=== PATIENT | male | born 1960 | race Two or more races ===

== ENCOUNTER 2020-08-09 14:34 | Outpatient (REF) | payer MEDICARE, MEDICAID, SELFPAY | END 2020-08-09 14:35 | disposition home or self-care (01) | LOC: HO.LAB 14:34 | PROVIDERS: Visit Provider Internal Medicine | DX: Z20.828 Contact with and (suspected) exposure to other viral communicable diseases (principal) | CPT/HCPCS: C9803; U0003 ==

== ENCOUNTER → 2021-11-23 14:36 | Outpatient (BNVA) | payer MEDICARE, MEDICAID, SELFPAY | PROVIDERS: PCP Student in an Organized Health Care Education/Training Program; Visit Provider Physician Assistant | DX: Z12.11 Encounter for screening for malignant neoplasm of colon (principal) | CPT/HCPCS: 99202 ==

== ENCOUNTER 2022-02-07 11:04 | Day surgery (SDC) | payer MEDICARE, MEDICAID, SELFPAY ==
[2022-02-01 15:32] VITALS: BMI 30.8
--- NOTE | 2022-02-06 12:08 | HO.ANESPROP2 ---
Documented by User: Micaela Mann NP 02/06/22 12:08 HPI - Anesthesia Eval Consult details Narrative: 61yo M for Colonoscopy PMFSH Active Problems Active Problems: All Active Problems (Updated 02/01/22 @ 15:27 by Karuna Eugene RN) Asthma (Acute) Encounter for screening colonoscopy (Acute) Past Medical History Medical History (Updated 02/01/22 @ 15:27 by Karuna Eugene RN) Asthma Elevated cholesterol Hx of sprain of wrist Family History Family History Mother Advanced dementia Diabetes HTN (hypertension) Father HTN (hypertension) Surgical History Surgical History (Updated 02/01/22 @ 15:26 by Karuna Eugene RN) Hx of colonoscopy Social History Social History (Updated 11/23/21 @ 15:08 by Suzy Shaikh PA-C) Household Members Other:: alone Alcohol intake: current Patient Tobacco Use Status: Never used Tobacco Use of substances other than those prescribed or required for medical reasons: No Are you DNR?: No Advance Directives: No Advance Directives Information Provided: Yes Recently lost weight without trying: No Nutrition Risks: No Nutritional Risk Current occupational status: disabled Meds Allergies Allergy/AdvReac Type Severity Reaction Status Date / Time No Known Allergies Allergy Unverified 05/12/20 15:15 Home Medications Medication Instructions Recorded Confirmed Last Taken Type albuterol sulfate 90 mcg/actuation 2 puff PO Q4H PRN Wheezing 11/23/21 02/01/22 Unknown History aerosol inhaler gemfibrozil 600 mg tablet 600 mg PO BID 11/23/21 02/01/22 Unknown History ibuprofen 600 mg tablet 600 mg PO BID PRN Pain 11/23/21 02/01/22 Unknown History zolpidem 10 mg tablet 10 mg PO BEDTIME 11/23/21 02/01/22 Unknown History Exam Exam Date and Time: February 06, 2022 1208 Height,Weight and Vital Signs: Height 5 ft 5 in Weight 84 kg Assessment and Plan Assessment Anesthesia Assessment: Chart Reviewed Documented by User: Nely Novoa MD 02/07/22 13:26 [facility] Past Medical History Medical History (Updated 02/01/22 @ 15:27 by Karuna Eugene RN) Asthma Elevated cholesterol Hx of sprain of wrist Family History Family History Mother Advanced dementia Diabetes HTN (hypertension) Father HTN (hypertension) Family history of problems with anesthesia: No Surgical History Surgical History (Updated 02/01/22 @ 15:26 by Karuna Eugene RN) Hx of colonoscopy History of Problems with Anesthesia: No Social History Social History (Updated 11/23/21 @ 15:08 by Suzy Shaikh PA-C) Household Members Other:: alone Alcohol intake: current Patient Tobacco Use Status: Never used Tobacco Use of substances other than those prescribed or required for medical reasons: No Are you DNR?: No Advance Directives: No Advance Directives Information Provided: Yes Recently lost weight without trying: No Nutrition Risks: No Nutritional Risk Current occupational status: disabled Meds Allergies Allergy/AdvReac Type Severity Reaction Status Date / Time No Known Allergies Allergy Unverified 05/12/20 15:15 Home Medications Medication Instructions Recorded Confirmed Last Taken Type albuterol sulfate 90 mcg/actuation 2 puff PO Q4H PRN Wheezing 11/23/21 02/01/22 Unknown History aerosol inhaler gemfibrozil 600 mg tablet 600 mg PO BID 11/23/21 02/01/22 Unknown History ibuprofen 600 mg tablet 600 mg PO BID PRN Pain 11/23/21 02/01/22 Unknown History zolpidem 10 mg tablet 10 mg PO BEDTIME 11/23/21 02/01/22 Unknown History Exam Height,Weight and Vital Signs: Height 5 ft 5 in Weight 84 kg Vital Signs Temp Pulse Resp BP Pulse Ox O2 Del Method 96.8 F 92 16 161/93 H 99 02/07/22 11:20 02/07/22 11:20 02/07/22 11:20 02/07/22 11:20 02/07/22 11:20 02/07/22 11:20 Airway Mallampati Class: II TM Dist: >3cm Neck ROM: Full Loose/Missing/Broken Teeth: No Heart: RRR Lungs: CTAB Assessment and Plan Assessment Anesthesia Assessment: Anesthesia Plan Discussed Final Anesthetic Review Family History of Problems with Anesthesia: No History of Problems with Anesthesia: No NPO: Yes ASA Class: II Final Preanesthetic Review: No Changes in Pt Med Stat, Meds/Allgs Chart Reviewed, Consent Obtained/Reviewed and Anes Risks/Benef Reviewed Patient Risk: Low Procedure Risk: Low Assessment/Block/Sedation in SS: Assess/Block/Sedation-SS Anesthetic Plan Anesthetic Plan: MAC: Disposition: Standard PACU
[2022-02-07 11:12] VITALS: BMI 29.1
[2022-02-07 11:20] VITALS: BP 161/93; PULSE 92; RESP 16; TEMP 36; O2SAT 99
[2022-02-07] MEDS: Lactated Ringers 1,000 ML 100 ML IVCONT (11:31)
--- NOTE | 2022-02-07 11:59 | MHC.SHP ---
Pre-Procedural Eval Section A Date of Service: 02/07/22 Section B Chief Complaint: screening Relevant Family History (Specify if Yes): No Relevant Social History: None Present Medications: see Short Stay Collaborative assessment Medical History: Significant History (Asthma Elevated cholesterol Hx of sprain of wrist) History of Previous Operations: Relevant previous surgery/procedure and date(s) (colonoscopy) Allergies: Allergies Allergy/AdvReac Type Severity Reaction Status Date / Time No Known Allergies Allergy Unverified 05/12/20 15:15 Review of Systems Sugical H&P ROS: Negative: Constitution, Cardiovascular, Respiratory, Neurological, Psychiatric, Hem-Onc, Allergic/Immunologic, Gastrointestinal, Genitourinary, Musculoskeletal, Integumentary, Endocrine and Eyes/Ears/Nose/Throat Exam Surgical H&P Exam: Normal: HEENT, Normal: Heart, Normal: Lungs, Normal: Extremities, Normal: Abdomen, Normal: Skin and Normal: Neurological Plan Diagnosis/Plan: Unchanged I have reviewed the history and physical and performed a pertinent physical examination on my patient. No changes have occurred unless specified.
--- NOTE | 2022-02-07 12:06 | PM.OP ---
Brief Operative Note Date of Service: 02/07/22 Pre-op diagnosis: colon screening Post-op diagnosis: same Procedure: see op note Surgeon: Mehnaz Rust MD Anesthesia: MAC Was an [employer] used for this Procedure?: No Estimated blood loss (mL): 0 Condition: stable Disposition: PACU
--- NOTE | 2022-02-07 12:07 | W.PM.OPN ---
Operative Note Operative Note Date of Service: 02/07/22 Narrative: Operative Information Procedure Description: Colonoscopy Indication: colon screening Anesthesia: MAC COLONOSCOPY Instrument: Olympus variable stiffness pediatric scope 190L Colonoscopy Monitoring: Vital signs and clinical assessment, continuous EKG monitoring, Pulse oximetry, Carbon Dioxide monitoring and blood pressure monitoring were done throughout the procedure. Colon withdrawal time was 9 minutes. Procedure: The patient was placed in the left lateral decubitis position and pre-procedure medications were administered. After a digital rectal examination of the ano-rectum, the video colonoscope was inserted into the rectum and advanced through the colon to the cecum/TI. The colonoscope was slowly withdrawn in a retrograde panoramic fashion and the colon mucosa was carefully examined including a retroflexed view of the rectum. Findings and interventions are described below. Procedure Difficulty: easy Findings: Terminal Ileum-normal right sided retroflexion: 5-7 mm sessile polyp removed with cold forceps Cecum:normal Ascending Colon: normal Transverse Colon -normal Descending Colon:normal Sigmoid Colon: 10 mm sessile polyp removed with cold snare Rectum: Retroflexion with small internal hemorrhoids, grade II Anorectum - internal hemorrhoids seen on forward view Colon preparation: [place] Bowel Preparation Scale Right colon; 2 Transverse colon: 2 Left colon; 2 (0 = Unprepared colon segment with mucosa not seen due to solid stool that cannot be cleared. 1 = Portion of mucosa of the colon segment seen, but other areas of the colon segment not well seen due to staining, residual stool and/or opaque liquid. 2 = Minor amount of residual staining, small fragments of stool and/or opaque liquid, but mucosa of colon segment seen well. 3 = Entire mucosa of colon segment seen well with no residual staining, small fragments of stool or opaque liquid) Impression and Post Procedure Diagnosis: polyps internal hemorrhoids Plan: High fiber diet leaflet Avoid straining at stool, epsom salts and sitz bath, anusol supps or cream Repeat Colonoscopy in 5-6 years or earlier if clinically indicated Above findings were reviewed with the patient and relevant handouts were provided if indicated.
[2022-02-07 13:13] VITALS: BP 110/72; PULSE 54; RESP 16; TEMP 36.2; O2SAT 99
[2022-02-07 13:28] VITALS: BP 130/88; PULSE 59; RESP 16; TEMP 36.2; O2SAT 100
== END 2022-02-07 13:55 | disposition home or self-care (01) ==
PROVIDERS: PCP Student in an Organized Health Care Education/Training Program; Visit Provider Internal Medicine Gastroenterology
PROC: 0DJD8ZZ Inspection of Lower Intestinal Tract, Via Natural or Artificial Opening Endoscopic (ICD-10-PCS; CPT 45378; principal; 2022-02-07 12:10)
DX: Z12.11 Encounter for screening for malignant neoplasm of colon (principal); D12.2 Benign neoplasm of ascending colon; D12.5 Benign neoplasm of sigmoid colon; K64.1 Second degree hemorrhoids; J45.909 Unspecified asthma, uncomplicated; Z79.1 Long term (current) use of non-steroidal anti-inflammatories (NSAID); Z79.899 Other long term (current) drug therapy
CPT/HCPCS: 45385; 45380; 88305

== ENCOUNTER → 2022-02-21 14:53 | Outpatient (BNVA) | payer MEDICARE, MEDICAID, SELFPAY | PROVIDERS: PCP Student in an Organized Health Care Education/Training Program; Visit Provider Physician Assistant | DX: K64.9 Unspecified hemorrhoids (principal); D12.6 Benign neoplasm of colon, unspecified | CPT/HCPCS: 99212 ==

== ENCOUNTER 2022-04-25 10:57 | Inpatient (IN) | payer MEDICARE, MEDICAID, SELFPAY ==
--- NOTE | ~2022-04-25 | US_ITS ---
EXAMINATION: US ABDOMEN LIMITED CLINICAL INFORMATION: Right upper quadrant pain, elevated LFTs.. COMPARISON: None TECHNIQUE: Real-time imaging of the right upper quadrant abdominal viscera. FINDINGS: PANCREAS: The pancreas is heterogeneous. No focal lesion seen.. LIVER: The liver is normal in size. The liver contour is normal. Parenchymal echogenicity is increased. No focal hepatic lesion. There is no intrahepatic biliary duct dilatation seen. Normal antegrade flow seen in the portal vein. GALLBLADDER: There is echogenic bile without echogenic stones. There is mild wall thickening measuring 0.45 cm. However the gallbladder is mildly enlarged with pericholecystic fluid collection. There is no tenderness with ultrasound probe. COMMON BILE DUCT: Normal in caliber measuring 0.34 cm in diameter. RIGHT KIDNEY: Normal. No hydronephrosis. No renal calculi or focal parenchymal lesions. The kidney measures 11.3 cm in maximum dimension. FREE FLUID: None. US/US abdomen limited IMPRESSION: Heterogeneous pancreas without enlargement. Echogenic bile but no wall thickening or tenderness in right upper quadrant. The gallbladder is distended mild pericholecystic fluid collection. Question acalculus cholecystitis. Correlate with pharmaceutical augmented HIDA scan.
--- NOTE | ~2022-04-25 | CT_ITS ---
EXAMINATION: CT ABDOMEN AND PELVIS WITH CONTRAST CLINICAL INFORMATION: Right upper quadrant and epigastric pain COMPARISON: Abdominal ultrasound earlier today TECHNIQUE: Multidetector volumetric images were obtained from the superior aspect of the liver through the pubic symphysis following administration 85 mL of Omnipaque 350 intravenous contrast. Sagittal and coronal reformatted images were obtained on the technologist's workstation. This CT examination was performed using dose optimization techniques as appropriate, variously including the following: *Automated exposure control *Adjustment of mA and/or kV according to patient size (this includes techniques or standardized protocols for targeted exams where dose is matched to indication/reason for exam; i.e. extremities or head) *Use of iterative reconstruction technique DLP: 686 mGy-cm FINDINGS: Visualized lung bases are well aerated. The liver demonstrates normal size, contour and attenuation. The gallbladder is mildly prominent in size but otherwise unremarkable. The pancreas is normal in size with relatively homogeneous enhancement. Some mild mesenteric stranding is suspected adjacent to the pancreatic tail, nonspecific. The spleen is normal in size although there appears to be some peripheral calcifications along the lateral surface of the spleen. Symmetrically enhancing kidneys. There is no hydronephrosis of either kidney. There are a few sub-5 mm renal hypodensities bilaterally which are too small to accurately characterize. The adrenal glands are unremarkable. Tiny hiatal hernia. The stomach is relatively decompressed. Normal caliber loops of small and large bowel. Mild colonic diverticulosis without CT evidence to suggest active diverticulitis. Normal caliber abdominal aorta demonstrating minimal atherosclerotic disease. No retroperitoneal lymphadenopathy. The bladder is normal in appearance. The prostate gland is normal in size. No gross free pelvic fluid. No inguinal lymphadenopathy. Mild diffuse degenerative changes of the spine. CT/CT abdomen pelvis w IV con IMPRESSION: -The pancreas demonstrates relatively homogeneous enhancement, however, there is suggestion of some mild mesenteric stranding adjacent to the pancreatic tail. A very mild pancreatitis would be within the differential. Correlation with amylase and lipase is recommended. Fleischner guidelines were followed.
--- NOTE | ~2022-04-25 | MR_ITS ---
EXAMINATION: MR ABDOMEN WITHOUT CONTRAST CLINICAL INFORMATION: Pancreatitis. Rule out stone. COMPARISON: Previous abdominal ultrasound and CT of the abdomen and pelvis 04/25/2022 TECHNIQUE: MR abdomen is performed without gadolinium contrast. MRCP sequences were also performed. FINDINGS: LUNG BASES: The visualized lung bases are unremarkable. LIVER, GALLBLADDER, AND BILIARY TREE: The liver is normal in size, smooth in contour, and normal in signal. No focal hepatic lesion. The gallbladder is upper normal in size measuring 3.5 x 10.7 cm in dimension on axial images. There is question of sludge or tiny gallstones in the gallbladder seen on coronal T2 image 18 series 8. The gallbladder wall is upper normal in thickness measuring 3 to 4 mm. There is pericholecystic fluid. There is no intra or extrahepatic biliary duct dilatation. The common bile duct measures 3 mm. No common bile duct stone is seen. PANCREAS: Pancreas is normal in size and signal. There is some increased T2 signal in the peripancreatic fat questionable for mild pancreatitis. No peripancreatic fluid collection. No ascites. The main pancreatic duct does not appear dilated measuring 2 mm. SPLEEN: Unremarkable. ADRENAL GLANDS: Unremarkable. KIDNEYS AND URETERS: The kidneys are normal in size and shape. No hydronephrosis. No perinephric stranding. GASTROINTESTINAL TRACT: No bowel obstruction. No ascites or fluid collection. ABDOMINAL WALL: No significant hernia is appreciated. LYMPH NODES: No lymphadenopathy. VASCULAR: Unremarkable. OSSEOUS STRUCTURES: Marrow signal normal. MR/MR MRCP IMPRESSION: Upper normal-size gallbladder. Upper normal thickness gallbladder wall and pericholecystic fluid. Question small gallstones or sludge in the gallbladder. Possible cholecystitis should be considered. Normal caliber intrahepatic and extrahepatic bile ducts. No common bile duct stone seen. Slight increased T2 signal surrounding pancreas questionable mild pancreatitis.
[2022-04-25 11:06] VITALS: BP 146/89; PULSE 67; RESP 20; TEMP 36.9; O2SAT 98; BMI 29.1
[2022-04-25 11:25] LABS: MANUAL DIFF FLAG NO
[2022-04-25 11:26] LABS: Basophils Percent Auto 0.4 % (0-2); Eosinophils Percent Auto 0.2 % (0-4); Hematocrit 44.6 % (42.0-52.0); Hemoglobin 15.9 g/dl (14.0-18.0); Imm Gran Abs Auto 0.02 X10*3/uL (0.00-0.03); Imm Gran Pct Auto 0.4 % (0.0-0.4); Lymphocytes Absolute Auto 0.6 X10*3/uL (1.2-4.9); Lymphocytes Percent Auto 10.2 % (20-40); Mean Corpuscular HGB Conc 35.7 g/dl (31.0-36.0); Mean Corpuscular Hemoglobin 35.2 pg (27.0-33.0); Mean Corpuscular Volume 98.7 fL (80.0-98.0); Mean Platelet Volume 9.5 fL (9.4-12.4); Monocytes Absolute Auto 0.5 X10*3/uL (0.1-1.2); Monocytes Percent Auto 9.5 % (2-11); Neutrophils Absolute Auto 4.4 x10*3/uL (2.0-8.3); Neutrophils Percent Auto 79.3 % (45-73); Platelet Count 146 X10*3/uL (160-400); Red Blood Count 4.52 X10*6/uL (4.60-5.80); Red Cell Distribution Width 12.6 % (11.0-16.0); White Blood Count 5.5 X10*3/uL (4.8-10.8)
[2022-04-25 11:37] LABS: Appearance Urine Cloudy; Color Urine Dark Yellow; Glucose Urine UA Negative (Negative); Leukocyte Esterase Urine Trace (Negative); Nitrite Urine Negative (Negative); PH 6.5 (5.0-9.0); Specific Gravity - Urine 1.025 (1.005-1.025); Urine Blood Negative (Negative); Urine Ketones 15 mg/dL (Negative); Urine Protein 30 (1+) mg/dL (Neg-Trace)
[2022-04-25 11:39] LABS: Bacteria Urine None Seen (None Seen); Hyaline Casts Urine 0-2 /LPF (0-2); RBC Urine 0-2 /HPF (0-2); Squamous Epithelial Cell Urine 0-2 /HPF (0-2); WBC Urine 0-5 /HPF (0-5)
[2022-04-25 12:09] LABS: Anion Gap 20 (12-20); Blood Urea Nitrogen 14 mg/dL (9-16); Calcium 9.7 mg/dL (8.4-10.2); Carbon Dioxide 22 mmol/L (22-29); Chloride 100 mmol/L (96-108); Creatinine Clr Calc Pharmacy 92.9; Estimated Glomerular Filt Rate > 60; Glucose Random 119 mg/dL (60-115); Potassium 3.9 mmol/L (3.3-5.1); Sodium 138 mmol/L (135-145)
[2022-04-25] MEDS: Acetaminophen 325 MG TABLET 975 MG PO (13:42)
[2022-04-25 13:52] LABS: Alanine Aminotransferase 141 U/L (0-40); Albumin Level 4.5 g/dL (3.5-5.0); Alkaline Phosphatase 170 U/L (39-117); Aspartate Amino Transferase 274 U/L (5-37); Bilirubin Direct 3.9 mg/dL (0.0-0.5); Bilirubin Total 5.6 mg/dL (0.0-1.0); Lipase 9375 U/L (8-78); Total Protein 7.6 g/dL (6.5-8.0)
--- NOTE | 2022-04-25 16:14 | ED_ITS ---
HPI - Back Pain/Injury General Chief Complaint: Back Pain/Injury Stated Complaint: abd pain, back pain Time Seen by Provider: 04/25/22 11:50 Source: patient Mode of arrival: ambulatory Limitations: no limitations History of Present Illness HPI Narrative: Patient comes in a room complaining of bilateral back pain. Patient states that he was walking, then he started feeling discomfort over the paraspinal muscles b ilateral. Patient states it hurt for about 2 hours yesterday., then the pain subsided. Later on the day yesterday, patient states that he was feeling the muscle burning sensation over the paraspinal muscles. Patient states that he has noticed that over the last few days, he has been having also abdominal pain, worse in the right upper quadrant. States that his urine has become darker intermittently over the last few weeks. Patient denies nausea vomiting or diarrhea. Related Data Home Medications Medication Instructions Recorded Confirmed albuterol sulfate 90 mcg/actuation 2 puff PO Q4H PRN Wheezing 11/23/21 04/25/22 aerosol inhaler gemfibrozil 600 mg tablet 600 mg PO BID 11/23/21 04/25/22 ibuprofen 600 mg tablet 600 mg PO BID PRN Pain 11/23/21 04/25/22 zolpidem 10 mg tablet 10 mg PO BEDTIME PRN Sleep 11/23/21 04/25/22 Previous Rx's Medication Instructions Recorded docusate sodium 100 mg capsule 200 mg PO BEDTIME #60 caps 02/21/22 (Colace) hydrocortisone 2.5 % topical cream 1 appl [place] BEDTIME PRN hemorrhoids 02/21/22 with perineal applicator #30 grams (Proctosol HC) polyethylene glycol 3350 17 17 g PO DAILY #510 grams 02/21/22 gram/dose oral powder (Miralax) Allergies Allergy/AdvReac Type Severity Reaction Status Date / Time No Known Allergies Allergy Verified 02/21/22 14:54 Review of Systems Review of Systems: Constitutional : No Weight loss, No Fever, No Chills, No Night Sweats, No Fatigue, No Malaise ENT/Mouth : No Hearing loss, No Ear Pain, No Nasal Congestion, No Sinus Pain, No Hoarseness, No sore throat, No Rhinorrhea, No Swallowing Difficulty Eyes: No Eye Pain, No Swelling, No Redness, No Foreign Body, No Discharge, No Vision Changes Cardiovascular : No Chest Pain, No SOB, No Dyspnea on Exertion, No Orthopnea, No Edema, No Palpitations Respiratory : No Cough, No Sputum, No Wheezing, No Smoke Exposure, No Dyspnea Gastrointestinal : No Nausea, No Vomiting, No Diarrhea, No Constipation, complaining of right upper quadrant pain, dark urine Genitourinary : nNo Dysuria, No Urinary Frequency, No Hematuria, No Urinary Incontinence, No Urgency, No Flank Pain, No Urinary Flow Changes, No Hesitancy Musculoskeletal : Complaining of bilateral para muscle pain mid back, no CVA tenderness No joint pain, No Myalgias, No Joint Swelling Skin : No Skin Lesions, No rash Neuro : No Weakness, No Numbness, No Paresthesias, No Loss of Consciousness, No Dizziness, No Headache Psych : No Anxiety/Panic, No Depression, No SI/HI/AH/VH, No Social Issues, Heme/Lymph: No Bruising, No Bleeding,No Lymphadenopathy Endocrine : No Polyuria, No Polydipsia, No Temperature Intolerance PMFSH Past Medical History Medical History Asthma Elevated cholesterol Hx of sprain of wrist Surgical History Hx of colonoscopy Family History Family History Mother Advanced dementia Diabetes HTN (hypertension) Father HTN (hypertension) Social History Social History Household Members Other:: alone Alcohol intake: current Patient Tobacco Use Status: Never used Tobacco Advance Directives: No Advance Directives Information Provided: No Current occupational status: disabled Physical Exam Vital Signs: Vital Signs: Last Vital Signs Temp 98.9 F 04/25/22 16:20 Pulse 66 04/25/22 16:20 Resp 18 04/25/22 19:46 BP 174/86 H 04/25/22 16:20 Pulse Ox 97 04/25/22 16:20 O2 Del Method 04/25/22 16:20 BMI result Body Mass Index 29.1 Const: Other: Appearance: Alert. Oriented X3. No acute distress. Eyes: Pupils equal, round and reactive to light. ENT: Pharynx normal. Neck: Normal inspection. Neck supple. No lymph nodes noted. No crepitus CVS: Normal heart rate and rhythm. Pulses normal. Normal S1 and S2 Respiratory: No respiratory distress. Breath sounds normal. No Wheezing. No rales Abdomen: Soft, no distension, mild tenderness to palpation in the entire abdomen and except the left lower quadrant. Tenderness since to be more intense at the right upper quadrant. Skin: Skin warm and dry. Normal skin color. Normal skin turgor. Extremities: No lower extremity edema. No Lacerations. No Rash Neuro: Oriented X 3. No motor deficit. No sensory deficit. Moving all extremities. No slurred speech. CN 2 through 12 grossly intact Psych: calm, cooperative, normal affect Course Course Course Narrative: Patient receiving IV morphine for pain control. Patient's LFTs are elevated. Ultrasound shows that the gallbladder is distended with mild pericholecystic fluid collection, question of a calculus cholecystitis, recommendation: Correlate with pharmaceutical augmented HIDA scan Lipase is elevated, above 9000, CT scan shows possible mild pancreatitis It is likely that the patient had cholecystitis and passed a stone. Patient will be admitted by Internal Medicine, and surgery will be consulted in the morning. Patient received morphine for pain control, did not work well, patient now received 1 dose of Dilaudid. I discussed the patient with Dr. Damon, patient being admitted MDM - Back Pain/Injury Lab Data Result diagrams: 04/25/22 11:20 04/25/22 11:20 Labs: Lab Results 04/25/22 04/25/22 04/25/22 Range/Units 11:17 11:20 11:20 WBC 5.5 (4.8-10.8) X10*3/uL RBC 4.52 L (4.60-5.80) X10*6/uL Hgb 15.9 (14.0-18.0) g/dl Hct 44.6 (42.0-52.0) % MCV 98.7 H (80.0-98.0) fL MCH 35.2 H (27.0-33.0) pg MCHC 35.7 (31.0-36.0) g/dl RDW 12.6 (11.0-16.0) % Plt Count 146 L (160-400) X10*3/uL MPV 9.5 (9.4-12.4) fL Immature Gran % (Auto) 0.4 (0.0-0.4) % Neut % (Auto) 79.3 H (45-73) % Lymph % (Auto) 10.2 L (20-40) % [place] % (Auto) 9.5 (2-11) % Eos % (Auto) 0.2 (0-4) % Baso % (Auto) 0.4 (0-2) % Lymph # (Auto) 0.6 L (1.2-4.9) X10*3/uL [place] # (Auto) 0.5 (0.1-1.2) X10*3/uL Eos # (Auto) 0.0 (0.0-0.4) X10*3/uL Baso # (Auto) 0.0 (0.0-0.2) X10*3/uL Abs Immat Gran (auto) 0.02 (0.00-0.03) X10*3/uL Absolute Neuts (auto) 4.4 (2.0-8.3) x10*3/uL Absolute Nucleated RBC 0.000 (0.0-0.012) X10*3/uL Nucleated RBC % (auto) 0.0 (0.0-0.2) /100WBC Sodium 138 (135-145) mmol/L Potassium 3.9 (3.3-5.1) mmol/L Chloride 100 (96-108) mmol/L Carbon Dioxide 22 (22-29) mmol/L Anion Gap 20 (12-20) BUN 14 (9-16) mg/dL Creatinine 0.79 (0.5-1.4) mg/dL Estim Creat Clear Calc 92.9 Estimated GFR > 60 Random Glucose 119 H (60-115) mg/dL Calcium 9.7 (8.4-10.2) mg/dL Total Bilirubin 5.6 H (0.0-1.0) mg/dL Direct Bilirubin 3.9 H (0.0-0.5) mg/dL AST 274 H (5-37) U/L ALT 141 H (0-40) U/L Alkaline Phosphatase 170 H (39-117) U/L Total Protein 7.6 (6.5-8.0) g/dL Albumin 4.5 (3.5-5.0) g/dL Triglycerides 131 mg/dL Lipase 9375 H (8-78) U/L Urine Color Dark Yellow Urine Appearance Cloudy Urine pH 6.5 (5.0-9.0) Ur Specific [place] 1.025 (1.005-1.025) Urine Protein 30 (1+) H (Neg-Trace) mg/dL Urine Glucose (UA) Negative (Negative) mg/dL Urine Ketones 15 (Negative) mg/dL Urine Blood Negative (Negative) Urine Nitrite Negative (Negative) Ur Leukocyte Esterase Trace H (Negative) Urine RBC 0-2 (0-2) /HPF Urine WBC 0-5 (0-5) /HPF Ur Squamous Epith Cells 0-2 (0-2) /HPF Urine Bacteria None Seen (None Seen) Hyaline Casts 0-2 (0-2) /LPF Imaging Data US - abdomen: Radiologist's impression: FINDINGS: PANCREAS: The pancreas is heterogeneous. No focal lesion seen.. LIVER:? The liver is normal in size. The liver contour is normal. Parenchymal echogenicity is increased. No focal hepatic lesion. There is no intrahepatic biliary duct dilatation seen. Normal antegrade flow seen in the portal vein. GALLBLADDER:? There is echogenic bile without echogenic stones. There is mild wall thickening measuring 0.45 cm. However the gallbladder is mildly enlarged with pericholecystic fluid collection. There is no tenderness with ultrasound probe. COMMON BILE DUCT: Normal in caliber measuring 0.34 cm in diameter. RIGHT KIDNEY: Normal. No hydronephrosis. No renal calculi or focal parenchymal lesions. The kidney measures 11.3 cm in maximum dimension. FREE FLUID: None. US/US abdomen limited IMPRESSION: Heterogeneous pancreas without enlargement. ? Echogenic bile but no wall thickening or tenderness in right upper quadrant. The gallbladder is distended mild pericholecystic fluid collection. Question acalculus cholecystitis. Correlate with pharmaceutical augmented HIDA scan. CT scan - abdomen: Radiologist's impression: [address] [address] [address] Scan Report Signed Patient: Jimmy Ayala MR#: [id number] : 1960 Acct:[id number] Age/Sex: 62 / M ADM Date: 04/25/22 Loc: HO.ED Attending Dr: Ordering Physician: Chey Hogan MD Date of Service: 04/25/22 Procedure(s): CT abdomen pelvis w IV con Accession Number(s): [id number] cc: Chey Hogan MD~ EXAMINATION: CT ABDOMEN AND PELVIS WITH CONTRAST? CLINICAL INFORMATION: Right upper quadrant and epigastric pain? COMPARISON: Abdominal ultrasound earlier today? TECHNIQUE: Multidetector volumetric images were obtained from the superior aspect of the liver through the pubic symphysis following administration 85 mL of Omnipaque 350 intravenous contrast. Sagittal and coronal reformatted images were obtained on the technologist's workstation.? This CT examination was performed using dose optimization techniques as appropriate, variously including the following: *Automated exposure control *Adjustment of mA and/or kV according to patient size (this includes techniques or standardized protocols for targeted exams where dose is matched to indication/reason for exam; i.e. extremities or head) *Use of iterative reconstruction technique DLP: 686 mGy-cm FINDINGS: Visualized lung bases are well aerated. The liver demonstrates normal size, contour and attenuation. The gallbladder is mildly prominent in size but otherwise unremarkable. The pancreas is normal in size with relatively homogeneous enhancement. Some mild mesenteric stranding is suspected adjacent to the pancreatic tail, nonspecific. The spleen is normal in size although there appears to be some peripheral calcifications along the lateral surface of the spleen. Symmetrically enhancing kidneys. There is no hydronephrosis of either kidney. There are a few sub-5 mm renal hypodensities bilaterally which are too small to accurately characterize. The adrenal glands are unremarkable. Tiny hiatal hernia. The stomach is relatively decompressed. Normal caliber loops of small and large bowel. Mild colonic diverticulosis without CT evidence to suggest active diverticulitis. Normal caliber abdominal aorta demonstrating minimal atherosclerotic disease. No retroperitoneal lymphadenopathy. The bladder is normal in appearance. The prostate gland is normal in size. No gross free pelvic fluid. No inguinal lymphadenopathy. Mild diffuse degenerative changes of the spine. CT/CT abdomen pelvis w IV con IMPRESSION: -The pancreas demonstrates relatively homogeneous enhancement, however, there is suggestion of some mild mesenteric stranding adjacent to the pancreatic tail. A very mild pancreatitis would be within the differential. Correlation with amylase and lipase is recommended.? ? Fleischner guidelines were followed. Critical Care Time Critical Care Time Critical Care Time: Yes Total Critical Care Time: 40 Attestation: I have personally provided critical care time. Time includes review of lab data, radiology results, discussion with consultants, and monitoring for potential decompensation. Intervention performed as documented. Discharge Plan Discharge Clinical Impression: Acalculous cholecystitis, Acute pancreatitis Patient Disposition: Admitted As Inpatient Prescriptions: No Action ibuprofen 600 mg tablet 600 mg PO BID PRN (Reason: Pain) albuterol sulfate 90 mcg/actuation HFA aerosol inhaler 2 puff PO Q4H PRN (Reason: Wheezing) gemfibrozil 600 mg tablet 600 mg PO BID zolpidem 10 mg tablet 10 mg PO BEDTIME PRN (Reason: Sleep) hydrocortisone [Proctosol HC] 2.5 % cream with perineal applicator 1 appl [place] BEDTIME PRN (Reason: hemorrhoids) Qty: 30 3RF docusate sodium [Colace] 100 mg capsule 200 mg PO BEDTIME Qty: 60 5RF polyethylene glycol 3350 [Miralax] 17 gram/dose powder 17 g PO DAILY Qty: 510 2RF
[2022-04-25 16:20] VITALS: BP 174/86; PULSE 66; RESP 16; TEMP 37.2; O2SAT 97
[2022-04-25 19:46] VITALS: RESP 18
[2022-04-25] MEDS: Morphine Sulfate 4 MG/ML CARTRIDGE IVPUSH (19:46)
[2022-04-25] MEDS: 0.9 % Sodium Chloride 1,000 ML 999 ML IVCONT (19:47)
[2022-04-25 20:02] LABS: Triglycerides 131 mg/dL
[2022-04-25] MEDS: iohexoL 350 MG/ML 100 ML INFUS..BTL IV (20:03)
--- NOTE | 2022-04-25 20:22 | PHA.MEDREC ---
Pharmacy Consult ? Medication Reconciliation Pharmacy has completed the medication reconciliation.
[2022-04-25 21:42] VITALS: RESP 16
[2022-04-25] MEDS: HYDROmorphone HCl 1 MG/ML SYRINGE IVPUSH (21:42)
--- NOTE | 2022-04-25 23:46 | PM.IMHP ---
History of Present Illness Date of Service: 04/25/22 Chief Complaint: abd pain 62-year-old male with a past medical history of asthma, hyperlipidemia presented to the hospital today with a chief complaint of abdominal pain. Patient reports that for the past 1 week he has been having intermittent episodes of abdominal pain, located on the bilateral flanks, epigastrium radiating to the back; worsens with eating. Associated with Nausea and vomiting. Mentioned that he drinks alcohol on the weekends. Last drink was on Saturday. Denies any fevers and chills. Denies any diarrhea. Denies any chest pain palpitations lightheadedness or dizziness. Review of all other systems is negative except mentioned above ER course: Per ER team patient noted to have epigastric tenderness, lipase elevated concerning for acute pancreatitis. CT scan showed possible acute cholecystitis. LFTs were elevated. Concern for possible gallstone that has passed. Discussed with general surgery who suggested admission to the medicine service and to give antibiotics. Patient received Zosyn. Admitted for further management. [facility] Medical History Asthma Elevated cholesterol Hx of sprain of wrist Family History Mother Advanced dementia Diabetes HTN (hypertension) Father HTN (hypertension) Surgical History Hx of colonoscopy Social History Household Members: None Household Members Other:: alone Housing: Apartment Do you presently have visiting nurse or other home services: No Alcohol intake: current Alcohol intake frequency: a few times a week Patient Tobacco Use Status: Never used Tobacco service: No Current occupational status: disabled Meds Allergies Allergy/AdvReac Type Severity Reaction Status Date / Time No Known Allergies Allergy Verified 02/21/22 14:54 Active Medications: Current Medications Albuterol Sulfate (Albuterol Sulfate 90 Mcg 8 Gm Inhaler) 2 puff INHALE Q4H PRN PRN Reason: Wheezing Docusate Sodium (Docusate Sodium 100 Mg Capsule) 200 mg PO BEDTIME NICHOL Gemfibrozil (Gemfibrozil 600 Mg Tablet) 600 mg PO BID NICHOL Heparin Sodium (Porcine) (Heparin Sodium,Porcine 5,000 Unit/Ml Vial) 5,000 unit SUBCUT Q8H NICHOL Hydrocortisone (Hydrocortisone 2.5 % Rectal Cr 30 Gm Tube) 1 appl NM BEDTIME PRN PRN Reason: hemorrhoids Hydromorphone HCl (Hydromorphone Hcl 0.5 Mg/0.5 Ml Syringe) 0.5 mg IVPUSH Q4H PRN; Protocol PRN Reason: Pain, Severe (Pain Scale 7-10) Sodium Chloride (Ns) 1,000 mls @ 100 mls/hr IVCONT .Q10H NICHOL Melatonin (Melatonin 3 Mg Tablet) 6 mg PO BEDTIME PRN PRN Reason: Insomnia Pharmacy Consult (Consult Rx Perform Med Rec) 1 each MISCELLANE ONCE PRN PRN Reason: Consult order Polyethylene Glycol (Polyethylene Glycol 3350 17 Gm Powd.Pack) 17 gm PO DAILY [facility] Senna (Sennosides 8.6 Mg Tablet) 17.2 mg PO BEDTIME PRN PRN Reason: Constipation Sodium Chloride (0.9 % Sodium Chloride Flush 3 Ml Syringe) 3 ml IVFLUSH QSHIFT NICHOL Zolpidem Tartrate (Zolpidem Tartrate 5 Mg Tablet) 10 mg PO BEDTIME PRN PRN Reason: Sleep Home Medications Medication Instructions Recorded Confirmed Last Taken Type albuterol sulfate 90 mcg/actuation 2 puff PO Q4H PRN Wheezing 11/23/21 04/25/22 Unknown History aerosol inhaler gemfibrozil 600 mg tablet 600 mg PO BID 11/23/21 04/25/22 04/25/22 History ibuprofen 600 mg tablet 600 mg PO BID PRN Pain 11/23/21 04/25/22 Unknown History zolpidem 10 mg tablet 10 mg PO BEDTIME PRN Sleep 11/23/21 04/25/22 Unknown History Physical Exam Vital Signs and Narrative: Vital Signs: Last Vital Signs Temp 98.9 F 04/25/22 16:20 Pulse 66 04/25/22 16:20 Resp 16 04/25/22 21:42 BP 174/86 H 04/25/22 16:20 Pulse Ox 97 04/25/22 16:20 O2 Del Method 04/25/22 16:20 BMI result Body Mass Index 29.1 Gen: Appears be in no acute distress HEENT: NCAT, Moist mucosa. Pulmonary: Vesicular breath sounds, fair air entry CVS: Normal S1-S2 Abdomen: BS+, Soft, Tender in the epigastrium, no guarding no rigidity Extremities: Warm well perfused Neuro: Alert and awake. Results Labs CBC and Chem 7: 04/26/22 06:39 04/27/22 06:14 Labs: Laboratory Results - last 24 hr 04/25/22 04/25/22 04/25/22 11:17 11:20 11:20 MCV 98.7 H MCH 35.2 H MCHC 35.7 RDW 12.6 Plt Count 146 L MPV 9.5 Immature Gran % (Auto) 0.4 Neut % (Auto) 79.3 H Lymph % (Auto) 10.2 L [place] % (Auto) 9.5 Eos % (Auto) 0.2 Baso % (Auto) 0.4 Lymph # (Auto) 0.6 L [place] # (Auto) 0.5 Eos # (Auto) 0.0 Baso # (Auto) 0.0 Abs Immat Gran (auto) 0.02 Absolute Neuts (auto) 4.4 Absolute Nucleated RBC 0.000 Nucleated RBC % (auto) 0.0 Anion Gap 20 Estim Creat Clear Calc 92.9 Estimated GFR > 60 Random Glucose 119 H Calcium 9.7 Total Bilirubin 5.6 H Direct Bilirubin 3.9 H AST 274 H ALT 141 H Alkaline Phosphatase 170 H Total Protein 7.6 Albumin 4.5 Triglycerides 131 Lipase 9375 H Urine Color Dark Yellow Urine Appearance Cloudy Urine pH 6.5 Ur Specific [place] 1.025 Urine Protein 30 (1+) H Urine Glucose (UA) Negative Urine Ketones 15 Urine Blood Negative Urine Nitrite Negative Ur Leukocyte Esterase Trace H Urine RBC 0-2 Urine WBC 0-5 Ur Squamous Epith Cells 0-2 Urine Bacteria None Seen Hyaline Casts 0-2 Imaging Radiologist's Impressions: Impressions Abdomen Ultrasound 04/25/22 17:50 IMPRESSION: Heterogeneous pancreas without enlargement. Echogenic bile but no wall thickening or tenderness in right upper quadrant. The gallbladder is distended mild pericholecystic fluid collection. Question acalculus cholecystitis. Correlate with pharmaceutical augmented HIDA scan. Abdomen/Pelvis CT 04/25/22 20:05 IMPRESSION: -The pancreas demonstrates relatively homogeneous enhancement, however, there is suggestion of some mild mesenteric stranding adjacent to the pancreatic tail. A very mild pancreatitis would be within the differential. Correlation with amylase and lipase is recommended. Fleischner guidelines were followed. Assessment and Plan (1) Acalculous cholecystitis: Status: Acute (2) Acute pancreatitis: Status: Acute Plan 62-year-old male with a past medical history of asthma, hyperlipidemia presented to the hospital today with a chief complaint of abdominal pain. noted to have following Acute pancreatitis: Likely in the setting of gallstones versus alcohol use. Supportive care. NPO. IV fluids. Acute cholecystitis: As noted on the CT scan. On IV Zosyn. General surgery aware of the patient. Follow up cultures. Transaminitis: Likely in setting of gallstone that has passed. Trend liver enzymes. Will also obtain acute hepatitis panel . Gastroenterology consult history of asthma: Stable DVT prophylaxis: Subcu heparin Code status: Full code Quality Stroke Does the patient have a stroke diagnosis?: No VTE Prior VTE?: No VTE Risk Level:: Medical - moderate - high VTE Device Contraindication: Treatment Not Indicated VTE Drug Contraindication: N/A - Med Ordered
[2022-04-26] VITALS (7 sets, daily range): BP systolic 146–170; BP diastolic 80–94; PULSE 64–70; RESP 12–18; TEMP 36.2–37.1; O2SAT 97–99
[2022-04-26] MEDS: Heparin Sodium,Porcine 5,000 UNIT/ML VIAL 5000 UNIT SUBCUT ×4 (00:17→23:58)
[2022-04-26] MEDS: 0.9 % Sodium Chloride Flush 3 ML SYRINGE IVFLUSH (00:17)
[2022-04-26] MEDS: 0.9 % Sodium Chloride 1,000 ML 100 ML IVCONT ×3 (00:17→18:23)
[2022-04-26 07:01] LABS: Hemoglobin 14.5 g/dl (14.0-18.0); Mean Corpuscular HGB Conc 36.3 g/dl (31.0-36.0); Mean Corpuscular Hemoglobin 35.4 pg (27.0-33.0); Mean Corpuscular Volume 97.6 fL (80.0-98.0); Platelet Count 118 X10*3/uL (160-400); Red Cell Distribution Width 12.5 % (11.0-16.0)
[2022-04-26 07:17] LABS: Anion Gap 15 (12-20); Blood Urea Nitrogen 12 mg/dL (9-16); Calcium 8.7 mg/dL (8.4-10.2); Carbon Dioxide 20 mmol/L (22-29); Chloride 106 mmol/L (96-108); Creatinine Clr Calc Pharmacy 122.3; Estimated Glomerular Filt Rate > 60; Glucose Random 95 mg/dL (60-115); Sodium 137 mmol/L (135-145)
[2022-04-26 07:21] LABS: Alanine Aminotransferase 177 U/L (0-40); Albumin Level 3.9 g/dL (3.5-5.0); Alkaline Phosphatase 168 U/L (39-117); Aspartate Amino Transferase 272 U/L (5-37); Bilirubin Direct 2.5 mg/dL (0.0-0.5); Bilirubin Total 3.7 mg/dL (0.0-1.0); Total Protein 6.5 g/dL (6.5-8.0)
--- NOTE | 2022-04-26 07:59 | PM.GICN ---
History of Present Illness Data of Consult Service Date: 04/26/22 Requesting physician: Malcolm Damon Primary Care Provider: Nadya Mauro MD [facility] Reason for consult: Transaminitis 62 YM with asthma, hyperlipidemia seen [place] [facility] [place] 04/25[place] with abdominal pain.? Patient reports that for the past 1 week he has been having intermittent episodes of UPPER abdominal pain,? located on the bilateral flanks, epigastrium radiating to the back; worsens with eating On arrival to the ER, pain constant and 10/10 in intensity. PT complains of nausea and vomiting and denies fever chills or sweating or diarrhea. Today he notes improvement in abd pain to 6/10 and notes pain mostly on the left side. Mentioned that he drinks alcohol on the weekends (1 bottle of wine or 10 nips of hard liquor.? Last drink was on Saturday. Pt denies recent change in appetite or wt loss Denies any chest pain palpitations lightheadedness or dizziness.? Pt reports being healthy and this is his first hospitalization. Pt is retired and previously worked in [employer] for the [employer] [facility] [employer] [place]. He has 2 children. Family hx is positive for GB disease in a brother, a sister and a nephew. Patient denies known family history of colon polyps or colon cancer. ER course: Per ER team patient noted to have epigastric tenderness, lipase elevated concerning for acute pancreatitis.? CT scan showed possible acute cholecystitis.? LFTs were elevated.? Concern for possible gallstone that has passed.? Discussed with general surgery who suggested admission to the medicine service and to give antibiotics.? Patient received Zosyn.? Admitted for further management. IMAGING STUDIES: 04/25/[address] SCAN SHOWED: The pancreas demonstrates relatively homogeneous enhancement, however, there is suggestion of some mild mesenteric stranding adjacent to the pancreatic tail. A very mild pancreatitis would be within the differential. Correlation with amylase and lipase is recommended.? ? Review of Systems Constitutional: Constitutional: Denies chills and Denies fever(s) Cardiovascular: Cardiovascular: Denies chest pain, Denies dyspnea and Denies dyspnea on exertion Respiratory: Respiratory: Denies cough, Denies dyspnea and Denies dyspnea on exertion Gastrointestinal: Gastrointestinal: Denies hematochezia and Denies change in bowel habits Genitourinary: Genitourinary: Denies hematuria and Denies difficulty urinating Musculoskeletal: Musculoskeletal: Denies back pain and Denies limited range of motion Neurologic: Denies focal weakness and Denies convulsions Psychiatric: Psychiatric: Denies depression and Denies mood swings PMFSH Past Medical History Medical History Asthma Elevated cholesterol Hx of sprain of wrist Family History Family History Mother Advanced dementia Diabetes HTN (hypertension) Father HTN (hypertension) Surgical History Surgical History Hx of colonoscopy Social History Social History Household Members: None Household Members Other:: alone Housing: Apartment Do you presently have visiting nurse or other home services: No Alcohol intake: current Alcohol intake frequency: a few times a week Patient Tobacco Use Status: Never used Tobacco service: No Current occupational status: disabled Meds Allergies Allergy/AdvReac Type Severity Reaction Status Date / Time No Known Allergies Allergy Verified 02/21/22 14:54 Active Medications: Current Medications Albuterol Sulfate (Albuterol Sulfate 90 Mcg 8 Gm Inhaler) 2 puff INHALE Q4H PRN PRN Reason: Wheezing Docusate Sodium (Docusate Sodium 100 Mg Capsule) 200 mg PO BEDTIME NICHOL Gemfibrozil (Gemfibrozil 600 Mg Tablet) 600 mg PO BID NICHOL Heparin Sodium (Porcine) (Heparin Sodium,Porcine 5,000 Unit/Ml Vial) 5,000 unit SUBCUT Q8H [facility] Last Admin: 04/26/22 00:17 Dose: 5,000 unit Hydrocortisone (Hydrocortisone 2.5 % Rectal Cr 30 Gm Tube) 1 appl [place] BEDTIME PRN PRN Reason: hemorrhoids Hydromorphone HCl (Hydromorphone Hcl 0.5 Mg/0.5 Ml Syringe) 0.5 mg IVPUSH Q4H PRN; Protocol PRN Reason: Pain, Severe (Pain Scale 7-10) Sodium Chloride (Ns) 1,000 mls @ 100 mls/hr IVCONT .Q10H [facility] Last Admin: 04/26/22 00:17 Dose: 100 mls/hr Melatonin (Melatonin 3 Mg Tablet) 6 mg PO BEDTIME PRN PRN Reason: Insomnia Pharmacy Consult (Consult Rx Perform Med Rec) 1 each MISCELLANE ONCE PRN PRN Reason: Consult order Polyethylene Glycol (Polyethylene Glycol 3350 17 Gm Powd.Pack) 17 gm PO DAILY N[facility] Senna (Sennosides 8.6 Mg Tablet) 17.2 mg PO BEDTIME PRN PRN Reason: Constipation Sodium Chloride (0.9 % Sodium Chloride Flush 3 Ml Syringe) 3 ml IVFLUSH QSHIFT NICHOL Last Admin: 04/26/22 00:17 Dose: 3 ml Zolpidem Tartrate (Zolpidem Tartrate 5 Mg Tablet) 10 mg PO BEDTIME PRN PRN Reason: Sleep Home Medications Medication Instructions Recorded Confirmed Last Taken Type albuterol sulfate 90 mcg/actuation 2 puff PO Q4H PRN Wheezing 11/23/21 04/25/22 Unknown History aerosol inhaler gemfibrozil 600 mg tablet 600 mg PO BID 11/23/21 04/25/22 04/25/22 History ibuprofen 600 mg tablet 600 mg PO BID PRN Pain 11/23/21 04/25/22 Unknown History zolpidem 10 mg tablet 10 mg PO BEDTIME PRN Sleep 11/23/21 04/25/22 Unknown History Physical Exam Vital Signs: Vital Signs: Last Vital Signs Temp 98.6 F 04/26/22 06:00 Pulse 69 04/26/22 06:00 Resp 16 04/26/22 06:00 BP 152/81 H 04/26/22 06:00 Pulse Ox 97 04/26/22 06:00 O2 Del Method 04/26/22 06:00 BMI result Body Mass Index 29.1 Const: General: no acute distress Nutritional Appearance: overweight Orientation/consciousness: patient oriented x3 Limitations: no limitations HEENT: Head: Yes normal to inspection Ears: hearing grossly normal bilaterally Eyes: Sclerae: sclerae normal Pupils: Equal, round and reactive pupils present Neck: Neck: Yes normal visual inspection Chest: Chest palpation & inspection: normal inspection of the chest Resp: Effort & Inspection: normal respiratory effort Auscultation: clear to auscultation bilaterally Cardio: Palpation: normal PMI Rate: regular rate Rhythm: regular rhythm Heart sounds: S1 normal heart sound present, S2 normal heart sound present and no murmurs GI: Palpation (GI): Soft to palpation, Tenderness to palpation present (GI) (Moderate diffuse upper abdominal tenderness) and No hepatosplenomegaly present Auscultation: normal bowel sounds Rectal Exam - Male: Yes deferred Skin: General skin exam: no rashes or lesions noted Neuro: General: patient oriented x3, gait normal and moves all extremities Cranial nerves: Yes Equal, round and reactive pupils present Psych: Appearance: grossly normal Mental Status: mental status grossly normal Results Labs CBC & Chem 7: 04/26/22 06:39 04/27/22 06:14 Labs: Short CBC 04/25/22 04/26/22 Range/Units 11:20 06:39 WBC 5.5 5.0 (4.8-10.8) X10*3/uL Hgb 15.9 14.5 (14.0-18.0) g/dl Hct 44.6 40.0 L (42.0-52.0) % Plt Count 146 L 118 L (160-400) X10*3/uL BMP 04/25/22 04/26/22 11:20 06:39 Sodium 138 137 Potassium 3.9 4.0 Chloride 100 106 Carbon Dioxide 22 20 L BUN 14 12 Creatinine 0.79 0.60 Calcium 9.7 8.7 D Liver Function 04/25/22 04/26/22 Range/Units 11:20 06:39 Total Bilirubin 5.6 H 3.7 H (0.0-1.0) mg/dL Direct Bilirubin 3.9 H 2.5 H (0.0-0.5) mg/dL AST 274 H 272 H (5-37) U/L ALT 141 H 177 H (0-40) U/L Alkaline Phosphatase 170 H 168 H (39-117) U/L Albumin 4.5 3.9 (3.5-5.0) g/dL Urine 04/25/22 Range/Units 11:17 Urine Color Dark Yellow Urine Appearance Cloudy Urine pH 6.5 (5.0-9.0) Ur Specific [place] 1.025 (1.005-1.025) Urine Protein 30 (1+) H (Neg-Trace) mg/dL Urine Glucose (UA) Negative (Negative) mg/dL Assessment and Plan (1) Acalculous cholecystitis: Status: Acute (2) Acute pancreatitis: Status: Acute Plan 62 YM with asthma, hyperlipidemia seen [place] [facility] [place].? PT complains of nausea and vomiting and denies fever chills or sweating or diarrhea. Today he notes improvement in abd pain to 6/10 and notes pain mostly on the left side. Mentioned that he drinks alcohol on the weekends (1 bottle of wine or 10 nips of hard liquor.? Last drink was on Saturday. Pt denies recent change in appetite or wt loss Labs showed elevated LFTs and lipase concerning for acute biliary pancreatitis.? IMAGING STUDIES: 04/25/[address] SCAN SHOWED: The pancreas demonstrates relatively homogeneous enhancement, however, there is suggestion of some mild mesenteric stranding adjacent to the pancreatic tail. A very mild pancreatitis would be within the differential. Correlation with amylase and lipase is recommended.? RECOMMENDATIONS: 1. Agree with IVF, pain medications and anti emetics 2. Proceed with MRCP 3. Evaluation by Gen Surgery for Lap Meghann once pancreatitis resolves given findings on MRCP MRCP SHOWED: Upper normal-size gallbladder. Upper normal thickness gallbladder wall and pericholecystic fluid. Question small gallstones or sludge in the gallbladder. Possible cholecystitis should be considered. Normal caliber intrahepatic and extrahepatic bile ducts. No common bile duct stone seen. Slight increased T2 signal surrounding pancreas questionable mild pancreatitis.? Procedures Date of Service Date of Service: 04/26/22
[2022-04-26] MEDS: polyethylene glycoL 3350 17 GM POWD.PACK PO (08:26)
--- NOTE | 2022-04-26 08:27 | P.CONGS_ITS ---
History of Present Illness Consult details Consult date: 04/26/22 Narrative: 62-year-old male referred for keratitis with lesion of acalculous cholecystitis. He was admitted by the ER last night. He had complained of epigastric pain which she says she has had for ?several days. He says he drinks on the weekends, and drinks wine and mixed cocktails usually. He denies having similar episodes in the past. He denies any nausea or vomiting. He says that his pain has improved significantly since last night. He had a CAT scan showing mild stranding around the pancreas consistent with acute pancreatitis. He had elevated lipase and amylase. There was question of subtle cholecystitis noted on ultrasound. There were no gallstones seen. He denies other GI complain Review of Systems Constitutional: Constitutional: Denies chills and Denies fever(s) Cardiovascular: Cardiovascular: Denies chest pain, Denies dyspnea and Denies dyspnea on exertion Respiratory: Respiratory: Denies cough, Denies dyspnea and Denies dyspnea on exertion Gastrointestinal: Gastrointestinal: Denies hematochezia and Denies change in b owel habits Genitourinary: Genitourinary: Denies hematuria and Denies difficulty urinating Musculoskeletal: Musculoskeletal: Denies back pain and Denies limited range of motion Neurologic: Denies focal weakness and Denies convulsions Psychiatric: Psychiatric: Denies depression and Denies mood swings PMFSH Past Medical History Medical History Asthma Elevated cholesterol Hx of sprain of wrist Family History Family History Mother Advanced dementia Diabetes HTN (hypertension) Father HTN (hypertension) Surgical History Surgical History Hx of colonoscopy Social History Social History Household Members Other:: alone Alcohol intake: current Patient Tobacco Use Status: Never used Tobacco Advance Directives: No Advance Directives Information Provided: No Current occupational status: disabled Meds Allergies Allergy/AdvReac Type Severity Reaction Status Date / Time No Known Allergies Allergy Verified 02/21/22 14:54 Active Medications: Current Medications Albuterol Sulfate (Albuterol Sulfate 90 Mcg 8 Gm Inhaler) 2 puff INHALE Q4H PRN PRN Reason: Wheezing Docusate Sodium (Docusate Sodium 100 Mg Capsule) 200 mg PO BEDTIME [facility] Gemfibrozil (Gemfibrozil 600 Mg Tablet) 600 mg PO BID [facility] Heparin Sodium (Porcine) (Heparin Sodium,Porcine 5,000 Unit/Ml Vial) 5,000 unit SUBCUT Q8H [facility] Last Admin: 04/26/22 00:17 Dose: 5,000 unit Hydrocortisone (Hydrocortisone 2.5 % Rectal Cr 30 Gm Tube) 1 appl ND BEDTIME PRN PRN Reason: hemorrhoids Hydromorphone HCl (Hydromorphone Hcl 0.5 Mg/0.5 Ml Syringe) 0.5 mg IVPUSH Q4H PRN; Protocol PRN Reason: Pain, Severe (Pain Scale 7-10) Sodium Chloride (Ns) 1,000 mls @ 100 mls/hr IVCONT .Q10H [facility] Last Admin: 04/26/22 00:17 Dose: 100 mls/hr Melatonin (Melatonin 3 Mg Tablet) 6 mg PO BEDTIME PRN PRN Reason: Insomnia Pharmacy Consult (Consult Rx Perform Med Rec) 1 each MISCELLANE ONCE PRN PRN Reason: Consult order Polyethylene Glycol (Polyethylene Glycol 3350 17 Gm Powd.Pack) 17 gm PO DAILY [facility] Senna (Sennosides 8.6 Mg Tablet) 17.2 mg PO BEDTIME PRN PRN Reason: Constipation Sodium Chloride (0.9 % Sodium Chloride Flush 3 Ml Syringe) 3 ml IVFLUSH QSHIFT [facility] Last Admin: 04/26/22 00:17 Dose: 3 ml Zolpidem Tartrate (Zolpidem Tartrate 5 Mg Tablet) 10 mg PO BEDTIME PRN PRN Reason: Sleep Home Medications Medication Instructions Recorded Confirmed Last Taken Type albuterol sulfate 90 mcg/actuation 2 puff PO Q4H PRN Wheezing 11/23/21 04/25/22 Unknown History aerosol inhaler gemfibrozil 600 mg tablet 600 mg PO BID 11/23/21 04/25/22 04/25/22 History ibuprofen 600 mg tablet 600 mg PO BID PRN Pain 11/23/21 04/25/22 Unknown History zolpidem 10 mg tablet 10 mg PO BEDTIME PRN Sleep 11/23/21 04/25/22 Unknown History Physical Exam Vital Signs: Vital Signs: Last Vital Signs Temp 98.6 F 04/26/22 06:00 Pulse 69 04/26/22 06:00 Resp 16 04/26/22 06:00 BP 152/81 H 04/26/22 06:00 Pulse Ox 97 04/26/22 06:00 O2 Del Method 04/26/22 06:00 BMI result Body Mass Index 29.1 Const: General: comfortable and no acute distress Orientation/consciousness: patient oriented x3 Neck: Neck: Yes no lymphadenopathy Resp: Auscultation: clear to auscultation bilaterally Cardio: Rhythm: regular rhythm GI: Other: Mild tenderness on the epigastric area, no rebound or guarding, no Arreguin's sign Palpation (GI): Soft to palpation, nontender and no guarding Neuro: General: patient oriented x3 Results Labs Result diagrams: 04/26/22 06:39 04/26/22 06:39 Labs: Abnormal lab results 04/25/22 04/25/22 04/25/22 Range/Units 11:17 11:20 11:20 RBC 4.52 L (4.60-5.80) X10*6/uL Hct (42.0-52.0) % MCV 98.7 H (80.0-98.0) fL MCH 35.2 H (27.0-33.0) pg MCHC (31.0-36.0) g/dl Plt Count 146 L (160-400) X10*3/uL Neut % (Auto) 79.3 H (45-73) % Lymph % (Auto) 10.2 L (20-40) % Lymph # (Auto) 0.6 L (1.2-4.9) X10*3/uL Carbon Dioxide (22-29) mmol/L Random Glucose 119 H (60-115) mg/dL Total Bilirubin 5.6 H (0.0-1.0) mg/dL Direct Bilirubin 3.9 H (0.0-0.5) mg/dL AST 274 H (5-37) U/L ALT 141 H (0-40) U/L Alkaline Phosphatase 170 H (39-117) U/L Lipase 9375 H (8-78) U/L Urine Protein 30 (1+) H (Neg-Trace) mg/dL Ur Leukocyte Esterase Trace H (Negative) 04/26/22 04/26/22 04/26/22 Range/Units 06:39 06:39 06:39 RBC 4.10 L (4.60-5.80) X10*6/uL Hct 40.0 L (42.0-52.0) % MCV (80.0-98.0) fL MCH 35.4 H (27.0-33.0) pg MCHC 36.3 H (31.0-36.0) g/dl Plt Count 118 L (160-400) X10*3/uL Neut % (Auto) (45-73) % Lymph % (Auto) (20-40) % Lymph # (Auto) (1.2-4.9) X10*3/uL Carbon Dioxide 20 L (22-29) mmol/L Random Glucose (60-115) mg/dL Total Bilirubin 3.7 H (0.0-1.0) mg/dL Direct Bilirubin 2.5 H (0.0-0.5) mg/dL AST 272 H (5-37) U/L ALT 177 H (0-40) U/L Alkaline Phosphatase 168 H (39-117) U/L Lipase (8-78) U/L Urine Protein (Neg-Trace) mg/dL Ur Leukocyte Esterase (Negative) Short CBC 04/25/22 04/26/22 Range/Units 11:20 06:39 WBC 5.5 5.0 (4.8-10.8) X10*3/uL Hgb 15.9 14.5 (14.0-18.0) g/dl Hct 44.6 40.0 L (42.0-52.0) % Plt Count 146 L 118 L (160-400) X10*3/uL BMP 04/25/22 04/26/22 11:20 06:39 Sodium 138 137 Potassium 3.9 4.0 Chloride 100 106 Carbon Dioxide 22 20 L BUN 14 12 Creatinine 0.79 0.60 Calcium 9.7 8.7 D Liver Function 04/25/22 04/26/22 Range/Units 11:20 06:39 Total Bilirubin 5.6 H 3.7 H (0.0-1.0) mg/dL Direct Bilirubin 3.9 H 2.5 H (0.0-0.5) mg/dL AST 274 H 272 H (5-37) U/L ALT 141 H 177 H (0-40) U/L Alkaline Phosphatase 170 H 168 H (39-117) U/L Albumin 4.5 3.9 (3.5-5.0) g/dL Urine 04/25/22 Range/Units 11:17 Urine Color Dark Yellow Urine Appearance Cloudy Urine pH 6.5 (5.0-9.0) Ur Specific Valier 1.025 (1.005-1.025) Urine Protein 30 (1+) H (Neg-Trace) mg/dL Urine Glucose (UA) Negative (Negative) mg/dL All other labs normal. Imaging Additional studies: Laboratory Results WBC 5.0 X10*3/uL (4.8-10.8) 04/26/22 06:39 RBC 4.10 X10*6/uL (4.60-5.80) L 04/26/22 06:39 Hgb 14.5 g/dl (14.0-18.0) 04/26/22 06:39 Hct 40.0 % (42.0-52.0) L 04/26/22 06:39 MCV 97.6 fL (80.0-98.0) 04/26/22 06:39 MCH 35.4 pg (27.0-33.0) H 04/26/22 06:39 MCHC 36.3 g/dl (31.0-36.0) H 04/26/22 06:39 RDW 12.5 % (11.0-16.0) 04/26/22 06:39 Plt Count 118 X10*3/uL (160-400) L 04/26/22 06:39 MPV 10.0 fL (9.4-12.4) 04/26/22 06:39 Immature Gran % (Auto) 0.4 % (0.0-0.4) 04/25/22 11:20 Neut % (Auto) 79.3 % (45-73) H 04/25/22 11:20 Lymph % (Auto) 10.2 % (20-40) L 04/25/22 11:20 Price % (Auto) 9.5 % (2-11) 04/25/22 11:20 Eos % (Auto) 0.2 % (0-4) 04/25/22 11:20 Baso % (Auto) 0.4 % (0-2) 04/25/22 11:20 Lymph # (Auto) 0.6 X10*3/uL (1.2-4.9) L 04/25/22 11:20 Price # (Auto) 0.5 X10*3/uL (0.1-1.2) 04/25/22 11:20 Eos # (Auto) 0.0 X10*3/uL (0.0-0.4) 04/25/22 11:20 Baso # (Auto) 0.0 X10*3/uL (0.0-0.2) 04/25/22 11:20 Abs Immat Gran (auto) 0.02 X10*3/uL (0.00-0.03) 04/25/22 11:20 Absolute Neuts (auto) 4.4 x10*3/uL (2.0-8.3) 04/25/22 11:20 Absolute Nucleated RBC 0.000 X10*3/uL (0.0-0.012) 04/26/22 06:39 Nucleated RBC % (auto) 0.0 /100WBC (0.0-0.2) 04/26/22 06:39 Sodium 137 mmol/L (135-145) 04/26/22 06:39 Potassium 4.0 mmol/L (3.3-5.1) 04/26/22 06:39 Chloride 106 mmol/L (96-108) 04/26/22 06:39 Carbon Dioxide 20 mmol/L (22-29) L 04/26/22 06:39 Anion Gap 15 (12-20) 04/26/22 06:39 BUN 12 mg/dL (9-16) 04/26/22 06:39 Creatinine 0.60 mg/dL (0.5-1.4) 04/26/22 06:39 Estim Creat Clear Calc 122.3 04/26/22 06:39 Estimated GFR > 60 04/26/22 06:39 Random Glucose 95 mg/dL (60-115) 04/26/22 06:39 Calcium 8.7 mg/dL (8.4-10.2) D 04/26/22 06:39 Total Bilirubin 3.7 mg/dL (0.0-1.0) H 04/26/22 06:39 Direct Bilirubin 2.5 mg/dL (0.0-0.5) H 04/26/22 06:39 AST 272 U/L (5-37) H 04/26/22 06:39 ALT 177 U/L (0-40) H 04/26/22 06:39 Alkaline Phosphatase 168 U/L (39-117) H 04/26/22 06:39 Total Protein 6.5 g/dL (6.5-8.0) 04/26/22 06:39 Albumin 3.9 g/dL (3.5-5.0) 04/26/22 06:39 Triglycerides 131 mg/dL 04/25/22 11:20 Lipase 9375 U/L (8-78) H 04/25/22 11:20 Urine Color Dark Yellow 04/25/22 11:17 Urine Appearance Cloudy 04/25/22 11:17 Urine pH 6.5 (5.0-9.0) 04/25/22 11:17 Ur Specific Valier 1.025 (1.005-1.025) 04/25/22 11:17 Urine Protein 30 (1+) mg/dL (Neg-Trace) H 04/25/22 11:17 Urine Glucose (UA) Negative mg/dL (Negative) 04/25/22 11:17 Urine Ketones 15 mg/dL (Negative) 04/25/22 11:17 Urine Blood Negative (Negative) 04/25/22 11:17 Urine Nitrite Negative (Negative) 04/25/22 11:17 Ur Leukocyte Esterase Trace (Negative) H 04/25/22 11:17 Urine RBC 0-2 /HPF (0-2) 04/25/22 11:17 Urine WBC 0-5 /HPF (0-5) 04/25/22 11:17 Ur Squamous Epith Cells 0-2 /HPF (0-2) 04/25/22 11:17 Urine Bacteria None Seen (None Seen) 04/25/22 11:17 Hyaline Casts 0-2 /LPF (0-2) 04/25/22 11:17 Impressions Abdomen Ultrasound 04/25/22 17:50 IMPRESSION: Heterogeneous pancreas without enlargement. Echogenic bile but no wall thickening or tenderness in right upper quadrant. The gallbladder is distended mild pericholecystic fluid collection. Question acalculus cholecystitis. Correlate with pharmaceutical augmented HIDA scan. Abdomen/Pelvis CT 04/25/22 20:05 IMPRESSION: -The pancreas demonstrates relatively homogeneous enhancement, however, there is suggestion of some mild mesenteric stranding adjacent to the pancreatic tail. A very mild pancreatitis would be within the differential. Correlation with amylase and lipase is recommended. Fleischner guidelines were followed. Assessment and Plan (1) Acute pancreatitis: Status: Acute He describes having epigastric pain for several days. He says this has improved significantly since last night. He likely has passed the stone causing some elevation of his bilirubin as well as acute pancreatitis. He does not have acute cholecystitis clinically. There are no gallstones on ultrasound. Treatment would be supportive for acute pancreatitis. This includes bowel rest and IV fluids as well as pain management. His bilirubin should be followed closely. I will follow along while he is in the hospital. A very benign exam otherwise. He appears to understand the plan well. Procedures Date of Service Date of Service: 04/26/22
[2022-04-26] MEDS: HYDROmorphone HCl 0.5 MG/0.5 ML SYRINGE IVPUSH ×3 (08:56→21:08)
[2022-04-26] MEDS: gemfibroziL 600 MG TABLET PO (08:56)
[2022-04-26 09:16] LABS: COVID-19 Test Negative (Negative); IDNOW Serial# 55D5AD1C
[2022-04-26 09:26] LABS: Lipase 1866 U/L (8-78)
--- NOTE | 2022-04-26 10:14 | MHC.CM.PN ---
Patient lives alone in an apartment but his Sister/Juana is willing to have him live with her if needed. Home no services vs Care Team interventions r/t ETOH is the goal and CM has initiated and will follow for dc planning. PCP is DR Mauro and Patient has received Moderna vax x4.Per Juana, Patient's Mother passed in December and since them she has noticed Patient with increased s/s of Depression and increased ETOH consumption.IMM addressed.
--- NOTE | 2022-04-26 16:36 | P.PNIM_ITS ---
Subjective Subjective Date of Service: 04/26/22 Interval History: seen and examined this morning Follow-up for pancreatitis Still having some epigastric abdominal pain, although improved No nausea, no vomiting at this time Review of Systems Review of Systems: Yes all other systems are reviewed and are negative Constitutional Constitutional: Denies chills and Denies fever(s) ENT Ears, Nose, Mouth, and Throat: Denies dizziness Cardiovascular Cardiovascular: Denies chest pain, Denies palpitations and Denies dyspnea Respiratory Respiratory: Denies dyspnea Gastrointestinal Gastrointestinal: Denies nausea and Denies vomiting Neurologic Neurologic: Denies dizziness Endocrine Endocrine: Denies palpitations Physical Exam Vital Signs: Vital Signs: Last Vital Signs Temp 98.4 F 04/26/22 15:47 Pulse 64 04/26/22 15:47 Resp 16 04/26/22 15:47 BP 146/86 H 04/26/22 15:47 Pulse Ox 99 04/26/22 15:47 O2 Del Method 04/26/22 15:47 BMI result Body Mass Index 29.1 Const: General: comfortable, alert and awake Nutritional Appearance: average body habitus Orientation/consciousness: patient oriented x3 Resp: Effort & Inspection: normal respiratory effort and able to speak in complete sentences Auscultation: clear to auscultation bilaterally Cardio: Rhythm: regular rhythm Heart sounds: S1 normal heart sound present and S2 normal heart sound present GI: Other: some tenderness to palpation in the epigastric region Inspection: No distended Palpation (GI): Soft to palpation Neuro: General: patient oriented x3 Extrem: General: Yes no pedal edema Objective Data Active Medications Albuterol Sulfate (Albuterol Sulfate 90 Mcg 8 Gm Inhaler) 2 puff INHALE Q4H PRN PRN Reason: Wheezing Docusate Sodium (Docusate Sodium 100 Mg Capsule) 200 mg PO BEDTIME [facility] Gemfibrozil (Gemfibrozil 600 Mg Tablet) [address] [facility] Last Admin: 04/26/22 08:56 Dose: 600 mg Documented By: ALFRED Heparin Sodium (Porcine) (Heparin Sodium,Porcine 5,000 Unit/Ml Vial) 5,[address] [facility] Last Admin: 04/26/22 16:29 Dose: 5,000 unit Documented By: ALFRED Hydrocortisone (Hydrocortisone 2.5 % Rectal Cr 30 Gm Tube) [address] BEDTIME PRN PRN Reason: hemorrhoids Hydromorphone HCl (Hydromorphone Hcl 0.5 Mg/0.5 Ml Syringe) 0.5 mg IVPUSH Q4H PRN; Protocol PRN Reason: Pain, Severe (Pain Scale 7-10) Last Admin: 04/26/22 13:18 Dose: 0.5 mg Documented By: ALFRED Sodium Chloride (Ns) 1,000 mls @ 100 mls/hr IVCONT .Q10H [facility] Last Admin: 04/26/22 08:27 Dose: 100 mls/hr Documented By: ALFRED Melatonin (Melatonin 3 Mg Tablet) 6 mg PO BEDTIME PRN PRN Reason: Insomnia Pharmacy Consult (Consult Rx Perform Med Rec) 1 each MISCELLANE ONCE PRN PRN Reason: Consult order Polyethylene Glycol (Polyethylene Glycol 3350 17 Gm Powd.Pack) [address] [facility] Last Admin: 04/26/22 08:26 Dose: 17 gm Documented By: ALFRED Senna (Sennosides 8.6 Mg Tablet) 17.2 mg PO BEDTIME PRN PRN Reason: Constipation Sodium Chloride (0.9 % Sodium Chloride Flush 3 Ml Syringe) [address] [facility] Last Admin: 04/26/22 15:14 Dose: Not Given Documented By: ALFRED Non-Admin Reason: IV Running Zolpidem Tartrate (Zolpidem Tartrate 5 Mg Tablet) 10 mg PO BEDTIME PRN PRN Reason: Sleep Labs CBC & Chem 7: 04/26/22 06:39 04/26/22 06:39 Labs: Laboratory Results - last 24 hr 04/25/22 04/26/22 04/26/22 11:20 06:39 06:39 MCV 97.6 MCH 35.4 H MCHC 36.3 H RDW 12.5 Plt Count 118 L MPV 10.0 Absolute Nucleated RBC 0.000 Nucleated RBC % (auto) 0.0 Anion Gap 15 Estim Creat Clear Calc 122.3 Estimated GFR > 60 Random Glucose 95 Calcium 8.7 D Total Bilirubin Direct Bilirubin AST ALT Alkaline Phosphatase Total Protein Albumin Triglycerides 131 Lipase COVID-19 ([facility]) COVID-19 Clin Com 04/26/22 04/26/22 06:39 08:51 MCV MCH MCHC RDW Plt Count MPV Absolute Nucleated RBC Nucleated RBC % (auto) Anion Gap Estim Creat Clear Calc Estimated GFR Random Glucose Calcium Total Bilirubin 3.7 H Direct Bilirubin 2.5 H AST 272 H ALT 177 H Alkaline Phosphatase 168 H Total Protein 6.5 Albumin 3.9 Triglycerides Lipase 1866 H COVID-19 ([facility]) Negative COVID-19 Clin Com See Note Assessment and Plan (1) Acute pancreatitis: Status: Acute Plan 62-year-old male with a past medical history of asthma, hyperlipidemia presented to the hospital today with a chief complaint of abdominal pain. noted to have following Acute pancreatitis: Likely in the setting of gallstones versus alcohol use. LFTs trending down ?passed stone NPO IVF GI consult pending advanced diet as tolerated Acute cholecystitis seen on CT scan Seen by General surgery, physical exam not consistent with acute cholecystitis Follow clinical course history of asthma: Stable DVT prophylaxis: Subcu heparin Code status: Full code attending - Dr. Torres Requires ongoing inpatient hospitalization for close monitoring secondary to acute pancreatitis as well as GI consultation Quality Stroke Does the patient have a stroke diagnosis?: No VTE Prior VTE?: No VTE Risk Level:: Medical - moderate - high VTE Device Contraindication: Treatment Not Indicated VTE Drug Contraindication: N/A - Med Ordered
[2022-04-26] MEDS: Docusate Sodium 100 MG CAPSULE 200 MG PO (21:16)
[2022-04-26] MEDS: Zolpidem Tartrate 5 MG TABLET 10 MG PO (23:58)
[2022-04-27] VITALS (7 sets, daily range): BP systolic 158–181; BP diastolic 80–86; PULSE 60–80; RESP 14–20; TEMP 36.4–37.3; O2SAT 97–98
[2022-04-27] MEDS: 0.9 % Sodium Chloride 1,000 ML 100 ML IVCONT ×2 (04:31→16:05)
[2022-04-27 07:10] LABS: Alanine Aminotransferase 112 U/L (0-40); Albumin Level 3.4 g/dL (3.5-5.0); Alkaline Phosphatase 139 U/L (39-117); Anion Gap 16 (12-20); Aspartate Amino Transferase 107 U/L (5-37); Bilirubin Direct 1.2 mg/dL (0.0-0.5); Bilirubin Total 1.9 mg/dL (0.0-1.0); Blood Urea Nitrogen 11 mg/dL (9-16); Calcium 8.2 mg/dL (8.4-10.2); Carbon Dioxide 19 mmol/L (22-29); Chloride 104 mmol/L (96-108); Creatinine Clr Calc Pharmacy 118.4; Estimated Glomerular Filt Rate > 60; Glucose Random 81 mg/dL (60-115); Lipase 231 U/L (8-78); Potassium 3.5 mmol/L (3.3-5.1); Sodium 135 mmol/L (135-145); Total Protein 5.8 g/dL (6.5-8.0)
[2022-04-27] MEDS: Heparin Sodium,Porcine 5,000 UNIT/ML VIAL 5000 UNIT SUBCUT ×2 (08:40→15:19)
[2022-04-27] MEDS: polyethylene glycoL 3350 17 GM POWD.PACK PO (08:40)
--- NOTE | 2022-04-27 11:25 | PM.PNGS ---
Subjective Subjective Date of Service: 04/27/22 Interval history: denies abdl pain feels well no N/V Physical Exam Vital Signs: Vital Signs: Last Vital Signs Temp 98.0 F 04/27/22 11:12 Pulse 65 04/27/22 11:12 Resp 18 04/27/22 11:12 BP 181/85 H 04/27/22 11:12 Pulse Ox 98 04/27/22 11:12 O2 Del Method 04/27/22 11:12 BMI result Body Mass Index 29.1 Const: General: comfortable and no acute distress Cardio: Rate: regular rate GI: Other: no Arreguin's sign Palpation (GI): Soft to palpation, not firm, nontender and no guarding Objective Data Active Medications Albuterol Sulfate (Albuterol Sulfate 90 Mcg 8 Gm Inhaler) 2 puff INHALE Q4H PRN PRN Reason: Wheezing Docusate Sodium (Docusate Sodium 100 Mg Capsule) 200 mg PO BEDTIME [facility] Last Admin: 04/26/22 21:16 Dose: 200 mg Documented By: CALVIN Heparin Sodium (Porcine) (Heparin Sodium,Porcine 5,000 Unit/Ml Vial) 5,000 unit SUBCUT Q8H [facility] Last Admin: 04/27/22 08:40 Dose: 5,000 unit Documented By: KENDELL Hydrocortisone (Hydrocortisone 2.5 % Rectal Cr 30 Gm Tube) 1 appl ID BEDTIME PRN PRN Reason: hemorrhoids Hydromorphone HCl (Hydromorphone Hcl 0.5 Mg/0.5 Ml Syringe) 0.5 mg IVPUSH Q4H PRN; Protocol PRN Reason: Pain, Severe (Pain Scale 7-10) Last Admin: 04/26/22 21:08 Dose: 0.5 mg Documented By: CALVIN Sodium Chloride (Ns) 1,000 mls @ 100 mls/hr IVCONT .Q10H [facility] Last Admin: 04/27/22 04:31 Dose: 100 mls/hr Documented By: WINNIE Melatonin (Melatonin 3 Mg Tablet) 6 mg PO BEDTIME PRN PRN Reason: Insomnia Pharmacy Consult (Consult Rx Perform Med Rec) 1 each MISCELLANE ONCE PRN PRN Reason: Consult order Polyethylene Glycol (Polyethylene Glycol 3350 17 Gm Powd.Pack) 17 gm PO DAILY [facility] Last Admin: 04/27/22 08:40 Dose: 17 gm Documented By: KENDELL Senna (Sennosides 8.6 Mg Tablet) 17.2 mg PO BEDTIME PRN PRN Reason: Constipation Sodium Chloride (0.9 % Sodium Chloride Flush 3 Ml Syringe) 3 ml IVFLUSH QSHIFT [facility] Last Admin: 04/27/22 08:45 Dose: Not Given Documented By: KENDELL Non-Admin Reason: IV Running Zolpidem Tartrate (Zolpidem Tartrate 5 Mg Tablet) 10 mg PO BEDTIME PRN PRN Reason: Sleep Last Admin: 04/26/22 23:58 Dose: 10 mg Documented By: WINNIE Labs CBC & Chem 7: 04/26/22 06:39 04/27/22 06:14 Labs: Laboratory Results - last 24 hr 04/27/22 06:14 Anion Gap 16 Estim Creat Clear Calc 118.4 Estimated GFR > 60 Random Glucose 81 Calcium 8.2 L Total Bilirubin 1.9 H Direct Bilirubin 1.2 H AST 107 H ALT 112 H Alkaline Phosphatase 139 H Total Protein 5.8 L Albumin 3.4 L Lipase 231 H Procedures Date of Service Date of Service: 04/27/22 Progress Note: A&P Assessment and plan (1) Acute pancreatitis: Status: Acute Assessment and Plan: clinically without acute cholecystitis changes seen on imaging probably secondary to acute pancreatitis had elevated bilirubin - likely to have passed stone currently, imaging does not reveal any residual gallstone no cholecystectomy plan at this time advance diet as tolerated Time Spent With Patient Time: Total time spent is greater than 50% in coordination of care (as documented) at patient's floor/unit and/or counseling patient: Quality Stroke Does the patient have a stroke diagnosis?: No VTE Prior VTE?: No VTE Risk Level:: Medical - moderate - high VTE Device Contraindication: Treatment Not Indicated VTE Drug Contraindication: N/A - Med Ordered
--- NOTE | 2022-04-27 15:14 | P.PNIM_ITS ---
Subjective Subjective Date of Service: 04/27/22 Interval History: seen and examined this morning Follow-up for pancreatitis Abdominal pain better but still with epigastric abdominal pain Denies nausea, vomiting. No diarrhea Review of Systems Review of Systems: Yes all other systems are reviewed and are negative Constitutional Constitutional: Denies chills and Denies fever(s) Cardiovascular Cardiovascular: Denies chest pain, Denies palpitations and Denies dyspnea Respiratory Respiratory: Denies cough and Denies dyspnea Gastrointestinal Gastrointestinal: Reports abdominal pain, Denies nausea and Denies vomiting Endocrine Endocrine: Denies palpitations Physical Exam Vital Signs: Vital Signs: Last Vital Signs Temp 98.1 F 04/27/22 15:03 Pulse 60 04/27/22 15:03 Resp 18 04/27/22 15:03 BP 175/84 H 04/27/22 15:03 Pulse Ox 98 04/27/22 15:03 O2 Del Method 04/27/22 15:03 BMI result Body Mass Index 29.1 Const: General: comfortable, alert and awake Nutritional Appearance: average body habitus Orientation/consciousness: patient oriented x3 Resp: Effort & Inspection: normal respiratory effort and able to speak in complete sentences Auscultation: clear to auscultation bilaterally Cardio: Rhythm: regular rhythm Heart sounds: S1 normal heart sound present and S2 normal heart sound present GI: Other: some tenderness to palpation in the epigastric region Inspection: No distended Palpation (GI): Soft to palpation Neuro: General: patient oriented x3 Extrem: General: Yes no pedal edema Objective Data Active Medications Albuterol Sulfate (Albuterol Sulfate 90 Mcg 8 Gm Inhaler) 2 puff INHALE Q4H PRN PRN Reason: Wheezing Docusate Sodium (Docusate Sodium 100 Mg Capsule) 200 mg PO BEDTIME [facility] Last Admin: 04/26/22 21:16 Dose: 200 mg Documented By: CALVIN Heparin Sodium (Porcine) (Heparin Sodium,Porcine 5,000 Unit/Ml Vial) 5,000 unit SUBCUT Q8H [facility] Last Admin: 04/27/22 08:40 Dose: 5,000 unit Documented By: KENDELL Hydrocortisone (Hydrocortisone 2.5 % Rectal Cr 30 Gm Tube) 1 appl [place] BEDTIME PRN PRN Reason: hemorrhoids Hydromorphone HCl (Hydromorphone Hcl 0.5 Mg/0.5 Ml Syringe) 0.5 mg IVPUSH Q4H PRN; Protocol PRN Reason: Pain, Severe (Pain Scale 7-10) Last Admin: 04/26/22 21:08 Dose: 0.5 mg Documented By: CALVIN Sodium Chloride (Ns) 1,000 mls @ 100 mls/hr IVCONT .Q10H [facility] Last Admin: 04/27/22 04:31 Dose: 100 mls/hr Documented By: WINNIE Melatonin (Melatonin 3 Mg Tablet) 6 mg PO BEDTIME PRN PRN Reason: Insomnia Pharmacy Consult (Consult Rx Perform Med Rec) 1 each MISCELLANE ONCE PRN PRN Reason: Consult order Polyethylene Glycol (Polyethylene Glycol 3350 17 Gm Powd.Pack) 17 gm PO DAILY [facility] Last Admin: 04/27/22 08:40 Dose: 17 gm Documented By: KENDELL Senna (Sennosides 8.6 Mg Tablet) 17.2 mg PO BEDTIME PRN PRN Reason: Constipation Sodium Chloride (0.9 % Sodium Chloride Flush 3 Ml Syringe) 3 ml IVFLUSH QSHIFT [facility] Last Admin: 04/27/22 08:45 Dose: Not Given Documented By: KENDELL Non-Admin Reason: IV Running Zolpidem Tartrate (Zolpidem Tartrate 5 Mg Tablet) 10 mg PO BEDTIME PRN PRN Reason: Sleep Last Admin: 04/26/22 23:58 Dose: 10 mg Documented By: WINNIE Labs CBC & Chem 7: 04/26/22 06:39 04/27/22 06:14 Labs: Laboratory Results - last 24 hr 04/27/22 06:14 Anion Gap 16 Estim Creat Clear Calc 118.4 Estimated GFR > 60 Random Glucose 81 Calcium 8.2 L Total Bilirubin 1.9 H Direct Bilirubin 1.2 H AST 107 H ALT 112 H Alkaline Phosphatase 139 H Total Protein 5.8 L Albumin 3.4 L Lipase 231 H Assessment and Plan (1) Acute pancreatitis: Status: Acute Plan 62-year-old male with a past medical history of asthma, hyperlipidemia presented to the hospital today with a chief complaint of abdominal pain. noted to have following Acute pancreatitis: improving but still having some pain possible passed stone. does drink etoh on weekend (10 nips on saturday and saturday) TG low LFTs trending down will advance to clear liquids MRCP to eval for stones. no stone seen on ultrasound or CT scan GI consult pending seen by surgery- no cholecystectomy planned at this time advanced diet as tolerated Acute cholecystitis seen on CT scan Seen by General surgery, physical exam not consistent with acute cholecystitis Follow clinical course HTN not on meds at baseline Will start Norvasc, can up titrate as needed history of asthma: Stable DVT prophylaxis: Subcu heparin Code status: Full code attending - Dr. Torres Requires ongoing inpatient hospitalization for close monitoring secondary to acute pancreatitis as well as GI consultation Quality Stroke Does the patient have a stroke diagnosis?: No VTE Prior VTE?: No VTE Risk Level:: Medical - moderate - high VTE Device Contraindication: Treatment Not Indicated VTE Drug Contraindication: N/A - Med Ordered
[2022-04-27] MEDS: HYDROmorphone HCl 0.5 MG/0.5 ML SYRINGE IVPUSH (15:18)
[2022-04-27] MEDS: 0.9 % Sodium Chloride Flush 3 ML SYRINGE IVFLUSH (15:19)
[2022-04-27] MEDS: amLODIPine Besylate 5 MG TABLET PO (16:03)
[2022-04-28] MEDS: Heparin Sodium,Porcine 5,000 UNIT/ML VIAL 5000 UNIT SUBCUT ×2 (00:05→08:38)
[2022-04-28] MEDS: Zolpidem Tartrate 5 MG TABLET 10 MG PO (00:05)
[2022-04-28 03:32] VITALS: BP 150/76; PULSE 63; RESP 14; TEMP 37; O2SAT 98
[2022-04-28 07:32] VITALS: BP 155/89; PULSE 63; RESP 16; TEMP 37.2; O2SAT 97
[2022-04-28] MEDS: amLODIPine Besylate 5 MG TABLET PO (08:38)
[2022-04-28 11:44] VITALS: BP 130/78; PULSE 64; RESP 16; TEMP 36.8; O2SAT 96
--- NOTE | 2022-04-28 15:02 | PM.DS ---
DS: Providers Provider Date of Service: 04/28/22 Date of admission: 04/25/22 23:04 Primary care physician: Nadya Mauro MD Consults: 04/25/22 23:04 Consult to Gastroenterology Routine Consulting Provider: Wilfred Gutiérrez Reason for consultation: Transaminitis Consult to General Surgery Routine Consulting Provider: Jaelyn Otero Reason for consultation: cholecystitis Attending physician on discharge: [facility] Discharging clinician: Arabella Rodriguez DS: Diagnosis Discharge Diagnosis (1) Acalculous cholecystitis: Status: Acute (2) Acute pancreatitis: Status: Acute DS: Summary Hospital Course Hospital Course: HP as per admitting provider 62-year-old male with a past medical history of asthma, hyperlipidemia presented to the hospital today with a chief complaint of abdominal pain.?Patient reports that for the past 1 week he has been having intermittent episodes of abdominal pain,? located on the bilateral flanks, epigastrium radiating to the back; worsens with eating. Associated with? Nausea and vomiting.? Mentioned that he drinks alcohol on the weekends.? Last drink was on Saturday. Denies any fevers and chills.? Denies any diarrhea.? Denies any chest pain palpitations lightheadedness or dizziness.?Review of all other systems is negative except mentioned above ER course: Per ER team patient noted to have epigastric tenderness, lipase elevated concerning for acute pancreatitis.? CT scan showed possible acute cholecystitis.? LFTs were elevated.? Concern for possible gallstone that has passed.? Discussed with general surgery who suggested admission to the medicine service and to give antibiotics.? Patient received Zosyn.? Admitted for further management . Acute pancreatitis Resolved possible passed stone. Does drink etoh on weekend (10 nips on saturday and saturday), encouraged to stop Diet advanced to regular Possible Acute cholecystitis according to MRCP Seen by General surgery, physical exam not consistent with acute cholecystitis, no cholecystectomy planned at this time, patient may be seen as o/p if pain reoccurs Transaminitis Likely from passed stone Trended down HTN Start on Norvasc for elevated blood pressure readings Asthma No exacerbation Time Spent with Patient Time attestation: Total time spent providing and/or coordinating discharge services: Discharge coordination time: Greater than 30 minutes Quality: Safe Use of Opioids Does Pt have an Active Cancer Diagnosis on the Problem List?: No Quality: Stroke Does the patient have a stroke diagnosis?: No Physical Exam Vital Signs: Vital Signs: Last Vital Signs Temp 98.2 F 04/28/22 11:44 Pulse 64 04/28/22 11:44 Resp 16 04/28/22 11:44 BP 130/78 04/28/22 11:44 Pulse Ox 96 04/28/22 11:44 O2 Del Method 04/28/22 11:44 BMI result Body Mass Index 29.1 Appearing in no acute distress head is normocephalic atraumatic eyes pupils are PERRLA sclera is anicteric mouth throat mucous membranes are intact and moist neck is supple no lymphadenopathy, no JVD noted lung sounds are clear to auscultation heart regular rate rhythm, clear S1, S2 positive bowel sounds, abdomen is soft, nontender neuro patient is alert x3, no focal deficits Discharge Plan Discharge Anticipated Discharge Date/Time: 04/28/22 14:54 Patient Disposition: Home, Self-Care Discharge Diagnosis: Pancreatitis Referrals: Wilfred Gutiérrez [Physician] - 1 Week Nadya Mauro MD [Primary Care Provider] - 1 Week Discharge Medications: New amlodipine 5 mg Tablet 5 mg PO DAILY Qty: 30 0RF Protocol: Hold for SBP< HOLD for SBP < : 90 Continued ibuprofen 600 mg tablet 600 mg PO BID PRN (Reason: Pain) albuterol sulfate 90 mcg/actuation HFA aerosol inhaler 2 puff PO Q4H PRN (Reason: Wheezing) gemfibrozil 600 mg tablet 600 mg PO BID zolpidem 10 mg tablet 10 mg PO BEDTIME PRN (Reason: Sleep) hydrocortisone [Proctosol HC] 2.5 % cream with perineal applicator 1 appl [place] BEDTIME PRN (Reason: hemorrhoids) Qty: 30 3RF docusate sodium [Colace] 100 mg capsule 200 mg PO BEDTIME Qty: 60 5RF polyethylene glycol 3350 [Miralax] 17 gram/dose powder 17 g PO DAILY Qty: 510 2RF Discharge Orders: Discharge Order (Routine); Ordered 04/28/22 Ordered By: Arabella Rodriguez Diet: Advance to usual diet Activity on Discharge: As tolerated Stand Alone Forms: Patient Portal Discharge page Care Plan Goals: complete resolution of symptoms Health Concerns: pancreatitis Plan of Treatment: Follow-up with primary care provider as needed If pain continues to abdomen follow-up with the station mechanic helper for further outpatient workup for cholecystitis Assessment: See discharge summary Discharge Date/Time: 04/28/22 16:10
--- NOTE | 2022-04-28 15:21 | MHC.CM.PN ---
pt dcd home no skilled servceis ordered by
[2022-04-28 15:33] VITALS: BP 128/69; PULSE 67; RESP 18; TEMP 36.6; O2SAT 97
== END 2022-04-28 16:10 | disposition home or self-care (01) | DRG 444 ==
LOC: HO.ED 21:00 → HO.EDOVER 23:10 → HO.IMC 04-26 16:19
PROVIDERS: Physician Assistant Medical; Student in an Organized Health Care Education/Training Program; Admitting Provider Hospitalist; Emergency Provider Emergency Medicine; PCP Student in an Organized Health Care Education/Training Program; Visit Provider Nurse Practitioner Acute Care
DX: K81.0 Acute cholecystitis (principal); K85.10 Biliary acute pancreatitis without necrosis or infection; E78.5 Hyperlipidemia, unspecified; J45.909 Unspecified asthma, uncomplicated; Z20.822 Contact with and (suspected) exposure to COVID-19; Z79.899 Other long term (current) drug therapy
CPT/HCPCS: 36415; 74177; 74181; 76705; 80048; 80076; 81001; 83690; 84478; 85025; 85027; 87635; 99285; J1170; J2270; Q9967

== ENCOUNTER 2022-11-10 19:40 | Inpatient (IN) | payer MEDICARE, MEDICAID, SELFPAY ==
--- NOTE | ~2022-11-10 | CT_ITS ---
EXAMINATION: CT ABDOMEN AND PELVIS WITH CONTRAST CLINICAL INFORMATION: Abdominal pain. COMPARISON: CT scan abdomen pelvis 04/25/2022. MRCP 04/27/2022 TECHNIQUE: Multidetector volumetric images were obtained from the superior aspect of the liver through the pubic symphysis following administration 85 mL of Omnipaque 350 intravenous contrast. Sagittal and coronal reformatted images were obtained on the technologist's workstation. Oral contrast: No This CT examination was performed using dose optimization techniques as appropriate, variously including the following: *Automated exposure control *Adjustment of mA and/or kV according to patient size (this includes techniques or standardized protocols for targeted exams where dose is matched to indication/reason for exam; i.e. extremities or head) *Use of iterative reconstruction technique DLP: 650 mGy-cm FINDINGS: LUNG BASES: The visualized lung bases are unremarkable. LIVER, GALLBLADDER, AND BILIARY TREE: Low attenuation of liver parenchyma due to fatty change. No focal liver lesion or intrahepatic bile duct dilatation. Gallbladder is distended. Measures 12 cm in length. No gallbladder wall thickening. No pericholecystic fluid. No bile duct dilatation. No calcified gallstone. PANCREAS: Unremarkable. SPLEEN: Small linear calcification of the capsule of the spleen peripherally. No focal splenic lesion. ADRENAL GLANDS: Unremarkable. KIDNEYS AND URETERS: The kidneys are normal in size, shape, and attenuation. No hydronephrosis, hydroureter, or calculi seen. No perinephric stranding. BLADDER: Unremarkable. GASTROINTESTINAL TRACT: The small and large bowel are unremarkable. The appendix is unremarkable. ABDOMINAL WALL: No significant hernia is appreciated. LYMPH NODES: Normal. VASCULAR: Unremarkable. PELVIC VISCERA: Unremarkable. OSSEOUS STRUCTURES: Unremarkable. CT/CT abdomen pelvis w IV con IMPRESSION: Gallbladder is distended but no significant surrounding edema and no evidence of a gallstone. There is no bile duct dilatation.. No acute abnormality the abdomen or pelvis. Fleischner guidelines were followed.
--- NOTE | 2022-11-10 19:59 | ED_ITS ---
HPI - General Adult General Chief complaint: Abdominal Pain <ELSA Vitale - Last Filed: 11/11/22 11:44> Stated complaint: severe abd pain <ELSA Vitale - Last Filed: 11/11/22 11:44> Time Seen by Provider: 11/10/22 20:36 <ELSA Vitale - Last Filed: 11/11/22 11:44> Source: patient, family and RN notes reviewed <Alo De Paz - Last Filed: 11/10/22 20:52> Mode of arrival: ambulatory <Alo De Paz - Last Filed: 11/10/22 20:52> Limitations: no limitations <Alo De Paz - Last Filed: 11/10/22 20:52> History of Present Illness HPI narrative: 62-year-old male with past medical history significant for alcoholic pancreatitis, asthma, tubular adenoma of colon presents for evaluation of abdominal pain. Patient reports his symptoms started about 2 hours prior to my evaluation. He reports his symptoms started shortly after eating rice and work. His pain was in the center of his abdomen He denies any associated nausea, vomiting, diarrhea. Denies any black or bloody stool. His pain does not radiate to his back or chest. He denies any chest pain, cough, shortness of breath. The patient was admitted in April of last year for pancreas disorders felt related to alcohol use. Patient admits that he continues to drink alcohol but does not drink hard liquor, he was drinking wine today. His pain has decreased from a 10/10 to a 7/10 <Alo De Paz - Last Filed: 11/10/22 20:52> Related Data Home medications: Home Medications Medication Instructions Recorded Confirmed albuterol sulfate 90 mcg/actuation 2 puff PO Q4H PRN Wheezing 11/23/21 11/11/22 aerosol inhaler ibuprofen 600 mg tablet 600 mg PO BID PRN Pain 11/23/21 11/11/22 zolpidem 10 mg tablet 10 mg PO BEDTIME PRN Sleep 11/23/21 11/11/22 simvastatin 20 mg tablet 1 tab PO DAILY 11/11/22 11/11/22 Previous Rx's Medication Instructions Recorded docusate sodium 100 mg capsule 200 mg PO BEDTIME #60 caps 02/21/22 (Colace) amlodipine 5 mg tablet 5 mg PO DAILY #30 tabs 04/28/22 <ELSA Vitale - Last Filed: 11/11/22 11:44> Allergies/adverse reactions: Allergies Allergy/AdvReac Type Severity Reaction Status Date / Time No Known Allergies Allergy Verified 11/10/22 20:00 <ELSA Vitale - Last Filed: 11/11/22 11:44> Review of Systems Constitutional: Constitutional: Reports as per HPI, Denies chills, Denies fatigue, Denies fever(s) and Denies headache(s) <Alo De Paz - Last Filed: 11/10/22 20:52> ENT: Denies headache(s) <Alo De Paz - Last Filed: 11/10/22 20:52> Cardiovascular: Cardiovascular: Denies chest pain and Denies dyspnea <Alo De Paz - Last Filed: 11/10/22 20:52> Respiratory: Respiratory: Denies cough and Denies dyspnea <Alo De Paz - Last Filed: 11/10/22 20:52> Gastrointestinal: Gastrointestinal: Denies constipation and Denies vomiting <Alo De Paz - Last Filed: 11/10/22 20:52> Genitourinary: Genitourinary: Denies difficulty urinating and Denies dysuria <Alo De Paz - Last Filed: 11/10/22 20:52> Neurologic: Denies headache(s) and Denies focal weakness <Alo De Paz - Last Filed: 11/10/22 20:52> Endocrine: Endocrine: Denies fatigue <Alo De Paz - Last Filed: 11/10/22 20:52> [facility] Past Medical History Medical History: Medical History Asthma Elevated cholesterol Hx of sprain of wrist <ELSA Vitale - Last Filed: 11/11/22 11:44> Surgical History: Surgical History Hx of colonoscopy <ELSA Vitale - Last Filed: 11/11/22 11:44> Family History Family History: Family History Mother Advanced dementia Diabetes HTN (hypertension) Father HTN (hypertension) <ELSA Vitale - Last Filed: 11/11/22 11:44> Social History Social History: Social History Household Members: None Household Members Other:: 0 Housing: Apartment Do you presently have visiting nurse or other home services: No Alcohol intake: current Alcohol intake frequency: 3 or more drinks per day Patient Tobacco Use Status: Never used Tobacco e-Cigarette/Vaping Use: Never Used Second Hand Smoke Exposure: No service: No Current occupational status: disabled <ELSA Vitale - Last Filed: 11/11/22 11:44> Physical Exam ED Vital Signs: Vital Signs - 24 hr 11/10/22 20:00 Temperature 98.3 F Pulse Rate 75 Respiratory Rate 18 Blood Pressure 149/84 H Pulse Oximetry 99 Oxygen Delivery Method Room Air BMI result Body Mass Index 29.1 <ELSA Vitale - Last Filed: 11/11/22 11:44> Vital Signs - 24 hr 11/10/22 20:00 Temperature 98.3 F Pulse Rate 75 Respiratory Rate 18 Blood Pressure 149/84 H Pulse Oximetry 99 Oxygen Delivery Method Room Air BMI result Body Mass Index 29.1 <Alo De Paz - Last Filed: 11/10/22 20:52> Const General: healthy appearing, comfortable, no acute distress, alert and awake <Alo De Paz - Last Filed: 11/10/22 20:52> Nutritional Appearance: well nourished <Alo De Paz - Last Filed: 11/10/22 20:52> Orientation/consciousness: patient oriented x3 <Alo De Paz - Last Filed: 11/10/22 20:52> HENMT Head: Yes normocephalic and Yes atraumatic <Alo De Paz - Last Filed: 11/10/22 20:52> Throat: Yes posterior oropharynx normal <Alo De Paz - Last Filed: 11/10/22 20:52> Eyes Eyelids: Yes eyelids normal <Alo De Paz - Last Filed: 11/10/22 20:52> Conjunctivae: conjunctivae normal < Last Filed: 11/10/22 20:52> Sclerae: sclerae normal < Last Filed: 11/10/22 20:52> Corneas: corneas normal < Last Filed: 11/10/22 20:52> Pupils: Equal, round and reactive pupils present < Last Filed: 11/10/22 20:52> EOM: EOMs intact bilaterally < Last Filed: 11/10/22 20:52> Neck Neck: Yes full ROM < Last Filed: 11/10/22 20:52> Resp Effort & Inspection: normal respiratory effort, able to speak in complete sentences, no audible wheezes and not labored < Last Filed: 11/10/22 20:52> Auscultation: clear to auscultation bilaterally < Last Filed: 11/10/22 20:52> Cardio Rate: regular rate < Last Filed: 11/10/22 20:52> Rhythm: regular rhythm < Last Filed: 11/10/22 20:52> GI Inspection: No distended < Last Filed: 11/10/22 20:52> Palpation (GI): Soft to palpation, not firm, Tenderness to palpation present (GI) in the epigastrum, in the LUQ, in the RUQ and periumbilically, no guarding and not rigid < Last Filed: 11/10/22 20:52> Auscultation: normoactive bowel sounds < Last Filed: 11/10/22 20:52> Skin General skin exam: no rashes or lesions noted and elasticity normal < Last Filed: 11/10/22 20:52> Neuro General: patient oriented x3 < Last Filed: 11/10/22 20:52> Cranial nerves: Yes CN's II-XII intact bilaterally, Yes Equal, round and reactive pupils present and Yes Bilaterally intact EOM present <Alo De Paz - Last Filed: 11/10/22 20:52> Cognition (Neuro): normal cognition <Alo De Paz - Last Filed: 11/10/22 20:52> Extrem Other: Moving all extremities well without any obvious deformities <Alo De Paz - Last Filed: 11/10/22 20:52> Course Course Course Narrative: RME performed by Rosibel López PA-C. Patient is a 62 year old male presenting to the emergency department with abdominal pain. Labs ordered. <ELSA Vitale - Last Filed: 11/11/22 11:44> Medications Administered Generic Name Dose Route Start Last Admin Trade Name Freq PRN Reason Stop Dose Admin Folic Acid 1 mg 11/11/22 09:00 11/11/22 07:35 Folic Acid 1 Mg Tablet PO 1 mg DAILY NICHOL Administration Sodium Chloride 1,000 mls @ 100 mls/hr 11/11/22 00:45 11/11/22 00:54 Ns IVCONT 100 mls/hr .Q10H NICHOL Administration Morphine Sulfate 4 mg 11/10/22 23:15 11/11/22 03:38 Morphine Sulfate 4 Mg/Ml Cartridge IVPUSH 4 mg Q4H PRN Administration Pain, Severe (Pain Scale 7-10) Protocol Phenobarbital 45 mg 11/11/22 09:00 11/11/22 07:34 Phenobarbital 15 Mg Tablet PO 11/12/22 21:01 45 mg BID NICHOL Administration Protocol Sodium Chloride 3 ml 11/11/22 00:00 11/11/22 07:21 0.9 % Sodium Chloride Flush 3 Ml Syringe IVFLUSH Not Given QSHIFT NICHOL Thiamine HCl 100 mg 11/11/22 09:00 11/11/22 07:35 Thiamine Hcl 100 Mg Tablet PO 100 mg DAILY NICHOL Administration Discontinued Medications Generic Name Dose Route Start Last Admin Trade Name Freq PRN Reason Stop Dose Admin Enoxaparin Sodium 40 mg 11/10/22 23:15 11/11/22 00:16 Enoxaparin Sodium 40 Mg/0.4 Ml Syringe SUBCUT 40 mg Q24H NICHOL Administration Sodium Chloride 1,000 mls @ 999 mls/hr 11/10/22 20:45 11/11/22 00:24 Ns IV 11/10/22 21:45 Infused .Q1H1M NICHOL Infusion Sodium Chloride 1,000 mls @ 999 mls/hr 11/10/22 22:30 11/11/22 00:24 Ns IV 11/10/22 23:30 Infused .Q1H1M NICHOL Infusion Iohexol 100 ml 11/10/22 21:39 11/10/22 21:39 Iohexol 350 Mg/Ml 100 Ml Infus..Btl IV 11/10/22 21:40 85 ml ONCE ONE Administration Morphine Sulfate 4 mg 11/10/22 20:45 11/10/22 21:03 Morphine Sulfate 4 Mg/Ml Cartridge IVPUSH 11/10/22 20:46 4 mg ONCE ONE Administration Protocol Ondansetron HCl 4 mg 11/10/22 20:45 11/10/22 21:03 Ondansetron Hcl 4 Mg/2 Ml Vial IVPUSH 11/10/22 20:46 4 mg ONCE ONE Administration Phenobarbital Sodium 244 mg 11/10/22 23:45 11/11/22 00:15 Phenobarbital Sodium 130 Mg/Ml Im Once IM 11/10/22 23:46 244 mg ONCE ONE Administration Phenobarbital Sodium 183 mg 11/11/22 03:00 11/11/22 05:54 Phenobarbital Sodium 130 Mg/Ml Vial Im Q3hx2 IM 11/11/22 06:01 183 mg Q3H NICHOL Administration <ELSA Vitale - Last Filed: 11/11/22 11:44> Medications Administered Generic Name Dose Route Start Last Admin Trade Name Freq PRN Reason Stop Dose Admin Folic Acid 1 mg 11/11/22 09:00 11/11/22 07:35 Folic Acid 1 Mg Tablet PO 1 mg DAILY NICHOL Administration Sodium Chloride 1,000 mls @ 100 mls/hr 11/11/22 00:45 11/11/22 00:54 Ns IVCONT 100 mls/hr .Q10H NICHOL Administration Morphine Sulfate 4 mg 11/10/22 23:15 11/11/22 03:38 Morphine Sulfate 4 Mg/Ml Cartridge IVPUSH 4 mg Q4H PRN Administration Pain, Severe (Pain Scale 7-10) Protocol Phenobarbital 45 mg 11/11/22 09:00 11/11/22 07:34 Phenobarbital 15 Mg Tablet PO 11/12/22 21:01 45 mg BID NICHOL Administration Protocol Sodium Chloride 3 ml 11/11/22 00:00 11/11/22 07:21 0.9 % Sodium Chloride Flush 3 Ml Syringe IVFLUSH Not Given QSHIFT [facility] Thiamine HCl 100 mg 11/11/22 09:00 11/11/22 07:35 Thiamine Hcl 100 Mg Tablet PO 100 mg DAILY NICHOL Administration Discontinued Medications Generic Name Dose Route Start Last Admin Trade Name Brayanq PRN Reason Stop Dose Admin Enoxaparin Sodium 40 mg 11/10/22 23:15 11/11/22 00:16 Enoxaparin Sodium 40 Mg/0.4 Ml Syringe SUBCUT 40 mg Q24H NICHOL Administration Sodium Chloride 1,000 mls @ 999 mls/hr 11/10/22 20:45 11/11/22 00:24 Ns IV 11/10/22 21:45 Infused .Q1H1M NICHOL Infusion Sodium Chloride 1,000 mls @ 999 mls/hr 11/10/22 22:30 11/11/22 00:24 Ns IV 11/10/22 23:30 Infused .Q1H1M NICHOL Infusion Iohexol 100 ml 11/10/22 21:39 11/10/22 21:39 Iohexol 350 Mg/Ml 100 Ml Infus..Btl IV 11/10/22 21:40 85 ml ONCE ONE Administration Morphine Sulfate 4 mg 11/10/22 20:45 11/10/22 21:03 Morphine Sulfate 4 Mg/Ml Cartridge IVPUSH 11/10/22 20:46 4 mg ONCE ONE Administration Protocol Ondansetron HCl 4 mg 11/10/22 20:45 11/10/22 21:03 Ondansetron Hcl 4 Mg/2 Ml Vial IVPUSH 11/10/22 20:46 4 mg ONCE ONE Administration Phenobarbital Sodium 244 mg 11/10/22 23:45 11/11/22 00:15 Phenobarbital Sodium 130 Mg/Ml Im Once IM 11/10/22 23:46 244 mg ONCE ONE Administration Phenobarbital Sodium 183 mg 11/11/22 03:00 11/11/22 05:54 Phenobarbital Sodium 130 Mg/Ml Vial Im Q3hx2 IM 11/11/22 06:01 183 mg Q3H NICHOL Administration <Alo De Paz - Last Filed: 11/10/22 20:52> Medical Decision Making Medical Decision Making MDM Narrative: Patient presenting for evaluation abdominal pain started after eating. This raises suspicion for biliary disease. Will start with labs, CT scan abdomen pelvis. He does have a history of pancreatitis admits to drinking alcohol today. He does states he is still somewhat different as his pain does not radiate to his back like it did when he did have pancreatitis. He is mildly hypertensive but has no pulsatile masses. A low suspicion for AAA. Patient medicated with morphine, Zofran and IV fluids. Workup is currently pending. EKG was nonischemic. He also denies any chest pain, ACS is felt to be less likely <Alo De Paz - Last Filed: 11/10/22 20:52> Differential Diagnosis Abdominal pain Pancreatitis GERD Cholelithiasis Acute cholecystitis Constipation Obstipation Bowel obstruction Bowel perforation AAA <Alo De Paz - Last Filed: 11/10/22 20:52> Lab Data Result Diagrams: 11/10/22 20:17 11/10/22 20:17 <ELSA Vitale - Last Filed: 11/11/22 11:44> Labs: Lab Results 11/10/22 11/10/22 11/10/22 Range/Units 20:17 20:17 20:17 WBC 5.4 (4.8-10.8) X10*3/uL RBC 3.67 L (4.60-5.80) X10*6/uL Hgb 13.2 L (14.0-18.0) g/dl Hct 37.2 L (42.0-52.0) % MCV 101.4 H (80.0-98.0) fL MCH 36.0 H (27.0-33.0) pg MCHC 35.5 (31.0-36.0) g/dl RDW 13.9 (11.0-16.0) % Plt Count 78 L D (160-400) X10*3/uL MPV 9.5 (9.4-12.4) fL Immature Gran % (Auto) 0.6 H (0.0-0.4) % Neut % (Auto) 62.2 (45-73) % Lymph % (Auto) 26.9 (20-40) % Douglas % (Auto) 9.3 (2-11) % Eos % (Auto) 0.6 (0-4) % Baso % (Auto) 0.4 (0-2) % Lymph # (Auto) 1.4 (1.2-4.9) X10*3/uL Douglas # (Auto) 0.5 (0.1-1.2) X10*3/uL Eos # (Auto) 0.0 (0.0-0.4) X10*3/uL Baso # (Auto) 0.0 (0.0-0.2) X10*3/uL Abs Immat Gran (auto) 0.03 (0.00-0.03) X10*3/uL Absolute Neuts (auto) 3.3 (2.0-8.3) x10*3/uL Absolute Nucleated RBC 0.000 (0.0-0.012) X10*3/uL Nucleated RBC % (auto) 0.0 (0.0-0.2) /100WBC PT 10.5 (10.0-13.1) SEC INR 0.9 (0.9-1.1) APTT 23.5 L (26.0-36.4) SEC Sodium 141 (135-145) mmol/L Potassium 3.4 (3.3-5.1) mmol/L Chloride 108 (96-108) mmol/L Carbon Dioxide 21 L (22-29) mmol/L Anion Gap 15 (12-20) BUN 16 (9-16) mg/dL Creatinine 1.11 (0.5-1.4) mg/dL Estim Creat Clear Calc 66.1 Estimated GFR > 60 Random Glucose 153 H (60-115) mg/dL Calcium 8.9 D (8.4-10.2) mg/dL Magnesium 1.9 (1.6-2.6) mg/dL Total Bilirubin 1.4 H (0.0-1.0) mg/dL AST 254 H (5-37) U/L ALT 97 H (0-40) U/L Alkaline Phosphatase 203 H (39-117) U/L Troponin I High Sens (<3.5-35.0) ng/L Total Protein 6.6 (6.5-8.0) g/dL Albumin 4.2 (3.5-5.0) g/dL Triglycerides 174 mg/dL Lipase > 3000 H (8-78) U/L Ethyl Alcohol 268 mg/dL COVID-19 (DALI) (Negative) COVID-19 Clin Com 11/10/22 11/10/22 Range/Units 20:17 22:00 WBC (4.8-10.8) X10*3/uL RBC (4.60-5.80) X10*6/uL Hgb (14.0-18.0) g/dl Hct (42.0-52.0) % MCV (80.0-98.0) fL MCH (27.0-33.0) pg MCHC (31.0-36.0) g/dl RDW (11.0-16.0) % Plt Count (160-400) X10*3/uL MPV (9.4-12.4) fL Immature Gran % (Auto) (0.0-0.4) % Neut % (Auto) (45-73) % Lymph % (Auto) (20-40) % Douglas % (Auto) (2-11) % Eos % (Auto) (0-4) % Baso % (Auto) (0-2) % Lymph # (Auto) (1.2-4.9) X10*3/uL Douglas # (Auto) (0.1-1.2) X10*3/uL Eos # (Auto) (0.0-0.4) X10*3/uL Baso # (Auto) (0.0-0.2) X10*3/uL Abs Immat Gran (auto) (0.00-0.03) X10*3/uL Absolute Neuts (auto) (2.0-8.3) x10*3/uL Absolute Nucleated RBC (0.0-0.012) X10*3/uL Nucleated RBC % (auto) (0.0-0.2) /100WBC PT (10.0-13.1) SEC INR (0.9-1.1) APTT (26.0-36.4) SEC Sodium (135-145) mmol/L Potassium (3.3-5.1) mmol/L Chloride (96-108) mmol/L Carbon Dioxide (22-29) mmol/L Anion Gap (12-20) BUN (9-16) mg/dL Creatinine (0.5-1.4) mg/dL Estim Creat Clear Calc Estimated GFR Random Glucose (60-115) mg/dL Calcium (8.4-10.2) mg/dL Magnesium (1.6-2.6) mg/dL Total Bilirubin (0.0-1.0) mg/dL AST (5-37) U/L ALT (0-40) U/L Alkaline Phosphatase (39-117) U/L Troponin I High Sens < 3.5 (<3.5-35.0) ng/L Total Protein (6.5-8.0) g/dL Albumin (3.5-5.0) g/dL Triglycerides mg/dL Lipase (8-78) U/L Ethyl Alcohol mg/dL COVID-19 ([facility]ALI) Negative (Negative) COVID-19 Clin Com See Note <ELSA Vitale - Last Filed: 11/11/22 11:44> Lab Results 11/10/22 11/10/22 11/10/22 Range/Units 20:17 20:17 20:17 WBC 5.4 (4.8-10.8) X10*3/uL RBC 3.67 L (4.60-5.80) X10*6/uL Hgb 13.2 L (14.0-18.0) g/dl Hct 37.2 L (42.0-52.0) % MCV 101.4 H (80.0-98.0) fL MCH 36.0 H (27.0-33.0) pg MCHC 35.5 (31.0-36.0) g/dl RDW 13.9 (11.0-16.0) % Plt Count 78 L D (160-400) X10*3/uL MPV 9.5 (9.4-12.4) fL Immature Gran % (Auto) 0.6 H (0.0-0.4) % Neut % (Auto) 62.2 (45-73) % Lymph % (Auto) 26.9 (20-40) % Douglas % (Auto) 9.3 (2-11) % Eos % (Auto) 0.6 (0-4) % Baso % (Auto) 0.4 (0-2) % Lymph # (Auto) 1.4 (1.2-4.9) X10*3/uL Douglas # (Auto) 0.5 (0.1-1.2) X10*3/uL Eos # (Auto) 0.0 (0.0-0.4) X10*3/uL Baso # (Auto) 0.0 (0.0-0.2) X10*3/uL Abs Immat Gran (auto) 0.03 (0.00-0.03) X10*3/uL Absolute Neuts (auto) 3.3 (2.0-8.3) x10*3/uL Absolute Nucleated RBC 0.000 (0.0-0.012) X10*3/uL Nucleated RBC % (auto) 0.0 (0.0-0.2) /100WBC PT 10.5 (10.0-13.1) SEC INR 0.9 (0.9-1.1) APTT 23.5 L (26.0-36.4) SEC Sodium 141 (135-145) mmol/L Potassium 3.4 (3.3-5.1) mmol/L Chloride 108 (96-108) mmol/L Carbon Dioxide 21 L (22-29) mmol/L Anion Gap 15 (12-20) BUN 16 (9-16) mg/dL Creatinine 1.11 (0.5-1.4) mg/dL Estim Creat Clear Calc 66.1 Estimated GFR > 60 Random Glucose 153 H (60-115) mg/dL Calcium 8.9 D (8.4-10.2) mg/dL Magnesium 1.9 (1.6-2.6) mg/dL Total Bilirubin 1.4 H (0.0-1.0) mg/dL AST 254 H (5-37) U/L ALT 97 H (0-40) U/L Alkaline Phosphatase 203 H (39-117) U/L Troponin I High Sens (<3.5-35.0) ng/L Total Protein 6.6 (6.5-8.0) g/dL Albumin 4.2 (3.5-5.0) g/dL Triglycerides 174 mg/dL Lipase > 3000 H (8-78) U/L Ethyl Alcohol 268 mg/dL COVID-19 (DALI) (Negative) COVID-19 Clin Com 11/10/22 11/10/22 Range/Units 20:17 22:00 WBC (4.8-10.8) X10*3/uL RBC (4.60-5.80) X10*6/uL Hgb (14.0-18.0) g/dl Hct (42.0-52.0) % MCV (80.0-98.0) fL MCH (27.0-33.0) pg MCHC (31.0-36.0) g/dl RDW (11.0-16.0) % Plt Count (160-400) X10*3/uL MPV (9.4-12.4) fL Immature Gran % (Auto) (0.0-0.4) % Neut % (Auto) (45-73) % Lymph % (Auto) (20-40) % Douglas % (Auto) (2-11) % Eos % (Auto) (0-4) % Baso % (Auto) (0-2) % Lymph # (Auto) (1.2-4.9) X10*3/uL Douglas # (Auto) (0.1-1.2) X10*3/uL Eos # (Auto) (0.0-0.4) X10*3/uL Baso # (Auto) (0.0-0.2) X10*3/uL Abs Immat Gran (auto) (0.00-0.03) X10*3/uL Absolute Neuts (auto) (2.0-8.3) x10*3/uL Absolute Nucleated RBC (0.0-0.012) X10*3/uL Nucleated RBC % (auto) (0.0-0.2) /100WBC PT (10.0-13.1) SEC INR (0.9-1.1) APTT (26.0-36.4) SEC Sodium (135-145) mmol/L Potassium (3.3-5.1) mmol/L Chloride (96-108) mmol/L Carbon Dioxide (22-29) mmol/L Anion Gap (12-20) BUN (9-16) mg/dL Creatinine (0.5-1.4) mg/dL Estim Creat Clear Calc Estimated GFR Random Glucose (60-115) mg/dL Calcium (8.4-10.2) mg/dL Magnesium (1.6-2.6) mg/dL Total Bilirubin (0.0-1.0) mg/dL AST (5-37) U/L ALT (0-40) U/L Alkaline Phosphatase (39-117) U/L Troponin I High Sens < 3.5 (<3.5-35.0) ng/L Total Protein (6.5-8.0) g/dL Albumin (3.5-5.0) g/dL Triglycerides mg/dL Lipase (8-78) U/L Ethyl Alcohol mg/dL COVID-19 ([facility]ALI) Negative (Negative) COVID-19 Clin Com See Note <Alo De Paz - Last Filed: 11/10/22 20:52> Independent Interpretation I performed an independent interpretation of an: EKG (Sinus rhythm with a rate of 76 beats per minute. No ST segment elevations or depressions.) <Alo De Paz - Last Filed: 11/10/22 20:52> Discharge Plan Discharge Clinical Impression: Abdominal pain <ELSA Vitale - Last Filed: 11/11/22 11:44> Patient Disposition: Admitted As Inpatient <ELSA Vitale - Last Filed: 11/11/22 11:44> Interventions: Admission Worksheet (ED) Last Done: 11/11/22 02:33 <ELSA Vitale - Last Filed: 11/11/22 11:44> Discharge Date/Time: 11/11/22 03:17 <ELSA Vitale - Last Filed: 11/11/22 11:44>
[2022-11-10 20:00] VITALS: BP 149/84; PULSE 75; RESP 18; TEMP 36.8; O2SAT 99; BMI 29.1
--- NOTE | 2022-11-10 20:02 | ECG_ITS ---
Test Reason : ABD PAIN Blood Pressure : / mmHG Vent. Rate : 076 BPM Atrial Rate : 076 BPM P-R Int : 172 ms QRS Dur : 106 ms QT Int : 426 ms P-R-T Axes : 070 015 050 degrees QTc Int : 479 ms Normal sinus rhythm Normal ECG No previous ECGs available Referred By: Rosibel López Electronically Signed By:Grant Villasenor
[2022-11-10 20:36] LABS: MANUAL DIFF FLAG NO
[2022-11-10 20:39] LABS: Basophils Percent Auto 0.4 % (0-2); Eosinophils Percent Auto 0.6 % (0-4); Hematocrit 37.2 % (42.0-52.0); Hemoglobin 13.2 g/dl (14.0-18.0); Imm Gran Abs Auto 0.03 X10*3/uL (0.00-0.03); Imm Gran Pct Auto 0.6 % (0.0-0.4); Lymphocytes Absolute Auto 1.4 X10*3/uL (1.2-4.9); Lymphocytes Percent Auto 26.9 % (20-40); Mean Corpuscular HGB Conc 35.5 g/dl (31.0-36.0); Mean Corpuscular Volume 101.4 fL (80.0-98.0); Mean Platelet Volume 9.5 fL (9.4-12.4); Monocytes Absolute Auto 0.5 X10*3/uL (0.1-1.2); Monocytes Percent Auto 9.3 % (2-11); Neutrophils Absolute Auto 3.3 x10*3/uL (2.0-8.3); Neutrophils Percent Auto 62.2 % (45-73); Red Blood Count 3.67 X10*6/uL (4.60-5.80); Red Cell Distribution Width 13.9 % (11.0-16.0); White Blood Count 5.4 X10*3/uL (4.8-10.8)
[2022-11-10 20:42] LABS: Platelet Count 78 X10*3/uL (160-400)
[2022-11-10 21:02] LABS: Alanine Aminotransferase 97 U/L (0-40); Albumin Level 4.2 g/dL (3.5-5.0); Alkaline Phosphatase 203 U/L (39-117); Anion Gap 15 (12-20); Aspartate Amino Transferase 254 U/L (5-37); Bilirubin Total 1.4 mg/dL (0.0-1.0); Blood Urea Nitrogen 16 mg/dL (9-16); Calcium 8.9 mg/dL (8.4-10.2); Carbon Dioxide 21 mmol/L (22-29); Chloride 108 mmol/L (96-108); Creatinine Clr Calc Pharmacy 66.1; Estimated Glomerular Filt Rate > 60; Glucose Random 153 mg/dL (60-115); Magnesium 1.9 mg/dL (1.6-2.6); Potassium 3.4 mmol/L (3.3-5.1); Sodium 141 mmol/L (135-145); Total Protein 6.6 g/dL (6.5-8.0)
[2022-11-10] MEDS: ondansetron HCL 4 MG/2 ML VIAL IVPUSH (21:03)
[2022-11-10] MEDS: Morphine Sulfate 4 MG/ML CARTRIDGE IVPUSH (21:03)
[2022-11-10 21:05] LABS: Troponin-I High Sensitivity < 3.5 ng/L (<3.5-35.0)
[2022-11-10 21:12] LABS: Ethanol 268 mg/dL
[2022-11-10 21:13] LABS: Lipase > 3000 U/L (8-78)
[2022-11-10 21:22] LABS: INTERNATIONAL NORM RATIO 0.9 (0.9-1.1); Prothrombin Time 10.5 SEC (10.0-13.1)
[2022-11-10] MEDS: iohexoL 350 MG/ML 100 ML INFUS..BTL IV (21:39)
[2022-11-10] MEDS: 0.9 % Sodium Chloride 1,000 ML 999 ML IV ×2 (21:58→22:47)
[2022-11-10 22:10] LABS: Partial Thromboplastin Time 23.5 SEC (26.0-36.4)
[2022-11-10 22:35] LABS: COVID-19 Test Negative (Negative); IDNOW Serial# 6674DD1D
--- NOTE | 2022-11-10 23:14 | PM.IMHP ---
History of Present Illness Date of Service: 11/10/22 Chief Complaint: Abdominal Pain This is a 62-year-old male with pertinent history of essential hypertension, alcohol use disorder with history of alcoholic pancreatitis, insomnia, mild asthma who presents to the emergency department for evaluation of abdominal pain. Patient states symptoms started about 2-3 hours prior to presentation. He had epigastric abdominal discomfort which was constant and without any relieving factors. It was nonradiating and not associated with nausea or vomiting. Patient denies fever, chills, chest discomfort, palpitations, shortness of breath, changes in urinary or bowel habits. Patient states he continues to drink alcohol. He was last hospitalized in April 2022 for pancreatitis likely due to alcohol use. In the emergency department, lipase was found to be significantly elevated Review of Systems Cardiovascular: Cardiovascular: Reports no additional cardiovascular complaints Respiratory: Respiratory: Reports no additional respiratory complaints Gastrointestinal: Gastrointestinal: Reports abdominal pain Genitourinary: Genitourinary: Reports no additional male genitourinary complaints Musculoskeletal: Musculoskeletal: Reports no additional musculoskeletal complaints [facility] Medical History Asthma Elevated cholesterol Hx of sprain of wrist Family History Mother Advanced dementia Diabetes HTN (hypertension) Father HTN (hypertension) Surgical History Hx of colonoscopy Social History Household Members: None Household Members Other:: alone Housing: Apartment Do you presently have visiting nurse or other home services: No Alcohol intake: current Alcohol intake frequency: 3 or more drinks per day Patient Tobacco Use Status: Never used Tobacco Smoked in Last 30 Days: No Use of substances other than those prescribed or required for medical reasons: No Advance Directives: No Advance Directives Information Provided: Yes service: No Current occupational status: disabled Meds Allergies Allergy/AdvReac Type Severity Reaction Status Date / Time No Known Allergies Allergy Verified 11/10/22 20:00 Active Medications: Current Medications Sodium Chloride (Ns) 1,000 mls @ 999 mls/hr IV .Q1H1M NICHOL Stop: 11/10/22 23:30 Last Admin: 11/10/22 22:47 Dose: 999 mls/hr Home Medications Medication Instructions Recorded Confirmed Last Taken Type albuterol sulfate 90 mcg/actuation 2 puff PO Q4H PRN Wheezing 11/23/21 04/25/22 Unknown History aerosol inhaler gemfibrozil 600 mg tablet 600 mg PO BID 11/23/21 04/25/22 04/25/22 History ibuprofen 600 mg tablet 600 mg PO BID PRN Pain 11/23/21 04/25/22 Unknown History zolpidem 10 mg tablet 10 mg PO BEDTIME PRN Sleep 11/23/21 04/25/22 Unknown History Physical Exam Vital Signs and Narrative: Vital Signs: Last Vital Signs Temp 98.3 F 11/10/22 20:00 Pulse 75 11/10/22 20:00 Resp 18 11/10/22 20:00 BP 149/84 H 11/10/22 20:00 Pulse Ox 99 11/10/22 20:00 O2 Del Method 11/10/22 20:00 BMI result Body Mass Index 29.1 Middle-aged male lying in bed in no distress Neck supple, no JVD Regular rate and rhythm, S1-S2 heard Regular breath sounds bilaterally, no wheezing or crackles appreciated Abdomen with epigastric tenderness, no guarding, no rigidity, no rebound tenderness Patient is awake, alert and oriented to self, place, time and person ; no focal motor deficit Psych: Normal mood No pedal edema Results Labs 11/10/22 20:17 11/10/22 20:17 Labs: Laboratory Results - last 24 hr 11/10/22 11/10/22 11/10/22 20:17 20:17 20:17 MCV 101.4 H MCH 36.0 H MCHC 35.5 RDW 13.9 Plt Count 78 L D MPV 9.5 Immature Gran % (Auto) 0.6 H Neut % (Auto) 62.2 Lymph % (Auto) 26.9 [place] % (Auto) 9.3 Eos % (Auto) 0.6 Baso % (Auto) 0.4 Lymph # (Auto) 1.4 [place] # (Auto) 0.5 Eos # (Auto) 0.0 Baso # (Auto) 0.0 Abs Immat Gran (auto) 0.03 Absolute Neuts (auto) 3.3 Absolute Nucleated RBC 0.000 Nucleated RBC % (auto) 0.0 PT 10.5 INR 0.9 APTT 23.5 L Anion Gap 15 Estim Creat Clear Calc 66.1 Estimated GFR > 60 Random Glucose 153 H Calcium 8.9 D Magnesium 1.9 Total Bilirubin 1.4 H AST 254 H ALT 97 H Alkaline Phosphatase 203 H Troponin I High Sens Total Protein 6.6 Albumin 4.2 Lipase > 3000 H Ethyl Alcohol 268 COVID-19 (DALI) COVID-19 Clin Com 11/10/22 11/10/22 20:17 22:00 MCV MCH MCHC RDW Plt Count MPV Immature Gran % (Auto) Neut % (Auto) Lymph % (Auto) [place] % (Auto) Eos % (Auto) Baso % (Auto) Lymph # (Auto) [place] # (Auto) Eos # (Auto) Baso # (Auto) Abs Immat Gran (auto) Absolute Neuts (auto) Absolute Nucleated RBC Nucleated RBC % (auto) PT INR APTT Anion Gap Estim Creat Clear Calc Estimated GFR Random Glucose Calcium Magnesium Total Bilirubin AST ALT Alkaline Phosphatase Troponin I High Sens < 3.5 Total Protein Albumin Lipase Ethyl Alcohol COVID-19 (DALI) Negative COVID-19 Clin Com See Note Imaging Radiologist's Impressions: Impressions Abdomen/Pelvis CT 11/10/22 21:41 IMPRESSION: Gallbladder is distended but no significant surrounding edema and no evidence of a gallstone. There is no bile duct dilatation.. No acute abnormality the abdomen or pelvis. Fleischner guidelines were followed. Assessment and Plan (1) Abdominal pain: Status: Acute Plan This is a 62-year-old male with pertinent history of essential hypertension, alcohol use disorder with history of alcoholic pancreatitis, insomnia, mild asthma who presents to the emergency department for evaluation of abdominal pain. #. Acute pancreatitis: Likely due to alcohol use. Although pancreas is unremarkable on imaging, patient does have elevated lipase and epigastric abdominal pain. Resuscitating with IV crystalloids. Full liquid diet and advance as tolerated. No gallstones seen on imaging. Obtaining triglycerides #. Alcohol use disorder: Monitor CIWA. Patient initiated on phenobarb protocol in the ER. Care team consulted. Initiating thiamine and folic acid #. Macrocytic anemia likely due to alcohol use #. Thrombocytopenia due to alcoholism #. Essential hypertension: Continue home amlodipine #. Insomnia: On zolpidem p.r.n. Med rec pending DVT prophylaxis: Mechanical. Hold Lovenox in the setting of thrombocytopenia Full code Full liquid diet. Advance as tolerated Admit as inpatient and will require two night minimum hospital stay for management of acute pancreatitis. Time Spent With Patient Time: Total time managing care of this patient today ____ minutes. Quality Stroke Does the patient have a stroke diagnosis?: No VTE Prior VTE?: No VTE Risk Level:: Medical - moderate - high VTE Device Contraindication: N/A - Device Ordered VTE Drug Contraindication: Treatment Not Indicated
[2022-11-11] MEDS: PHENobarbitaL sodium 130 MG/ML IM ONCE 244 MG IM (00:15)
[2022-11-11] MEDS: Enoxaparin Sodium 40 MG/0.4 ML SYRINGE SUBCUT (00:16)
[2022-11-11] MEDS: 0.9 % Sodium Chloride Flush 3 ML SYRINGE IVFLUSH (00:16)
[2022-11-11] MEDS: 0.9 % Sodium Chloride 1,000 ML 100 ML IVCONT ×3 (00:54→19:56)
[2022-11-11 00:55] LABS: Triglycerides 174 mg/dL
[2022-11-11 02:36] VITALS: BMI 28.8
[2022-11-11 03:12] VITALS: BP 163/86; PULSE 78; RESP 16; TEMP 36.1; O2SAT 98
[2022-11-11] MEDS: PHENobarbitaL sodium 130 MG/ML VIAL IM Q3Hx2 183 MG IM ×2 (03:26→05:54)
[2022-11-11] MEDS: Morphine Sulfate 4 MG/ML CARTRIDGE IVPUSH ×2 (03:38→12:08)
[2022-11-11 07:12] LABS: MANUAL DIFF FLAG NO
[2022-11-11 07:15] LABS: Basophils Percent Auto 0.5 % (0-2); Eosinophils Percent Auto 0.5 % (0-4); Hematocrit 32.8 % (42.0-52.0); Hemoglobin 11.6 g/dl (14.0-18.0); Imm Gran Abs Auto 0.01 X10*3/uL (0.00-0.03); Imm Gran Pct Auto 0.5 % (0.0-0.4); Lymphocytes Absolute Auto 0.6 X10*3/uL (1.2-4.9); Lymphocytes Percent Auto 26.2 % (20-40); Mean Corpuscular HGB Conc 35.4 g/dl (31.0-36.0); Mean Corpuscular Hemoglobin 36.3 pg (27.0-33.0); Mean Corpuscular Volume 102.5 fL (80.0-98.0); Mean Platelet Volume 10.2 fL (9.4-12.4); Monocytes Absolute Auto 0.2 X10*3/uL (0.1-1.2); Neutrophils Absolute Auto 1.3 x10*3/uL (2.0-8.3); Neutrophils Percent Auto 62.3 % (45-73); Red Cell Distribution Width 13.9 % (11.0-16.0); SCAN SMEAR FLAG 1
[2022-11-11 07:18] LABS: Platelet Count 60 X10*3/uL (160-400); White Blood Count 2.1 X10*3/uL (4.8-10.8)
[2022-11-11 07:30] VITALS: BP 161/92; PULSE 72; RESP 16; TEMP 36.6; O2SAT 97
[2022-11-11] MEDS: PHENobarbitaL 15 MG TABLET 45 MG PO ×2 (07:34→19:56)
[2022-11-11] MEDS: Folic Acid 1 MG TABLET PO (07:35)
[2022-11-11] MEDS: Thiamine HCL 100 MG TABLET PO (07:35)
--- NOTE | 2022-11-11 07:36 | PHA.MEDREC ---
Pharmacy Consult ? Medication Reconciliation Pharmacy has completed the medication reconciliation.
[2022-11-11 07:52] LABS: Anion Gap 13 (12-20); Blood Urea Nitrogen 10 mg/dL (9-16); Calcium 7.7 mg/dL (8.4-10.2); Carbon Dioxide 20 mmol/L (22-29); Chloride 112 mmol/L (96-108); Creatinine Clr Calc Pharmacy 110.7; Estimated Glomerular Filt Rate > 60; Glucose Random 88 mg/dL (60-115); Potassium 3.2 mmol/L (3.3-5.1); Sodium 142 mmol/L (135-145)
[2022-11-11 09:02] LABS: Lipase 219 U/L (8-78)
--- NOTE | 2022-11-11 10:34 | MHC.CM.PN ---
CM ATTEMPTED TO CONTACT [facility] TO ASSIST IN MEETING WITH THIS PT CM CALLED [phone] X 2 (1020 AND 1030) CM CALLED [phone] @ 1030 CM WILL TRY CALLING AGAIN AT A LATER TIME
--- NOTE | 2022-11-11 11:04 | P.PNIM_ITS ---
Subjective Subjective Date of Service: 11/11/22 Interval History: No acute issues overnight. Pain markedly improved. CIWA scale 0 this morning Review of Systems Denies chest pain Denies shortness of breath Denies nausea vomiting diarrhea Denies fever chills Physical Exam Vital Signs: Vital Signs: Last Vital Signs Temp 97.9 F 11/11/22 07:30 Pulse 72 11/11/22 07:30 Resp 16 11/11/22 07:30 BP 161/92 H 11/11/22 07:30 Pulse Ox 97 11/11/22 07:30 O2 Del Method 11/11/22 07:30 BMI result Body Mass Index 28.8 Const: Other: Awake alert lying comfortably in bed Resp: Other: Clear to auscultation bilaterally. No rales rhonchi or wheezes Cardio: Other: No S4; positive S1-S2; no S3 murmurs rubs or gallops Objective Data Active Medications Acetaminophen (Acetaminophen 325 Mg Tablet) 650 mg PO Q6H PRN PRN Reason: Pain, Mild (Pain Scale 1-3) Albuterol Sulfate (Albuterol Sulfate 90 Mcg 8 Gm Inhaler) 2 puff INHALE Q4H PRN PRN Reason: Wheezing Amlodipine Besylate (Amlodipine Besylate 5 Mg Tablet) 5 mg PO DAILY [facility]; Protocol Docusate Sodium (Docusate Sodium 100 Mg Capsule) 200 mg PO BEDTIME [facility] Folic Acid (Folic Acid 1 Mg Tablet) 1 mg PO DAILY [facility] Last Admin: 11/11/22 07:35 Dose: 1 mg Documented By: SHIMA Sodium Chloride (Ns) 1,000 mls @ 100 mls/hr IVCONT .Q10H [facility] Last Admin: 11/11/22 00:54 Dose: 100 mls/hr Documented By: BABATUNDE Melatonin (Melatonin 3 Mg Tablet) 6 mg PO BEDTIME PRN PRN Reason: Insomnia Morphine Sulfate (Morphine Sulfate 4 Mg/Ml Cartridge) 4 mg IVPUSH Q4H PRN; Protocol PRN Reason: Pain, Severe (Pain Scale 7-10) Last Admin: 11/11/22 03:38 Dose: 4 mg Documented By: JAEL Non-Formulary Medication (Simvastatin) 1 tab PO DAILY [facility] Ondansetron HCl (Ondansetron Hcl 4 Mg/2 Ml Vial) 4 mg IVPUSH Q8H PRN PRN Reason: Nausea and Vomiting Pharmacy Consult (Consult Rx Perform Med Rec) 1 each MISCELLANE ONCE PRN PRN Reason: Consult order Pharmacy Consult (Consult Rx Etoh Phenob Im/Po) 1 each MISCELLANE ONCE PRN; Protocol PRN Reason: Consult order Phenobarbital (Phenobarbital 15 Mg Tablet) 45 mg PO BID [facility]; Protocol Stop: 11/12/22 21:01 Last Admin: 11/11/22 07:34 Dose: 45 mg Documented By: SHIMA Phenobarbital (Phenobarbital 30 Mg Tablet) 30 mg PO BID [facility]; Protocol Stop: 11/14/22 21:01 Phenobarbital (Phenobarbital 30 Mg Tablet) 30 mg PO DAILY [facility]; Protocol Stop: 11/16/22 09:01 Sodium Chloride (0.9 % Sodium Chloride Flush 3 Ml Syringe) 3 ml IVFLUSH QSHIFT [facility] Last Admin: 11/11/22 07:21 Dose: Not Given Documented By: SHIMA Non-Admin Reason: IV Running Thiamine HCl (Thiamine Hcl 100 Mg Tablet) 100 mg PO DAILY [facility] Last Admin: 11/11/22 07:35 Dose: 100 mg Documented By: SHIMA Zolpidem Tartrate (Zolpidem Tartrate 5 Mg Tablet) 10 mg PO BEDTIME PRN PRN Reason: Sleep Labs 11/11/22 06:09 11/11/22 06:09 Labs: Laboratory Results - last 24 hr 11/10/22 11/10/22 11/10/22 20:17 20:17 20:17 MCV 101.4 H MCH 36.0 H MCHC 35.5 RDW 13.9 Plt Count 78 L D MPV 9.5 Immature Gran % (Auto) 0.6 H Neut % (Auto) 62.2 Lymph % (Auto) 26.9 [place] % (Auto) 9.3 Eos % (Auto) 0.6 Baso % (Auto) 0.4 Lymph # (Auto) 1.4 [place] # (Auto) 0.5 Eos # (Auto) 0.0 Baso # (Auto) 0.0 Abs Immat Gran (auto) 0.03 Absolute Neuts (auto) 3.3 Absolute Nucleated RBC 0.000 Nucleated RBC % (auto) 0.0 PT 10.5 INR 0.9 APTT 23.5 L Anion Gap 15 Estim Creat Clear Calc 66.1 Estimated GFR > 60 Random Glucose 153 H Calcium 8.9 D Magnesium 1.9 Total Bilirubin 1.4 H AST 254 H ALT 97 H Alkaline Phosphatase 203 H Troponin I High Sens Total Protein 6.6 Albumin 4.2 Triglycerides 174 Lipase > 3000 H Ethyl Alcohol 268 COVID-19 ([facility]ALI) COVID-19 Clin Com 11/10/22 11/10/22 11/11/22 20:17 22:00 06:09 MCV 102.5 H MCH 36.3 H MCHC 35.4 RDW 13.9 Plt Count 60 L MPV 10.2 Immature Gran % (Auto) 0.5 H Neut % (Auto) 62.3 Lymph % (Auto) 26.2 [place] % (Auto) 10.0 Eos % (Auto) 0.5 Baso % (Auto) 0.5 Lymph # (Auto) 0.6 L [place] # (Auto) 0.2 Eos # (Auto) 0.0 Baso # (Auto) 0.0 Abs Immat Gran (auto) 0.01 Absolute Neuts (auto) 1.3 L Absolute Nucleated RBC 0.000 Nucleated RBC % (auto) 0.0 PT INR APTT Anion Gap Estim Creat Clear Calc Estimated GFR Random Glucose Calcium Magnesium Total Bilirubin AST ALT Alkaline Phosphatase Troponin I High Sens < 3.5 Total Protein Albumin Triglycerides Lipase Ethyl Alcohol COVID-19 (DALI) Negative COVID-19 Clin Com See Note 11/11/22 06:09 MCV MCH MCHC RDW Plt Count MPV Immature Gran % (Auto) Neut % (Auto) Lymph % (Auto) [place] % (Auto) Eos % (Auto) Baso % (Auto) Lymph # (Auto) [place] # (Auto) Eos # (Auto) Baso # (Auto) Abs Immat Gran (auto) Absolute Neuts (auto) Absolute Nucleated RBC Nucleated RBC % (auto) PT INR APTT Anion Gap 13 Estim Creat Clear Calc 110.7 Estimated GFR > 60 Random Glucose 88 Calcium 7.7 L D Magnesium Total Bilirubin AST ALT Alkaline Phosphatase Troponin I High Sens Total Protein Albumin Triglycerides Lipase 219 H Ethyl Alcohol COVID-19 (DALI) COVID-19 Clin Com Assessment and Plan (1) Acute alcoholic pancreatitis: Status: Acute (2) Alcohol use disorder: Status: Acute Plan This is a 62-year-old male with pertinent history of essential hypertension, alcohol use disorder with history of alcoholic pancreatitis, insomnia, mild asthma who presents to the emergency department for evaluation of abdominal pain. 1. Acute Alcoholic pancreatitis -markedly improved since admission -will advance diet today -re-evaluate in a.m.. .. Question DC 2. Alcohol use disorder -CIWA 1 -continue phenobarb protocol 3.Essential hypertension -acceptable control on current therapy -adjust as indicated DVT prophylaxis: Mechanical. Full code Will require ongoing hospitalization for IV fluids and pain meds pending resolution of pancreatitis Time Spent With Patient Time: Total time managing care of this patient today ____ minutes. Quality Stroke Does the patient have a stroke diagnosis?: No VTE Prior VTE?: No VTE Risk Level:: Medical - moderate - high VTE Device Contraindication: N/A - Device Ordered VTE Drug Contraindication: Treatment Not Indicated
[2022-11-11] MEDS: amLODIPine Besylate 5 MG TABLET PO (12:08)
--- NOTE | 2022-11-11 15:24 | MHC.CM.PN ---
PT REPORTS HE LIVES ALONE AND IS INDEPENDENT WITH CARE PT USES NO DME OR HOME SERVICES PT DECLINES TO COMPLETE A HCP BUT DOES ACCEPT THE DOCUMENT AND INFO HE IS COVID VAX AND BOOSTED PCP: TRISTON SYKES IMM DELIVERED CURRENT DC PLAN IS HOME WITH NO SERVICES FAMILY TO TRANSPORT
[2022-11-11] MEDS: Potassium Chloride Packet 20 MEQ PACKET 40 MEQ PO (15:50)
[2022-11-11 15:54] VITALS: BP 172/88; PULSE 68; RESP 20; TEMP 36.3; O2SAT 99
[2022-11-11 19:47] VITALS: BP 146/82; PULSE 63; RESP 18; TEMP 36.3; O2SAT 98
[2022-11-11] MEDS: Docusate Sodium 100 MG CAPSULE 200 MG PO (19:55)
[2022-11-12] MEDS: Morphine Sulfate 4 MG/ML CARTRIDGE IVPUSH (03:01)
[2022-11-12 03:35] VITALS: BP 156/79; PULSE 59; RESP 18; TEMP 36.6; O2SAT 99
[2022-11-12 06:15] LABS: Imm Gran Abs Auto 0.01 X10*3/uL (0.00-0.03); Mean Corpuscular HGB Conc 35.2 g/dl (31.0-36.0); Monocytes Percent Auto 11.6 % (2-11); PLT CLUMP 1; SCAN SMEAR FLAG 1
[2022-11-12 06:17] LABS: Basophils Percent Auto 0.4 % (0-2); Eosinophils Percent Auto 1.3 % (0-4); Hematocrit 35.2 % (42.0-52.0); Hemoglobin 12.4 g/dl (14.0-18.0); Imm Gran Pct Auto 0.4 % (0.0-0.4); Lymphocytes Absolute Auto 0.7 X10*3/uL (1.2-4.9); Lymphocytes Percent Auto 28.9 % (20-40); MANUAL DIFF FLAG SCAN; Mean Corpuscular Hemoglobin 35.8 pg (27.0-33.0); Mean Corpuscular Volume 101.7 fL (80.0-98.0); Mean Platelet Volume 10.5 fL (9.4-12.4); Monocytes Absolute Auto 0.3 X10*3/uL (0.1-1.2); Neutrophils Absolute Auto 1.3 x10*3/uL (2.0-8.3); Neutrophils Percent Auto 57.4 % (45-73); Red Blood Count 3.46 X10*6/uL (4.60-5.80); Red Cell Distribution Width 13.6 % (11.0-16.0)
[2022-11-12 06:21] LABS: Platelet Count 64 X10*3/uL (160-400); White Blood Count 2.3 X10*3/uL (4.8-10.8)
[2022-11-12 06:31] LABS: Alanine Aminotransferase 114 U/L (0-40); Albumin Level 3.8 g/dL (3.5-5.0); Alkaline Phosphatase 169 U/L (39-117); Anion Gap 12 (12-20); Aspartate Amino Transferase 164 U/L (5-37); Bilirubin Total 1.9 mg/dL (0.0-1.0); Blood Urea Nitrogen 7 mg/dL (9-16); Calcium 7.9 mg/dL (8.4-10.2); Carbon Dioxide 24 mmol/L (22-29); Chloride 104 mmol/L (96-108); Creatinine Clr Calc Pharmacy 117.8; Estimated Glomerular Filt Rate > 60; Glucose Fasting 100 mg/dL (60-99); Potassium 2.8 mmol/L (3.3-5.1); Sodium 137 mmol/L (135-145)
[2022-11-12 07:27] LABS: SLIDE REVIEW VERIFIED
[2022-11-12 07:38] VITALS: BP 146/81; PULSE 61; RESP 18; TEMP 37.1; O2SAT 98
[2022-11-12] MEDS: Thiamine HCL 100 MG TABLET PO (08:28)
[2022-11-12] MEDS: amLODIPine Besylate 5 MG TABLET PO (08:28)
[2022-11-12] MEDS: Atorvastatin Calcium 10 MG TABLET PO (08:29)
[2022-11-12] MEDS: Folic Acid 1 MG TABLET PO (08:29)
[2022-11-12] MEDS: PHENobarbitaL 15 MG TABLET 45 MG PO (08:35)
[2022-11-12] MEDS: 0.9 % Sodium Chloride 1,000 ML 100 ML IVCONT (08:36)
[2022-11-12] MEDS: Potassium Chloride/H20 10 MEQ/100 ML PIGGYBACK 100 MEQ IV (08:39)
[2022-11-12] MEDS: Potassium Chloride ER 20 MEQ TAB.ER.PRT 40 MEQ PO (09:47)
--- NOTE | 2022-11-12 10:03 | MHC.RECOVRN ---
Met with pt in 377 after consult placed to CARE Team for alcohol use. Pt laying in bed, awake, alert, easily engages in conversation. Pt reports drinking 2 boxes of wine on the weekends x 1+ years. Pt is interested in abstinence, however, is not interested in outpatient recovery support at this time. Pt reports hx opioid use, was on methadone in 2007 and tapered after being on it for 5 years. Pt denies opiate use and cravings, reports doing really well with recovery. Pt has not been to ATS for alcohol use in the past, only opioids. Pt has received 2 DUIs and does not have a license, did go to AA due to this. Currently not utilizing outpatient supports or AA, does not plan on returning. Pt plans on utilizing family support. Pt provided with written information on local recovery resources as well as t/w contact information if needed. Denies other questions or concerns.
[2022-11-12 12:25] LABS: Potassium 3.3 mmol/L (3.3-5.1)
--- NOTE | 2022-11-12 13:04 | PM.DS ---
DS: Providers Provider Date of Service: 11/12/22 Date of admission: 11/10/22 23:15 Primary care physician: Unknown Physician Consults: 11/11/22 00:26 Consult to Care Team Routine Comment: Reason for consultation: alcohol use disorder 11/12/22 10:50 Consult to Care Team Routine Comment: Reason for consultation: etoh DS: Diagnosis Discharge Diagnosis (1) Acute alcoholic pancreatitis: Status: Acute (2) Alcohol use disorder: Status: Acute DS: Summary Hospital Course Hospital Course: History of presenting illness Date of Service: 11/10/22 Chief Complaint: Abdominal Pain This is a 62-year-old male with pertinent history of essential hypertension, alcohol use disorder with history of alcoholic pancreatitis, insomnia, mild asthma who presents to the emergency department for evaluation of abdominal pain.? Patient states symptoms started about 2-3 hours prior to presentation.? He had epigastric abdominal discomfort which was constant and without any relieving factors.? It was nonradiating and not associated with nausea or vomiting.? Patient denies fever, chills, chest discomfort, palpitations, shortness of breath, changes in urinary or bowel habits.? Patient states he continues to drink alcohol.? He was last hospitalized in April 2022 for pancreatitis likely due to alcohol use. In the emergency department, lipase was found to be significantly elevated. Hospital course: A 62-year-old male with pertinent history of essential hypertension, alcohol use disorder with history of alcoholic pancreatitis, insomnia, mild asthma who presents to the emergency department for evaluation of abdominal pain. 1. Acute Alcoholic? pancreatitis, patient treated with IV fluids analgesics abdominal pain resolved diet was gradually advanced , no recurrent abdominal pain no nausea vomiting patient has been strongly advised to abstain from alcohol 2. Alcohol use disorder treated with phenobarb protocol, folic acid and thiamine Seen by recovery team written information on local recovery resources provided, patient strongly encouraged to avoid alcohol. 3.Essential hypertension continue home medications blood pressure well controlled. 4. Alcoholic hepatitis noted to have elevated LFTs, also has history of hepatitis C recommend to stop his simvastatin and follow LFTs as outpatient. 5. Hypokalemia repleted 6. Chronic thrombocytopenia likely due to hepatitis-C, no active bleeding noted. Time Spent with Patient Time attestation: Total time managing care of this patient today ____ minutes. Discharge coordination time: Greater than 30 minutes Quality: Safe Use of Opioids Does Pt have an Active Cancer Diagnosis on the Problem List?: No Quality: Stroke Does the patient have a stroke diagnosis?: No Physical Exam Vital Signs: Vital Signs: Last Vital Signs Temp 98.8 F 11/12/22 07:38 Pulse 61 11/12/22 07:38 Resp 18 11/12/22 07:38 BP 146/81 H 11/12/22 07:38 Pulse Ox 98 11/12/22 07:38 O2 Del Method 11/12/22 07:38 BMI result Body Mass Index 28.8 Const: Other: ?General awake francisco rt, in no acute di stress ?Eyes anict eduardo sclera ?Neck no JVD noted ?lung sounds are clear to auscultation ?h eart regular rate rhythm, clear? S1, S2 ?Abdomen soft nontender bowel so unds audible ?kb ro alert, oriente d x3, no focal def icits, no tremors Psych appropriate affect DS: Data Data Completed and Pending Labs on day of discharge: Laboratory Results - last 24 hr 11/12/22 11/12/22 11/12/22 05:23 05:23 11:42 WBC 2.3 L RBC 3.46 L Hgb 12.4 L Hct 35.2 L MCV 101.7 H MCH 35.8 H MCHC 35.2 RDW 13.6 Plt Count 64 L MPV 10.5 Immature Gran % (Auto) 0.4 Neut % (Auto) 57.4 Lymph % (Auto) 28.9 [place] % (Auto) 11.6 H Eos % (Auto) 1.3 Baso % (Auto) 0.4 Lymph # (Auto) 0.7 L [place] # (Auto) 0.3 Eos # (Auto) 0.0 Baso # (Auto) 0.0 Abs Immat Gran (auto) 0.01 Absolute Neuts (auto) 1.3 L Absolute Nucleated RBC 0.000 Nucleated RBC % (auto) 0.0 Smear Tech's Comments VERIFIED Sodium 137 Potassium 2.8 L 3.3 Chloride 104 Carbon Dioxide 24 Anion Gap 12 BUN 7 L Creatinine 0.62 Estim Creat Clear Calc 117.8 Estimated GFR > 60 Fasting Glucose 100 H Calcium 7.9 L Total Bilirubin 1.9 H AST 164 H ALT 114 H Alkaline Phosphatase 169 H Total Protein 6.0 L Albumin 3.8 Discharge Plan Discharge Anticipated Discharge Date/Time: 11/12/22 13:01 Patient Disposition: Home, Self-Care Discharge Diagnosis: Acute alcoholic pancreatitis Alcohol use disorder Hypokalemia Referrals: Physician,Unknown J [Primary Care Provider] - 1 Week Discharge Medications: Continued amlodipine 5 mg Tablet 5 mg PO DAILY Qty: 30 0RF Protocol: Hold for SBP< HOLD for SBP < : 90 ibuprofen 600 mg tablet 600 mg PO BID PRN (Reason: Pain) albuterol sulfate 90 mcg/actuation HFA aerosol inhaler 2 puff PO Q4H PRN (Reason: Wheezing) zolpidem 10 mg tablet 10 mg PO BEDTIME PRN (Reason: Sleep) docusate sodium [Colace] 100 mg capsule 200 mg PO BEDTIME Qty: 60 5RF Discontinued simvastatin 20 mg tablet 1 tab PO DAILY Discharge Orders: Discharge Order (Routine); Ordered 11/12/22 Ordered By: Wesley Sahu Diet: Low fat, low cholesterol Activity on Discharge: As tolerated Stand Alone Forms: Patient Portal Discharge page Care Plan Goals: Alcoholic pancreatitis, abdominal pain resolved, strongly recommend to completely abstain from alcohol. Seen by recovery team written information on local recovery resources given. Health Concerns: Elevated LFTs due to alcoholic hepatitis recommend to hold simvastatin follow low cholesterol diet Plan of Treatment: Outpatient follow-up with primary care physician call for appointment Assessment: as above
--- NOTE | 2022-11-12 13:18 | MHC.CM.PN ---
PT WILL DC HOME TODAY WITH NO SERVICES PT TO ARRANGE TRANSPORT
== END 2022-11-12 13:49 | disposition home or self-care (01) | DRG 440 ==
LOC: HO.ED 20:56 → HO.EDOVER 23:24 → HO.S3 11-11 01:55
PROVIDERS: Hospitalist; Physician Assistant; Physician Assistant Medical; Admitting Provider Student in an Organized Health Care Education/Training Program; Emergency Provider Emergency Medicine Emergency Medical Services; PCP Student in an Organized Health Care Education/Training Program; Visit Provider Hospitalist
DX: K85.20 Alcohol induced acute pancreatitis without necrosis or infection (principal); E78.00 Pure hypercholesterolemia, unspecified; Y90.8 Blood alcohol level of 240 mg/100 ml or more; F03.90 Unspecified dementia, unspecified severity, without behavioral disturbance, psychotic disturbance, mood disturbance, and anxiety; J45.909 Unspecified asthma, uncomplicated; G47.00 Insomnia, unspecified; E87.6 Hypokalemia; B19.20 Unspecified viral hepatitis C without hepatic coma; I10 Essential (primary) hypertension; D53.9 Nutritional anemia, unspecified; D69.59 Other secondary thrombocytopenia; Z20.822 Contact with and (suspected) exposure to COVID-19; Z79.899 Other long term (current) drug therapy
CPT/HCPCS: 36415; 74177; 80048; 80053; 82077; 83690; 83735; 84132; 84478; 84484; 85025; 85610; 85730; 87635; 93005; 99285; J1650; J2270; J2405; J2560; Q9967

== ENCOUNTER 2023-01-18 09:06 | Outpatient (REF) | payer MEDICARE, MEDICAID, SELFPAY ==
[2023-01-18 10:54] LABS: MANUAL DIFF FLAG NO
[2023-01-18 11:10] LABS: Cholesterol 237 mg/dL; HDL Cholesterol 55 mg/dL; LDL Cholesterol Calculated 171 mg/dl; Triglycerides 58 mg/dL
[2023-01-18 11:11] LABS: Basophils Percent Auto 0.3 % (0-2); Hematocrit 36.6 % (42.0-52.0); Hemoglobin 12.8 g/dl (14.0-18.0); Imm Gran Abs Auto 0.01 X10*3/uL (0.00-0.03); Imm Gran Pct Auto 0.3 % (0.0-0.4); Lymphocytes Percent Auto 32.1 % (20-40); Mean Corpuscular Hemoglobin 33.4 pg (27.0-33.0); Mean Corpuscular Volume 95.6 fL (80.0-98.0); Mean Platelet Volume 10.4 fL (9.4-12.4); Monocytes Absolute Auto 0.5 X10*3/uL (0.1-1.2); Monocytes Percent Auto 16.9 % (2-11); Neutrophils Absolute Auto 1.5 x10*3/uL (2.0-8.3); Neutrophils Percent Auto 49.4 % (45-73); Platelet Count 129 X10*3/uL (160-400); Red Blood Count 3.83 X10*6/uL (4.60-5.80); Red Cell Distribution Width 12.8 % (11.0-16.0)
== END 2023-01-18 09:07 | disposition home or self-care (01) ==
LOC: HO.10HDL 09:06
PROVIDERS: Visit Provider Student in an Organized Health Care Education/Training Program
DX: K85.20 Alcohol induced acute pancreatitis without necrosis or infection (principal)
CPT/HCPCS: 36415; 80061; 85025

== ENCOUNTER 2023-02-01 08:49 | Outpatient (REF) | payer MEDICARE, MEDICAID, SELFPAY ==
[2023-02-01 11:03] LABS: Iron 138 mcg/dL (45-160); Percent Iron Saturation 48 % (15-50); Total Iron Binding Capacity 290 mcg/dL (228-428); Unsaturated Iron Binding 152 ug/dL
[2023-02-01 11:40] LABS: Ferritin 842 ng/mL (20-250); Folate > 20.0 ng/mL (> or = 4.0); Vitamin B12 314 pg/mL (200-900)
== END 2023-02-01 08:50 | disposition home or self-care (01) ==
LOC: HO.10HDL 08:49
PROVIDERS: Visit Provider Internal Medicine
DX: D53.9 Nutritional anemia, unspecified (principal)
CPT/HCPCS: 36415; 82607; 82728; 82746; 83540

== ENCOUNTER 2024-10-16 13:03 | Outpatient (AMB) | payer OTHER, SELFPAY ==
--- OUTSIDE RECORDS SUMMARY | 2024-10-16 13:31 | XMS_ITS | Encounter Summary ---
Author Organization [employer] Address [address] [facility] [address] [place] [address] Care Team Providers Care Tub Rider Name Role Phone Nadya Mauro MD Primary Care Provider [phone] Encounter Details Date Type Department Care Team (Late st Contact Info) Description 01/24/2023 Orders Only [facility] MED & PEDS [address] [place], [place] [phone] Herb Flores MD [address] [place], [place] [phone] Macrocytic anemia (Primary Dx) Social History Tobacco Use Types Packs/Day Years Used Date Smoking Tobacco: Never Passive Smoke Exposure: Never Smokeless Tobacco: Never Alcohol Use Standard Drinks/Week Comments Yes 0 (1 standard drink = 0.6 oz pur e alcohol) Depression Answer Date Recorded Patient Health Questionnaire-9 Score 4 12/24/2022 Depression Answer Date Recorded Patient Health Questionnaire-2 Score 0 12/24/2022 Sex and Gender Information Value Date Recorded Sex Assigned at Male 06/25/2022 10:15 AM EDT Legal Sex Male 10:15 AM EDT Gender Identity Male 06/25/2022 10:15 AM EDT Sexual Orientation Straight 12/25/2022 10 :18 AM EDT COVID-19 Exposure Response Date Recorded In the last 10 days, have yo u been in contact with someone who was confirmed or suspected to have Coronavirus/COVID-19? No / Unsure 01/10/2023 9:15 AM EDT documented as of this encounter Plan of Treatment Scheduled Orders Name Type Priority Associated Diagnoses Orde r Schedule Vitamin B12/Folate, Serum Panel Lab Routine Macrocytic anemia Expected: 01/25/2023 (Approximate), Expires: 01/26/2024 Iron, TIBC And Ferritin Panel Lab Routine Macrocytic anemia Expected: 01/25/2023 (Approximate), Expires: 01/26/2024 documented as of this encounter Visit Diagnoses Diagnosis Macrocytic anemia- Primary documented in this encounter Additional Health Concerns Assessment Noted Time PHQ-9 Depression Total Score: 4 12/25/19 23 9:49 AM EDT documented as of this encounter Care Teams Tub Rider Relationship Specialty Start Date End Date Nadya Mauro MD [address] [place] [id number] PCP - General Family Medicine 08/11/12 documented as of this encounter
--- OUTSIDE RECORDS SUMMARY | 2024-10-16 13:31 | XMS_ITS | Clinical Summary ---
Author Organization [employer] Address [address] [facility] [address] [place] [address] Care Team Providers Care Merchandising Intern Name Role Phone Nadya Mauro MD Primary Care Provider [phone] Allergies No known active allergies Medications GaviLAX 17 GM/SCOOP powder TAKE 17 GRAMS MIXED IN BEVERAGE ONCE DAILY 2 Active docusate sodium (Colace) 100 MG capsule TAKE 2 SOFTGELS ORALLY AT BEDTIME 2 Active aspirin 81 MG chewable tablet Taking approx once per week 9 Active folic acid (Folvite) 1 MG tablet TAKE 1 TABLET BY MOUTH IN THE MORNING 90 tablet 3 4 Active gemfibrozil (Lopid) 600 MG tablet TAKE 1 TABLET BY MOUTH TWICE A DAY 180 tablet 1 4 Active zolpidem (Ambien) 10 MG tabletIndication s:Insomnia, unspecified TAKE 1 TABLET BY MOUTH EVERY EVENING NEEDED 10 tablet 3 4 Active amLODIPine (Norvasc) 5 MG tablet TAKE 1 TABLET BY MOUTH EVERY MORNING 90 tablet 1 4 Active ibuprofen 600 MG tabletIndication s:Pain TAKE 1 TABLET BY MOUTH TWICE A DAY 60 tablet 3 4 Active Ventolin HFA 108 (90 Base) MCG/ACT inhalerIndicatio ns:Asthma, unspecified asthma severity, unspecified whether complicated, unspecified whether persistent INHALE 2 PUFF BY INHALATION ROUTE EVERY 4 HRS NEEDED 18 g 1 4 Active thiamine (Vitamin B-1) 100 MG tablet TAKE 1 TABLET BY MOUTH EVERY DAY IN THE MORNING 90 tablet 4 Active Active Problems Problem Noted Date Diagnosed Date Primary hypertension 05/01/2023 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 Asthma 06/09/2013 Hypercholesterolemia 05/18/2013 Encounters Date Type Department Care Team Description 08/07/2024 Patient Outreach [facility] [address] [place] [address] Nadya Mauro MD Medicare Annual Wellness Visit Initial (AWV unscheduled) 08/01/2024 Refill [facility] MED & PEDS [address] [place] [address] Nadya Mauro MD Asthma, unspecified asthma severity, unspecified whether complicated, unspecified whether persistent 07/22/2024 Orders Only [facility] [address] [place] [address] Leslee Coates ANP 07/17/2024 Telephone [facility] [address], [place] [phone] Nadya Mauro MD Medication Question from Last 3 Months Immunizations Name Administration Dates Next Due Hep B, adult 04/13/2005,11/11/2003,09/10/2003 Influenza High-dose Quadriva lent Preservative Free 07/20/2024 Influenza Injectable Quadriv alant Preservative Free IIV4 MDCK 07/26/2023,06/15/2019 Influenza injectable quadriv alent IIV4 with preservative 06/04/2018,06/27/2017 Influenza injectable quadriv alent preservative free 07/06/2022,06/16/2021,07/18/2016,06/02 Influenza, High Dose Seasona l, Preservative Free 07/20/2024 Influenza, IIV3, injectable 06/08/2014 Influenza, Split (incl. arnoldo fied surface antigen) 05/20/2013,04/30/2012 Pneumococcal Conjugate PCV 20 07/26/2023 Pneumococcal Polysaccharide PPSV23 11/30/2005 TD (adult), 2 Lf tetanus tox oid, preservative free, adsorbed 11/30/2005 Tdap 06/27/2017 Zoster, Recombinant 06/16/2021 Social History Tobacco Use Types Packs/Day Years Used Date Smoking Tobacco: Never Passive Smoke Exposure: Never Smokeless Tobacco: Never Tobacco Cessation:Counseling Given: Not Answered Alcohol Use Standard Drinks/Week Comments Yes 0 (1 standard drink = 0.6 oz pur e alcohol) Depression Answer Date Recorded Patient Health Questionnaire-9 Score 4 12/24/2022 Housing Stability Answer Date Recorded What is your housing situation today? I have iwona low 06/14/[address] you li ve. Do you have problems with any of the following? None of the above 06/14/2023 Food Insecurity Answer Date Recorded Within the past 12 months, y ou worried that your food would run out before you got money to buy more: Never True 06/14/2023 Within the past 12 months,th e food you bought just didn't last and you didn't have enough money to get more: Never True Transportation Answer Date Recorded In the past 12 months, has l ack of transportation kept you from medical appts, meetings, work or from getting things needed for daily living? No 06/14/2023 Utilities Answer Date Recorded In the past 12 months, has t he electric, gas, oil or water company threatened to shut off services in your home? No 06/14/2023 Depression Answer Date Recorded Patient Health Questionnaire-2 Score 0 12/24/2022 Sex and Gender Information Value Date Recorded Sex Assigned at Male 06/25/2022 10:15 AM EDT Legal Sex Male 10:15 AM EDT Gender Identity Male 06/25/2022 10:15 AM EDT Sexual Orientation Straight 12/25/2022 10 :18 AM EDT Last Filed Vital Signs Vital Sign Reading Time Taken Comments Blood Pressure 128/82 06/11/2024 9:26 AM EDT Pulse 70 05/20/2024 9:55 AM EDT Temperature 36.9 ??C (98.4 ??F) 05/01/2023 10:09 AM E DT Respiratory Rate 16 05/01/2023 10:09 AM EDT Oxygen Saturation - - Inhaled Oxygen Concentration - - Weight 80 kg (176 lb 6.4 oz) 05/01/2023 10:09 AM EDT Height 165.1 cm (5' 5 ) 05/01/2023 10:09 AM EDT Body Mass Index 29.35 05/01/2023 10:09 AM EDT Plan of Treatment Health Maintenance Due Date Last Done Comments CT Colonography 1959 Colonoscopy 1959 Colorectal Cancer Screening 1959 FIT DNA/Cologuard 1959 FIT 1959 FOBT 1959 Sigmoidoscopy 1959 Alcohol/Substance Use Screening 1971 Hepatitis C Screening 1977 RSV Patients and Patients Aged 60 years or older (1 - Risk 60-74 years 1-dose series) 2019 Zoster Vaccines (2 of 2) 08/11/2021 06/16/2021 Depression Screening 12/25/2023 12/24/2022, 12/25/19 SDOH Screening 12/25/2023 12/24/2022 Dental Oral Exam 11/18/2024 05/20/2024, 12/25/2022 Dental Prophylaxis 11/18/2024 05/20/2024, 0 10/01/2023, 12/25/2022 Dental X-Ray: Bitewings 05/21/2025 05/20/2024, 12/25 Tobacco Screening 06/22/2025 06/22/2024 Dental X-Ray: Full Mouth 05/21/2027 05/20/2024 DTaP/Tdap/Td Vaccines (2 - Td or Tdap) 06/27/2027 06/27/2017, 11/30/2005 Lipid Panel 01/19/2028 01/18/2023, 03/16/2022 Hepatitis B Vaccines Completed 04/13/2005, 11/11/2003, 09/10/2003 Pneumococcal Vaccine: 50+ Years Completed 07/26/2023, 11/30/2005 COVID-19 Vaccine Completed 07/20/2024, 06/2022, 07/26/2021, Additional history exists Influenza Vaccine Completed 07/20/2024, , 07/26/2023, Additional history exists HIB Vaccines Aged Out No longer eligi ble based on patient's age to complete this topic HPV Vaccines Aged Out No longer eligi ble based on patient's age to complete this topic Hepatitis A Vaccines Aged Out No long er eligible based on patient's age to complete this topic IPV Vaccines Aged Out No longer eligi ble based on patient's age to complete this topic Meningococcal Vaccine Aged Out No shilpa daquan eligible based on patient's age to complete this topic RSV under 20 months Aged Out No longe r eligible based on patient's age to complete this topic Rotavirus Vaccines Aged Out No longer eligible based on patient's age to complete this topic Procedures Procedure Name Priority Date/Time Associated Diagnosis Comments PROPHYLAXIS - ADULT Routine 05/20/2024 1 0:00 AM EDT INTRAORAL - COMPLETE SERIES OF RADIOGRAPHIC IMAGES Routine 05/20/2024 10:00 AM EDT PERIODIC ORAL EVALUATION - ESTABLISHED PATIENT Routine 05/20/2024 10:00 AM EDT LIPID PANEL, STANDARD Routine 01/18/2023 9:28 AM EDT from Last 3 Months or Most Recently Relevant to Health Maintenance Results * Lipid Panel, Standard (01/18/2023 9:28 AM EDT) Triglycerides 58 mg/dL [facility] Comment:Desirable Triglyceri de: less than 150 mg/dLBorderline High Triglyceride 150-199 mg/dLHigh Triglyceride: 200-499 mg/dLVery High Triglyceride: greater than or equal to 5OO mg/dL Cholesterol 237 mg/dL [facility] Comment:Desirable Cholestero l: less than 200 mg/dLBorderline High Cholesterol: 200-239 mg/dLHigh Cholesterol: greater than 239 mg/dL LDL Cholesterol Calculated 171 mg/dl [facility] Comment:Desirable LDL: less than 100 mg/dLNear Optimal/Above Optimal LDL: 110- 129 mg/dLBorderline High LDL: 130-159 mg/dLHigh LDL: 160-189 mg/dLVery High LDL: greater than or equal to 190 mg/dL HDL Cholesterol 55 mg/dL [facility] Comment:Desirable HDL: great er than 40 mg/dL Note: This HDL assay may give artificially low results in patients with liver disease. 01/18/2023 9:28 AM EDT 01/18/2023 10:49 AM EDT us [facility] External Provider LAB BLO OD ORDERABLES Final Result [facility] [address] [place] [address] [phone] from Last 3 Months or Most Recently Relevant to Health Maintenance Insurance [place] [id number] [facility] MEDICAID STAND ADULT DENTAL [facility] Care Teams Merchandising Intern Relationship Specialty Start Date End Date Nadya Mauro MD [address] [place] [phone] PCP - General Family Medicine 08/11/12
--- OUTSIDE RECORDS SUMMARY | 2024-10-16 13:32 | XMS_ITS | Encounter Summary ---
Author Organization [facility] Address [address] [facility] [address] [place] [address] Care Team Providers Care Metal Mold Dresser Name Role Phone Nadya Mauro MD Primary Care Provider [phone] Encounter Details Date Type Department Care Team (Latest Contact Info) Description 06/07/2021 Abstract [facility] Dental, Provider, DDS Social History Tobacco Use Types Packs/Day Years Used Date Smoking Tobacco: Never Assessed Sex and Gender Information Value Date Recorded Sex Assigned at Male 06/25/2022 10:15 AM EDT Legal Sex Male 10:15 AM EDT Gender Identity Male 06/25/2022 10:15 AM EDT Sexual Orientation Straight 12/25/2022 10 :18 AM EDT documented as of this encounter Plan of Treatment Not on file documented as of this encounter Visit Diagnoses Not on filedocumented in this encounter Care Teams Metal Mold Dresser Relationship Specialty Start Date End Date Nadya Mauro MD [address] [place] [id number] PCP - General Family Medicine 08/11/12 documented as of this encounter
--- OUTSIDE RECORDS SUMMARY | 2024-10-16 13:32 | XMS_ITS | Encounter Summary ---
Author Organization [employer] Address [address] [facility] [address] [facility] [address] [place] [address] Care Team Providers Care Regional Psychiatric Director Name Role Phone Nadya Mauro MD Primary Care Provider [phone] Reason for Visit * Reason Comments Med Refill Encounter Details Date Type Department Care Team ([facility] st Contact Info) Description 07/02/2023 Refill [facility] MED & PEDS [address] [place], [place] [phone] Nadya Mauro MD [address] [place], [place] [phone] Social History Tobacco Use Types Packs/Day Years [...] Diagnoses Not on filedocumented in this encounter Additional Health Concerns Assessment Noted Time PHQ-9 Depression Total Score: 4 12/25/19 9:49 AM EDT documented as of this encounter Care Teams Regional Psychiatric Director Relationship Specialty Start Date End Date Nadya Mauro MD [address] [place] [id number] PCP - General Family Medicine 08/11/12 documented as of this encounter
--- OUTSIDE RECORDS SUMMARY | 2024-10-16 13:32 | XMS_ITS | Encounter Summary ---
Author Organization [employer] Address [address] [place] [address] [address] [place] [address] Care Team Providers Care Pad Machine Feeder Name Role Phone Nadya Mauro MD Primary Care Provider [phone] Reason for Visit * Reason Comments Med Refill Encounter Details Date Type Department Care Team ([facility] st Contact Info) Description 05/06/2023 Refill [facility] MED & PEDS [address] [place], [place] [phone] Nadya Mauro MD [address] [place] [address] Pain Social History Tobacco Use Types Packs/Day Years [...] as of this encounter Visit Diagnoses Diagnosis Pain Generalized pain documented in this encounter Additional Health Concerns Assessment Noted Time PHQ-9 Depression Total Score: 4 12/25/19 23 9:49 AM EDT documented as of this encounter Care Teams Pad Machine Feeder Relationship Specialty Start Date End Date Nadya Mauro MD [address] [place] [phone] PCP - General Family Medicine 08/11/12 documented as of this encounter
[2024-10-16 13:37] VITALS: BP 126/79; PULSE 76; BMI 29.7
--- NOTE | 2024-10-16 13:37 | A.OFFVIS_ITS ---
Vital Signs 10/16/24 13:37 Height 5 ft 5 in Weight 178 lb 9.191 oz BMI 29.7 BP 126/79 Blood Pressure Location Lt brachial Position Sitting Pulse 76 Intake Visit Reasons: hemorrhoids/Suzy pt Intake Note: Jimmy presents in the office as a follow up CC: No bleeding or pains - he states that he is feeling good. Allergies No Known Allergies Allergy (Verified 10/16/24 13:39) HPI Comments Details: 64 y.o M with PMH of who is here for follow up. Pt actually thought he was here to discuss urinary issues and prostate exam. He does not have any GI sx to include abd pain, N,V, D. No rectal bleeding. His main complaint is change in urinary stream and nocturia x 3-4 times. From colorectal ca screening standpoint, last colo was in 2021. Dr Rust. x2 tubular adenoma. Repeat recommended in 5 years. [facility] Medical History Elevated cholesterol Asthma Hx of sprain of wrist Surgical History Hx of colonoscopy Family History Mother Advanced dementia Diabetes HTN (hypertension) Father HTN (hypertension) Social History Household Members: None Household Members Other:: 0 Housing: Apartment Do you presently have visiting nurse or other home services: No Alcohol intake: current Alcohol intake frequency: 3 or more drinks per day Patient Tobacco Use Status: Never used Tobacco e-Cigarette/Vaping Use: Never Used Second Hand Smoke Exposure: No service: No Current occupational status: disabled Review of Systems Const All systems reviewed & are unremarkable except as noted in HPI and below Physical Exam Vital Signs: Last Vital Signs Pulse 76 10/16/24 13:37 BP 126/79 10/16/24 13:37 BMI result Body Mass Index 29.7 No apparent distress Nonicteric Abdomen soft, nondistended Alert and oriented x3, normal gait Assessment & Plan Assessment & Plan (1) Nocturia: Code(s): R35.1 - Nocturia Category: Medical (2) Tubular adenoma of colon: Code(s): D12.6 - Benign neoplasm of colon, unspecified Category: Medical Plan # LUTS: Referral to urology requested # Personal hx of polyps: Next colo due 2026. Reminder set. Follow up with GI office PRN Orders: Referrals Urology Referral R35.1 - Nocturia Coding Level of Care Code Est Pt Level 3 (28684) Diagnoses Nocturia R35.1 Tubular adenoma of colon D12.6
== END 2024-10-16 14:02 | disposition home or self-care (01) ==
PROVIDERS: PCP Student in an Organized Health Care Education/Training Program; Visit Provider Internal Medicine
DX: R35.1 Nocturia (principal); D12.6 Benign neoplasm of colon, unspecified
CPT/HCPCS: 99213

== ENCOUNTER → 2024-10-16 13:03 | Outpatient (BNVA) | payer OTHER, SELFPAY | PROVIDERS: PCP Student in an Organized Health Care Education/Training Program; Visit Provider Internal Medicine | DX: R35.1 Nocturia (principal); D12.6 Benign neoplasm of colon, unspecified | CPT/HCPCS: 99212 ==

== ENCOUNTER 2024-12-10 11:06 | Outpatient (AMB) | payer OTHER, SELFPAY ==
--- NOTE | 2024-12-10 11:40 | A.OFFVIS_ITS ---
Intake Visit Reasons: Nocturia Intake Note: New Patient presents for initial visit for nocturia Urology Medications: none Blood Thinner: none PVR: 31ml's Agricultural Research Engineer Required: No Accompanied by: Self / Same As Patient Allergies No Known Allergies Allergy (Verified 12/10/24 12:05) Medication List - Last Reconciled 12/10/24 by FLAKITO Martínez albuterol sulfate 90 mcg/actuation 2 puffs PO Q4H PRN amlodipine 5 mg PO DAILY docusate sodium (Colace) 200 mg (2 x 100 mg) PO BEDTIME ibuprofen 600 mg PO BID PRN thiamine HCl (vitamin B1) 100 mg PO QAM zolpidem 10 mg PO BEDTIME PRN HPI Comments Details: Jimmy is a very pleasant 64-year-old male patient of Dr. Mauro. He has a past medical history of hypercholesteremia and asthma. In discussion with the patient today he reports having followed up with his PCP and discussing issues with intermittent episodes of nocturia as well as ED he has been experiencing over the last 2 years. He reports he is able to obtain but not maintain his erections that he feels are adequate for penetration. When asked he does report drinking wine daily. He reports episodes of nocturia up to 8 times per night however these episodes are intermittent. Unable to obtain urine for urinalysis as patient unable to void however PVR 31 mL. We discussed at length potential causes of nocturia as well as erectile dysfunction. We discussed further workup as well as further interventions for these urological issues and risks and benefits of these interventions. He otherwise denies urinary urgency, urinary frequency, incontinence, hematuria, dysuria, foul smelling urine, changes to urinary stream, flank pain, fever, and or chills. We discussed obtaining retroperitoneal ultrasound, PSA, and testosterone for further assessment evaluation. We also discussed at length the importance of lifestyle modifications to assist with nocturia as well as ED. He otherwise offers no other issues or concerns at this time. [facility] Medical History Elevated cholesterol Asthma Hx of sprain of wrist Surgical History Hx of colonoscopy Family History Mother Advanced dementia Diabetes HTN (hypertension) Father HTN (hypertension) Social History Household Members: None Household Members Other:: 0 Housing: Apartment Do you presently have visiting nurse or other home services: No Alcohol intake: current Alcohol intake frequency: 3 or more drinks per day Patient Tobacco Use Status: Never used Tobacco e-Cigarette/Vaping Use: Never Used Second Hand Smoke Exposure: No service: No Current occupational status: disabled Review of Systems Const All systems reviewed & are unremarkable except as noted in HPI and below Physical Exam Const General: cooperative, comfortable, no acute distress, well developed, alert and awake Orientation/consciousness: patient oriented x3 Limitations: no limitations HEENT Head: Yes normal to inspection, Yes normocephalic and Yes atraumatic Ears: hearing grossly normal bilaterally Eyes General: appearance normal, both eyes and all related structures Neck Neck: Yes normal visual inspection and Yes trachea midline Chest Chest palpation & inspection: normal inspection of the chest Resp Effort & Inspection: normal respiratory effort and able to speak in complete sentences Cardio Rate: regular rate GI Inspection: Yes normal to inspection General: Yes no CVA tenderness Back/Spine/Pelvis Back: no CVA tenderness Skin General skin exam: no rashes or lesions noted Neuro General: patient oriented x3 Extrem General: Yes normal to inspection Psych Appearance: grossly normal and well kempt Mental Status: mental status grossly normal Speech and movement: Normal speech and movement present and Clear speech present Affect: normal affect Attitude: cooperative Thought process: Normal thought process present Thought content: Normal thought content present Insight: Fair insight present (Psych) Judgement: Fair judgement present (Psych) Office Procedures Post Void Residual Post Residual Void Post Void Residual (PVR): 31 [id number] Void Residual by ultrasound Assessment & Plan Assessment & Plan (1) Erectile dysfunction associated with type 2 diabetes mellitus: Code(s): E11.69 - Type 2 diabetes mellitus with other specified complication; N52.1 - Erectile dysfunction due to diseases classified elsewhere Category: Medical Plan Unable to obtain urine for urinalysis as patient unable to void however PVR 31 mL. We discussed at length potential causes of nocturia as well as erectile dysfunction. We discussed further treatment options and risks and benefits of these treatment options. We discussed lifestyle modifications. Start Cialis 5 mg daily as discussed and prescribed. Prescription provided for p.r.n. dosing. We discussed importance of limiting alcohol intake for improvement in urological issues he is reporting as well as overall health and well-being Will obtain retroperitoneal ultrasound, PSA, and testosterone for further assessment evaluation. Follow-up in 3 months with PVR and labs; or sooner with any issues, concerns, and or questions. Orders: Orders US retroperitoneal comp 12/10/24 E11.69 - Type 2 diabetes mellitus with other specified complication, N52.1 - Erectile dysfunction due to diseases classified elsewhere Prostate Specific Antigen 12/10/24 E11.69 - Type 2 diabetes mellitus with other specified complication, N52.1 - Erectile dysfunction due to diseases classified elsewhere Testosterone, Free/Total 12/10/24 E11.69 - Type 2 diabetes mellitus with other specified complication, N52.1 - Erectile dysfunction due to diseases classified elsewhere AMB Post Void Residual by ultrasound 12/10/24 R35.1 - Nocturia Medications: New tadalafil (Cialis) [id number] [facility] [id number] Member [id number] 5 mg PO DAILY 90 tabs 0RF 90 days tadalafil (Cialis) administer approximately 30min before sexual activity; do not use more than 1 dose per 24hrs [id number] [facility] [id number] Member [id number] 20 mg PO .PRN PRN 14 tabs 3RF sexual activity 30 days Patient Instructions: The patient had an opportunity to ask questions regarding the treatment plan. All questions were answered. Physical exam, labs, and imaging were discussed and reviewed in detail. As well as risks, benefits, and discussion of treatment choices. No major barriers to understanding were identified. The patient expressed understanding and agreement with the above treatment plan. The patient was made aware they should contact our office by phone for worsening of their current condition, the appearance of new symptoms, or with any questions or concerns. Compliance is encouraged with any medications and follow up testing that is ordered. It is a privilege to be allowed the opportunity to participate in? your urological care.? Again, if you have any questions or concerns If you have any questions or concerns please do not hesitate to contact me. The office is [phone]. This note is constructed using voice recognition software. While every effort has been made to ensure accuracy retail service technician errors may have been included. Yours sincerely, FLAKITO Martínez Coding Level of Care Code New Pt Level 4 (95954) Diagnoses Erectile dysfunction associated with type 2 diabetes mellitus E11.69; N52.1 CPT Codes Post Residual Void - PVR CPT Code: 99680-Pisx Void Residual by ultrasound ([id number])
--- OUTSIDE RECORDS SUMMARY | 2024-12-10 13:39 | XMS_ITS | Encounter Summary ---
Author Organization [facility] Address [address] [place] [address] 7t [place] [address] Care Team Providers Care Mri Tech Name Role Phone Nadya Mauro MD Primary Care Provider [phone] Reason for Visit * Reason Comments Med Refill Encounter Details Date Type Department Care Team (Late st Contact Info) Description 05/06/2023 Refill [facility] MED & PEDS [address] [place], [place] [phone] Nadya Mauro MD 505 [place], [place] [phone] Pain Social History Tobacco Use Types Packs/Day [...] as of this encounter Plan of Treatment Upcoming Encounters Date Type Department Care Team (Late st Contact Info) Description 12/22/2024 1:00 PM EDT Office Visit [facility] & [facility] [address] [place] [address] Herb Flores MD 505 [place] [address] 01/08/2025 10:00 AM EDT Office Visit [facility] ADULT DENTAL [address] [place] [address] Paras Flores documented as of this encounter Visit Diagnoses Diagnosis Pain Generalized pain documented in this encounter Additional Health Concerns Assessment Noted Time PHQ-9 Depression Total Score: 4 12/25/19 23 9:49 AM EDT documented as of this encounter Care Teams Mri Tech Relationship Specialty Start Date End Date Nadya Mauro MD [address] [place] [address] PCP - General Family Medicine 08/11/12 documented as of this encounter
--- OUTSIDE RECORDS SUMMARY | 2024-12-10 13:39 | XMS_ITS | Clinical Summary ---
Author Organization [facility] Address [address] [facility] 7t [place] [address] Care Team Providers Care Ap Processor Name Role Phone Nadya Mauro MD Primary Care Provider [phone] Allergies No known active allergies Medications GaviLAX [...] A DAY 180 tablet 1 4 Active amLODIPine (Norvasc) 5 MG tablet [...] IN THE MORNING 90 tablet 4 Active zolpidem (Ambien) 10 MG tabletIndication s:Insomnia, unspecified TAKE 1 TABLET BY MOUTH EVERY EVENING NEEDED 10 tablet 3 5 Active Active Problems Problem Noted Date Diagnosed Date Primary hypertension 05/01/2023 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 Asthma 06/09/2013 Hypercholesterolemia 05/18/2013 Encounters Date Type Department Care Team Description 12/08/2024 Telephone [facility] MEDICINE [address] [place] [address] Nadya Mauro MD Pre-op Exam 11/08/2024 Refill [facility] CHC MED & PEDS [address] [place] [address] Nadya Mauro MD Insomnia, unspecified from Last 3 Months Immunizations Name Administration [...] 05/01/2023 10:09 AM EDT Plan of Treatment Upcoming Encounters Date Type Department Care Team (Late st Contact Info) Description 12/22/2024 1:00 PM EDT Office Visit [facility] MED & PEDS [address] [place] [address] Herb Flores MD 505 [place] [address] 01/08/2025 10:00 AM EDT Office Visit [facility] ADULT DENTAL [address] [place] [address] Paras Flores Health Maintenance Due Date Last Done Comments [...] (01/18/2023 9:28 AM EDT) Triglycerides 58 mg/dL [facility] Comment:Desirable Triglyceri de: less than 150 mg/dLBorderline High Triglyceride 150-199 mg/dLHigh Triglyceride: 200-499 mg/dLVery High Triglyceride: greater than or equal to 5OO mg/dL Cholesterol 237 mg/dL [facility] Comment:Desirable Cholestero l: less than 200 mg/dLBorderline High Cholesterol: 200-239 mg/dLHigh Cholesterol: greater than 239 mg/dL LDL Cholesterol Calculated 171 mg/dl [facility] Comment:Desirable LDL: less than 100 mg/dLNear Optimal/Above Optimal LDL: 110- 129 mg/dLBorderline High LDL: 130-159 mg/dLHigh LDL: 160-189 mg/dLVery High LDL: greater than or equal to 190 mg/dL HDL Cholesterol 55 mg/dL [facility] Comment:Desirable HDL: great er than 40 mg/dL Note: This HDL assay may give artificially low results in patients with liver disease. 01/18/2023 9:28 AM EDT 01/18/2023 10:49 AM EDT us [facility] External Provider LAB BLO OD ORDERABLES Final Result [facility] [address] [place] [address] [phone] from Last 3 Months or Most Recently Relevant to Health Maintenance Insurance MEDICARE [facility] STAND ADULT DENTAL [facility] Care Teams Ap Processor Relationship Specialty Start Date End Date Nadya Mauro MD [address] [place] [id number] PCP - General Family Medicine 08/11/12
--- OUTSIDE RECORDS SUMMARY | 2024-12-10 13:39 | XMS_ITS | Encounter Summary ---
Author Organization [employer] [facility] Address [address] 7t [place] [address] Care Team Providers Care Machine Cloth Examiner Name Role Phone Nadya Mauro MD Primary Care Provider [phone] Reason for Visit * Reason Onset Date Comments Pre-op Exam 12/08/2024 Encounter Details Date Type Department Care Team ([facility] st Contact Info) Description 12/08/2024 Telephone [facility] MEDICINE [address] [place], [place] [phone] Nadya Mauro MD [address] [place], [place] [phone] Pre-op Exam Social History Tobacco Use Types Packs/Day Years [...] t he electric, gas, oil or water [place] threatened to shut off services in your home? No 06/14/2023 Depression Answer Date Recorded Patient Health Questionnaire-2 Score 0 12/24/2022 Sex and Gender Information Value Date Recorded Sex Assigned at Male 06/25/2022 10:15 AM EDT Legal Sex Male 10:15 AM EDT Gender Identity Male 06/25/2022 10:15 AM EDT Sexual Orientation Straight 12/25/2022 10 :18 AM EDT documented as of this encounter Miscellaneous Notes * Telephone Encounter - Erick Vazquez - 12/09/2024 10:14 AM EDT Spoke to John agreed to Pre-op on 12/22/[address] Flores Left detailed VM to pt / also mailed Appt reminder * Telephone Encounter - Leigha Sifuentes - 12/08/2024 9:15 AM EDT Date of Surgery: 12/31 Surgical procedure being done: Left Eye Cataracts Type of anesthesia: Topical Lab needed: No EKG: No Surgeon's name: Hakeem Huber Facility name: [facility] Surgeon's office number: [phone] Surgeon's office fax number: [phone] Contact name (person you spoke with): Bertarasheed Last office note from surgeon requested: Yes Send Message to Alexandrea Vazquez documented in this encounter Plan of Treatment Upcoming Encounters Date Type Department Care Team ([facility] st Contact Info) Description 12/22/2024 1:00 PM EDT Office Visit [facility] MED & PEDS [address] [place] [address] Herb Flores MD 505 [place] [address] 01/08/2025 10:00 AM EDT Office Visit [facility] ADULT DENTAL [address] [place] [address] Paras Flores documented as of this encounter Visit Diagnoses Not on filedocumented in this encounter Additional Health Concerns Assessment Noted Time PHQ-9 Depression Total Score: 4 12/25/19 23 9:49 AM EDT documented as of this encounter Care Teams Machine Cloth Examiner Relationship Specialty Start Date End Date Nadya Mauro MD [address] [place] [address] PCP - General Family Medicine 08/11/12 documented as of this encounter
--- OUTSIDE RECORDS SUMMARY | 2024-12-10 13:39 | XMS_ITS | Encounter Summary ---
Author Organization [employer] [facility] Address [address] [facility] [address] [facility] 7t [place] [address] Care Team Providers Care Dermatology Nurse Name Role Phone Nadya Mauro MD Primary Care Provider [phone] Encounter Details Date Type Department Care Team (Late st Contact Info) Description 01/24/2023 Orders Only [facility] CHC MED & PEDS [address] [place], [place] [phone] Herb Flores MD 505 [place], [place] [phone] Macrocytic anemia (Primary Dx) Social History Tobacco [...] Description 12/22/2024 1:00 PM EDT Office Visit [facility] CHC MED & PEDS [address] [place], [place] [phone] Herb Flores MD 505 [place] [address] 01/08/2025 10:00 AM EDT Office Visit [facility] AD[facility] [address] [place] [address] Paras Flores Scheduled Orders Name Type Priority Associated Diagnoses [...] documented as of this encounter Care Teams Dermatology Nurse Relationship Specialty Start Date End Date Nadya Mauro MD [address] [place] [address] PCP - General Family Medicine 08/11/12 documented as of this encounter
--- OUTSIDE RECORDS SUMMARY | 2024-12-10 13:39 | XMS_ITS | Encounter Summary ---
Author Organization [employer] Address [address] 7t [place] [address] Care Team Providers Care Child Care Center Assistant Director Name Role Phone Nadya Mauro MD Primary Care Provider [phone] Reason for Visit * Reason Comments Med Refill Encounter Details Date Type Department Care Team ([facility] st Contact Info) Description 07/02/2023 Refill [facility] CHC MED & PEDS [address] [place], [place] [phone] Nadya Mauro MD 505 [place], [place] [phone] Social History Tobacco Use Types Packs/Day Years [...] Description 12/22/2024 1:00 PM EDT Office Visit [facility] MED & PEDS [address] [place] [address] Herb Flores MD 505 [place] [address] 01/08/2025 10:00 AM EDT Office Visit [facility] ADULT DENTAL [address] [place] [address] Paras Flores documented as of this encounter Visit Diagnoses Not on filedocumented in this encounter Additional Health Concerns Assessment Noted Time PHQ-9 Depression Total Score: 4 12/25/19 23 9:49 AM EDT documented as of this encounter Care Teams Child Care Center Assistant Director Relationship Specialty Start Date End Date Nadya Mauro MD [address] [place] [address] PCP - General Family Medicine 08/11/12 documented as of this encounter
--- OUTSIDE RECORDS SUMMARY | 2024-12-10 13:39 | XMS_ITS | Encounter Summary ---
Author Organization [email or web address] [facility] Address [address] [place] [address] 7t [place] [address] Care Team Providers Care Water Filterer Helper Name Role Phone Nadya Mauro MD Primary Care Provider [phone] Encounter Details Date Type Department Care Team (Latest Contact Info) Description 06/07/2021 Abstract [facility] CONVERSIONS Dental, Provider, DDS Social History [...] Description 12/22/2024 1:00 PM EDT Office Visit [facility] MED & PEDS [address] [place] [address] Herb Flores MD 505 [place] [address] 01/08/2025 10:00 AM EDT Office Visit [facility] ADULT DENTAL [address] [place] [address] Paras Flores documented as of this encounter Visit Diagnoses Not on filedocumented in this encounter Care Teams Water Filterer Helper Relationship Specialty Start Date End Date Nadya Mauro MD [address] [place] [address] PCP - General Family Medicine 08/11/12 documented as of this encounter
== END 2024-12-10 12:07 | disposition home or self-care (01) ==
LOC: HO.HUSH 11:06
PROVIDERS: PCP Student in an Organized Health Care Education/Training Program; Visit Provider Nurse Practitioner Family
DX: E11.69 Type 2 diabetes mellitus with other specified complication (principal); N52.1 Erectile dysfunction due to diseases classified elsewhere
CPT/HCPCS: 99204

== ENCOUNTER → 2024-12-10 11:06 | Outpatient (BNVA) | payer OTHER, SELFPAY | PROVIDERS: PCP Student in an Organized Health Care Education/Training Program; Visit Provider Nurse Practitioner Family | DX: E11.69 Type 2 diabetes mellitus with other specified complication (principal); N52.1 Erectile dysfunction due to diseases classified elsewhere; R35.1 Nocturia | CPT/HCPCS: 51798; 99202 ==

== ENCOUNTER 2024-12-29 11:35 | Outpatient (REF) | payer OTHER, SELFPAY ==
--- OUTSIDE RECORDS SUMMARY | 2024-12-29 13:17 | XMS_ITS | Encounter Summary ---
Author Organization [employer] Address [address] 7t [place] [address] Care Team Providers Care Collet Maker Name Role Phone Nadya Mauro MD Primary Care Provider [phone] Reason for Visit * Reason Onset Date Comments Nurse Triage 12/29/2024 Encounter Details Date Type Department Care Team ([facility] st Contact Info) Description 12/29/2024 Telephone [facility] MEDICINE [address] [place] [address] Nadya Mauro MD [address] [place], [place] [phone] Nurse Triage Social History Tobacco Use Types Packs/Day Years [...] encounter Miscellaneous Notes * Telephone Encounter - Erma Prieto RN - 12/29/2024 9:22 AM EDT Called pt. [address] [employer] [address] [place]. Pt. Sister speaks [place]amanian. She has permission from pt. To speak with nurse. Pt. Has been having trouble walking and the whites of his eyes are yellow x 1 month. Pt states he feels weak and his lower legs are swollen. This has been going on x 1 month. Pt declines ED. Protocol Used: No Protocol Available (Adult) Protocol-Based Disposition: See in Office or Video Visit Today Video visit offer not recorded Positive Triage Question: * Nursing judgment * All higher-acuity triage questions were negative * Telephone Encounter - Leigha Sifuentes - 12/29/2024 8:49 AM EDT Symptoms: Eye Swelling, Weakness Outcome: Talk to a nurse or provider within 15 minutes Reason: Trouble walking (very slow) The caller accepted this outcome. [phone] citizen [place] documented in this encounter Plan of Treatment Upcoming Encounters Date Type Department Care Team (Late st Contact Info) Description 01/08/2025 10:00 AM EDT Office Visit [facility] AD[facility] D[facility]AL [address] [facility] [place] [address] Paras Flores 01/22/2025 10:00 AM EDT Office Visit [facility] MED & PEDS [address] [facility] [place] [address] Nadya Mauro MD [address] [place] [address] documented as of this encounter Visit Diagnoses Not on filedocumented in this encounter Additional Health Concerns Assessment Noted Time PHQ-9 Depression Total Score: 4 12/25/19 23 9:49 AM EDT documented as of this encounter Care Teams Collet Maker Relationship Specialty Start Date End Date Nadya Mauro MD [address] [place] [address] PCP - General Family Medicine 08/11/12 documented as of this encounter
--- OUTSIDE RECORDS SUMMARY | 2024-12-29 13:17 | XMS_ITS | Encounter Summary ---
Author Organization [employer] Address [address] 7t [place] [address] Care Team Providers Care Property Worker Name Role Phone Nadya Mauro MD Primary Care Provider [phone] Encounter Details Date Type Department Care Team (Late st Contact Info) Description 12/29/2024 11:00 AM EDT Office Visit [facility] CHC MED & PEDS [address] [place], [place] [phone] Bailee Huggins MD [address] [place], [place] [phone] Jaundice (Primary Dx); Alcohol abuse Social History Tobacco Use Types Packs/Day Years [...] AM EDT documented as of this encounter Last Filed Vital Signs Vital Sign Reading Time Taken Comments Blood Pressure 146/82 12/29/2024 11:06 AM EDT Pulse 101 12/29/2024 11:05 AM EDT Temperature 37.1 ??C (98.7 ??F) 12/29/2024 11:05 AM E DT Respiratory Rate 22 12/29/2024 11:05 AM EDT Oxygen Saturation 95% 12/29/2024 11:05 AM EDT Inhaled Oxygen Concentration - - Weight 83.5 kg (184 lb 2 oz) 12/29/2024 11:05 AM EDT Height 165.1 cm (5' 5 ) 12/29/2024 11:05 AM EDT Body Mass Index 30.64 12/29/2024 11:05 AM EDT documented in this encounter Progress Notes * Bailee Huggins MD - 12/29/2024 11:00 AM EDT Subjective Patient ID: Jimmy Ayala is a 64 y.o. male who presents for weakness. Jimmy is a 64-year-old male patient of Dr. Mauro here with complaints of generalized weakness and poor balance. Patient lives alone but has a sister who lives in the same town brought him to the visit today. He has not seen his PCP since 2022. States he has a cataract surgery scheduled soon. He has not had blood work done in a long time even though these were ordered by PCP in 2022. He drinks roberto carlos daily basis, mostly wine. States has been drinking since age 12. Denies drinking daily. Review of Systems Constitutional: Negative for activity change, chills, fever and unexpected weight change. Respiratory: Negative for cough, shortness of breath and wheezing. Cardiovascular: Negative for chest pain, palpitations and leg swelling. Gastrointestinal: Negative for abdominal pain and blood in stool. Endocrine: Negative for polydipsia and polyuria. Genitourinary: Negative for decreased urine volume, difficulty urinating, dysuria and hematuria. Musculoskeletal: Negative for arthralgias and gait problem. Skin: Negative for color change and rash. Neurological: Positive for tremors and weakness. Negative for dizziness, seizures and headaches. Hematological: Negative for adenopathy. Bruises/bleeds easily. Psychiatric/Behavioral: Negative for dysphoric mood, hallucinations, sleep disturbance and suicidalideas. The patient is not nervous/anxious. Objective BP (!) 146/82 (BP Location: Right arm, Patient Position: Sitting, BP Cuff Size: Adult) Pulse 101 Temp 98.7 ??F (37.1 ??C) (Oral) Resp 22 Ht 5' 5 (1.651 m) Wt 184 lb 2 oz (83.5 kg) SpO2 95% BMI 30.64 kg/m?? Physical Exam Vitals reviewed. Constitutional: General: He is not in acute distress. Appearance: He is ill-appearing. HENT: Head: Normocephalic. Nose: Nose normal. Eyes: General: Scleral icterus present. Cardiovascular: Rate and Rhythm: Normal rate and regular rhythm. Heart sounds: No murmur heard. Pulmonary: Effort: Pulmonary effort is normal. Breath sounds: Normal breath sounds. No wheezing or rhonchi. Abdominal: General: Abdomen is protuberant. Bowel sounds are normal. There is distension. Palpations: There is fluid wave. There is no mass. Tenderness: There is no abdominal tenderness. There is no guarding. Musculoskeletal: Right lower leg: Edema present. Left lower leg: Edema present. Skin: Coloration: Skin is jaundiced. Findings: Bruising present. Neurological: Mental Status: He is alert and oriented to person, place, and time. Assessment/Plan Diagnoses and all orders for this visit: Jaundice Comments: Patient sent to the lab immediately for CBC, complete BMP, LFTs, lipase etc. call for results [place], suspect he has liver disease due to physical exam findings today. May need GI urgent referral once labs reviewed . Orders: - Albumin, Random Urine W/Creatinine; Future - Basic Metabolic Panel; Future - CBC auto differential; Future - Hepatic Function Panel; Future - Vitamin B12/Folate, Serum Panel; Future - TSH W/Reflex to FT4; Future - Hepatitis C Antibody with Reflex to HCV, RNA, Quantitative, Real-Time PCR; Future - Hepatitis B Surface Antibody, Qualitative; Future - Hepatitis B surface antigen, EIA; Future - Iron And Total Iron Binding Capacity; Future - Lipase; Future - Magnesium; Future - Vitamin B6; Future Alcohol abuse Comments: Advised to slow down on drinking. Reassess use of medications to help him. Sooner follow-up with PCP given to patient. Orders: - Albumin, Random Urine W/Creatinine; Future - Basic Metabolic Panel; Future - CBC auto differential; Future - Hepatic Function Panel; Future - Vitamin B12/Folate, Serum Panel; Future - TSH W/Reflex to FT4; Future - Hepatitis C Antibody with Reflex to HCV, RNA, Quantitative, Real-Time PCR; Future - Hepatitis B Surface Antibody, Qualitative; Future - Hepatitis B surface antigen, EIA; Future - Iron And Total Iron Binding Capacity; Future - Lipase; Future - Magnesium; Future - Vitamin B6; Future documented in this encounter Plan of Treatment Upcoming Encounters Date Type Department Care Team (Late st Contact Info) Description 01/08/2025 10:00 AM EDT Office Visit [facility] ADULT DENTAL [address] [place] [address] Paras Flores 01/22/2025 10:00 AM EDT Office Visit [facility] MED & PEDS [address] [place] [address] Nadya Mauro MD [address] [place] [address] Scheduled Orders Name Type Priority Associated Diagnoses Orde r Schedule Albumin, Random Urine W/Creatinine Lab Routine Jaundice Alcohol abuse Expected: 12/29/2024 (Approximate), Expires: 12/29/2025 Basic Metabolic Panel Lab Routine Jaundice Alcohol abuse Expected: 12/29/2024 (Approximate), Expires: 12/29/2025 CBC auto differential Lab Routine Jaundice Alcohol abuse Expected: 12/29/2024 (Approximate), Expires: 12/29/2025 Hepatic Function Panel Lab Routine Jaundice Alcohol abuse Expected: 12/29/2024 (Approximate), Expires: 12/29/2025 Vitamin B12/Folate, Serum Panel Lab Routine Jaundice Alcohol abuse Expected: 12/29/2024, Expires: 12/29/2025 TSH W/Reflex to FT4 Lab Routine Jaundice Alcohol abuse Expected: 12/29/2024 (Approximate), Expires: 12/29/2025 Hepatitis C Antibody with Reflex to HCV, RNA, Quantitative, Real-Time PCR Lab Routine Jaundice Alcohol abuse Expected: 12/29/2024, Expires: 12/29/2025 Hepatitis B Surface Antibody, Qualitative Lab Routine Jaundice Alcohol abuse Expected: 12/29/2024 (Approximate), Expires: 12/29/2025 Hepatitis B surface antigen, EIA Lab Routine Jaundice Alcohol abuse Expected: 12/29/2024 (Approximate), Expires: 12/29/2025 Iron And Total Iron Binding Capacity Lab Routine Jaundice Alcohol abuse Expected: 12/29/2024, Expires: 12/29/2025 Lipase Lab Routine Jaundice Alcohol abuse Expected: 12/29/2024, Expires: 12/29/2025 Magnesium Lab Routine Jaundice Alcohol abuse Expected: 12/29/2024, Expires: 12/29/2025 Vitamin B6 Lab Routine Jaundice Alcohol abuse Expected: 12/29/2024, Expires: 12/29/2025 documented as of this encounter Visit Diagnoses Diagnosis Jaundice- Primary Jaundice, unspecified, not of Alcohol abuse Nondependent alcohol abuse, unspecified drinking behavior documented in this encounter Additional Health Concerns Assessment Noted Time PHQ-9 Depression Total Score: 4 12/25/19 23 9:49 AM EDT documented as of this encounter Care Teams Property Worker Relationship Specialty Start Date End Date Nadya Mauro MD [address] [place] [address] PCP - General Family Medicine 08/11/12 documented as of this encounter
--- OUTSIDE RECORDS SUMMARY | 2024-12-29 13:17 | XMS_ITS | Clinical Summary ---
Author Organization [employer] Address [address] [facility] 7t [place] [address] Care Team Providers Care Knockout Man Name Role Phone Nadya Mauro MD Primary Care Provider [phone] Allergies No known active allergies Medications GaviLAX 17 GM/SCOOP powder TAKE 17 GRAMS MIXED IN BEVERAGE ONCE DAILY 03/28/20 22 Active docusate sodium (Colace) 100 MG capsule TAKE 2 SOFTGELS ORALLY AT BEDTIME 05/05/20 22 Active aspirin 81 MG chewable tablet Taking approx once per week 07/27/20 19 Active folic acid (Folvite) 1 MG tablet TAKE 1 TABLET BY MOUTH IN THE MORNING 90 tablet 3 09/05/19 24 Active gemfibrozil (Lopid) 600 MG tablet TAKE 1 TABLET BY MOUTH TWICE A DAY 180 tablet 1 12/11/19 24 Active ibuprofen 600 MG tabletIndicatio ns:Pain TAKE 1 TABLET BY MOUTH TWICE A DAY 60 tablet 3 07/13/20 24 Active Ventolin HFA 108 (90 Base) MCG/ACT inhalerIndicati ons:Asthma, unspecified asthma severity, unspecified whether complicated, unspecified whether persistent INHALE 2 PUFF BY INHALATION ROUTE EVERY 4 HRS NEEDED 18 g 1 08/03/20 24 Active thiamine (Vitamin B-1) 100 MG tablet TAKE 1 TABLET BY MOUTH EVERY DAY IN THE MORNING 90 tablet 08/03/20 24 Active zolpidem (Ambien) 10 MG tabletIndicatio ns:Insomnia, unspecified TAKE 1 TABLET BY MOUTH EVERY EVENING NEEDED 10 tablet 3 11/10/19 25 Active amLODIPine (Norvasc) 5 MG tablet TAKE 1 TABLET BY MOUTH EVERY DAY IN THE MORNING 90 tablet 1 12/29/19 25 Active amLODIPine (Norvasc) 5 MG tablet TAKE 1 TABLET BY MOUTH EVERY MORNING 90 tablet 1 06/29/20 24 025 Discontinued Active Problems Problem Noted Date Diagnosed Date Primary hypertension 05/01/2023 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 Asthma 06/09/2013 Hypercholesterolemia 05/18/2013 Encounters Date Type Department Care Team Description 12/29/2024 11:00 AM EDT Office Visit [facility] [address] [place] [address] Bailee Huggins MD Jaundice (Primary Dx); Alcohol abuse 12/29/2024 Travel 12/29/2024 Telephone [facility] [address] [place] [address] Nadya Mauro MD Nurse Triage 12/27/2024 Refill [facility] [address] [place] [address] Nadya Mauro MD 12/22/2024 1:00 PM EDT Office Visit [facility] [address] [place] [address] Herb Flores MD Pre-op evaluation (Primary Dx) 12/22/2024 Travel 12/08/2024 Telephone [facility] [address] [place] [address] Nadya Mauro MD Pre-op Exam 11/08/2024 Refill [facility] [address] [place] [address] Nadya Mauro MD Insomnia, unspecified from Last [...] Mass Index 30.64 12/29/2024 11:05 AM EDT Plan of Treatment Upcoming Encounters Date Type Department Care Team (Late st Contact Info) Description 01/08/2025 10:00 AM EDT Office Visit [facility] [address] [place] [address] Paras Flores 01/22/2025 10:00 AM EDT Office Visit [facility] [address] [place] [address] Nadya Mauro MD [address] [place] [address] Health Maintenance Due Date Last Done Comments CT Colonography 1959 Colonoscopy 1959 Colorectal Cancer Screening 1959 FIT DNA/Cologuard 1959 FIT 1959 FOBT 1959 Sigmoidoscopy 1959 Alcohol/Substance Use Screening 1971 Hepatitis C Screening 1977 RSV Patients and Patients Aged 60 years or older (1 - Risk 60-74 years 1-dose series) 2019 Zoster Vaccines (2 of 2) 08/11/2021 06/16/2021 Depression Screening 12/25/2023 12/24/2022, 12/25/19 23 SDOH Screening 12/25/2023 12/24/2022 Dental Oral Exam 11/18/2024 05/20/2024, 12/25/2022 Dental Prophylaxis 11/18/2024 05/20/2024, 0 10/01/2023, 12/25/2022 Dental X-Ray: Bitewings 05/21/2025 05/20/2024, 12/25 Tobacco Screening 12/29/2025 12/29/2024 Dental X-Ray: Full Mouth 05/21/2027 05/20/2024 DTaP/Tdap/Td [...] (01/18/2023 9:28 AM EDT) Triglycerides 58 mg/dL [facility] Comment:Desirable Triglyceri de: less than 150 mg/dLBorderline High Triglyceride 150-199 mg/dLHigh Triglyceride: 200-499 mg/dLVery High Triglyceride: greater than or equal to 5OO mg/dL Cholesterol 237 mg/dL [facility] Comment:Desirable Cholestero l: less than 200 mg/dLBorderline High Cholesterol: 200-239 mg/dLHigh Cholesterol: greater than 239 mg/dL LDL Cholesterol Calculated 171 mg/dl [facility] Comment:Desirable LDL: less than 100 mg/dLNear Optimal/Above Optimal LDL: 110- 129 mg/dLBorderline High LDL: 130-159 mg/dLHigh LDL: 160-189 mg/dLVery High LDL: greater than or equal to 190 mg/dL HDL Cholesterol 55 mg/dL [facility] Comment:Desirable HDL: great er than 40 mg/dL Note: This HDL assay may give artificially low results in patients with liver disease. 01/18/2023 9:28 AM EDT 01/18/2023 10:49 AM EDT us [facility] External Provider LAB BLO OD ORDERABLES Final Result Performing Organization Address City/State/[facility] Co de Phone Number [facility] [address] [place] [address] [phone] from Last 3 Months or Most Recently Relevant to Health Maintenance Insurance [facility] STANDARD [facility] RESIDENTIAL OPTIONS (HMO D-SNP) [place] STAND [facility] Care Teams Knockout Man Relationship Specialty Start Date End Date Nadya Mauro MD [address] [place] [id number] PCP - General Family Medicine 08/11/12
--- OUTSIDE RECORDS SUMMARY | 2024-12-29 13:17 | XMS_ITS | Encounter Summary ---
Author Organization [employer] Address [address] [facility] 7t [place] [address] Care Team Providers Care Poultry Packer Name Role Phone Nadya Mauro MD Primary Care Provider [phone] Encounter Details Date Type Department Care Team (Latest Contact Info) Description 12/29/2024 Travel Social History Tobacco Use Types Packs/Day Years [...] Office Visit [facility] [address] [place] [address] Paras Flores 01/22/2025 10:00 AM EDT Office Visit [facility] [address] [place] [address] Nadya Mauro MD [address] [place] [address] documented as of this encounter Visit Diagnoses Not on filedocumented in this encounter Additional Health Concerns Assessment Noted Time PHQ-9 Depression Total Score: 4 12/25/19 23 9:49 AM EDT documented as of this encounter Care Teams Poultry Packer Relationship Specialty Start Date End Date Nadya Mauro MD [address] [place] [id number] PCP - General Family Medicine 08/11/12 documented as of this encounter
--- OUTSIDE RECORDS SUMMARY | 2024-12-29 13:17 | XMS_ITS | Encounter Summary ---
Author Organization [employer] Address [address] [facility] [address] 7[address] [place] [address] Care Team Providers Care Lead Technical Architect Name Role Phone Nadya Mauro MD Primary Care Provider [phone] Reason for Visit * Reason Comments Med Refill Encounter Details Date Type Department Care Team (Late st Contact Info) Description 12/27/2024 Refill [facility] [address] [place], [place] [phone] Nadya Mauro MD [address] [place], [place] [phone] Social History Tobacco Use Types Packs/Day Years Used Date Smoking Tobacco: Never Passive Smoke Exposure: Never Smokeless Tobacco: Never Alcohol Use Standard Drinks/Week Comments Yes 0 (1 standard drink = 0.6 oz pur e alcohol) Depression Answer Date Recorded Patient Health Questionnaire-9 Score 4 12/24/2022 Housing Stability Answer Date Recorded What is your housing situation today? I have iwonamahesh low 06/14/[address] you [...] Description 01/08/2025 10:00 AM EDT Office Visit [facility] [address] [place] [address] Paras Flores 01/22/2025 10:00 AM EDT Office Visit [facility] [address] [place] [address] Nadya Mauro MD [address] [place] [address] documented as of this encounter Visit Diagnoses Not on filedocumented in this encounter Additional Health Concerns Assessment Noted Time PHQ-9 Depression Total Score: 4 12/25/19 23 9:49 AM EDT documented as of this encounter Care Teams Lead Technical Architect Relationship Specialty Start Date End Date Nadya Mauro MD [address] [place] [phone] PCP - General Family Medicine 08/11/12 documented as of this encounter
--- OUTSIDE RECORDS SUMMARY | 2024-12-29 13:18 | XMS_ITS | Encounter Summary ---
Author Organization [employer] Address [address] [facility] [address] 7[address] [place] [address] Care Team Providers Care Clam Digger Name Role Phone Nadya Mauro MD Primary Care Provider Reason for Visit * Reason Comments Med Refill Encounter Details Date Type Department Care Team ([facility] st Contact Info) Description 07/02/[address] [facility] [address] [place], [place] [phone] Nadya Mauro MD [address] [place], [place] [phone] Social History Tobacco Use Types Packs/Day Years [...] Description 01/08/2025 10:00 AM EDT Office Visit [facility] [address] [place] [address] Paras Flores 01/22/2025 10:00 AM EDT Office Visit [facility] [address] [place] [address] Nadya Mauro MD [address] [place] [address] documented as of this encounter Visit Diagnoses Not on filedocumented in this encounter Additional Health Concerns Assessment Noted Time PHQ-9 Depression Total Score: 4 12/25/19 23 9:49 AM EDT documented as of this encounter Care Teams Clam Digger Relationship Specialty Start Date End Date Nadya Mauro MD [address] [place] [id number] PCP - General Family Medicine 08/11/12 documented as of this encounter
--- OUTSIDE RECORDS SUMMARY | 2024-12-29 13:18 | XMS_ITS | Encounter Summary ---
Author Organization [employer] Address [address] [place] [address] 7t [place] [address] Care Team Providers Care Acute Care Nurse Name Role Phone Nadya Mauro MD Primary Care Provider [phone] Encounter Details Date Type Department Care Team (Late st Contact Info) Description 01/24/2023 Orders Only [facility] [address] [place], [place] [phone] Herb Flores MD [address] [place] [address] Macrocytic anemia (Primary Dx) Social History Tobacco [...] Description 01/08/2025 10:00 AM EDT Office Visit [facility] [address] [place] [address] Paras Branch 01/22/2025 10:00 AM EDT Office Visit [facility] [address] [place] [address] Nadya Mauro MD [address] [place] [address] Scheduled Orders Name Type Priority Associated Diagnoses [...] documented as of this encounter Care Teams Acute Care Nurse Relationship Specialty Start Date End Date Nadya Mauro MD [address] [place] [phone] PCP - General Family Medicine 08/11/12 documented as of this encounter
--- OUTSIDE RECORDS SUMMARY | 2024-12-29 13:18 | XMS_ITS | Encounter Summary ---
Author Organization [employer] Address [address] [place] [address] 7t [place] [address] Care Team Providers Care Education Department Registrar Name Role Phone Nadya Mauro MD Primary Care Provider [phone] Reason for Visit * Reason Comments Med Refill Encounter Details Date Type Department Care Team (Late st Contact Info) Description 05/06/2023 Refill [facility] [address] [place] [address] Nadya Mauro MD [address] [place] [address] Pain Social History Tobacco Use Types Packs/Day [...] 01/08/2025 10:00 AM EDT Office Visit [facility] [address] [place] [address] Paras Flores 01/22/2025 10:00 AM EDT Office Visit [facility] [address] [place] [address] Nadya Mauro MD [address] [place] [address] documented as of this encounter Visit Diagnoses Diagnosis Pain Generalized pain documented in this encounter Additional Health Concerns Assessment Noted Time PHQ-9 Depression Total Score: 4 12/25/19 23 9:49 AM EDT documented as of this encounter Care Teams Education Department Registrar Relationship Specialty Start Date End Date Nadya Mauro MD [address] [place] [phone] PCP - General Family Medicine 08/11/12 documented as of this encounter
--- OUTSIDE RECORDS SUMMARY | 2024-12-29 13:18 | XMS_ITS | Encounter Summary ---
Author Organization [employer] [facility] Address [address] [place] [address] [address]t h Floor [place] [phone] Care Team Providers Care Group Burner Machine Name Role Phone Nadya Mauro MD Primary Care Provider [phone] Encounter Details Date Type Department Care Team (Latest Contact Info) Description 06/07/2021 Abstract [facility] Dental, Provider, DDS Social History [...] Visit [facility] [address] [place] [address] Paras Flores 01/22/2025 10:00 AM EDT Office Visit [facility] [address] [place] [address] Nadya Mauro MD [address] [place] [address] documented as of this encounter Visit Diagnoses Not on filedocumented in this encounter Care Teams Group Burner Machine Relationship Specialty Start Date End Date Nadya Mauro MD [address] [place] [address] PCP - General Family Medicine 08/11/12 documented as of this encounter
[2024-12-29 14:38] LABS: Basophils Percent Auto 0.7 % (0-2); Eosinophils Percent Auto 0.4 % (0-4); Hematocrit 34.1 % (42.0-52.0); Hemoglobin 12.1 g/dl (14.0-18.0); Imm Gran Abs Auto 0.05 X10*3/uL (0.00-0.03); Imm Gran Pct Auto 0.9 % (0.0-0.4); Lymphocytes Absolute Auto 0.7 X10*3/uL (1.2-4.9); Lymphocytes Percent Auto 13.3 % (20-40); MANUAL DIFF FLAG SCAN; Mean Corpuscular HGB Conc 35.5 g/dl (31.0-36.0); Mean Corpuscular Hemoglobin 37.3 pg (27.0-33.0); Mean Corpuscular Volume 105.2 fL (80.0-98.0); Monocytes Absolute Auto 0.7 X10*3/uL (0.1-1.2); Monocytes Percent Auto 12.4 % (2-11); Neutrophils Percent Auto 72.3 % (45-73); PLT CLUMP 1; Red Blood Count 3.24 X10*6/uL (4.60-5.80); Red Cell Distribution Width 14.8 % (11.0-16.0); SCAN SMEAR FLAG 1
[2024-12-29 14:48] LABS: SLIDE REVIEW VERIFIED; White Blood Count 5.5 X10*3/uL (4.8-10.8)
[2024-12-29 15:13] LABS: Alanine Aminotransferase 65 U/L (0-40); Albumin Level 2.9 g/dL (3.5-5.0); Anion Gap 13 (12-20); Aspartate Amino Transferase 248 U/L (5-37); Bilirubin Total 21.5 mg/dL (0.0-1.0); Blood Urea Nitrogen 8 mg/dL (9-16); Calcium 8.5 mg/dL (8.4-10.2); Carbon Dioxide 19 mmol/L (22-29); Chloride 110 mmol/L (96-108); Estimated Glomerular Filt Rate > 60; Glucose Random 126 mg/dL (60-115); Iron 86 mcg/dL (45-160); Lipase 24 U/L (8-78); Magnesium 1.8 mg/dL (1.6-2.6); Percent Iron Saturation 77 % (15-50); Potassium 3.3 mmol/L (3.3-5.1); Sodium 139 mmol/L (135-145); Total Iron Binding Capacity 111 mcg/dL (228-428); Total Protein 7.1 g/dL (6.5-8.0); Unsaturated Iron Binding < 25 ug/dL
[2024-12-29 16:24] LABS: Folate 10.2 ng/mL (> or = 4.0); Vitamin B12 > 2000 pg/mL (200-900)
[2024-12-29 16:32] LABS: TSH reflex Free T4 2.95 uIU/mL (0.32-4.0)
[2024-12-29 18:42] LABS: Alkaline Phosphatase 246 U/L (39-117)
[2024-12-29 19:04] LABS: Bilirubin Direct 15.8 mg/dL (0.0-0.5)
[2024-12-30 05:03] LABS: HBS Num1 6.19 mIU/mL (0-7.99); HBsAGNum1 0.31 S/CO (0.00-0.99); Hepatitis B Surface Antigen Negative (Negative); ~HepC Num1 7.64 S/CO (0.00-0.79); ~Hepatitis B Surface Antibody NONREACTIVE (Nonreactive); ~Hepatitis C Antibody Reactive (Nonreactive)
[2025-01-01 13:23] LABS: HCV Log PCR <1.18 NOT DETECTED Log IU/mL (NOT DETECTED); HepC Viral Load <15 NOT DETECTED IU/mL (NOT DETECTED)
[2025-01-02 15:38] LABS: Vitamin B6 3.2 ng/mL (2.1-21.7)
== END 2024-12-29 11:36 | disposition home or self-care (01) ==
LOC: HO.CHCLDS 11:35
PROVIDERS: Visit Provider Pediatrics
DX: Z13.89 Encounter for screening for other disorder (principal)
CPT/HCPCS: 36415; 80048; 80076; 82607; 82746; 83540; 83690; 83735; 84207; 84443; 85025; 86706; 86803; 87340; 87522

== ENCOUNTER 2024-12-30 11:58 | Inpatient (IN) | payer OTHER, SELFPAY ==
--- NOTE | ~2024-12-30 | CT_ITS ---
EXAMINATION: CT ABDOMEN PELVIS WITH IV CONTRAST HISTORY: eval chronicity of portal vein thrombosis COMPARISON: Comparison is made with the prior examination dated 11/10/2022. Correlation is also made with an abdominal ultrasound dated 12/30/2024. TECHNIQUE: CT scan of the abdomen and pelvis was performed following administration of 85 mL Omnipaque 350 using standard departmental protocol. Coronal and sagittal reformatted images were generated and reviewed. Oral contrast material was not administered at the request of the referring physician. This CT exam was performed with one or more of the following dose reduction techniques: automated exposure control, adjustment of the mA and/or kV according to patient size, use of iterative reconstruction technique. DLP: July 05 mGy-cm FINDINGS: LOWER CHEST: The visualized lung bases are clear. There is no pleural effusion. CARDIOVASCULATURE: The heart is normal in size. There is no pericardial effusion. LIVER: The liver appears enlarged and demonstrates a nodular contour, compatible with cirrhosis. There is a recannulized paraumbilical vein. The liver demonstrates diffusely decreased attenuation, consistent with steatosis. No liver mass is identified. The hepatic and portal veins are patent. GALLBLADDER / BILE DUCTS: The gallbladder is unremarkable. There is no intra or extrahepatic biliary ductal dilatation. SPLEEN: The spleen is enlarged. No focal splenic lesion is identified. PANCREAS: The pancreas is unremarkable in appearance. ADRENAL GLANDS: Within normal limits. KIDNEYS/RETROPERITONEUM: No renal calculi are identified. There is no hydronephrosis. No renal masses are identified. LYMPH NODES: No abdominal or pelvic lymphadenopathy. VASCULATURE: The abdominal aorta is normal in caliber. There are venous collaterals in the left upper quadrant. There is probable flow artifact in the bilateral common iliac veins. MESENTERY/PERITONEUM: There is a small amount of ascites in the upper abdomen and in the pelvis. No masses. There is no free intraperitoneal gas. STOMACH: The stomach is collapsed, limiting evaluation. SMALL BOWEL: The small bowel is normal in caliber. COLON: There is colonic diverticulosis without evidence of diverticulitis. APPENDIX: The appendix is not seen, however no inflammatory changes are seen adjacent to the cecum. URINARY BLADDER/PELVIC ORGANS: The urinary bladder is unremarkable. The prostate is normal in size. BONES / SOFT TISSUES: No suspicious bony or soft tissue abnormalities. CT/CT abdomen pelvis w IV con IMPRESSION: 1. Hepatosplenomegaly and hepatic cirrhosis. Hepatic steatosis. 2. Small amount of ascites in the upper abdomen and pelvis. 3. No evidence of portal vein thrombosis. Electronically signed by: Stu Beckham MD 12/31/2024 12:28 PM EDT
--- NOTE | ~2024-12-30 | XR_ITS ---
EXAMINATION: XR CHEST CLINICAL INFORMATION: jaundice COMPARISON: None available. TECHNIQUE: 2 views of the chest were obtained. FINDINGS: The cardiac, hilar, and mediastinal contours are normal. The lungs are clear bilaterally. There is no pneumothorax or pleural effusion. There is no focal osseous or soft tissue abnormality. XR/XR chest 2V IMPRESSION: No active pulmonary disease. Electronically signed by: Carlton Ruelas MD 12/30/2024 03:48 PM EDT RP
--- NOTE | ~2024-12-30 | US_ITS ---
EXAMINATION: US ABDOMEN LIMITED CLINICAL INFORMATION: Jaundice, rule out ascites and rule out portal vein thrombosis. The mass. COMPARISON: None available. TECHNIQUE: Real-time imaging of the 4 quadrants of the abdomen for ascites, and portal vein evaluation with Doppler. FINDINGS: There is ascites present in the right lower quadrant and left lower quadrant of the pelvis, small volume. This is likely too little for safe paracentesis. Doppler examination of the main portal vein demonstrates thrombosis. US/US abdomen limited IMPRESSION: 1. There is small volume ascites in the right lower quadrant and left lower quadrant of the pelvis. 2. There is portal vein thrombosis present. Electronically signed by: Carlton Ruelas MD 12/30/2024 04:23 PM EDT
[2024-12-30 13:02] VITALS: BP 125/79; PULSE 84; RESP 18; TEMP 37.3; O2SAT 98; BMI 30.4
--- NOTE | 2024-12-30 13:02 | ED.GENADULT ---
HPI - General Adult General Chief complaint: Abdominal Pain Stated complaint: Critical Labs Sent by Dr Mauro Time Seen by Provider: 12/30/24 14:22 History of Present Illness ED Provider: Dr. Sheppard HPI narrative: 64 y/o M patient; PMH T2DM, alcohol use disorder, hx hepatitis C; presents from home with report of abnormal laboratory studies ordered by his PCP. The patient had been noticed to be jaundiced recently (approx the last 3 - 5 days). He states he heavily drinks wine, but stopped about 3 days ago. He denies withdrawal symptoms during this time. He endorses a very remote history of IVDU. He otherwise denies: fever or chills, nausea/vomiting, chest pain, SOB, cough/congestion. Related Data Home Medications ?Medication ?Instructions ?Recorded ?Confirmed albuterol sulfate 90 mcg/actuation 2 puff PO Q4H PRN Wheezing 11/23/21 12/10/24 aerosol inhaler ibuprofen 600 mg tablet 600 mg PO BID PRN Pain 11/23/21 12/10/24 zolpidem 10 mg tablet 10 mg PO BEDTIME PRN Sleep 11/23/21 12/10/24 thiamine HCl (vitamin B1) 100 mg 100 mg PO QAM 10/16/24 12/10/24 tablet Previous Rx's ?Medication ?Instructions ?Recorded docusate sodium 100 mg capsule 200 mg (2 x 100 mg) PO BEDTIME #60 02/21/22 (Colace) caps amlodipine 5 mg tablet 5 mg PO DAILY #30 tabs 11/14/22 tadalafil 20 mg tablet (Cialis) 20 mg PO .PRN PRN sexual activity 12/10/24 30 days #14 tabs tadalafil 5 mg tablet (Cialis) 5 mg PO DAILY 90 days #90 tabs 12/10/24 Allergies Allergy/AdvReac Type Severity Reaction Status Date / Time No Known Allergies Allergy Verified 12/30/24 13:05 Review of Systems Review of Systems: Yes all other systems are reviewed and are negative PMFSH Past Medical History Attestation statement: The following information was validated with the patient. Source: old records reviewed Medical History Elevated cholesterol Asthma Hx of sprain of wrist Surgical History Hx of colonoscopy Family History Family History Mother Advanced dementia Diabetes HTN (hypertension) Father HTN (hypertension) Social History Social History Household Members: None Household Members Other:: 0 Housing: Apartment Do you presently have visiting nurse or other home services: No Alcohol intake: current Alcohol intake frequency: 3 or more drinks per day Patient Tobacco Use Status: Never used Tobacco e-Cigarette/Vaping Use: Never Used Second Hand Smoke Exposure: No Advance Directives: No Advance Directives Information Provided: Yes service: No Current occupational status: disabled Physical Exam ED Vital Signs: Vital Signs - 24 hr 12/30/24 13:02 12/30/24 14:38 Temperature 99.1 F 98.7 F Pulse Rate 84 81 Respiratory Rate 18 16 Blood Pressure 125/79 138/78 Pulse Oximetry 98 98 Oxygen Delivery Method Room Air Room Air BMI result Body Mass Index 30.4 Patient is afebrile and hemodynamically stable. Const General: cooperative and no acute distress Orientation/consciousness: patient oriented x3 HENMT Head: Yes normal to inspection and Yes atraumatic Eyes Other: + scleral icterus bilaterally Neck Neck: Yes normal visual inspection, Yes full ROM, Yes supple and No tender Chest Chest palpation & inspection: normal inspection of the chest and normal palpation of entire chest wall Resp Effort & Inspection: normal respiratory effort, able to speak in complete sentences, no cough and no respiratory distress Auscultation: clear to auscultation bilaterally Cardio Rate: regular rate Rhythm: regular rhythm Peripheral pulses: Peripheral pulses 2+ throughout GI Inspection: Yes normal to inspection, No Abdominal wall edema and No distended Palpation (GI): Soft to palpation, not firm, nontender, no guarding and not rigid Auscultation: normal bowel sounds Back/Spine/Pelvis Back: No back tenderness Neuro General: patient oriented x3 Course Course Course Narrative: This is a Rapid Medical Exam performed in triage by Bertha iVckers PA-C. Full HPI, ROS and PE to be performed by primary ED provider. 64 yo male with PMHx of ETOH use disorder, asthma, colon adenoma, T2DM, presenting to the ED c/o critical lab values of transaminitis noted on outpatient labs yesterday(12/29). He states he had lab work done in [place] due to yellowing of B/L eyes that have been discolored for approximately 1 week. He states he has not been drinking alcohol for 3 days. He also reports he fell about 1 month ago, due to feeling unsteady on his feet, denies headstrike or LOC. PE: B/L scleral icterus, abdomen soft and non tender, Plan: Labs, UA, EKG, CT abdomen Reevaluation(s) Reevaluation #1: Patient is afebrile and hemodynamically stable. Reviewed work up initiated in triage as well as work up from patient's PCP yesterday 12/29/2024. Labs reviewed. No leukocytosis. Baseline anemia. INR 2.0. Total bili 24.9. Direct bili 18.2. AST/ALT 204/56. Alk phos 214. Ammonia 119. Albumin 2.7. Hepatitis C is reactive. I have consulted GI for further recommendations. Dr. Butt will evaluate the patient. Recommends US Doppler Abdomen. Recommends blood cultures, chest XR, and urinalysis which were all ordered. Recommends admission. Plan: Admit to hospitalist Condition: Stable Medical Decision Making Lab Data 12/30/24 13:19 12/30/24 13:19 Labs: Lab Results 12/30/24 Range/Units 13:19 WBC 5.6 (4.8-10.8) X10*3/uL RBC 3.32 L (4.60-5.80) X10*6/uL Hgb 12.3 L (14.0-18.0) g/dl Hct 34.9 L (42.0-52.0) % MCV 105.1 H (80.0-98.0) fL MCH 37.0 H (27.0-33.0) pg MCHC 35.2 (31.0-36.0) g/dl RDW 14.6 (11.0-16.0) % Plt Count TNP MPV TNP Immature Gran % (Auto) 0.7 H (0.0-0.4) % Neut % (Auto) 68.5 (45-73) % Lymph % (Auto) 14.8 L (20-40) % Beaufort % (Auto) 14.8 H (2-11) % Eos % (Auto) 0.7 (0-4) % Baso % (Auto) 0.5 (0-2) % Lymph # (Auto) 0.8 L (1.2-4.9) X10*3/uL [place] # (Auto) 0.8 (0.1-1.2) X10*3/uL Eos # (Auto) 0.0 (0.0-0.4) X10*3/uL Baso # (Auto) 0.0 (0.0-0.2) X10*3/uL Abs Immat Gran (auto) 0.04 H (0.00-0.03) X10*3/uL Absolute Neuts (auto) 3.8 (2.0-8.3) x10*3/uL Absolute Nucleated RBC 0.000 (0.0-0.012) X10*3/uL Nucleated RBC % (auto) 0.0 (0.0-0.2) /100WBC Smear Tech's Comments VERIFIED PT 23.0 H (10.9-12.4) SEC INR 2.0 H (0.9-1.1) Sodium 136 (135-145) mmol/L Potassium 3.4 (3.3-5.1) mmol/L Chloride 107 (96-108) mmol/L Carbon Dioxide 21 L (22-29) mmol/L Anion Gap 11 L (12-20) BUN 10 (9-16) mg/dL Creatinine 0.65 (0.5-1.4) mg/dL Estim Creat Clear Calc 112.2 Estimated GFR > 60 Random Glucose 96 (60-115) mg/dL Calcium 9.0 (8.4-10.2) mg/dL Magnesium 1.8 (1.6-2.6) mg/dL Total Bilirubin 24.9 H (0.0-1.0) mg/dL Direct Bilirubin 18.2 H (0.0-0.5) mg/dL AST 204 H (5-37) U/L ALT 56 H (0-40) U/L Alkaline Phosphatase 214 H (39-117) U/L Ammonia 119 H (13-55) umol/L B-Natriuretic Peptide 84 (<100) pg/mL Total Protein 6.8 (6.5-8.0) g/dL Albumin 2.7 L (3.5-5.0) g/dL Lipase 17 (8-78) U/L Acetaminophen < 3 (<30) mcg/mL Ethyl Alcohol < 10 mg/dL Hepatitis A IgM Ab Nonreactive (Nonreactive) Hep Bs Antigen Negative (Negative) Hep Bs Antibody NONREACTIVE (Nonreactive) Hep B Core Total Ab Reactive (Nonreactive) Hepatitis C Ab (EIA) Reactive H (Nonreactive) Influenza Type A (PCR) NEGATIVE (Negative) Influenza Type B (PCR) NEGATIVE (Negative) RSV RNA Qual (PCR) NEGATIVE (Negative) SARS-CoV-2 RNA (RT-PCR) NEGATIVE (Negative) Discharge Plan Discharge Clinical Impression: Alcohol use disorder, Jaundice, Hepatitis Patient Disposition: Admitted As Inpatient Print Language: Malay
--- NOTE | 2024-12-30 13:07 | ECG_ITS ---
Test Reason : critical labs Blood Pressure : */* mmHG Vent. Rate : 82 BPM Atrial Rate : 82 BPM P-R Int : 146 ms QRS Dur : 102 ms QT Int : 414 ms P-R-T Axes : 56 -21 -6 degrees QTcB Int : 483 ms Sinus rhythm with occasional Premature ventricular complexes Cannot rule out Anterior infarct , age undetermined Abnormal ECG When compared with ECG of 10-Nov-2022 20:08, Premature ventricular complexes are now Present Inverted T waves have replaced nonspecific T wave abnormality in Inferior leads Referred By: Bertha Vickers Electronically Signed By: JESSICA ROGERS
[2024-12-30 13:33] LABS: Basophils Percent Auto 0.5 % (0-2); Eosinophils Percent Auto 0.7 % (0-4); Hematocrit 34.9 % (42.0-52.0); Hemoglobin 12.3 g/dl (14.0-18.0); Imm Gran Abs Auto 0.04 X10*3/uL (0.00-0.03); Imm Gran Pct Auto 0.7 % (0.0-0.4); Lymphocytes Absolute Auto 0.8 X10*3/uL (1.2-4.9); Lymphocytes Percent Auto 14.8 % (20-40); MANUAL DIFF FLAG SCAN; Mean Corpuscular HGB Conc 35.2 g/dl (31.0-36.0); Mean Corpuscular Volume 105.1 fL (80.0-98.0); Monocytes Absolute Auto 0.8 X10*3/uL (0.1-1.2); Monocytes Percent Auto 14.8 % (2-11); Neutrophils Absolute Auto 3.8 x10*3/uL (2.0-8.3); Neutrophils Percent Auto 68.5 % (45-73); PLT CLUMP 1; Red Blood Count 3.32 X10*6/uL (4.60-5.80); Red Cell Distribution Width 14.6 % (11.0-16.0); SCAN SMEAR FLAG 1
[2024-12-30 13:36] LABS: Ammonia 119 umol/L (13-55)
[2024-12-30 13:40] LABS: White Blood Count 5.6 X10*3/uL (4.8-10.8)
[2024-12-30 13:44] LABS: Acetaminophen LAB < 3 mcg/mL (<30)
[2024-12-30 13:47] LABS: B Type Natriuretic Peptide 84 pg/mL (<100)
[2024-12-30 13:50] LABS: Alanine Aminotransferase 56 U/L (0-40); Albumin Level 2.7 g/dL (3.5-5.0); Alkaline Phosphatase 214 U/L (39-117); Anion Gap 11 (12-20); Aspartate Amino Transferase 204 U/L (5-37); Bilirubin Total 24.9 mg/dL (0.0-1.0); Blood Urea Nitrogen 10 mg/dL (9-16); Carbon Dioxide 21 mmol/L (22-29); Chloride 107 mmol/L (96-108); Creatinine Clr Calc Pharmacy 112.2; Estimated Glomerular Filt Rate > 60; Ethanol < 10 mg/dL; Glucose Random 96 mg/dL (60-115); Lipase 17 U/L (8-78); Magnesium 1.8 mg/dL (1.6-2.6); Potassium 3.4 mmol/L (3.3-5.1); Sodium 136 mmol/L (135-145); Total Protein 6.8 g/dL (6.5-8.0)
[2024-12-30 14:00] LABS: Bilirubin Direct 18.2 mg/dL (0.0-0.5)
[2024-12-30 14:06] LABS: HBc Num1 8.16 S/CO (0.00-0.79)
[2024-12-30 14:07] LABS: Influenza A PCR NEGATIVE (Negative); Influenza B PCR NEGATIVE (Negative); Resp Syncy Virus RNA Qual PCR NEGATIVE (Negative); SARS COV2 PCR INHOUSE NEGATIVE (Negative)
[2024-12-30 14:09] LABS: HBS Num1 5.34 mIU/mL (0-7.99); HBsAGNum1 0.36 S/CO (0.00-0.99); Hepatitis A Antibody IgM 0.22 Index (0-0.79); Hepatitis B Surface Antigen Negative (Negative); ~HepC Num1 6.58 S/CO (0.00-0.79); ~Hepatitis A Antibody IgM Nonreactive (Nonreactive); ~Hepatitis B Surface Antibody NONREACTIVE (Nonreactive); ~Hepatitis C Antibody Reactive (Nonreactive)
[2024-12-30 14:10] LABS: SLIDE REVIEW VERIFIED
[2024-12-30 14:38] VITALS: BP 138/78; PULSE 81; RESP 16; TEMP 37.1; O2SAT 98
[2024-12-30 14:46] LABS: HBc Num2 7.41 S/CO; HBc Num3 7.42 S/CO; Hepatitis B Core Antibody Reactive (Nonreactive)
--- NOTE | 2024-12-30 14:57 | PC.NURSE ---
Came from home for abnormal liver panel and R shoulder pain. Per pt he is a daily drinker, last drink x5 days ago. Pt states he stopped drinking d/t noticing his jaundice increasing. Denies hx of ETOH withdrawal seizures- appears in no distress, no tremors/diaphoresis/n/v. A/ox3, speaking in full sentences, speech clear/appropriate, respirations even and unlabored, maintaining O2 sat >92% on ra, lungs cta bilaterally, placed on security monitor- NSR, HR 70s- denies CP/SOB, abdomen distended, soft on palpation, non-tender, +bowel sounds all 4 quadrants. Skin/sclera jaundiced, skin cool/dry. 20g IV placed Left AC. Endorsing bilateral shoulder pain- denies twisting/pulling/strenuous activity. Vitals updated in worklist, pt updated on plan of care, call m[facility]ormack within reach, all needs met at this time.
[2024-12-30 16:08] VITALS: BP 127/78; PULSE 85; RESP 14; TEMP 37; O2SAT 98
--- NOTE | 2024-12-30 16:59 | P.CNGI_ITS ---
History of Present Illness Data of Consult Service Date: 12/30/24 Requesting physician: Lowell Young Primary Care Provider: Nadya Mauro MD [facility] Reason for consult: alcoholic hepatitis This is a 64-year-old gentleman with past medical history of alcohol use disorder, who is presenting with fatigue and jaundice. Patient is seen in the emergency room in the presence of his . Reports heavy alcohol use for many years, was drinking at least 5-6 drinks of wine every day. However, since her mother passed back in July, he has increased his intake to almost 1 full box of 32 oz wine every day. 2-3 days prior to admission, he started feeling weak, fatigue, nauseous. Had low energy. Also lost his appetite, including the craving to drink alcohol. noticed progressive jaundice. He was therefore brought to the hospital. In the emergency room, he was noted to be vitally stable. Labs significant for pancytopenia. Bilirubin of 25, AST greater than ALT. INR 2. Renal function intact. Review of Systems 2 Review of Systems: Yes all other systems are reviewed and are negative PMFSH Past Medical History Medical History Elevated cholesterol Asthma Hx of sprain of wrist Family History Family History Mother Advanced dementia Diabetes HTN (hypertension) Father HTN (hypertension) Surgical History Surgical History Hx of colonoscopy Social History Social History Household Members: None Household Members Other:: 0 Housing: Apartment Do you presently have visiting nurse or other home services: No Alcohol intake: current Alcohol intake frequency: 3 or more drinks per day Alcohol type: wine Patient Tobacco Use Status: Never used Tobacco e-Cigarette/Vaping Use: Never Used Second Hand Smoke Exposure: No service: No Current occupational status: disabled Meds Allergies Allergy/AdvReac Type Severity Reaction Status Date / Time No Known Allergies Allergy Verified 12/30/24 13:05 Active Medications: Current Medications Acetaminophen (Acetaminophen 325 Mg Tablet) 650 mg PO Q6H PRN PRN Reason: Pain, Mild 1-3,fever,headache Calcium Carbonate (Calcium Carbonate 750 Mg Tab.Chew) 750 mg PO Q4H PRN PRN Reason: Heartburn Heparin Sodium (Porcine) (Heparin Sodium,Porcine 5,000 Unit/Ml Vial) 3,300 unit 40 unit/kg (3300 unit) IVPUSH PROTOCOL BOLUS PRN; Protocol PRN Reason: 40 unit/kg - Heparin Protocol Heparin Sodium (Porcine) (Heparin Sodium,Porcine 5,000 Unit/Ml Vial) 6,600 unit 80 unit/kg (6600 unit) IVPUSH PROTOCOL BOLUS PRN; Protocol PRN Reason: 80 unit/kg - Heparin Protocol Heparin Sodium/Sodium Chloride (Heparin Sodium,Porcine/1/2ns) 25,000 unit in 250 mls @ 0 mls/hr IVCONT .Q0M [facility]; Protocol Albumin Human (Kedbumin 25 %) 100 mls @ 100 mls/hr IV Q6H [facility] Stop: 12/30/24 23:59 Magnesium Hydroxide (Milk Of Magnesia 30 Ml Oral.Susp) 30 ml PO DAILY PRN PRN Reason: Constipation Melatonin (Melatonin 3 Mg Tablet) 6 mg PO BEDTIME PRN PRN Reason: Insomnia Potassium Chloride (Potassium Chloride Er 20 Meq Tab.Er.Prt) 40 meq PO ONCE ONE Stop: 12/30/24 16:54 Sodium Chloride (0.9 % Sodium Chloride Flush 3 Ml Syringe) 3 [facility] Home Medications ?Medication ?Instructions ?Recorded ?Confirmed ?Last Taken ?Type albuterol sulfate 90 mcg/actuation 2 puff PO Q4H PRN Wheezing 11/23/21 12/30/24 12/30/24 History aerosol inhaler ibuprofen 600 mg tablet 600 mg PO BID PRN Pain 11/23/21 12/30/24 Unknown History zolpidem 10 mg tablet 10 mg PO BEDTIME PRN Sleep 11/23/21 12/30/24 Unknown History thiamine HCl (vitamin B1) 100 mg 100 mg PO DAILY 10/16/24 12/30/24 12/30/24 History tablet cyanocobalamin (vitamin B-12) 50 50 mcg PO DAILY 12/30/24 12/30/24 12/30/24 History mcg tablet (Vitamin B-12) folic acid 1 mg tablet 1 mg PO DAILY 12/30/24 12/30/24 12/30/24 History ketorolac 0.5 % eye drops 1 drp ophthalmic-Left TID 0512/30/24 12/30/24 History Physical Exam 2 Vital Signs: Vital Signs: Last Vital Signs Temp 98.6 F 12/30/24 16:08 Pulse 85 12/30/24 16:08 Resp 14 12/30/24 16:08 BP 127/78 12/30/24 16:08 Pulse Ox 98 12/30/24 16:08 O2 Del Method Room Air 12/30/24 16:08 BMI result Body Mass Index 30.4 Grossly jaundiced no overt resp distress abd soft, nontender, mildly distended A/Ox3, no asterixis Results Labs 12/31/24 06:21 12/31/24 06:21 Labs: Short CBC 12/30/24 Range/Units 13:19 WBC 5.6 (4.8-10.8) X10*3/uL Hgb 12.3 L (14.0-18.0) g/dl Hct 34.9 L (42.0-52.0) % Plt Count TNP BMP 12/30/24 13:19 Sodium 136 Potassium 3.4 Chloride 107 Carbon Dioxide 21 L BUN 10 Creatinine 0.65 Calcium 9.0 Liver Function 12/30/24 Range/Units 13:19 Total Bilirubin 24.9 H (0.0-1.0) mg/dL Direct Bilirubin 18.2 H (0.0-0.5) mg/dL AST 204 H (5-37) U/L ALT 56 H (0-40) U/L Alkaline Phosphatase 214 H (39-117) U/L Albumin 2.7 L (3.5-5.0) g/dL Assessment and Plan (1) Hepatitis: Status: Acute (2) Jaundice: Status: Acute (3) Alcohol use disorder: Status: Acute Plan 64 y.o M with etOH use disorder p/w elevated LFTs likely from etOH hepatitis. MELD Na 28 MDF 75.5 Plan: - Has prev hx of HCV s/p SVR - recommend checking VL to r/o reinfection - Blood cultures, CXR, UA to r/o underlying infection - US Abd with duplex for i) check for ascites, ii) biliary obstruction iii) portal or hepatic vein thrombosis - Vit K IV 10 mg once - IVF and diet as tolerated - No restriction to protein. Should consume at least 1-1.5g/kg/day of protein for mortality benefit - Once underlying infection r/o, can start prednisolone 40 mg daily - Daily MELD labs - Please assess neuro function daily to r/o HE Thank you for allowing me to participate in his care. Please do not hesitate to reach out for any questions or concerns. Procedures Date of Service Date of Service: 12/31/24
--- NOTE | 2024-12-30 17:04 | PHA.MEDREC ---
Addendum entered by Angel Barnes 12/30/24 17:27: reviewed Original Note: Pharmacy Consult ? Medication Reconciliation Pharmacy has completed the medication reconciliation. Spoke with patient who was able to confirm his medications. Patient confirmed he just started the Ketorlac Eye Drops (instilling 1 drop in his left eye three times a day) yesterday for an eye surgery he had scheduled for tomorrow. He stated he is not taking the Tadalafil 20mg or 5mg tabs anymore.
--- NOTE | 2024-12-30 17:11 | P.HPHOSP_ITS ---
History of Present Illness Date of Service: 12/30/24 Chief Complaint: jaundice 64M PMH alcohol dependence, history of IVDA with hepatitis-C now in remission and treated, hypertension, mild intermittent asthma presented with jaundice. Jaundice has been ongoing and progressing over several months. Patient reports being completely asymptomatic although his sister notes that he appears more fatigued and winded and has had some peripheral edema. outpatient labs with hyperbilirubinemia, sent to ED. in ED noted to have portal vein thrombosus as well. Review of Systems 2 Review of Systems: Yes all other systems are reviewed and are negative [facility] Medical History Elevated cholesterol Asthma Hx of sprain of wrist Family History Mother Advanced dementia Diabetes HTN (hypertension) Father HTN (hypertension) Surgical History Hx of colonoscopy Social History Household Members: None Household Members Other:: 0 Housing: Apartment Do you presently have visiting nurse or other home services: No Alcohol intake: current Alcohol intake frequency: 3 or more drinks per day Patient Tobacco Use Status: Never used Tobacco e-Cigarette/Vaping Use: Never Used Second Hand Smoke Exposure: No Advance Directives: No Advance Directives Information Provided: Yes service: No Current occupational status: disabled Meds Allergies Allergy/AdvReac Type Severity Reaction Status Date / Time No Known Allergies Allergy Verified 12/30/24 13:05 Active Medications: Current Medications Acetaminophen (Acetaminophen 325 Mg Tablet) 650 mg PO Q6H PRN PRN Reason: Pain, Mild 1-3,fever,headache Calcium Carbonate (Calcium Carbonate 750 Mg Tab.Chew) 750 mg PO Q4H PRN PRN Reason: Heartburn Heparin Sodium (Porcine) (Heparin Sodium,Porcine 5,000 Unit/Ml Vial) 3,300 unit 40 unit/kg (3300 unit) IVPUSH PROTOCOL BOLUS PRN; Protocol PRN Reason: 40 unit/kg - Heparin Protocol Heparin Sodium (Porcine) (Heparin Sodium,Porcine 5,000 Unit/Ml Vial) 6,600 unit 80 unit/kg (6600 unit) IVPUSH PROTOCOL BOLUS PRN; Protocol PRN Reason: 80 unit/kg - Heparin Protocol Heparin Sodium/Sodium Chloride (Heparin Sodium,Porcine/1/2ns) 25,000 unit in 250 mls @ 0 mls/hr IVCONT .Q0M [facility]; Protocol Albumin Human (Kedbumin 25 %) 100 mls @ 100 mls/hr IV Q6H [facility] Stop: 12/30/24 23:59 Magnesium Hydroxide (Milk Of Magnesia 30 Ml Oral.Susp) 30 ml PO DAILY PRN PRN Reason: Constipation Melatonin (Melatonin 3 Mg Tablet) 6 mg PO BEDTIME PRN PRN Reason: Insomnia Sodium Chloride (0.9 % Sodium Chloride Flush 3 Ml Syringe) 3 ml IVFLUSH QSHIFT [facility] Home Medications ?Medication ?Instructions ?Recorded ?Confirmed ?Last Taken ?Type albuterol sulfate 90 mcg/actuation 2 puff PO Q4H PRN Wheezing 11/23/21 12/30/24 12/30/24 History aerosol inhaler ibuprofen 600 mg tablet 600 mg PO BID PRN Pain 11/23/21 12/30/24 Unknown History zolpidem 10 mg tablet 10 mg PO BEDTIME PRN Sleep 11/23/21 12/30/24 Unknown History thiamine HCl (vitamin B1) 100 mg 100 mg PO DAILY 10/16/24 12/30/24 12/30/24 History tablet cyanocobalamin (vitamin B-12) 50 50 mcg PO DAILY 12/30/24 12/30/24 12/30/24 History mcg tablet (Vitamin B-12) folic acid 1 mg tablet 1 mg PO DAILY 12/30/24 12/30/24 12/30/24 History ketorolac 0.5 % eye drops 1 drp ophthalmic-Left TID 12/30/24 12/30/24 12/30/24 History Physical Exam 2 Vital Signs and Narrative: Vital Signs: Last Vital Signs Temp 98.6 F 12/30/24 16:08 Pulse 85 12/30/24 16:08 Resp 14 12/30/24 16:08 BP 127/78 12/30/24 16:08 Pulse Ox 98 12/30/24 16:08 O2 Del Method Room Air 12/30/24 16:08 BMI result Body Mass Index 30.4 General: AO X 3, no acute distress, jaundice Resp: CTA bilateral, no accessory muscles used CVS: S1,S2,RRR, trace edema GI: soft, non tender, non distended Neuro: motor grossly intact, alert Psych: appropriate affect, appropriate insight Results Labs 12/30/24 13:19 12/30/24 13:19 Labs: Laboratory Results - last 24 hr 12/30/24 13:19 MCV 105.1 H MCH 37.0 H MCHC 35.2 RDW 14.6 Plt Count TNP MPV TNP Immature Gran % (Auto) 0.7 H Neut % (Auto) 68.5 Lymph % (Auto) 14.8 L [place] % (Auto) 14.8 H Eos % (Auto) 0.7 Baso % (Auto) 0.5 Lymph # (Auto) 0.8 L [place] # (Auto) 0.8 Eos # (Auto) 0.0 Baso # (Auto) 0.0 Abs Immat Gran (auto) 0.04 H Absolute Neuts (auto) 3.8 Absolute Nucleated RBC 0.000 Nucleated RBC % (auto) 0.0 Smear Tech's Comments VERIFIED PT 23.0 H INR 2.0 H Anion Gap 11 L Estim Creat Clear Calc 112.2 Estimated GFR > 60 Random Glucose 96 Calcium 9.0 Magnesium 1.8 Total Bilirubin 24.9 H Direct Bilirubin 18.2 H AST 204 H ALT 56 H Alkaline Phosphatase 214 H Ammonia 119 H B-Natriuretic Peptide 84 Total Protein 6.8 Albumin 2.7 L Lipase 17 Acetaminophen < 3 Ethyl Alcohol < 10 Hepatitis A IgM Ab Nonreactive Hep Bs Antigen Negative Hep Bs Antibody NONREACTIVE Hep B Core Total Ab Reactive Hepatitis C Ab (EIA) Reactive H Influenza Type A (PCR) NEGATIVE Influenza Type B (PCR) NEGATIVE RSV RNA Qual (PCR) NEGATIVE SARS-CoV-2 RNA (RT-PCR) NEGATIVE Imaging Radiologist's Impressions: Impressions Chest X-Ray 12/30/24 15:10 IMPRESSION: No active pulmonary disease. Electronically signed by: Carlton Ruelas MD 12/30/2024 03:48 PM EDT Abdomen Ultrasound 12/30/24 15:45 IMPRESSION: 1. There is small volume ascites in the right lower quadrant and left lower quadrant of the pelvis. 2. There is portal vein thrombosis present. Electronically signed by: Carlton Ruelas MD 12/30/2024 04:23 PM EDT RP Assessment and Plan (1) Jaundice: Status: Acute Plan 64M PMH alcohol dependence, history of IVDA with hepatitis-C now in remission and treated, hypertension, mild intermittent asthma presented with jaundice acute to subacute alcoholic hepatitis complicated by portal vein thrombosis stop etoh, monitor ciwa, iv heparin, hematology and gi eval, monitor lfts, plan for ct abd with contrast if renal function stable tomorrow addiction eval htn hold amlodipine for now, low normal bp mild intermittent asthma stable full code given need for iv heparin expected to require atleast 2 midnights inpatient. Quality Stroke Does the patient have a stroke diagnosis?: No VTE Prior VTE?: No VTE Risk Level:: Medical - moderate - high VTE Device Contraindication: Treatment Not Indicated VTE Drug Contraindication: N/A - Med Ordered
[2024-12-30] MEDS: Albumin Human 25 % 100 ML IV ×2 (17:23→23:54)
[2024-12-30] MEDS: Potassium Chloride ER 20 MEQ TAB.ER.PRT 40 MEQ PO (17:23)
[2024-12-30 17:33] LABS: INTERNATIONAL NORM RATIO 2.1 (0.9-1.1); Prothrombin Time 24.2 SEC (10.9-12.4)
[2024-12-30 17:36] LABS: PTT Heparin Drip 43.7 SEC (53-77.9)
[2024-12-30 17:37] LABS: Hematocrit 33.7 % (42.0-52.0); Hemoglobin 11.9 g/dl (14.0-18.0); Mean Corpuscular HGB Conc 35.3 g/dl (31.0-36.0); Mean Corpuscular Hemoglobin 36.5 pg (27.0-33.0); Mean Corpuscular Volume 103.4 fL (80.0-98.0); Mean Platelet Volume 10.9 fL (9.4-12.4); NRBC Pct Auto 0.4 /100WBC (0.0-0.2); PLT CLUMP 1; Red Blood Count 3.26 X10*6/uL (4.60-5.80); Red Cell Distribution Width 14.6 % (11.0-16.0)
[2024-12-30 17:46] LABS: White Blood Count 4.7 X10*3/uL (4.8-10.8)
[2024-12-30 17:47] LABS: Platelet Count 79 X10*3/uL (160-400)
[2024-12-30 18:08] VITALS: BP 123/73; PULSE 82; RESP 24; TEMP 36.9; O2SAT 98
[2024-12-30] MEDS: Heparin Sodium,Porcine/1/2NS 25,000 UNIT/250 ML IV.SOLN 11.61 UNIT IVCONT (18:12)
[2024-12-30 21:30] VITALS: BP 131/76; PULSE 87; RESP 18; TEMP 36.9; O2SAT 97
[2024-12-30] MEDS: HYDROmorphone HCl 0.5 MG/0.5 ML SYRINGE IVPUSH (23:53)
[2024-12-31 01:02] LABS: PTT Heparin Drip 111.3 SEC (53-77.9)
--- NOTE | 2024-12-31 01:15 | PC.NURSE ---
ptt-hd 111.3, drip paused and one hour lab redraw ordered. PT en route to unit.
[2024-12-31 02:50] LABS: PTT Heparin Drip 72.6 SEC (53-77.9)
[2024-12-31 03:12] VITALS: BP 146/78; PULSE 88; RESP 18; TEMP 36.4; O2SAT 95
[2024-12-31 07:16] LABS: INTERNATIONAL NORM RATIO 2.4 (0.9-1.1); Prothrombin Time 28.2 SEC (10.9-12.4)
[2024-12-31 07:23] LABS: Hematocrit 31.1 % (42.0-52.0); Mean Corpuscular HGB Conc 35.4 g/dl (31.0-36.0); Mean Corpuscular Hemoglobin 36.8 pg (27.0-33.0); PLT CLUMP 1; Red Blood Count 2.99 X10*6/uL (4.60-5.80); Red Cell Distribution Width 14.7 % (11.0-16.0)
[2024-12-31 07:28] VITALS: BP 126/70; PULSE 85; RESP 16; TEMP 36.4; O2SAT 97
[2024-12-31 07:33] LABS: Alanine Aminotransferase 45 U/L (0-40); Albumin Level 3.1 g/dL (3.5-5.0); Alkaline Phosphatase 174 U/L (39-117); Anion Gap 12 (12-20); Aspartate Amino Transferase 151 U/L (5-37); Blood Urea Nitrogen 9 mg/dL (9-16); Calcium 8.8 mg/dL (8.4-10.2); Carbon Dioxide 21 mmol/L (22-29); Chloride 109 mmol/L (96-108); Creatinine Clr Calc Pharmacy 137.6; Estimated Glomerular Filt Rate > 60; Glucose Random 116 mg/dL (60-115); Magnesium 1.9 mg/dL (1.6-2.6); Potassium 3.8 mmol/L (3.3-5.1); Sodium 138 mmol/L (135-145); Total Protein 6.5 g/dL (6.5-8.0)
[2024-12-31 07:43] LABS: Bilirubin Direct 18.5 mg/dL (0.0-0.5)
[2024-12-31 07:47] LABS: Mean Platelet Volume 10.5 fL (9.4-12.4); Platelet Count 75 X10*3/uL (160-400); White Blood Count 3.6 X10*3/uL (4.8-10.8)
[2024-12-31] MEDS: Folic Acid 1 MG TABLET PO (08:19)
[2024-12-31] MEDS: Cyanocobalamin (Vitamin B-12) 100 MCG TABLET 50 MCG PO (08:19)
[2024-12-31] MEDS: Thiamine HCL 100 MG TABLET PO (08:19)
[2024-12-31] MEDS: 0.9 % Sodium Chloride Flush 3 ML SYRINGE IVFLUSH (08:21)
--- NOTE | 2024-12-31 08:36 | HO.ADDICTCON ---
History of Present Illness Date of Service: 12/31/2024 Chief Complaint: Hepatitis,portal vein thrombosus Reason for Consult: +AUDIT C HPI Narrative: Patient is a 64 year old male medically admitted with acute hepatitis related to aclohol use and elevated ammonia Consult requested as patient screened +AUDIT C Patient seen in room 469. He is awake, alert, pleasant and engaged in interview. He reports he has been drinking for many, many years. Currently drinking 3 large cans of wine daily. He states he has decreased intake over the years, and does not feel current amount is too much. He is aware of how alcohol is directly related to current admission and how it is impacting his overall health. He acknowledges that it is difficult to stop drinking, but also states I have been here without drinking and I feel okay There are no withdrawal sx observed or reported. He politely declines any resources related to AUD, including harm reduction strategies, but was open to talking about them. AUDIT-C Brief Intervention This assembly instructions writer met with patient to discuss current alcohol use and concerns related to increased risk of alcohol related problems. Discussed how alcohol use has impacted health, including negative impact on mental health and overall physical wellbeing. Discussed risk reduction strategies including drinking below the recommended limit. Medical Evaluation Reviewed: Yes Review of Systems Constitutional: Reports as per HPI and Reports no additional constitutional complaints Diagnostics Vital Signs (24Hr): Vital Signs - 24 hr 12/30/24 13:02 12/30/24 14:38 12/30/24 16:08 Temperature 99.1 F 98.7 F 98.6 F Pulse Rate 84 81 85 Respiratory Rate 18 16 14 Blood Pressure 125/79 138/78 127/78 Pulse Oximetry 98 98 98 Oxygen Delivery Method Room Air Room Air Room Air 12/30/24 18:08 12/30/24 21:30 12/31/24 03:12 Temperature 98.4 F 98.4 F 97.6 F Pulse Rate 82 87 88 Respiratory Rate 24 H 18 18 Blood Pressure 123/73 131/76 146/78 H Pulse Oximetry 98 97 95 Oxygen Delivery Method Room Air Room Air Room Air 12/31/24 07:28 Temperature 97.6 F Pulse Rate 85 Respiratory Rate 16 Blood Pressure 126/70 Pulse Oximetry 97 Oxygen Delivery Method Room Air BMI result Body Mass Index 30.4 Labs 12/31/24 06:21 12/31/24 06:21 Labs: Laboratory Results - last 48 hr 12/30/24 12/30/24 12/31/24 13:19 17:22 00:31 WBC 5.6 4.7 L RBC 3.32 L 3.26 L Hgb 12.3 L 11.9 L Hct 34.9 L 33.7 L MCV 105.1 H 103.4 H MCH 37.0 H 36.5 H MCHC 35.2 35.3 RDW 14.6 14.6 Plt Count TNP 79 L D MPV TNP 10.9 Immature Gran % (Auto) 0.7 H Neut % (Auto) 68.5 Lymph % (Auto) 14.8 L [place] % (Auto) 14.8 H Eos % (Auto) 0.7 Baso % (Auto) 0.5 Lymph # (Auto) 0.8 L [place] # (Auto) 0.8 Eos # (Auto) 0.0 Baso # (Auto) 0.0 Abs Immat Gran (auto) 0.04 H Absolute Neuts (auto) 3.8 Absolute Nucleated RBC 0.000 0.020 H Nucleated RBC % (auto) 0.0 0.4 H Smear Tech's Comments VERIFIED Hold Purple Top PT 23.0 H 24.2 H INR 2.0 H 2.1 H aPTT Heparin Protocol 43.7 L 111.3 H* D Sodium 136 Potassium 3.4 Chloride 107 Carbon Dioxide 21 L Anion Gap 11 L BUN 10 Creatinine 0.65 Estim Creat Clear Calc 112.2 Estimated GFR > 60 Random Glucose 96 Calcium 9.0 Magnesium 1.8 Total Bilirubin 24.9 H Direct Bilirubin 18.2 H AST 204 H ALT 56 H Alkaline Phosphatase 214 H Ammonia 119 H B-Natriuretic Peptide 84 Total Protein 6.8 Albumin 2.7 L Lipase 17 Acetaminophen < 3 Ethyl Alcohol < 10 Hepatitis A IgM Ab Nonreactive Hep Bs Antigen Negative Hep Bs Antibody NONREACTIVE Hep B Core Total Ab Reactive Hepatitis C Ab (EIA) Reactive H Influenza Type A (PCR) NEGATIVE Influenza Type B (PCR) NEGATIVE RSV RNA Qual (PCR) NEGATIVE SARS-CoV-2 RNA (RT-PCR) NEGATIVE 12/31/24 12/31/24 12/31/24 02:19 06:21 06:21 WBC 3.6 L Cancelled RBC 2.99 L Hgb Hct MCV MCH MCHC RDW Plt Count MPV Immature Gran % (Auto) Neut % (Auto) Lymph % (Auto) [place] % (Auto) Eos % (Auto) Baso % (Auto) Lymph # (Auto) [place] # (Auto) Eos # (Auto) Baso # (Auto) Abs Immat Gran (auto) Absolute Neuts (auto) Absolute Nucleated RBC Nucleated RBC % (auto) Smear Tech's Comments Hold Purple Top PT INR aPTT Heparin Protocol 72.6 D Sodium Potassium Chloride Carbon Dioxide Anion Gap BUN Creatinine Estim Creat Clear Calc Estimated GFR Random Glucose Calcium Magnesium Total Bilirubin Direct Bilirubin AST ALT Alkaline Phosphatase Ammonia B-Natriuretic Peptide Total Protein Albumin Lipase Acetaminophen Ethyl Alcohol Hepatitis A IgM Ab Hep Bs Antigen Hep Bs Antibody Hep B Core Total Ab Hepatitis C Ab (EIA) Influenza Type A (PCR) Influenza Type B (PCR) RSV RNA Qual (PCR) SARS-CoV-2 RNA (RT-PCR) 12/31/24 12/31/24 12/31/24 06:21 06:21 06:21 WBC RBC Cancelled Hgb 11.0 L Cancelled Hct 31.1 L Cancelled MCV 104.0 H MCH MCHC RDW Plt Count MPV Immature Gran % (Auto) Neut % (Auto) Lymph % (Auto) [place] % (Auto) Eos % (Auto) Baso % (Auto) Lymph # (Auto) [place] # (Auto) Eos # (Auto) Baso # (Auto) Abs Immat Gran (auto) Absolute Neuts (auto) Absolute Nucleated RBC Nucleated RBC % (auto) Smear Tech's Comments Hold Purple Top PT INR aPTT Heparin Protocol Sodium Potassium Chloride Carbon Dioxide Anion Gap BUN Creatinine Estim Creat Clear Calc Estimated GFR Random Glucose Calcium Magnesium Total Bilirubin Direct Bilirubin AST ALT Alkaline Phosphatase Ammonia B-Natriuretic Peptide Total Protein Albumin Lipase Acetaminophen Ethyl Alcohol Hepatitis A IgM Ab Hep Bs Antigen Hep Bs Antibody Hep B Core Total Ab Hepatitis C Ab (EIA) Influenza Type A (PCR) Influenza Type B (PCR) RSV RNA Qual (PCR) SARS-CoV-2 RNA (RT-PCR) 12/31/24 12/31/24 12/31/24 06:21 06:21 06:21 WBC RBC Hgb Hct MCV Cancelled MCH 36.8 H Cancelled MCHC 35.4 Cancelled RDW 14.7 Plt Count MPV Immature Gran % (Auto) Neut % (Auto) Lymph % (Auto) [place] % (Auto) Eos % (Auto) Baso % (Auto) Lymph # (Auto) [place] # (Auto) Eos # (Auto) Baso # (Auto) Abs Immat Gran (auto) Absolute Neuts (auto) Absolute Nucleated RBC Nucleated RBC % (auto) Smear Tech's Comments Hold Purple Top PT INR aPTT Heparin Protocol Sodium Potassium Chloride Carbon Dioxide Anion Gap BUN Creatinine Estim Creat Clear Calc Estimated GFR Random Glucose Calcium Magnesium Total Bilirubin Direct Bilirubin AST ALT Alkaline Phosphatase Ammonia B-Natriuretic Peptide Total Protein Albumin Lipase Acetaminophen Ethyl Alcohol Hepatitis A IgM Ab Hep Bs Antigen Hep Bs Antibody Hep B Core Total Ab Hepatitis C Ab (EIA) Influenza Type A (PCR) Influenza Type B (PCR) RSV RNA Qual (PCR) SARS-CoV-2 RNA (RT-PCR) 12/31/24 12/31/24 12/31/24 06:21 06:21 06:21 WBC RBC Hgb Hct MCV MCH MCHC RDW Cancelled Plt Count 75 L Cancelled MPV 10.5 Cancelled Immature Gran % (Auto) Neut % (Auto) Lymph % (Auto) [place] % (Auto) Eos % (Auto) Baso % (Auto) Lymph # (Auto) [place] # (Auto) Eos # (Auto) Baso # (Auto) Abs Immat Gran (auto) Absolute Neuts (auto) Absolute Nucleated RBC 0.000 Nucleated RBC % (auto) Smear Tech's Comments Hold Purple Top PT INR aPTT Heparin Protocol Sodium Potassium Chloride Carbon Dioxide Anion Gap BUN Creatinine Estim Creat Clear Calc Estimated GFR Random Glucose Calcium Magnesium Total Bilirubin Direct Bilirubin AST ALT Alkaline Phosphatase Ammonia B-Natriuretic Peptide Total Protein Albumin Lipase Acetaminophen Ethyl Alcohol Hepatitis A IgM Ab Hep Bs Antigen Hep Bs Antibody Hep B Core Total Ab Hepatitis C Ab (EIA) Influenza Type A (PCR) Influenza Type B (PCR) RSV RNA Qual (PCR) SARS-CoV-2 RNA (RT-PCR) 12/31/24 12/31/24 06:21 06:21 WBC RBC Hgb Hct MCV MCH MCHC RDW Plt Count MPV Immature Gran % (Auto) Neut % (Auto) Lymph % (Auto) [place] % (Auto) Eos % (Auto) Baso % (Auto) Lymph # (Auto) [place] # (Auto) Eos # (Auto) Baso # (Auto) Abs Immat Gran (auto) Absolute Neuts (auto) Absolute Nucleated RBC Cancelled Nucleated RBC % (auto) 0.0 Cancelled Smear Tech's Comments Hold Purple Top SEE NOTE PT 28.2 H INR 2.4 H aPTT Heparin Protocol Sodium 138 Potassium 3.8 Chloride 109 H Carbon Dioxide 21 L Anion Gap 12 BUN 9 Creatinine 0.53 Estim Creat Clear Calc 137.6 Estimated GFR > 60 Random Glucose 116 H Calcium 8.8 Magnesium 1.9 Total Bilirubin 25.0 H Direct Bilirubin 18.5 H AST 151 H ALT 45 H Alkaline Phosphatase 174 H Ammonia B-Natriuretic Peptide Total Protein 6.5 Albumin 3.1 L Lipase Acetaminophen Ethyl Alcohol Hepatitis A IgM Ab Hep Bs Antigen Hep Bs Antibody Hep B Core Total Ab Hepatitis C Ab (EIA) Influenza Type A (PCR) Influenza Type B (PCR) RSV RNA Qual (PCR) SARS-CoV-2 RNA (RT-PCR) Imaging Radiology Impressions: ITS Impressions Chest X-Ray 12/30/24 15:10 IMPRESSION: No active pulmonary disease. Electronically signed by: Carlton Ruelas MD 12/30/2024 03:48 PM EDT RP Abdomen Ultrasound 12/30/24 15:45 IMPRESSION: 1. There is small volume ascites in the right lower quadrant and left lower quadrant of the pelvis. 2. There is portal vein thrombosis present. Electronically signed by: Carlton Ruelas MD 12/30/2024 04:23 PM EDT RP Mental Status Exam Mental Status Exam Patient Appearance: Appropriate Patient Orientation: Person, Place, Time and Situation Level of Consciousness: Awake, Appropriate and Alert Patient Behavior: Appropriate, Talkative and Cooperative Mood Description: Calm Affect Description: Calm Speech Pattern: Clear Hallucinations: None Thought Process: Intact Thought Content: positive for Intact Judgement: Fair Medications Medications Current Medications Acetaminophen (Acetaminophen 325 Mg Tablet) 650 mg PO Q6H PRN PRN Reason: Pain, Mild 1-3,fever,headache Calcium Carbonate (Calcium Carbonate 750 Mg Tab.Chew) 750 mg PO Q4H PRN PRN Reason: Heartburn Cyanocobalamin (Cyanocobalamin (Vitamin B-12) 100 Mcg Tablet) 50 mcg PO DAILY [facility] Last Admin: 12/31/24 08:19 Dose: 50 mcg Folic Acid (Folic Acid 1 Mg Tablet) 1 mg PO DAILY [facility] Last Admin: 12/31/24 08:19 Dose: 1 mg Heparin Sodium (Porcine) (Heparin Sodium,Porcine 5,000 Unit/Ml Vial) 3,300 unit 40 unit/kg (3300 unit) IVPUSH PROTOCOL BOLUS PRN; Protocol PRN Reason: 40 unit/kg - Heparin Protocol Heparin Sodium (Porcine) (Heparin Sodium,Porcine 5,000 Unit/Ml Vial) 6,600 unit 80 unit/kg (6600 unit) IVPUSH PROTOCOL BOLUS PRN; Protocol PRN Reason: 80 unit/kg - Heparin Protocol Hydromorphone HCl (Hydromorphone Hcl 0.5 Mg/0.5 Ml Syringe) 0.5 mg IVPUSH Q4H PRN; Protocol PRN Reason: Pain, Severe (Pain Scale 7-10) Last Admin: 12/30/24 23:53 Dose: 0.5 mg Heparin Sodium/Sodium Chloride (Heparin Sodium,Porcine/1/2ns) 25,000 unit in 250 mls @ 0 mls/hr IVCONT .Q0M [facility]; Protocol Last Titration: 12/31/24 03:01 Dose: 10 units/kg/hr, 8.29 mls/hr Ketorolac Tromethamine (Ketorolac Tromethamine 0.5% Op 5 Ml Drops) 1 drop EYE-LEFT TID [facility] Last Admin: 12/31/24 00:17 Dose: Not Given Magnesium Hydroxide (Milk Of Magnesia 30 Ml Oral.Susp) 30 ml PO DAILY PRN PRN Reason: Constipation Melatonin (Melatonin 3 Mg Tablet) 6 mg PO BEDTIME PRN PRN Reason: Insomnia Sodium Chloride (0.9 % Sodium Chloride Flush 3 Ml Syringe) 3 ml IVFLUSH QSHIFT [facility] Last Admin: 12/31/24 08:21 Dose: 3 ml Thiamine HCl (Thiamine Hcl 100 Mg Tablet) 100 mg PO DAILY [facility] Last Admin: 12/31/24 08:19 Dose: 100 mg Zolpidem Tartrate (Zolpidem Tartrate 5 Mg Tablet) 10 mg PO BEDTIME PRN PRN Reason: Sleep Allergies Allergies Allergy/AdvReac Type Severity Reaction Status Date / Time No Known Allergies Allergy Verified 12/30/24 13:05 Assessment & Plan Assessment & Plan (1) Alcohol use disorder: Status: Acute Code(s): F10.90 - Alcohol use, unspecified, uncomplicated Assessment and Plan: Reinforced impact alcohol is having with overall health --declines any intervention or resources related to AUD no withdrawal sx at time of interview please reconsult if necessary Total time managing care of this patient today _25___ minutes. [facility] Past Medical History Medical History Elevated cholesterol Asthma Hx of sprain of wrist Family History Family History Mother Advanced dementia Diabetes HTN (hypertension) Father HTN (hypertension) Surgical History Surgical History Hx of colonoscopy Social History Social History Household Members: None Household Members Other:: 0 Housing: Apartment Do you presently have visiting nurse or other home services: No Alcohol intake: current Alcohol intake frequency: 3 or more drinks per day Alcohol type: wine Patient Tobacco Use Status: Never used Tobacco e-Cigarette/Vaping Use: Never Used Second Hand Smoke Exposure: No service: No Current occupational status: disabled
--- NOTE | 2024-12-31 09:13 | P.PNIM_ITS ---
Subjective Subjective Date of Service: 12/31/24 Interval History: no complaints Physical Exam 2 Vital Signs: Vital Signs: Last Vital Signs Temp 97.6 F 12/31/24 07:28 Pulse 85 12/31/24 07:28 Resp 16 12/31/24 07:28 BP 126/70 12/31/24 07:28 Pulse Ox 97 12/31/24 07:28 O2 Del Method Room Air 12/31/24 07:28 BMI result Body Mass Index 30.4 General: AO X 3, no acute distress, jaundice Resp: CTA bilateral, no accessory muscles used CVS: S1,S2,RRR, trace edema GI: soft, non tender, non distended Neuro: motor grossly intact, alert Psych: appropriate affect, appropriate insight Objective Data Active Medications Acetaminophen (Acetaminophen 325 Mg Tablet) 650 mg PO Q6H PRN PRN Reason: Pain, Mild 1-3,fever,headache Calcium Carbonate (Calcium Carbonate 750 Mg Tab.Chew) 750 mg PO Q4H PRN PRN Reason: Heartburn Cyanocobalamin (Cyanocobalamin (Vitamin B-12) 100 Mcg Tablet) 50 mcg PO DAILY [facility] Last Admin: 12/31/24 08:19 Dose: 50 mcg Documented By: TABATHA Folic Acid (Folic Acid 1 Mg Tablet) 1 mg PO DAILY [facility] Last Admin: 12/31/24 08:19 Dose: 1 mg Documented By: TABATHA Heparin Sodium (Porcine) (Heparin Sodium,Porcine 5,000 Unit/Ml Vial) 3,300 unit 40 unit/kg (3300 unit) IVPUSH PROTOCOL BOLUS PRN; Protocol PRN Reason: 40 unit/kg - Heparin Protocol Heparin Sodium (Porcine) (Heparin Sodium,Porcine 5,000 Unit/Ml Vial) 6,600 unit 80 unit/kg (6600 unit) IVPUSH PROTOCOL BOLUS PRN; Protocol PRN Reason: 80 unit/kg - Heparin Protocol Hydromorphone HCl (Hydromorphone Hcl 0.5 Mg/0.5 Ml Syringe) 0.5 mg IVPUSH Q4H PRN; Protocol PRN Reason: Pain, Severe (Pain Scale 7-10) Last Admin: 12/30/24 23:53 Dose: 0.5 mg Documented By: LAMBERTO Heparin Sodium/Sodium Chloride (Heparin Sodium,Porcine/1/2ns) 25,000 unit in 250 mls @ 0 mls/hr IVCONT .Q0M [facility]; Protocol Last Titration: 12/31/24 03:01 Dose: 10 units/kg/hr, 8.29 mls/hr Documented By: ERIC Co-signed By: YUNG Ketorolac Tromethamine (Ketorolac Tromethamine 0.5% Op 5 Ml Drops) 1 drop EYE- LEFT TID [facility] Last Admin: 12/31/24 00:17 Dose: Not Given Documented By: LAMBERTO Non-Admin Reason: Med Not Available Magnesium Hydroxide (Milk Of Magnesia 30 Ml Oral.Susp) 30 ml PO DAILY PRN PRN Reason: Constipation Melatonin (Melatonin 3 Mg Tablet) 6 mg PO BEDTIME PRN PRN Reason: Insomnia Sodium Chloride (0.9 % Sodium Chloride Flush 3 Ml Syringe) 3 ml IVFLUSH QSHIFT [facility] Last Admin: 12/31/24 08:21 Dose: 3 ml Documented By: TABATHA Thiamine HCl (Thiamine Hcl 100 Mg Tablet) 100 mg PO DAILY [facility] Last Admin: 12/31/24 08:19 Dose: 100 mg Documented By: TABATHA Zolpidem Tartrate (Zolpidem Tartrate 5 Mg Tablet) 10 mg PO BEDTIME PRN PRN Reason: Sleep Labs 12/31/24 06:21 12/31/24 06:21 Labs: Laboratory Results - last 24 hr 12/30/24 12/30/24 12/31/24 13:19 17:22 00:31 MCV 105.1 H 103.4 H MCH 37.0 H 36.5 H MCHC 35.2 35.3 RDW 14.6 14.6 Plt Count TNP 79 L D MPV TNP 10.9 Immature Gran % (Auto) 0.7 H Neut % (Auto) 68.5 Lymph % (Auto) 14.8 L [place] % (Auto) 14.8 H Eos % (Auto) 0.7 Baso % (Auto) 0.5 Lymph # (Auto) 0.8 L [place] # (Auto) 0.8 Eos # (Auto) 0.0 Baso # (Auto) 0.0 Abs Immat Gran (auto) 0.04 H Absolute Neuts (auto) 3.8 Absolute Nucleated RBC 0.000 0.020 H Nucleated RBC % (auto) 0.0 0.4 H Smear Tech's Comments VERIFIED Hold Purple Top PT 23.0 H 24.2 H INR 2.0 H 2.1 H aPTT Heparin Protocol 43.7 L 111.3 H* D Anion Gap 11 L Estim Creat Clear Calc 112.2 Estimated GFR > 60 Random Glucose 96 Calcium 9.0 Magnesium 1.8 Total Bilirubin 24.9 H Direct Bilirubin 18.2 H AST 204 H ALT 56 H Alkaline Phosphatase 214 H Ammonia 119 H B-Natriuretic Peptide 84 Total Protein 6.8 Albumin 2.7 L Lipase 17 Acetaminophen < 3 Ethyl Alcohol < 10 Hepatitis A IgM Ab Nonreactive Hep Bs Antigen Negative Hep Bs Antibody NONREACTIVE Hep B Core Total Ab Reactive Hepatitis C Ab (EIA) Reactive H Influenza Type A (PCR) NEGATIVE Influenza Type B (PCR) NEGATIVE RSV RNA Qual (PCR) NEGATIVE SARS-CoV-2 RNA (RT-PCR) NEGATIVE 12/31/24 12/31/24 12/31/24 02:19 06:21 06:21 MCV 104.0 H Cancelled MCH 36.8 H MCHC RDW Plt Count MPV Immature Gran % (Auto) Neut % (Auto) Lymph % (Auto) [place] % (Auto) Eos % (Auto) Baso % (Auto) Lymph # (Auto) [place] # (Auto) Eos # (Auto) Baso # (Auto) Abs Immat Gran (auto) Absolute Neuts (auto) Absolute Nucleated RBC Nucleated RBC % (auto) Smear Tech's Comments Hold Purple Top PT INR aPTT Heparin Protocol 72.6 D Anion Gap Estim Creat Clear Calc Estimated GFR Random Glucose Calcium Magnesium Total Bilirubin Direct Bilirubin AST ALT Alkaline Phosphatase Ammonia B-Natriuretic Peptide Total Protein Albumin Lipase Acetaminophen Ethyl Alcohol Hepatitis A IgM Ab Hep Bs Antigen Hep Bs Antibody Hep B Core Total Ab Hepatitis C Ab (EIA) Influenza Type A (PCR) Influenza Type B (PCR) RSV RNA Qual (PCR) SARS-CoV-2 RNA (RT-PCR) 12/31/24 12/31/24 12/31/24 06:21 06:21 06:21 MCV MCH Cancelled MCHC 35.4 Cancelled RDW 14.7 Cancelled Plt Count 75 L MPV Immature Gran % (Auto) Neut % (Auto) Lymph % (Auto) [place] % (Auto) Eos % (Auto) Baso % (Auto) Lymph # (Auto) [place] # (Auto) Eos # (Auto) Baso # (Auto) Abs Immat Gran (auto) Absolute Neuts (auto) Absolute Nucleated RBC Nucleated RBC % (auto) Smear Tech's Comments Hold Purple Top PT INR aPTT Heparin Protocol Anion Gap Estim Creat Clear Calc Estimated GFR Random Glucose Calcium Magnesium Total Bilirubin Direct Bilirubin AST ALT Alkaline Phosphatase Ammonia B-Natriuretic Peptide Total Protein Albumin Lipase Acetaminophen Ethyl Alcohol Hepatitis A IgM Ab Hep Bs Antigen Hep Bs Antibody Hep B Core Total Ab Hepatitis C Ab (EIA) Influenza Type A (PCR) Influenza Type B (PCR) RSV RNA Qual (PCR) SARS-CoV-2 RNA (RT-PCR) 12/31/24 12/31/24 12/31/24 06:21 06:21 06:21 MCV MCH MCHC RDW Plt Count Cancelled MPV 10.5 Cancelled Immature Gran % (Auto) Neut % (Auto) Lymph % (Auto) [place] % (Auto) Eos % (Auto) Baso % (Auto) Lymph # (Auto) [place] # (Auto) Eos # (Auto) Baso # (Auto) Abs Immat Gran (auto) Absolute Neuts (auto) Absolute Nucleated RBC 0.000 Cancelled Nucleated RBC % (auto) 0.0 Smear Tech's Comments Hold Purple Top PT INR aPTT Heparin Protocol Anion Gap Estim Creat Clear Calc Estimated GFR Random Glucose Calcium Magnesium Total Bilirubin Direct Bilirubin AST ALT Alkaline Phosphatase Ammonia B-Natriuretic Peptide Total Protein Albumin Lipase Acetaminophen Ethyl Alcohol Hepatitis A IgM Ab Hep Bs Antigen Hep Bs Antibody Hep B Core Total Ab Hepatitis C Ab (EIA) Influenza Type A (PCR) Influenza Type B (PCR) RSV RNA Qual (PCR) SARS-CoV-2 RNA (RT-PCR) 12/31/24 12/31/24 06:21 08:22 MCV MCH MCHC RDW Plt Count MPV Immature Gran % (Auto) Neut % (Auto) Lymph % (Auto) [place] % (Auto) Eos % (Auto) Baso % (Auto) Lymph # (Auto) [place] # (Auto) Eos # (Auto) Baso # (Auto) Abs Immat Gran (auto) Absolute Neuts (auto) Absolute Nucleated RBC Nucleated RBC % (auto) Cancelled Smear Tech's Comments Hold Purple Top SEE NOTE PT 28.2 H INR 2.4 H aPTT Heparin Protocol 104.0 H D Anion Gap 12 Estim Creat Clear Calc 137.6 Estimated GFR > 60 Random Glucose 116 H Calcium 8.8 Magnesium 1.9 Total Bilirubin 25.0 H Direct Bilirubin 18.5 H AST 151 H ALT 45 H Alkaline Phosphatase 174 H Ammonia B-Natriuretic Peptide Total Protein 6.5 Albumin 3.1 L Lipase Acetaminophen Ethyl Alcohol Hepatitis A IgM Ab Hep Bs Antigen Hep Bs Antibody Hep B Core Total Ab Hepatitis C Ab (EIA) Influenza Type A (PCR) Influenza Type B (PCR) RSV RNA Qual (PCR) SARS-CoV-2 RNA (RT-PCR) Assessment and Plan (1) Alcohol use disorder: Status: Acute Plan 64M PMH alcohol dependence, history of IVDA with hepatitis-C now in remission and treated, hypertension, mild intermittent asthma presented with jaundice acute to subacute alcoholic hepatitis complicated by portal vein thrombosis stop etoh, monitor ciwa, iv heparin, hematology and gi eval, monitor lfts, ct abd with contrast addiction eval hyperammonia without hepatic encephalopathy monitor clinically htn hold amlodipine for now, low normal bp mild intermittent asthma stable full code reason for continued hospitalization:iv heparin Quality Stroke Does the patient have a stroke diagnosis?: No VTE Prior VTE?: No VTE Risk Level:: Medical - moderate - high VTE Device Contraindication: Treatment Not Indicated VTE Drug Contraindication: N/A - Med Ordered
[2024-12-31 09:39] LABS: Hepatitis B Core Antibody IgM NON-REACTIVE (NON-REACTIVE)
[2024-12-31 12:00] VITALS: BP 145/75; PULSE 83; RESP 16; TEMP 36.5; O2SAT 99
[2024-12-31] MEDS: iohexoL 350 MG/ML 100 ML INFUS..BTL IV (12:08)
[2024-12-31] MEDS: prednisoLONE sodium phosphate 15 MG/5 ML SOLUTION 40 MG PO (12:42)
--- NOTE | 2024-12-31 13:48 | PM.GIPN ---
Subjective Subjective Date of Service: 12/31/24 Interval History: US abd yest with PV thrombosis but CT with IV contrast without any PV thrombosis. Critical Care Time (minutes): 0 Physical Exam Vital Signs: Vital Signs: Last Vital Signs Temp 97.7 F 12/31/24 12:00 Pulse 83 12/31/24 12:00 Resp 16 12/31/24 12:00 BP 145/75 H 12/31/24 12:00 Pulse Ox 99 12/31/24 12:00 O2 Del Method Room Air 12/31/24 12:00 BMI result Body Mass Index 30.4 Jaundiced No asterixis but unsteady on his feet Objective Data Labs 12/31/24 06:21 12/31/24 06:21 Labs: Laboratory Results - last 24 hr 12/30/24 12/30/24 12/31/24 13:19 17:22 00:31 WBC 5.6 4.7 L RBC 3.26 L Hgb 11.9 L Hct 33.7 L MCV 103.4 H MCH 36.5 H MCHC 35.3 RDW 14.6 Plt Count TNP 79 L D MPV TNP 10.9 Immature Gran % (Auto) 0.7 H Neut % (Auto) 68.5 Lymph % (Auto) 14.8 L Mcclain % (Auto) 14.8 H Eos % (Auto) 0.7 Baso % (Auto) 0.5 Lymph # (Auto) 0.8 L Mcclain # (Auto) 0.8 Eos # (Auto) 0.0 Baso # (Auto) 0.0 Abs Immat Gran (auto) 0.04 H Absolute Neuts (auto) 3.8 Absolute Nucleated RBC 0.000 0.020 H Nucleated RBC % (auto) 0.0 0.4 H Smear Tech's Comments VERIFIED Hold Purple Top PT 23.0 H 24.2 H INR 2.0 H 2.1 H aPTT Heparin Protocol 43.7 L 111.3 H* D Sodium 136 Potassium 3.4 Chloride 107 Carbon Dioxide 21 L Anion Gap 11 L BUN 10 Creatinine 0.65 Estim Creat Clear Calc 112.2 Estimated GFR > 60 Random Glucose 96 Calcium 9.0 Magnesium 1.8 Total Bilirubin 24.9 H Direct Bilirubin 18.2 H AST 204 H ALT 56 H Alkaline Phosphatase 214 H Total Protein 6.8 Albumin 2.7 L Lipase 17 Ethyl Alcohol < 10 Hepatitis A IgM Ab Nonreactive Hep Bs Antigen Negative Hep Bs Antibody NONREACTIVE Hep B Core Total Ab Reactive Hep B Core IgM Ab NON-REACTIVE Hepatitis C Ab (EIA) Reactive H Influenza Type A (PCR) NEGATIVE Influenza Type B (PCR) NEGATIVE RSV RNA Qual (PCR) NEGATIVE SARS-CoV-2 RNA (RT-PCR) NEGATIVE 12/31/24 12/31/24 12/31/24 02:19 06:21 06:21 WBC 3.6 L Cancelled RBC 2.99 L Hgb Hct MCV MCH MCHC RDW Plt Count MPV Immature Gran % (Auto) Neut % (Auto) Lymph % (Auto) Mcclain % (Auto) Eos % (Auto) Baso % (Auto) Lymph # (Auto) Mcclain # (Auto) Eos # (Auto) Baso # (Auto) Abs Immat Gran (auto) Absolute Neuts (auto) Absolute Nucleated RBC Nucleated RBC % (auto) Smear Tech's Comments Hold Purple Top PT INR aPTT Heparin Protocol 72.6 D Sodium Potassium Chloride Carbon Dioxide Anion Gap BUN Creatinine Estim Creat Clear Calc Estimated GFR Random Glucose Calcium Magnesium Total Bilirubin Direct Bilirubin AST ALT Alkaline Phosphatase Total Protein Albumin Lipase Ethyl Alcohol Hepatitis A IgM Ab Hep Bs Antigen Hep Bs Antibody Hep B Core Total Ab Hep B Core IgM Ab Hepatitis C Ab (EIA) Influenza Type A (PCR) Influenza Type B (PCR) RSV RNA Qual (PCR) SARS-CoV-2 RNA (RT-PCR) 12/31/24 12/31/24 12/31/24 06:21 06:21 06:21 WBC RBC Cancelled Hgb 11.0 L Cancelled Hct 31.1 L Cancelled MCV 104.0 H MCH MCHC RDW Plt Count MPV Immature Gran % (Auto) Neut % (Auto) Lymph % (Auto) Mcclain % (Auto) Eos % (Auto) Baso % (Auto) Lymph # (Auto) Mcclain # (Auto) Eos # (Auto) Baso # (Auto) Abs Immat Gran (auto) Absolute Neuts (auto) Absolute Nucleated RBC Nucleated RBC % (auto) Smear Tech's Comments Hold Purple Top PT INR aPTT Heparin Protocol Sodium Potassium Chloride Carbon Dioxide Anion Gap BUN Creatinine Estim Creat Clear Calc Estimated GFR Random Glucose Calcium Magnesium Total Bilirubin Direct Bilirubin AST ALT Alkaline Phosphatase Total Protein Albumin Lipase Ethyl Alcohol Hepatitis A IgM Ab Hep Bs Antigen Hep Bs Antibody Hep B Core Total Ab Hep B Core IgM Ab Hepatitis C Ab (EIA) Influenza Type A (PCR) Influenza Type B (PCR) RSV RNA Qual (PCR) SARS-CoV-2 RNA (RT-PCR) 12/31/24 12/31/24 12/31/24 06:21 06:21 06:21 WBC RBC Hgb Hct MCV Cancelled MCH 36.8 H Cancelled MCHC 35.4 Cancelled RDW 14.7 Plt Count MPV Immature Gran % (Auto) Neut % (Auto) Lymph % (Auto) Mcclain % (Auto) Eos % (Auto) Baso % (Auto) Lymph # (Auto) Mcclain # (Auto) Eos # (Auto) Baso # (Auto) Abs Immat Gran (auto) Absolute Neuts (auto) Absolute Nucleated RBC Nucleated RBC % (auto) Smear Tech's Comments Hold Purple Top PT INR aPTT Heparin Protocol Sodium Potassium Chloride Carbon Dioxide Anion Gap BUN Creatinine Estim Creat Clear Calc Estimated GFR Random Glucose Calcium Magnesium Total Bilirubin Direct Bilirubin AST ALT Alkaline Phosphatase Total Protein Albumin Lipase Ethyl Alcohol Hepatitis A IgM Ab Hep Bs Antigen Hep Bs Antibody Hep B Core Total Ab Hep B Core IgM Ab Hepatitis C Ab (EIA) Influenza Type A (PCR) Influenza Type B (PCR) RSV RNA Qual (PCR) SARS-CoV-2 RNA (RT-PCR) 12/31/24 12/31/24 12/31/24 06:21 06:21 06:21 WBC RBC Hgb Hct MCV MCH MCHC RDW Cancelled Plt Count 75 L Cancelled MPV 10.5 Cancelled Immature Gran % (Auto) Neut % (Auto) Lymph % (Auto) Mcclain % (Auto) Eos % (Auto) Baso % (Auto) Lymph # (Auto) Mcclain # (Auto) Eos # (Auto) Baso # (Auto) Abs Immat Gran (auto) Absolute Neuts (auto) Absolute Nucleated RBC 0.000 Nucleated RBC % (auto) Smear Tech's Comments Hold Purple Top PT INR aPTT Heparin Protocol Sodium Potassium Chloride Carbon Dioxide Anion Gap BUN Creatinine Estim Creat Clear Calc Estimated GFR Random Glucose Calcium Magnesium Total Bilirubin Direct Bilirubin AST ALT Alkaline Phosphatase Total Protein Albumin Lipase Ethyl Alcohol Hepatitis A IgM Ab Hep Bs Antigen Hep Bs Antibody Hep B Core Total Ab Hep B Core IgM Ab Hepatitis C Ab (EIA) Influenza Type A (PCR) Influenza Type B (PCR) RSV RNA Qual (PCR) SARS-CoV-2 RNA (RT-PCR) 12/31/24 12/31/24 12/31/24 06:21 06:21 08:22 WBC RBC Hgb Hct MCV MCH MCHC RDW Plt Count MPV Immature Gran % (Auto) Neut % (Auto) Lymph % (Auto) Mcclain % (Auto) Eos % (Auto) Baso % (Auto) Lymph # (Auto) Mcclain # (Auto) Eos # (Auto) Baso # (Auto) Abs Immat Gran (auto) Absolute Neuts (auto) Absolute Nucleated RBC Cancelled Nucleated RBC % (auto) 0.0 Cancelled Smear Tech's Comments Hold Purple Top SEE NOTE PT 28.2 H INR 2.4 H aPTT Heparin Protocol 104.0 H D Sodium 138 Potassium 3.8 Chloride 109 H Carbon Dioxide 21 L Anion Gap 12 BUN 9 Creatinine 0.53 Estim Creat Clear Calc 137.6 Estimated GFR > 60 Random Glucose 116 H Calcium 8.8 Magnesium 1.9 Total Bilirubin 25.0 H Direct Bilirubin 18.5 H AST 151 H ALT 45 H Alkaline Phosphatase 174 H Total Protein 6.5 Albumin 3.1 L Lipase Ethyl Alcohol Hepatitis A IgM Ab Hep Bs Antigen Hep Bs Antibody Hep B Core Total Ab Hep B Core IgM Ab Hepatitis C Ab (EIA) Influenza Type A (PCR) Influenza Type B (PCR) RSV RNA Qual (PCR) SARS-CoV-2 RNA (RT-PCR) Procedures Date of Service Date of Service: 12/31/24 Progress Note: A&P Assessment and plan (1) Alcoholic hepatitis with ascites: Status: Acute (2) Jaundice: Status: Acute (3) Alcohol use disorder: Status: Acute Plan MELD Na 28 MDF 75.5 Plan: - Can discontinue anticoagulation - Start prednisolone 40 mg once daily - Monitor MELD labs and neuro status daily - Check day 4 lille score (on 01/03) to assess for utility of continuing corticosteroids UPDATE: Pt asks to leave AMA today. Multiple discussions were had with the patient by myself as well as the hospitalist with the help of product engineering manager, but patient is persistent on leaving today. He is aware of high-risk of mortality and morbidity given underlying alcoholic hepatitis. Reviewed with the patient that we will try to get him in the office for sooner follow-up, but he says he does not want to return to this place. Hospitalist was requested to also contact his sister to make her aware of patient's AMA discharge. AMA papers were signed by the pt. Time Spent With Patient Time: Total time managing care of this patient today ____ minutes. Quality Stroke Does the patient have a stroke diagnosis?: No VTE Prior VTE?: No VTE Risk Level:: Medical - moderate - high VTE Device Contraindication: Treatment Not Indicated VTE Drug Contraindication: N/A - Med Ordered
--- NOTE | 2024-12-31 14:12 | PC.NURSE ---
heparin drip dc'd . Pump turned off at 13:45
--- NOTE | 2024-12-31 15:40 | MHC.CM.PN ---
IMM 12/31/24 Patient lives by himself. ETOH PHX IVDA He states that he uses a walker for unsteady gait. He is independent with ADLs. CT AB/Pelvis r/o Portal Vein thrombosis DP home self care. Patients sister will provide transportation home.
--- NOTE | 2024-12-31 15:44 | PC.NURSE ---
pt decided to leave AMA, stated that he doesn't want to be in the hospital anymore . Stated that he will do the right things per his report . Dr Young, Dr Butt, case monitor Sammie and block stacker also this typewriter ribbon winder was in the pt's room to explain the risk going AMA . pt refused to stay
--- NOTE | 2024-12-31 15:47 | P.DS_ITS ---
DS: Providers Provider Date of Service: 12/31/24 Date of admission: 12/30/24 16:56 Date of discharge: 12/31/24 Primary care physician: Nadya Mauro MD Consults: 12/30/24 16:55 Consult to Gastroenterology Routine Consulting Provider: Margret Butt Reason for consultation: etoh ehpatitis, portal vein thrombosus 12/30/24 17:13 Addiction Medicine Provider Routine Consulting Provider: Addiction Covering Reason for consultation: etoh DS: Diagnosis Discharge Diagnosis (1) Alcohol use disorder: Status: Acute (2) Alcoholic hepatitis with ascites: Status: Acute DS: Summary Hospital Course Hospital Course: from initial hpi: 64M PMH alcohol dependence, history of IVDA with hepatitis-C now in remission and treated, hypertension, mild intermittent asthma presented with jaundice. Jaundice has been ongoing and progressing over several months. Patient reports being completely asymptomatic although his sister notes that he appears more fatigued and winded and has had some peripheral edema. outpatient labs with hyperbilirubinemia, sent to ED. in ED noted to have portal vein thrombosus as well. hospital course: Patient was admitted for acute to subacute alcoholic hepatitis, initially thought to be complicated by portal vein thrombosis based on ultrasound, however, CT abdomen ruled out portal vein thrombosis and IV heparin was discontinued. LFTs continued to increase with elevated INR, total bilirubin over 20. Was seen by Gastroenterology recommended prednisolone. Patient did have hyperammonemia was mentally fairly clear but had some mild signs of early acute metabolic/hepatic encephalopathy with asterixis and unsteady gait. For hypertension amlodipine was held for low normal blood pressure. For mild intermittent asthma was stable. Patient still required inpatient treatment, however, requested leave against medical advice. Patient was able to demonstrate understanding of the risks of doing so including . Time Attestation Discharge Coordination Time (in mins): 34 Quality: Safe Use of Opioids Does Pt have an Active Cancer Diagnosis on the Problem List?: No Quality: Stroke Does the patient have a stroke diagnosis?: No Physical Exam Vital Signs: Vital Signs: Last Vital Signs Temp 97.7 F 12/31/24 12:00 Pulse 83 12/31/24 12:00 Resp 16 12/31/24 12:00 BP 145/75 H 12/31/24 12:00 Pulse Ox 99 12/31/24 12:00 O2 Del Method Room Air 12/31/24 12:00 BMI result Body Mass Index 30.4 General: AO X 3, no acute distress, jaundiced Resp: CTA bilateral, no accessory muscles used CVS: S1,S2,RRR GI: soft, non tender, non distended Neuro: motor grossly intact, alert, mild asterixis, mild ataxia Psych: appropriate affect, appropriate insight DS: Data Data Completed and Pending Completed studies during hospitalization [Text1]: Procedures Detoxification Services for Substance Abuse Treatment (11/10/22) Labs on day of discharge: Laboratory Results - last 24 hr 12/30/24 12/30/24 12/31/24 13:19 17:22 00:31 WBC 4.7 L RBC 3.26 L Hgb 11.9 L Hct 33.7 L MCV 103.4 H MCH 36.5 H MCHC 35.3 RDW 14.6 Plt Count 79 L D MPV 10.9 Absolute Nucleated RBC 0.020 H Nucleated RBC % (auto) 0.4 H Hold Purple Top PT 24.2 H INR 2.1 H aPTT Heparin Protocol 43.7 L 111.3 H* D Sodium Potassium Chloride Carbon Dioxide Anion Gap BUN Creatinine Estim Creat Clear Calc Estimated GFR Random Glucose Calcium Magnesium Total Bilirubin Direct Bilirubin AST ALT Alkaline Phosphatase Total Protein Albumin Hep B Core IgM Ab NON-REACTIVE 12/31/24 12/31/24 12/31/24 02:19 06:21 06:21 WBC 3.6 L Cancelled RBC 2.99 L Hgb Hct MCV MCH MCHC RDW Plt Count MPV Absolute Nucleated RBC Nucleated RBC % (auto) Hold Purple Top PT INR aPTT Heparin Protocol 72.6 D Sodium Potassium Chloride Carbon Dioxide Anion Gap BUN Creatinine Estim Creat Clear Calc Estimated GFR Random Glucose Calcium Magnesium Total Bilirubin Direct Bilirubin AST ALT Alkaline Phosphatase Total Protein Albumin Hep B Core IgM Ab 12/31/24 12/31/24 12/31/24 06:21 06:21 06:21 WBC RBC Cancelled Hgb 11.0 L Cancelled Hct 31.1 L Cancelled MCV 104.0 H MCH MCHC RDW Plt Count MPV Absolute Nucleated RBC Nucleated RBC % (auto) Hold Purple Top PT INR aPTT Heparin Protocol Sodium Potassium Chloride Carbon Dioxide Anion Gap BUN Creatinine Estim Creat Clear Calc Estimated GFR Random Glucose Calcium Magnesium Total Bilirubin Direct Bilirubin AST ALT Alkaline Phosphatase Total Protein Albumin Hep B Core IgM Ab 12/31/24 12/31/24 12/31/24 06:21 06:21 06:21 WBC RBC Hgb Hct MCV Cancelled MCH 36.8 H Cancelled MCHC 35.4 Cancelled RDW 14.7 Plt Count MPV Absolute Nucleated RBC Nucleated RBC % (auto) Hold Purple Top PT INR aPTT Heparin Protocol Sodium Potassium Chloride Carbon Dioxide Anion Gap BUN Creatinine Estim Creat Clear Calc Estimated GFR Random Glucose Calcium Magnesium Total Bilirubin Direct Bilirubin AST ALT Alkaline Phosphatase Total Protein Albumin Hep B Core IgM Ab 12/31/24 12/31/24 12/31/24 06:21 06:21 06:21 WBC RBC Hgb Hct MCV MCH MCHC RDW Cancelled Plt Count 75 L Cancelled MPV 10.5 Cancelled Absolute Nucleated RBC 0.000 Nucleated RBC % (auto) Hold Purple Top PT INR aPTT Heparin Protocol Sodium Potassium Chloride Carbon Dioxide Anion Gap BUN Creatinine Estim Creat Clear Calc Estimated GFR Random Glucose Calcium Magnesium Total Bilirubin Direct Bilirubin AST ALT Alkaline Phosphatase Total Protein Albumin Hep B Core IgM Ab 12/31/24 12/31/24 12/31/24 06:21 06:21 08:22 WBC RBC Hgb Hct MCV MCH MCHC RDW Plt Count MPV Absolute Nucleated RBC Cancelled Nucleated RBC % (auto) 0.0 Cancelled Hold Purple Top SEE NOTE PT 28.2 H INR 2.4 H aPTT Heparin Protocol 104.0 H D Sodium 138 Potassium 3.8 Chloride 109 H Carbon Dioxide 21 L Anion Gap 12 BUN 9 Creatinine 0.53 Estim Creat Clear Calc 137.6 Estimated GFR > 60 Random Glucose 116 H Calcium 8.8 Magnesium 1.9 Total Bilirubin 25.0 H Direct Bilirubin 18.5 H AST 151 H ALT 45 H Alkaline Phosphatase 174 H Total Protein 6.5 Albumin 3.1 L Hep B Core IgM Ab Discharge Plan Discharge Anticipated Discharge Date/Time: 12/31/24 15:46 Patient Disposition: Left Against Medical Advice Discharge Diagnosis: alcholic hepatitis Referrals: Nadya Mauro MD [Primary Care Provider] - 1 Week Discharge Medications: No Action amlodipine 5 mg tablet 5 mg PO DAILY Qty: 30 0RF ketorolac 0.5 % drops 1 drp ophthalmic-Left TID Vitamin B-12 50 mcg Tablet 50 mcg PO DAILY folic acid 1 mg tablet 1 mg PO DAILY ibuprofen 600 mg tablet 600 mg PO BID PRN (Reason: Pain) albuterol sulfate 90 mcg/actuation HFA aerosol inhaler 2 puff PO Q4H PRN (Reason: Wheezing) zolpidem 10 mg tablet 10 mg PO BEDTIME PRN (Reason: Sleep) thiamine HCl (vitamin B1) 100 mg tablet 100 mg PO DAILY Discharge Orders: Discharge Order (Routine); Ordered 12/31/24 Ordered By: Lowell Young Diet: no etoh Activity on Discharge: As tolerated Print Language: Korean Care Plan Goals: recovery Health Concerns: alcholic hepatitis Plan of Treatment: no alcohol, recommended to continue inpatient hospital treatment Assessment: see above
== END 2024-12-31 16:10 | disposition left against medical advice (07) | DRG 432 ==
LOC: HO.ED 16:23 → HO.EDOVER 17:03 → HO.IMC 12-31 00:06
PROVIDERS: Physician Assistant; Student in an Organized Health Care Education/Training Program; Admitting Provider Internal Medicine; Emergency Provider Emergency Medicine; PCP Student in an Organized Health Care Education/Training Program; Visit Provider Internal Medicine
DX: K70.10 Alcoholic hepatitis without ascites (principal); G93.41 Metabolic encephalopathy; E72.20 Disorder of urea cycle metabolism, unspecified; K76.82 Hepatic encephalopathy; J45.20 Mild intermittent asthma, uncomplicated; F10.20 Alcohol dependence, uncomplicated; I10 Essential (primary) hypertension; Z20.822 Contact with and (suspected) exposure to COVID-19; Z79.899 Other long term (current) drug therapy
CPT/HCPCS: 0241U; 36415; 71046; 74177; 76705; 80048; 80076; 80143; 80307; 82140; 82607; 82746; 83540; 83690; 83735; 83880; 84207; 84443; 85025; 85027; 85610; 85730; 86704; 86705; 86706; 86709; 86803; 87040; 87340; 87522; 93005; 99285; J1171; J1644; P9047; Q9967

== ENCOUNTER → 2024-12-30 13:07 | Outpatient (BNV) | payer OTHER, SELFPAY | PROVIDERS: Admitting Provider Internal Medicine; Emergency Provider Emergency Medicine; PCP Student in an Organized Health Care Education/Training Program; Visit Provider Internal Medicine | DX: I49.3 Ventricular premature depolarization (principal) | CPT/HCPCS: 93010 ==

== ENCOUNTER → 2024-12-30 15:10 | Outpatient (BNV) | payer OTHER, SELFPAY | PROVIDERS: Emergency Provider Emergency Medicine; PCP Student in an Organized Health Care Education/Training Program; Visit Provider Radiology Diagnostic Radiology | DX: R18.8 Other ascites (principal); I81 Portal vein thrombosis; R17 Unspecified jaundice | CPT/HCPCS: 71046; 76705 ==

== ENCOUNTER 2024-12-30 16:56 | Outpatient (BNV) | payer OTHER, SELFPAY | END 2024-12-31 11:56 | PROVIDERS: Admitting Provider Internal Medicine; Emergency Provider Emergency Medicine; PCP Student in an Organized Health Care Education/Training Program; Visit Provider Radiology Diagnostic Radiology | DX: K76.0 Fatty (change of) liver, not elsewhere classified (principal); R16.2 Hepatomegaly with splenomegaly, not elsewhere classified | CPT/HCPCS: 74177 ==

== ENCOUNTER → 2024-12-30 16:56 | Outpatient (BNV) | payer OTHER, SELFPAY | PROVIDERS: Admitting Provider Internal Medicine; Emergency Provider Emergency Medicine; PCP Student in an Organized Health Care Education/Training Program; Visit Provider Internal Medicine | DX: R17 Unspecified jaundice (principal) | CPT/HCPCS: 99222; 99239 ==

== ENCOUNTER → 2024-12-30 16:56 | Outpatient (BNV) | payer OTHER, SELFPAY | PROVIDERS: Admitting Provider Internal Medicine; Emergency Provider Emergency Medicine; PCP Student in an Organized Health Care Education/Training Program; Visit Provider Internal Medicine | DX: K75.9 Inflammatory liver disease, unspecified (principal); F10.90 Alcohol use, unspecified, uncomplicated; K70.11 Alcoholic hepatitis with ascites | CPT/HCPCS: 99223; 99232 ==

== ENCOUNTER → 2024-12-30 16:56 | Outpatient (BNV) | payer OTHER, SELFPAY | PROVIDERS: Admitting Provider Internal Medicine; Emergency Provider Emergency Medicine; PCP Student in an Organized Health Care Education/Training Program; Visit Provider Nurse Practitioner Psychiatric/Mental Health | DX: F10.90 Alcohol use, unspecified, uncomplicated (principal) | CPT/HCPCS: 99221 ==

== ENCOUNTER 2025-02-12 13:49 | Outpatient (REF) | payer OTHER, SELFPAY ==
--- NOTE | ~2025-02-12 | US_ITS ---
CLINICAL HISTORY: E11.69 - Type 2 diabetes mellitus, nocturia US retroperitoneum with color Doppler Comparison: CT/SR - CT ABDOMEN PELVIS W IV CON - 12/31/24 11:56 EDT US/SR - US ABDOMEN LIMITED - 12/30/24 15:44 EDT Findings: Right kidney normal size and echotexture, 12.0 cm length. No hydronephrosis. Normal color flow. No nephrolithiasis. No hydronephrosis. Left kidney normal size and echotexture, 11.8 cm in length. No hydronephrosis. Normal color flow. No nephrolithiasis. No hydronephrosis. Benign renal cortical cyst midpole measuring 6 x 6 x 5 mm. Urinary bladder is unremarkable. Prevoid volume 157.0 mL. Postvoid volume 42 mL. Ureteral jets are visualized bilaterally. Prostate measures 4.6 x 3.3 x 3.3 cm. Moderate amount of free ascites. Bilateral pleural effusions [id number]. Impression: 1. Unremarkable kidneys incidental benign renal cortical cysts on the left. 2. Elevated postvoid residual. 3. Prostate measuring at 26 mL. 4. Ascites present. Bilateral pleural effusions. This document has been electronically signed by: Sylvester Clark MD on 02/13/2025 15:06:08
--- OUTSIDE RECORDS SUMMARY | 2025-02-12 13:50 | XMS_ITS | Clinical Summary ---
Author Organization [employer] Address [address] [place] [address] Care Team Providers Care Ripper Operator Name Role Phone Nadya Mauro MD Primary Care Provider [phone] Allergies No known active allergies Medications GaviLAX [...] DAY 180 tablet 1 12/11/19 24 Active thiamine (Vitamin B-1) 100 MG tablet TAKE 1 TABLET BY MOUTH EVERY DAY IN THE MORNING 90 tablet 08/03/20 24 Active amLODIPine (Norvasc) 5 MG tablet TAKE 1 TABLET BY MOUTH EVERY DAY IN THE MORNING 90 tablet 1 12/29/19 25 Active ibuprofen 600 MG tabletIndicati ons:Pain TAKE 1 TABLET BY MOUTH TWICE A DAY 60 tablet 3 01/14/20 25 Active albuterol (Ventolin HFA) 108 (90 Base) MCG/ACT inhalerIndicat ions:Asthma, unspecified asthma severity, unspecified whether complicated, unspecified whether persistent Inhale 2 puffs in the morning, at noon, in the evening, and at bedtime. 18 g 1 01/23/20 25 Active tadalafil (Cialis) 20 MG tablet TAKE 1 TABLET BY MOUTH 30MIN BEFORE SEXUALLY ACTIVITY NEEDED 01/14/20 25 Active zolpidem (Ambien) 10 MG tabletIndicati ons:Insomnia, unspecified Take 1 tablet (10 mg) by mouth if needed at bedtime for sleep. TAKE 1 TABLET BY MOUTH EVERY EVENING NEEDED 10 tablet 3 02/02/20 25 Active Ventolin HFA 108 (90 Base) MCG/ACT inhalerIndicat ions:Asthma, unspecified asthma severity, unspecified whether complicated, unspecified whether persistent INHALE 2 PUFF BY INHALATION ROUTE EVERY 4 HRS NEEDED 18 g 1 08/03/20 24 025 Discontinued(Re order (will not trigger notification to Pharmacy)) zolpidem (Ambien) 10 MG tabletIndicati ons:Insomnia, unspecified TAKE 1 TABLET BY MOUTH EVERY EVENING NEEDED 10 tablet 3 11/10/19 25 025 Discontinued(Re order (will not trigger notification to Pharmacy)) Active Problems Problem Noted Date Diagnosed Date Cirrhosis of liver with ascites (CMS/HCC) 2024 Primary hypertension 05/01/2023 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 Asthma 06/09/2013 Hypercholesterolemia 05/18/2013 Encounters Date Type Department Care Team Description 02/05/2025 1:30 PM EDT Office Visit [facility] [address] [place] [address] Boni Martel 02/01/2025 Refill [facility] [address] [place] [address] Nadya Mauro MD Insomnia, unspecified 01/28/2025 10:00 AM EDT Office Visit [facility] [address] [place] [address] Katie Melendez 01/22/2025 10:00 AM EDT Office Visit [facility] [address] [place] [address] Nadya Mauro MD Cirrhosis of liver with ascites, unspecified hepatic cirrhosis type (CMS/HCC) (CMS/HCC) (Primary Dx); Primary hypertension; Asthma, unspecified asthma severity, unspecified whether complicated, unspecified whether persistent 01/22/2025 Travel 01/12/2025 Refill [facility] [address] [place] [address] Nadya Mauro MD Pain 01/11/2025 Patient Outreach [address] [address] Nadya Mauro MD Pre-visit Planning ([facility] screening completed on 01/04/25) 01/04/2025 9:30 AM EDT Office Visit [facility] [address] [place] [address] Nadya Mauro MD Acute hepatitis (Primary Dx); Primary hypertension; Hypercholesterolemi a 01/04/2025 Travel 01/01/2025 Patient Outreach [address] [address] Nadya Mauro MD Transition Of Care (Tcm) (HDF scheduled) 12/30/2024 Orders Only GENERIC EXTERNAL DATA DEPARTMENT Provider, Generic External Data 12/30/2024 Telephone [facility] [address] [place] [address] Bailee Huggins MD Results 12/29/2024 11:00 AM EDT Office Visit [facility] [address] [place] [address] Bailee Huggins MD Jaundice (Primary Dx); Alcohol abuse 12/29/2024 Orders Only [facility] [address] [place] [address] Bailee Huggins MD 12/29/2024 Travel 12/29/[address] [address] Nadya Mauro MD Nurse Triage 12/27/2024 Refill [facility] [address] [place] [address] Nadya Mauro MD 12/22/2024 1:00 PM EDT Office Visit [facility] [address] [place] [address] Herb Flores MD Pre-op evaluation (Primary Dx) 12/22/2024 Travel 12/08/[address] [address] Nadya Mauro MD Pre-op Exam from Last 3 Months Immunizations Immunization Administration Dates Next Due Hep B, adult [...] housing situation today? I have iwona low 01/04/[address] you li ve. Do you have problems with any of the following? None of the above 01/04/2025 Food Insecurity Answer Date Recorded Within the past 12 months, y ou worried that your food would run out before you got money to buy more: Never True 01/04/2025 Within the past 12 months,th e food you bought just didn't last and you didn't have enough money to get more: Never True 07/2025 Transportation Answer Date Recorded In the past 12 months, has l ack of transportation kept you from medical appts, meetings, work or from getting things needed for daily living? No 01/04/2025 Utilities Answer Date Recorded In the past 12 months, has t he electric, gas, oil or water company threatened to shut off services in your home? No 01/04/2025 Depression Answer Date Recorded Patient Health Questionnaire-2 Score 0 12/24/2022 Internet Access Answer Date Recorded Internet Access Q1 No 01/04/2025 Internet Access Q2 I do not want or need it 12/24 Sex and Gender Information Value Date Recorded Sex Assigned at Male 06/25/2022 10:15 AM EDT Legal Sex Male 10:15 AM EDT Gender Identity Male 06/25/2022 10:15 AM EDT Sexual Orientation Straight 12/25/2022 10 :18 AM EDT Last Filed Vital Signs Vital Sign Reading Time Taken Comments Blood Pressure 130/80 02/05/2025 1:24 PM EDT Pulse 70 02/05/2025 1:24 PM EDT Temperature 36.1 C (97 F) 01/22/2025 10:00 AM EDT Respiratory Rate 22 01/22/2025 10:00 AM EDT Oxygen Saturation 99% 01/04/2025 9:39 AM EDT Inhaled Oxygen Concentration - - Weight 80.7 kg (178 lb) 01/22/2025 10:00 AM EDT Height 165.1 cm (5' 5 ) 01/22/2025 10:00 AM EDT Body Mass Index 29.62 01/22/2025 10:00 AM EDT Plan of Treatment Upcoming Encounters Date Type Department Care Team (Late st Contact Info) Description 02/25/2025 8:45 AM EDT Office Visit [facility] [address] [place] [address] Nadya Mauro MD [address] [place] [address] Health Maintenance Due Date Last Done Comments CT Colonography 1959 Colonoscopy 1959 Colorectal Cancer Screening 1960 FIT DNA/Cologuard 1959 FIT 1959 FOBT 1959 Sigmoidoscopy 1959 Alcohol/Substance Use Screening 1971 Hepatitis A Vaccines (1 of 2 - Risk 2-dose series) 1978 RSV Patients and Patients Aged 60 years or older (1 - Risk 60-74 years 1-dose series) 2019 Zoster Vaccines (2 of 2) 08/11/2021 06/16/2021 Depression Screening 12/25/2023 12/24/2022, 12/25/19 23 COVID-19 Vaccine ( season) 2025 07/20/2024, 07/06/2022, 07/26/2021, Additional history exists Dental X-Ray: Bitewings 05/21/2025 05/20/2024, 12/25 Dental Prophylaxis 07/31/2025 01/28/2025, 0 05/20/2024, 10/01/2023, Additional history exists Dental Oral Exam 08/08/2025 02/05/2025, , 12/25/2022 SDOH Screening 01/04/2026 01/04/2025 Tobacco Screening 02/05/2026 02/05/2025 Dental X-Ray: Full Mouth 05/21/2027 05/20/2024 DTaP/Tdap/Td Vaccines (2 - Td or Tdap) 06/27/2027 06/27/2017, 11/30/2005 Lipid Panel 01/19/2028 01/18/2023, 03/16/2022 Hepatitis B Vaccines Completed 04/13/2005, 11/11/2003, 09/10/2003 Pneumococcal Vaccine: 50+ Years Completed 07/26/2023, 11/30/2005 Influenza Vaccine Completed 07/20/2024, , 07/26/2023, Additional history exists Hepatitis C Screening Completed 12/30/2024 , 12/29/2024, 12/29/2024 HIB Vaccines Aged Out No longer eligi ble based on patient's age to complete this topic HPV Vaccines Aged Out No longer eligi ble based on patient's age to complete this topic IPV Vaccines Aged Out No longer eligi ble based on patient's age to complete this topic Meningococcal B Vaccine Aged Out No l onger eligible based on patient's age to complete [...] Procedure Name Priority Date/Time Associated Diagnosis Comments COMPREHENSIVE PERIODONTAL EVALUATION - NEW OR ESTABLISHED PATIENT Routine 02/05/2025 1:30 PM EDT PERIODIC ORAL EVALUATION - ESTABLISHED PATIENT Routine 02/05/2025 1:30 PM EDT TOPICAL APPLICATION OF FLUORIDE VARNISH Routine 01/28/2025 10:00 AM EDT ORAL HYGIENE INSTRUCTIONS Routine 01/28/2025 10:00 AM EDT CASE PRESENTATION, DETAILED AND EXTENSIVE TREATMENT PLANNING Routine 01/28/2025 10:00 AM EDT PROPHYLAXIS - ADULT Routine 01/28/2025 1 0:[address] ABDOMEN PELVIS W CONTRAST Routine 12/31/2024 11:56 AM EDT US ABDOMEN LIMITED Routine 12/30/2024 3: 45 PM EDT XR CHEST 2 VIEWS Routine 12/30/2024 3:10 PM EDT SLIDE REVIEW Routine 12/30/2024 1:19 PM EDT HEPATITIS PANEL, GENERAL Routine 12/30/2024 1:19 PM EDT PROTHROMBIN TIME-INR Routine 12/30/2024 1:19 PM EDT ETHANOL Routine 12/30/2024 1:19 PM EDT LIPASE Routine 12/30/2024 1:19 PM EDT MAGNESIUM Routine 12/30/2024 1:19 PM EDT BASIC METABOLIC PANEL Routine 12/30/2024 1:19 PM EDT HEPATIC FUNCTION PANEL Routine 1:19 PM EDT B TYPE NATRIURETIC PEPTIDE (BNP) Routine 12/30/2024 1:19 PM EDT ACETAMINOPHEN LEVEL Routine 12/30/2024 1 :19 PM EDT CBC WITH AUTO DIFFERENTIAL Routine 12/30/2024 1:19 PM EDT AMMONIA (P) Routine 12/30/2024 1:19 PM EDT SARS COV2/INFLUENZA A/B AND RSV RNA QL NAAT Routine 12/30/2024 1:19 PM EDT HEPATITIS C VIRAL RNA, QUANTITATIVE, REAL-TIME PCR Routine 12/29/2024 11:37 AM EDT SLIDE REVIEW Routine 12/29/2024 11:37 AM EDT VITAMIN B6 Routine 12/29/2024 11:37 AM EDT Jaundice Alcohol abuse MAGNESIUM Routine 12/29/2024 11:37 AM EDT Jaundice Alcohol abuse LIPASE Routine 12/29/2024 11:37 AM EDT Jaundice Alcohol abuse IRON AND TOTAL IRON BINDING CAPACITY Routine 12/29/2024 11:37 AM EDT Jaundice Alcohol abuse HEPATITIS B SURFACE ANTIGEN, EIA Routine 12/29/2024 11:37 AM EDT Jaundice Alcohol abuse HEPATITIS B SURFACE ANTIBODY, QUALITATIVE Routine 12/29/2024 11:37 AM EDT Jaundice Alcohol abuse HEPATITIS C AB W/REFL TO HCV RNA, QN, PCR Routine 12/29/2024 11:37 AM EDT Jaundice Alcohol abuse TSH W/REFLEX TO FT4 Routine 12/29/2024 1 1:37 AM EDT Jaundice Alcohol abuse VITAMIN B12/FOLATE, SERUM PANEL Routine 12/29/2024 11:37 AM EDT Jaundice Alcohol abuse HEPATIC FUNCTION PANEL Routine 11:37 AM EDT Jaundice Alcohol abuse CBC WITH AUTO DIFFERENTIAL Routine 12/29/2024 11:37 AM EDT Jaundice Alcohol abuse BASIC METABOLIC PANEL Routine 12/29/2024 11:37 AM EDT Jaundice Alcohol abuse INTRAORAL - COMPLETE SERIES OF RADIOGRAPHIC IMAGES Routine 05/20/2024 10:00 AM EDT LIPID PANEL, STANDARD Routine 01/18/2023 9:28 AM EDT from Last 3 Months or Most Recently Relevant to Health Maintenance Results * CT Abdomen Pelvis w/ Contrast (12/31/2024 11:56 AM EDT) Anatomical Region Laterality Modality Body, Pelvis, Abdomen Computed T omography 12/31/2024 11:5 6 AM EDT Narrative 12/31/2024 12:30 PM EDT [place] [address] CT Scan Report Signed Patient: Jimmy Elias MR#: [id number] : 1960 Acct:[id number] Age/Sex: 64 / M ADM Date: 12/30/24 Loc: [facility]: Lowell Young MD Ordering Physician: Lowell Young MD Date of Service: 12/31/24 Procedure(s): CT abdomen pelvis w IV con Accession Number(s): [id number] cc: Lowell Young MD; Nadya Mauro MD Report Number: [id number]: Total DLP = 710.00 mGy-cm EXAMINATION: CT ABDOMEN PELVIS WITH IV CONTRAST HISTORY: eval chronicity of portal vein thrombosis COMPARISON: Comparison is made with the prior examination dated 11/10/2022. Correlation is also made with an abdominal ultrasound dated 12/30/2024. TECHNIQUE: CT scan of the abdomen and pelvis was performed following administration of 85 mL Omnipaque 350 using standard departmental protocol. Coronal and sagittal reformatted images were generated and reviewed. Oral contrast material was not administered at the request of the referring physician. This CT exam was performed with one or more of the following dose reduction techniques: automated exposure control, adjustment of the mA and/or kV according to patient size, use of iterative reconstruction technique. DLP: July 05 mGy-cm FINDINGS: LOWER CHEST: The visualized lung bases are clear. There is no pleural effusion. CARDIOVASCULATURE: The heart is normal in size. There is no pericardial effusion. LIVER: The liver appears enlarged and demonstrates a nodular contour, compatible with cirrhosis. There is a recannulized paraumbilical vein. The liver demonstrates diffusely decreased attenuation, consistent with steatosis. No liver mass is identified. The hepatic and portal veins are patent. GALLBLADDER / BILE DUCTS: The gallbladder is unremarkable. There is no intra or extrahepatic biliary ductal dilatation. SPLEEN: The spleen is enlarged. No focal splenic lesion is identified. PANCREAS: The pancreas is unremarkable in appearance. ADRENAL GLANDS: Within normal limits. KIDNEYS/RETROPERITONEUM: No renal calculi are identified. There is no hydronephrosis. No renal masses are identified. LYMPH NODES: No abdominal or pelvic lymphadenopathy. VASCULATURE: The abdominal aorta is normal in caliber. There are venous collaterals in the left upper quadrant. There is probable flow artifact in the bilateral common iliac veins. MESENTERY/PERITONEUM: There is a small amount of ascites in the upper abdomen and in the pelvis. No masses. There is no free intraperitoneal gas. STOMACH: The stomach is collapsed, limiting evaluation. SMALL BOWEL: The small bowel is normal in caliber. COLON: There is colonic diverticulosis without evidence of diverticulitis. APPENDIX: The appendix is not seen, however no inflammatory changes are seen adjacent to the cecum. URINARY BLADDER/PELVIC ORGANS: The urinary bladder is unremarkable. The prostate is normal in size. BONES / SOFT TISSUES: No suspicious bony or soft tissue abnormalities. CT/CT abdomen pelvis w IV con IMPRESSION: 1. Hepatosplenomegaly and hepatic cirrhosis. Hepatic steatosis. 2. Small amount of ascites in the upper abdomen and pelvis. 3. No evidence of portal vein thrombosis. Electronically signed by: Stu Beckham MD 12/31/2024 12:28 PM EDT Dictated By: Stu Beckham MD Signed By: <Electronically signed by Stu Beckham MD in OV> 12/31/24 1228 DD/ 1156 TD/TT: 12/31/24 1207 Professor Of Business Administration: Procedure Note Donotuseinterpreter, Image - 12/31/[address] [address] [address] Scan Report Signed Patient: Lisbeth Elias#: [id number] : 9Acct:[id number] Age/Sex: 64 / MADM Date: 12/30/24 Loc: [facility] 469-[address]: Lowell Young MD Ordering Physician: Lowell Young MD Date of Service: 12/31/24 Procedure(s): CT abdomen pelvis w IV con Accession Number(s): [id number] cc: Lowell Young MD; Nadya Mauro MD Report Number: [id number]: Total DLP = 710.00 mGy-cm EXAMINATION: CT ABDOMEN PELVIS WITH IV CONTRAST HISTORY: eval chronicity of portal vein thrombosis COMPARISON: Comparison is made with the prior examination dated 11/10/2022. Correlation is also made with an abdominal ultrasound dated 12/30/2024. TECHNIQUE: CT scan of the abdomen and pelvis was performed following administration of 85 mL Omnipaque 350 using standard departmental protocol. Coronal and sagittal reformatted images were generated and reviewed. Oral contrast material was not administered at the request of the referring physician. This CT exam was performed with one or more of the following dose reduction techniques: automated exposure control, adjustment of the mA and/or kV according to patient size, use of iterative reconstruction technique. DLP: July 05 mGy-cm FINDINGS: LOWER CHEST: The visualized lung bases are clear. There is no pleural effusion. CARDIOVASCULATURE: The heart is normal in size. There is no pericardial effusion. LIVER: The liver appears enlarged and demonstrates a nodular contour, compatible with cirrhosis. There is a recannulized paraumbilical vein. The liver demonstrates diffusely decreased attenuation, consistent with steatosis. No liver mass is identified. The hepatic and portal veins are patent. GALLBLADDER / BILE DUCTS: The gallbladder is unremarkable. There is no intra or extrahepatic biliary ductal dilatation. SPLEEN: The spleen is enlarged. No focal splenic lesion is identified. PANCREAS: The pancreas is unremarkable in appearance. ADRENAL GLANDS: Within normal limits. KIDNEYS/RETROPERITONEUM: No renal calculi are identified. There is no hydronephrosis. No renal masses are identified. LYMPH NODES: No abdominal or pelvic lymphadenopathy. VASCULATURE: The abdominal aorta is normal in caliber. There are venous collaterals in the left upper quadrant. There is probable flow artifact in the bilateral common iliac veins. MESENTERY/PERITONEUM: There is a small amount of ascites in the upper abdomen and in the pelvis. No masses. There is no free intraperitoneal gas. STOMACH: The stomach is collapsed, limiting evaluation. SMALL BOWEL: The small bowel is normal in caliber. COLON: There is colonic diverticulosis without evidence of diverticulitis. APPENDIX: The appendix is not seen, however no inflammatory changes are seen adjacent to the cecum. URINARY BLADDER/PELVIC ORGANS: The urinary bladder is unremarkable. The prostate is normal in size. BONES / SOFT TISSUES: No suspicious bony or soft tissue abnormalities. CT/CT abdomen pelvis w IV con IMPRESSION: 1. Hepatosplenomegaly and hepatic cirrhosis. Hepatic steatosis. 2. Small amount of ascites in the upper abdomen and pelvis. 3. No evidence of portal vein thrombosis. Electronically signed by: Stu Beckham MD 12/31/2024 12:28 PM EDT Dictated By: Stu Beckham MD Signed By: <Electronically signed by Stu Beckham MD in OV> 12/31/24 1228 DD/ 1156 TD/TT: 12/31/24 1207 Professor Of Business Administration: [facility] External Provider IMG CT PROCEDURES Edited Result - Final * US Abdomen Limited (12/30/2024 3:45 PM EDT) Anatomical Region Laterality Modality Abdomen Ultrasound 12/30/2024 3:45 PM EDT Narrative 12/30/2024 4:26 PM EDT [address] [address] Ultrasound Report Signed Patient: Jimmy Elias MR#: [id number] : 1960 Acct:[id number] Age/Sex: 64 / M ADM Date: 12/30/24 Loc: HO.ED Attending Dr: Ordering Physician: Eveline Sheppard MD Date of Service: 12/30/24 Procedure(s): US abdomen limited Accession Number(s): [id number] cc: Eveline Sheppard MD; Nadya Mauro MD EXAMINATION: US ABDOMEN LIMITED CLINICAL INFORMATION: Jaundice, rule out ascites and rule out portal vein thrombosis. The mass. COMPARISON: None available. TECHNIQUE: Real-time imaging of the 4 quadrants of the abdomen for ascites, and portal vein evaluation with Doppler. FINDINGS: There is ascites present in the right lower quadrant and left lower quadrant of the pelvis, small volume. This is likely too little for safe paracentesis. Doppler examination of the main portal vein demonstrates thrombosis. US/US abdomen limited IMPRESSION: 1. There is small volume ascites in the right lower quadrant and left lower quadrant of the pelvis. 2. There is portal vein thrombosis present. Electronically signed by: Carlton Ruelas MD 12/30/2024 04:23 PM EDT Dictated By: Carlton Ruelas MD Signed By: <Electronically signed by Carlton Ruelas MD in OV> 12/30/24 1623 DD/ 1545 TD/TT: 12/30/24 1557 Professor Of Business Administration: Procedure Note Donotuseinterpreter, Image - 12/30/2024 [place] [address] Ultrasound Report Signed Patient: Lisbeth Elias#: [id number] : 1960cct:[id number] Age/Sex: 64 / MADM Date: 12/30/24 Loc: HO.ED Attending Dr: Ordering Physician: Eveline Sheppard MD Date of Service: 12/30/24 Procedure(s): US abdomen limited Accession Number(s): [id number] cc: Eveline Sheppard MD; Nadya Mauro MD EXAMINATION: US ABDOMEN LIMITED CLINICAL INFORMATION: Jaundice, rule out ascites and rule out portal vein thrombosis. The mass. COMPARISON: None available. TECHNIQUE: Real-time imaging of the 4 quadrants of the abdomen for ascites, and portal vein evaluation with Doppler. FINDINGS: There is ascites present in the right lower quadrant and left lower quadrant of the pelvis, small volume. This is likely too little for safe paracentesis. Doppler examination of the main portal vein demonstrates thrombosis. US/US abdomen limited IMPRESSION: 1. There is small volume ascites in the right lower quadrant and left lower quadrant of the pelvis. 2. There is portal vein thrombosis present. Electronically signed by: Carlton Ruelas MD 12/30/2024 04:23 PM EDT RP Dictated By: Carlton Ruelas MD Signed By: <Electronically signed by Carlton Ruelas MD in OV> 12/30/24 1623 DD/ 1545 TD/TT: 12/30/24 1557 Professor Of Business Administration: us [facility] External Provider IMG US PROCEDURES Final Result * XR Chest 2 Views (12/30/2024 3:10 PM EDT) Anatomical Region Laterality Modality Chest Radiographic Valentina ging 12/30/2024 3:10 PM EDT Narrative 12/30/2024 3:51 PM EDT [address] [address] XRay Report Signed Patient: Jimmy Elias MR#: [id number] : 1960 Acct:[id number] Age/Sex: 64 / M ADM Date: 12/30/24 Loc: HO.ED Attending Dr: Ordering Physician: Eveline Sheppard MD Date of Service: 12/30/24 Procedure(s): XR chest 2V Accession Number(s): [id number] cc: Eveline Sheppard MD; Nadya Mauro MD EXAMINATION: XR CHEST CLINICAL INFORMATION: jaundice COMPARISON: None available. TECHNIQUE: 2 views of the chest were obtained. FINDINGS: The cardiac, hilar, and mediastinal contours are normal. The lungs are clear bilaterally. There is no pneumothorax or pleural effusion. There is no focal osseous or soft tissue abnormality. XR/XR chest 2V IMPRESSION: No active pulmonary disease. Electronically signed by: Carlton Ruelas MD 12/30/2024 03:48 PM EDT RP Dictated By: Carlton Ruelas MD Signed By: <Electronically signed by Carlton Ruelas MD in OV> 12/30/24 1548 DD/ 09 TD/TT: 12/30/241544 Professor Of Business Administration: Procedure Note Donotuseinterpreter, Image - 12/30/[address] [address] XRay Report Signed Patient: Lisbeth Elias#: [id number] : 9Acct:[id number] Age/Sex: 64 / MADM Date: 12/30/24 Loc: .ED Attending Dr: Ordering Physician: Eveline Sheppard MD Date of Service: 12/30/24 Procedure(s): XR chest 2V Accession Number(s): [id number] cc: Eveline Sheppard MD; Nadya Mauro MD EXAMINATION: XR CHEST CLINICAL INFORMATION: jaundice COMPARISON: None available. TECHNIQUE: 2 views of the chest were obtained. FINDINGS: The cardiac, hilar, and mediastinal contours are normal. The lungs are clear bilaterally. There is no pneumothorax or pleural effusion. There is no focal osseous or soft tissue abnormality. XR/XR chest 2V IMPRESSION: No active pulmonary disease. Electronically signed by: Carlton Ruelas MD 12/30/2024 03:48 PM EDT RP Dictated By: Carlton Ruelas MD Signed By: <Electronically signed by Carlton Ruelas MD in OV> 12/30/24 1548 DD/ 09 TD/TT: 12/30/241544 Professor Of Business Administration: [facility] External Provider IMG XR PROCEDURES Final Result * Slide Review (12/30/2024 1:19 PM EDT) Only the most recent of2 resultswithin the time period is included. Slide Review VERIFIED [facility] 12/30/2024 1:19 PM EDT 12/30/2024 1:24 PM EDT Generic External Data Provider LAB BLOOD ORDERAB LES Final Result Performing Organization Address [facility] Co de Phone Number [facility] [address] [place] [phone] * Ethanol (12/30/2024 1:19 PM EDT) ETHANOL (MG/DL) IN SER/PLAS <10 mg/dL [facility] Comment:Marked Icterus. Inte rpret result with caution.Serum/plasma ethanol results are to be used formedical/treatment purposes only. 12/30/2024 1:19 PM EDT 12/30/2024 1:24 PM EDT Generic External Data Provider LAB BLOOD ORDERAB LES Final Result Performing Organization Address [facility] Co de Phone Number [facility] [address] [place] [phone] SARS-CoV-2 RNA, Influenza A/B, and RSV RNA, Ql NAAT (12/30/2024 1:19 PM EDT) Pathologist [facility] Influenza A PCR NEGATIVE Negative [facility] Influenza B PCR NEGATIVE Negative [facility] Resp Syncy Virus RNA Qual PCR NEGATIVE Negative [facility] SARS COV2 PCR NEGATIVE Negative [facility] LABS Comment:All test results mus t be correlated with clinical findings.Negative results do not preclude SARS-CoV2, influenza Avirus, influenza B virus and/or RSV infectionand should not be used as the sole basis for treatment orother patient management decisions. Negative results must becombined with clinical observations, patient history, andepidemiological information.This test has not been evaluated for monitoring treatment ofinfection.This test has been authorized by the FDA under an EmergencyUse Authorization (EUA) for use by authorized laboratories.Testing performed on the Cepheid GeneXpert utilizingreal-time RT-PCR.All SARS CoV2 and positive influenza A/B results arereported to [facility]. 12/30/2024 1:19 PM EDT 12/30/2024 1:24 PM EDT Generic External Data Provider LAB MICROBIOLOGY - GENERAL ORDERABLES Final Result Performing Organization Address [facility] de Phone Number [facility] [address] [place] [phone] * (ABNORMAL) Hepatitis Panel, General (12/30/2024 1:19 PM EDT) [facility] Hepatitis A IgM Nonreactive Nonreactive [facility] Comment:IgM antibodies to BETTS V not detected; does not exclude earlyacute or recovered HAV infection. ~Hepatitis B Surface Antibody NONREACTIVE Nonreactive [facility] Comment:Nonreactive: < 8.00 mIU/mL Hepatitis B Core Antibody Reactive Nonreactive [facility] Comment:Presumptive evidence of anti-HBc. Hepatitis C Antibody Reactive(A) Nonreactive [facility] Comment:Presumptive evidence of antibodies to HCV. Hepatitis B Surface Ag Negative Negative [facility] 12/30/2024 1:19 PM EDT 12/30/2024 1:24 PM EDT Generic External Data Provider LAB BLOOD ORDERAB LES Final Result Performing Organization Address [facility] de Phone Number [facility] [address] [place] [phone] * (ABNORMAL) CBC auto differential (12/30/2024 1:19 PM EDT) Only the most recent of2 resultswithin the time period is included. [facility] White Blood Count 5.6 4.8 - 10.8 X10*3/uL [facility] Red Blood Count 3.32(L) 4.60 - 5.80 X10*6/uL [facility] Hemoglobin 12.3(L) 14.0 - 18.0 g/dl [facility] Hematocrit 34.9(L) 42.0 - 52.0 % [facility] Mean Corpuscular Volume 105.1(H) 80.0 - 98.0 fL [facility] Mean Corpuscular Hemoglobin 37.0(H) 27.0 - 33.0 pg [facility] Mean Corpuscular HGB Conc 35.2 31.0 - 36.0 g/dl [facility] Red Cell Distribution Width 14.6 11.0 - 16.0 % [facility] Platelet Count TNP 160 - 400 X10*3/uL [facility] Comment:Platelet clumps note d. Platelet count will not be accurate. Mean Platelet Volume TNP 9.4 - 12.4 fL [facility] Neutrophils Percent Auto 68.5 45 - 73 % [facility] Imm Gran Pct Auto 0.7(H) 0.0 - 0.4 % [facility] Lymphocytes Percent Auto 14.8(L) 20 - 40 % [facility] Monocytes Percent Auto 14.8(H) 2 - 11 % [facility] Eosinophils Percent Auto 0.7 0 - 4 % [facility] Basophils Percent Auto 0.5 0 - 2 % [facility] NRBC Pct Auto 0.0 0.0 - 0.2 /100WBC [facility] Neutrophils Absolute Auto 3.8 2.0 - 8.3 x10*3/uL [facility] Imm Gran Abs Auto 0.04(H) 0.00 - 0.03 X10*3/uL [facility] Lymphocytes Absolute Auto 0.8(L) 1.2 - 4.9 X10*3/uL [facility] Monocytes Absolute Auto 0.8 0.1 - 1.2 X10*3/uL [facility] Eosinophils Absolute Auto 0.0 0.0 - 0.4 X10*3/uL [facility] Basophils Absolute Auto 0.0 0.0 - 0.2 X10*3/uL [facility] NRBC Abs Auto 0.000 0.0 - 0.012 X10*3/uL [facility] 12/30/2024 1:19 PM EDT 12/30/2024 1:24 PM EDT us Generic External Data Provider LAB BLOOD ORDERAB LES Edited Result - Final Performing Organization Address [facility]/ZIP Co de Phone Number [facility] [address] [place] [phone] * (ABNORMAL) Prothrombin Time-INR (12/30/2024 1:19 PM EDT) Prothrombin Time 23.0(H) 10.9 - 12.4 SEC [facility] INTERNATIONAL NORM RATIO 2.0(H) 0.9 - 1.1 [facility] Comment:INTERNATIONAL NORMAL IZED RATIO (INR) REFERENCE RANGES Reference RangeFor patients not on anticoagulant therapy: 0.9 - 1.1INR ranges for oral anticoagulanttherapy:For prevention and treatment of venous thrombosis and pulmonary embolism: 2.0 - 3.0For acute myocardial infarction with aspirin therapy: 2.0 - 3.0For acute myocardial infarction without aspirin therapy: 3.0 - 4.0For patients with mechanical prosthetic heart valves: 2.5 - 3.5 12/30/2024 1:19 PM EDT 12/30/2024 1:24 PM EDT us Generic External Data Provider LAB BLOOD ORDERAB LES Final Result Performing Organization Address [facility]/ZIP Co de Phone Number [facility] [address] [place] [phone] * B Type Natriuretic Peptide (BNP) (12/30/2024 1:19 PM EDT) B Type Natriuretic Peptide 84 <100 pg/mL [facility] 12/30/2024 1:19 PM EDT 12/30/2024 1:24 PM EDT us Generic External Data Provider LAB BLOOD ORDERAB LES Final Result Performing Organization Address City/[facility]/ZIP Co de Phone Number [facility] [address] [place] [phone] * Magnesium (12/30/2024 1:19 PM EDT) Only the most recent of2 resultswithin the time period is included. Magnesium 1.8 1.6 - 2.6 mg/dL [facility] Comment:Marked Icterus. Inte rpret result with caution. 12/30/2024 1:19 PM EDT 12/30/2024 1:24 PM EDT Generic External Data Provider LAB BLOOD ORDERAB LES Final Result Performing Organization Address [facility] de Phone Number [facility] [address] [place] [phone] * Lipase (12/30/2024 1:19 PM EDT) Only the most recent of2 resultswithin the time period is included. Lipase 17 8 - 78 U/L [facility] Comment:Marked Icterus. Inte rpret result with caution. 12/30/2024 1:19 PM EDT 12/30/2024 1:24 PM EDT Generic External Data Provider LAB BLOOD ORDERAB LES Final Result Performing Organization Address [facility] de Phone Number [facility] [address] [place] [phone] * (ABNORMAL) Ammonia, Plasma (12/30/2024 1:19 PM EDT) Ammonia (P) 119(H) 13 - 55 umol/L [facility] Comment:Marked Icterus. Inte rpret result with caution. 12/30/2024 1:19 PM EDT 12/30/2024 1:24 PM EDT Generic External Data Provider LAB BLOOD ORDERAB LES Final Result Performing Organization Address [facility]/ZIP Co de Phone Number [facility] [address] [place] [phone] * Acetaminophen level (12/30/2024 1:19 PM EDT) [facility] Acetaminophen LAB <3 <30 mcg/mL [facility] Comment:Marked Icterus. Inte rpret result with caution. 12/30/2024 1:19 PM EDT 12/30/2024 1:24 PM EDT us Generic External Data Provider LAB BLOOD ORDERAB LES Final Result Performing Organization Address [facility] Co de Phone Number [facility] [address] [place] [phone] * (ABNORMAL) Hepatic Function Panel (12/30/2024 1:19 PM EDT) Only the most recent of2 resultswithin the time period is included. [facility] Bilirubin, Total 24.9(H) 0.0 - 1.0 mg/dL [facility] Comment:Marked Icterus. Inte rpret result with caution. Bilirubin, Direct 18.2(H) 0.0 - 0.5 mg/dL [facility] Aspartate Amino Transferase 204(H) 5 - 37 U/L [facility] Comment:Marked Icterus. Inte rpret result with caution. Alanine Aminotransferase 56(H) 0 - 40 U/L [facility] Comment:Marked Icterus. Inte rpret result with caution. Total Protein 6.8 6.5 - 8.0 g/dL [facility] Comment:Marked Icterus. Inte rpret result with caution. Albumin Level 2.7(L) 3.5 - 5.0 g/dL [facility] Comment:Marked Icterus. Inte rpret result with caution. Alkaline Phosphatase 214(H) 39 - 117 U/L [facility] Comment:Marked Icterus. Inte rpret result with caution. 12/30/2024 1:19 PM EDT 12/30/2024 1:24 PM EDT us Generic External Data Provider LAB BLOOD ORDERAB LES Final Result [facility] [address] [place] [phone] * (ABNORMAL) Basic Metabolic Panel (12/30/2024 1:19 PM EDT) Only the most recent of2 resultswithin the time period is included. Sodium 136 135 - 145 mmol/L [facility] Comment:Marked Icterus. Inte rpret result with caution. Potassium 3.4 3.3 - 5.1 mmol/L [facility] Comment:Marked Icterus. Inte rpret result with caution. Chloride 107 96 - 108 mmol/L [facility] Comment:Marked Icterus. Inte rpret result with caution. Carbon Dioxide 21(L) 22 - 29 mmol/L [facility] Comment:Marked Icterus. Inte rpret result with caution. Anion Gap 11(L) 12 - 20 [facility] Urea Nitrogen (BUN) 10 9 - 16 mg/dL [facility] Comment:Marked Icterus. Inte rpret result with caution. Creatinine, Serum 0.65 0.5 - 1.4 mg/dL [facility] Comment:Marked Icterus. Inte rpret result with caution. Creatinine Clr Calc Pharmacy 112.2 [facility] Comment:eGFR (calculated fro m the MDRD study equation) and eCrCl(calculated from the Cockcroft-Gault equation) are based ondifferent parameters and may not yield comparable results.If eCrCl result is absurd, please check patient'sheight/weight. Estimated Glomerular Filt Rate >60 [facility] Comment:Chronic Kidney Disea se: Estimated GFR < 60 mL/min/1.77s3Vcqyin Kidney Disease: Estimated GFR < 15 mL/min/1.73m2 Glucose 96 60 - 115 mg/dL [facility] Comment:Marked Icterus. Inte rpret result with caution. Calcium 9.0 8.4 - 10.2 mg/dL [facility] Comment:Marked Icterus. Inte rpret result with caution. 12/30/2024 1:19 PM EDT 12/30/2024 1:24 PM EDT us Generic External Data Provider LAB BLOOD ORDERAB LES Final Result Performing Organization Address [facility] Co de Phone Number [facility] [address] [place] [phone] * (ABNORMAL) Vitamin B12/Folate, Serum Panel (12/29/2024 11:37 AM EDT) Vitamin B12 >2,000(H ) 200 - 900 pg/mL [facility] Comment:NORMAL 200-900 PG/ML INDETERMINATE 160-199 PG/ML DEFICIENT < 160 PG/ML Folate 10.2 > or = 4.0 ng/mL [facility] Comment:Reference Values:> o r = 4.0 ng/mL< 4.0 ng/mL suggests folate deficiency Methotrexate, aminopterin and folinic acid(leucovorin) are chemotherapeutic agents whose molecularstructures are similar to folate; therefore, the Architectfolate assay cannot be used for patients using these drugs. Blood Venous blood specimen / Unknown 12/29/2024 11:37 AM EDT 12/29/2024 2:28 PM EDT us Bailee Huggins MD LAB BLOOD ORDERABLES Final Re sult Performing Organization Address [facility] Co de Phone Number [facility] [address] [place] [phone] * TSH W/Reflex to FT4 (12/29/2024 11:37 AM EDT) TSH reflex Free T4 2.95 0.32 - 4.0 uIU/mL [facility] Blood Venous blood specimen / Unknown 12/29/2024 11:37 AM EDT 12/29/2024 2:28 PM EDT Bailee Huggins MD LAB BLOOD ORDERABLES Final Re sult Performing Organization Address City/[facility] Co de Phone Number [facility] [address] [place] [phone] * Hepatitis C Viral RNA, Quantitative, Real-Time PCR (12/29/2024 11:37 AM EDT) Pathologist [facility] Hepatitis C Viral Load <15 NOT DETECTED NOT DETECTED IU/mL [facility] HCV Log PCR <1.18 NOT DETECTED NOT DETECTED Log IU/mL [facility] Comment:For additional infor matalcides, please refer [email or web address]/faq/[email or web address](This link is being provided for informational/educational purposes only.)THIS TEST WAS PERFORMED AT:[employer] [place] [phone] DANIELSON MD 12/29/2024 11:3 7 AM EDT 12/30/2024 10:22 AM EDT Bailee Huggins MD LAB BLOOD ORDERABLES Final Re sult Performing Organization Address [facility] Co de Phone Number [facility] [address] [place] [phone] * (ABNORMAL) Hepatitis C Antibody with Reflex to HCV, RNA, Quantitative, Real- Time PCR (12/29/2024 11:37 AM EDT) Pathologist [facility] Hepatitis C Antibody Reactive( A) Nonreactive [facility] Comment:Presumptive evidence of antibodies to HCV. Blood Venous blood specimen / Unknown 12/29/2024 11:37 AM EDT 12/29/2024 2:28 PM EDT Bailee Huggins MD LAB BLOOD ORDERABLES Final Re sult Performing Organization Address [facility] Co de Phone Number [facility] [address] [place] [phone] * (ABNORMAL) Iron And Total Iron Binding Capacity (12/29/2024 11:37 AM EDT) Iron 86 45 - 160 mcg/dL [facility] Comment:Marked Icterus. Inte rpret result with caution. Total Iron Binding Capacity 111(L) 228 - 428 mcg/dL [facility] Percent Iron Saturation 77(H) 15 - 50 % [facility] Unsaturated Iron Binding <25 ug/dL [facility] Comment:Marked Icterus. Inte rpret result with caution. Blood Venous blood specimen / Unknown 12/29/2024 11:37 AM EDT 12/29/2024 2:28 PM EDT us Bailee Huggins MD LAB BLOOD ORDERABLES Final Re sult Performing Organization Address [facility] Co de Phone Number [facility] [address] [place] [phone] * Hepatitis B surface antigen, EIA (12/29/2024 11:37 AM EDT) Pathologist [facility] Hepatitis B Surface Ag Negative Negative [facility] Blood Venous blood specimen / Unknown 12/29/2024 11:37 AM EDT 12/29/2024 2:28 PM EDT us Bailee Huggins MD LAB BLOOD ORDERABLES Final Re sult Performing Organization Address [facility] Co de Phone Number [facility] [address] [place] [phone] * Hepatitis B Surface Antibody, Qualitative (12/29/2024 11:37 AM EDT) Pathologist [facility] ~Hepatitis B Surface Antibody NONREACTIVE Nonreactive [facility] Comment:Nonreactive: < 8.00 mIU/mL Blood Venous blood specimen / Unknown 12/29/2024 11:37 AM EDT 12/29/2024 2:28 PM EDT us Bailee Huggins MD LAB BLOOD ORDERABLES Final Re sult Performing Organization Address [facility] Co de Phone Number [facility] [address] [place] [phone] * Vitamin B6 (12/29/2024 11:37 AM EDT) Pathologist [facility] Vitamin B6 3.2 2.1 - 21.7 ng/mL [facility] Comment:Vitamin supplementat ion within 24 hours prior toblood draw may affect the accuracy of the results.This test was developed and its analytical performancecharacteristics have been determined by [employer] [place], [place]. It hasnot been cleared or approved by the U.S. Food and DrugAdministration. This assay has been validated pursuantto the CLIA regulations and is used for clinicalpurposes.THIS TEST WAS PERFORMED AT:[employer] [place] [phone] PEREZ MD,PHD Blood Venous blood specimen / Unknown 12/29/2024 11:37 AM EDT 12/29/2024 2:21 PM EDT Bailee Huggins MD LAB BLOOD ORDERABLES Final Re sult Performing Organization Address [facility] de Phone Number [facility] [address] [place] [phone] * Lipid Panel, Standard (01/18/2023 9:28 AM EDT) Pathologist [facility] Triglycerides 58 mg/dL [facility] Comment:Desirable Triglyceri de: less than 150 mg/dLBorderline High Triglyceride 150-199 mg/dLHigh Triglyceride: 200-499 mg/dLVery High Triglyceride: greater than or equal to 5OO mg/dL Cholesterol 237 mg/dL [facility] Comment:Desirable Cholestero l: less than 200 mg/dLBorderline High Cholesterol: 200-239 mg/dLHigh Cholesterol: greater than 239 mg/dL LDL Cholesterol Calculated 171 mg/dl [facility] Comment:Desirable LDL: less than 100 mg/dLNear Optimal/Above Optimal LDL: 110- 129 mg/dLBorderline High LDL: 130-159 mg/dLHigh LDL: 160-189 mg/dLVery High LDL: greater than or equal to 190 mg/dL HDL Cholesterol 55 mg/dL [facility] Comment:Desirable HDL: great er than 40 mg/dL Note: This HDL assay may give artificially low results in patients with liver disease. 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
== END 2025-02-12 13:50 | disposition home or self-care (01) ==
LOC: HO.US 13:49
PROVIDERS: PCP Student in an Organized Health Care Education/Training Program; Visit Provider Nurse Practitioner Family
DX: E11.69 Type 2 diabetes mellitus with other specified complication (principal); N52.1 Erectile dysfunction due to diseases classified elsewhere
CPT/HCPCS: 76770

== ENCOUNTER → 2025-02-12 13:52 | Outpatient (BNV) | payer OTHER, SELFPAY | PROVIDERS: PCP Student in an Organized Health Care Education/Training Program; Visit Provider Radiology Diagnostic Radiology | DX: N28.1 Cyst of kidney, acquired (principal); R39.14 Feeling of incomplete bladder emptying; J90 Pleural effusion, not elsewhere classified | CPT/HCPCS: 76770 ==

== ENCOUNTER 2025-03-03 07:24 | Outpatient (REF) | payer OTHER, SELFPAY ==
[2025-03-03 08:29] LABS: Hematocrit 36.6 % (42.0-52.0); Hemoglobin 13.0 g/dl (14.0-18.0); Mean Corpuscular HGB Conc 35.5 g/dl (31.0-36.0); Mean Corpuscular Hemoglobin 35.1 pg (27.0-33.0); Mean Corpuscular Volume 98.9 fL (80.0-98.0); NRBC Abs Auto 0.000 X10*3/uL (0.0-0.012); NRBC Pct Auto 0.0 /100WBC (0.0-0.2); Platelet Count 110 X10*3/uL (160-400); Red Blood Count 3.70 X10*6/uL (4.60-5.80); White Blood Count 3.8 X10*3/uL (4.8-10.8)
[2025-03-03 08:54] LABS: INTERNATIONAL NORM RATIO 1.3 (0.9-1.1); Prothrombin Time 15.0 SEC (10.9-12.4)
[2025-03-03 09:10] LABS: Microalbum/Creatinine Ratio Ur 3.1 ug/mg cr (<30)
[2025-03-03 09:12] LABS: Alanine Aminotransferase 29 U/L (0-40); Albumin Level 3.7 g/dL (3.5-5.0); Alkaline Phosphatase 114 U/L (39-117); Anion Gap 12 (12-20); Aspartate Amino Transferase 45 U/L (5-37); Blood Urea Nitrogen 13 mg/dL (9-16); Calcium 9.2 mg/dL (8.4-10.2); Carbon Dioxide 20 mmol/L (22-29); Chloride 110 mmol/L (96-108); Estimated Glomerular Filt Rate > 60; Potassium 3.9 mmol/L (3.3-5.1); Sodium 138 mmol/L (135-145); Total Protein 7.1 g/dL (6.5-8.0)
[2025-03-03 09:47] LABS: Prostate Specific Antigen 0.33 ng/mL (<0.05-4.0)
[2025-03-07 14:59] LABS: Testosterone, Free 47.1 pg/mL (35.0-155.0)
== END 2025-03-03 07:25 | disposition home or self-care (01) ==
LOC: HO.LAB 07:24
PROVIDERS: Internal Medicine; Pediatrics; PCP Student in an Organized Health Care Education/Training Program; Visit Provider Nurse Practitioner Family
DX: K70.11 Alcoholic hepatitis with ascites (principal); E11.69 Type 2 diabetes mellitus with other specified complication; N52.1 Erectile dysfunction due to diseases classified elsewhere; F10.10 Alcohol abuse, uncomplicated; R17 Unspecified jaundice
CPT/HCPCS: 36415; 80053; 82043; 82570; 84153; 84402; 84403; 85027; 85610

== ENCOUNTER 2025-03-15 11:42 | Outpatient (AMB) | payer OTHER, SELFPAY ==
--- NOTE | 2025-03-15 11:44 | MHC.OFFVIS ---
Intake Visit Reasons: 3M follow up/ PVR/ Testo/ PSA/ US(set) Intake Note: Patient is present for 3M/PVR/TESTO/PSA/US Urology Medication:TADALAFIL Antibiotic Allergy:NONE Blood Thinner:NONE TODAY'S PVR:223ML'S Manager Consumer Required: No Allergies No Known Allergies Allergy (Verified 03/15/25 14:44) Medication List - Last Reconciled 03/15/25 by LOIS Martínez-JASON albuterol sulfate 90 mcg/actuation 2 puffs PO Q4H PRN cyanocobalamin (vitamin B-12) (Vitamin B-12) 50 mcg PO DAILY folic acid 1 mg PO DAILY ibuprofen 600 mg PO BID PRN ketorolac 0.5% 1 drp ophthalmic-Left TID tamsulosin 0.4 mg PO BEDTIME 30 days thiamine HCl (vitamin B1) 100 mg PO DAILY zolpidem 10 mg PO BEDTIME PRN HPI Comments Details: Jimmy is a very pleasant 64-year-old male patient of Dr. Mauro. He has a past medical history of hypercholesteremia and asthma. He presents to the office today for follow-up of his ED and nocturia. Of note, patient was seen approximately 3 months ago at which time labs and a retroperitoneal ultrasound were ordered for further assessment evaluation. These results were reviewed and communicated with the patient today. 02/17 bilateral kidneys are normal in size and echotexture. No hydronephrosis, nephrolithiasis, or hydronephrosis noted. Benign renal cortical cysts mid pole of the left kidney measuring 6 mm. The urinary bladder is unremarkable. Pre void bladder volume is approximately 157 mL. Postvoid bladder volume is approximately 40 mL. Prostate measures 26 mL. Ascites present. In office urinalysis results reviewed with the patient today. PVR 223 mL. We did discuss ascites verses incomplete bladder emptying. He does feel low-dose Cialis that was prescribed during last office visit has been helpful in maintaining his erections. He reports he has not needed to utilize p.r.n. dosing. Recent labs were reviewed as noted and trended below: PSA: 03/19 0.3 Testosterone: 03/19 620 Free testosterone:03/19 47.1 He does feel episodes of nocturia had also lessened from 8 times per night to 4 times per night. We did discuss low-dose Cialis with bladder stability. However he does continue to experience episodes of nocturia. He otherwise denies urinary urgency, urinary frequency, incontinence, hematuria, dysuria, foul smelling urine, changes to urinary stream, flank pain, fever, and or chills. We discussed at length the importance of lifestyle modifications to assist with nocturia as well as ED. he does discusses sobriety over the last 3 months. He otherwise offers no other issues or concerns at this time. [facility] Medical History Elevated cholesterol Asthma Hx of sprain of wrist Surgical History Hx of colonoscopy Family History Mother Advanced dementia Diabetes HTN (hypertension) Father HTN (hypertension) Social History Household Members: None Household Members Other:: 0 Housing: Apartment Do you presently have visiting nurse or other home services: No Alcohol intake: current Alcohol intake frequency: 3 or more drinks per day Alcohol type: wine Patient Tobacco Use Status: Never used Tobacco e-Cigarette/Vaping Use: Never Used Second Hand Smoke Exposure: No service: No Current occupational status: disabled Review of Systems Const All systems reviewed & are unremarkable except as noted in HPI and below Physical Exam Const General: cooperative, comfortable, no acute distress, well developed, alert and awake Orientation/consciousness: patient oriented x3 Limitations: no limitations HEENT Head: Yes normal to inspection, Yes normocephalic and Yes atraumatic Ears: hearing grossly normal bilaterally Eyes General: appearance normal, both eyes and all related structures Neck Neck: Yes normal visual inspection and Yes trachea midline Chest Chest palpation & inspection: normal inspection of the chest Resp Effort & Inspection: normal respiratory effort and able to speak in complete sentences Cardio Rate: regular rate GI Inspection: Yes normal to inspection General: Yes no CVA tenderness Back/Spine/Pelvis Back: no CVA tenderness Skin General skin exam: no rashes or lesions noted Neuro General: patient oriented x3 Extrem General: Yes normal to inspection Psych Appearance: grossly normal and well kempt Mental Status: mental status grossly normal Speech and movement: Normal speech and movement present and Clear speech present Affect: normal affect Attitude: cooperative Thought process: Normal thought process present Thought content: Normal thought content present Insight: Fair insight present (Psych) Judgement: Fair judgement present (Psych) Office Procedures Post Void Residual Post Residual Void Post Void Residual (PVR): 223 [id number] Void Residual by ultrasound Results AMB Urinalysis, Automated UA Leukoctes 0 Kevin/uL Last Edit by JULIA Mcneil on 03/15/25 11:55 UA Nitrite Negative Last Edit by Andie Santana [facility] on 03/15/25 11:55 UA Urobilinogen 0.2 mg/dL Last Edit by Andie Santana [facility] on 03/15/25 11:55 UA Protein 0 mg/dL Last Edit by Andie Santana [facility] on 03/15/25 11:55 UA pH 6.0 Last Edit by Andie Santana [facility] on 03/15/25 11:55 UA Blood 0 Greg/uL Last Edit by Andie Santana [facility] on 03/15/25 11:55 UA Specific [place] 1.005 Last Edit by Andie Santana [facility] on 03/15/25 11:55 UA Ketone Negative Last Edit by Andie Santana [facility] on 03/15/25 11:55 UA Bilirubin 0 mg/dL Last Edit by Andie Santana [facility] on 03/15/25 11:55 UA Glucose 0 mg/dL Last Edit by Andie Santana [facility] on 03/15/25 11:55 Results Reviewed Results Reviewed: Laboratory Last Values Urine pH (Auto) 6.0 03/15/25 11:55 Specific [place] (Auto) 1.005 03/15/25 11:55 Urine Protein (Auto) 0 mg/dL 03/15/25 11:55 Glucose (UA)(Auto) 0 mg/dL 03/15/25 11:55 Urine Ketones (Auto) Negative 03/15/25 11:55 Urine Blood (Auto) 0 Greg/uL 03/15/25 11:55 Urine Nitrite (Auto) Negative 03/15/25 11:55 Urine Bilirubin (Auto) 0 mg/dL 03/15/25 11:55 Urine Urobilinogen (Auto) 0.2 mg/dL 07/21/25 11:55 Leukocyte Esterase (Auto) 0 Kevin/uL 03/15/25 11:55 Date of Service: 02/12/25 Procedure(s): US retroperitoneal comp Findings: Right kidney normal size and echotexture, 12.0 cm length. No hydronephrosis. Normal color flow. No nephrolithiasis. No hydronephrosis. Left kidney normal size and echotexture, 11.8 cm in length. No hydronephrosis. Normal color flow. No nephrolithiasis. No hydronephrosis. Benign renal cortical cyst midpole measuring 6 x 6 x 5 mm. Urinary bladder is unremarkable. Prevoid volume 157.0 mL. Postvoid volume 42 mL. Ureteral jets are visualized bilaterally. Prostate measures 4.6 x 3.3 x 3.3 cm. Moderate amount of free ascites. Bilateral pleural effusions [id number]. Impression: 1. Unremarkable kidneys incidental benign renal cortical cysts on the left. 2. Elevated postvoid residual. 3. Prostate measuring at 26 mL. 4. Ascites present. Bilateral pleural effusions. Assessment & Plan Assessment & Plan (1) Nocturia: Code(s): R35.1 - Nocturia Category: Medical (2) Erectile dysfunction associated with type 2 diabetes mellitus: Code(s): E11.69 - Type 2 diabetes mellitus with other specified complication; N52.1 - Erectile dysfunction due to diseases classified elsewhere Category: Medical (3) Renal cyst: Code(s): N28.1 - Cyst of kidney, acquired Category: Medical Plan In office urinalysis results reviewed with the patient today; as noted above. PVR 223ml's Recent retroperitoneal ultrasound results reviewed with the patient today; as noted above Recent PSA and testosterone labs reviewed with the patient today; as noted above. Continue low-dose Cialis as discussed and prescribed; refill provided. We discussed ascites verses incomplete bladder emptying. Start Flomax as discussed and prescribed. We discussed the importance of limiting fluids 2-3 hours prior to bed decrease episodes of nocturia. All questions were answered. We discussed lifestyle modifications to assist with ED as well as overall health and well-being. Follow-up in 1-3 months with PVR; or sooner with any issues, concerns, and or questions. Orders: Orders AMB Urinalysis Automated Today Z13.9 - Encounter for screening, unspecified Medications: New tamsulosin 0.4 mg PO BEDTIME 30 caps 3RF 30 days Refilled tadalafil (Cialis) [id number] [facility] [id number] Member [id number] 5 mg PO DAILY 90 tabs 1RF 90 days Patient Instructions: The patient had an opportunity to ask questions regarding the treatment plan. All questions were answered. Physical exam, labs, and imaging were discussed and reviewed in detail. As well as risks, benefits, and discussion of treatment choices. No major barriers to understanding were identified. The patient expressed understanding and agreement with the above treatment plan. The patient was made aware they should contact our office by phone for worsening of their current condition, the appearance of new symptoms, or with any questions or concerns. Compliance is encouraged with any medications and follow up testing that is ordered. It is a privilege to be allowed the opportunity to participate in? your urological care.? Again, if you have any questions or concerns If you have any questions or concerns please do not hesitate to contact me. The office is [phone]. This note is constructed using voice recognition software. While every effort has been made to ensure accuracy photo technologist errors may have been included. Yours sincerely, FLAKITO Martínez Coding Level of Care Code Est Pt Level 4 (51041) Complex EM visit Add On G2211 Diagnoses Nocturia R35.1 Erectile dysfunction associated with type 2 diabetes mellitus E11.69; N52.1 Renal cyst N28.1 CPT Codes Post Residual Void - PVR CPT Code: 88002-Rwsz Void Residual by ultrasound ([id number])
--- OUTSIDE RECORDS SUMMARY | 2025-03-15 12:47 | XMS_ITS | Clinical Summary ---
Author Organization [employer] Address [address] [place] [address] [address] [place] [address] Care Team Providers Care Radiotelegrapher Name Role Phone Nadya Mauro MD Primary Care Provider [phone] Allergies No known active allergies Medications GaviLAX [...] THE MORNING 90 tablet 08/03/20 24 Active ibuprofen 600 MG tabletIndicatio ns:Pain TAKE 1 TABLET BY MOUTH TWICE A DAY 60 tablet 3 01/14/20 25 Active albuterol (Ventolin HFA) 108 (90 Base) MCG/ACT inhalerIndicati ons:Asthma, unspecified asthma severity, unspecified whether complicated, unspecified whether persistent Inhale 2 puffs in the morning, at noon, in the evening, and at bedtime. 18 g 1 01/23/20 25 Active tadalafil (Cialis) 20 MG tablet TAKE 1 TABLET BY MOUTH 30MIN BEFORE SEXUALLY ACTIVITY NEEDED 01/14/20 25 Active zolpidem (Ambien) 10 MG tabletIndicatio ns:Insomnia, unspecified Take 1 tablet (10 mg) by mouth if needed at bedtime for sleep. TAKE 1 TABLET BY MOUTH EVERY EVENING NEEDED 10 tablet 3 02/02/20 25 Active Multiple Vitamin (multivitamin) tablet Take 1 tablet by mouth Once per day. 90 tablet 3 02/25/20 25 Active amLODIPine (Norvasc) 5 MG tablet TAKE 1 TABLET BY MOUTH EVERY DAY IN THE MORNING 90 tablet 1 12/29/19 25 025 Discontinued polyethylene glycol, PEG, 3350 (MiraLax) 17 GM/SCOOP powder Take 17 g by mouth Once per day for 3 days. 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 Asthma 06/09/2013 Hypercholesterolemia 05/18/2013 Encounters Date Type Department Care Team Description 03/05/2025 Telephone [facility] ADULT DENTAL [address] [place] [address] Boni Martel PA and appt 03/03/2025 Orders Only GENERIC EXTERNAL DATA DEPARTMENT Provider, Generic External Data 02/24/2025 11:00 AM EDT Office Visit [facility] MED & PEDS [address] [place] [address] Nadya Mauro MD Primary hypertension (Primary Dx); Alcoholic cirrhosis of liver with ascites (CMS/HCC); Weight loss 02/24/2025 Travel 02/12/2025 Orders Only [facility] External Provider, [facility] 02/05/2025 1:30 PM EDT Office Visit [facility] ADULT DENTAL [address] [place] [address] Boni Martel 02/01/2025 Refill [facility] MEDICINE [address] [place] [address] Nadya Mauro MD Insomnia, unspecified 01/28/2025 10:00 AM EDT Office Visit [facility] ADULT DENTAL [address] [place] [address] Katie Melendez 01/22/2025 10:00 AM EDT Office Visit [facility] MED & PEDS [address] [place] [address] Nadya Mauro MD Cirrhosis of liver with ascites, unspecified hepatic cirrhosis type (CMS/HCC) (CMS/HCC) (Primary Dx); Primary hypertension; Asthma, unspecified asthma severity, unspecified whether complicated, unspecified whether persistent 01/22/2025 Travel 01/12/2025 Refill [facility] MED & PEDS [address] [place] [address] Nadya Mauro MD Pain 01/11/2025 Patient Outreach [address] [address] Nadya Mauro MD Pre-visit Planning (SDOH screening completed on 01/04/25) 01/04/2025 9:30 AM EDT Office Visit [facility] MED & PEDS [address] [place] [address] Nadya Mauro MD Acute hepatitis (Primary Dx); Primary hypertension; Hypercholesterolemia 01/04/2025 Travel 01/01/2025 Patient Outreach [address] [address] Nadya Mauro MD Transition Of Care (Tcm) (HDF scheduled) 12/30/2024 Orders Only GENERIC EXTERNAL DATA DEPARTMENT Provider, Generic External Data 12/30/2024 Telephone [facility] MED & PEDS [address] [place] [address] Bailee Huggins MD Results 12/29/2024 11:00 AM EDT Office Visit [facility] MED & PEDS [address] [place] [address] Bailee Huggins MD Jaundice (Primary Dx); Alcohol abuse 12/29/2024 Orders Only [facility] MED & PEDS [address] [place] [address] Bailee Huggins MD 12/29/2024 Travel 12/29/[address] [address] Nadya Mauro MD Nurse Triage 12/27/2024 Refill [facility] MED & PEDS [address] [place] [address] Nadya Mauro MD 12/22/2024 1:00 PM EDT Office Visit [facility] CHC MED & PEDS [address] [place] [address] Herb Flores MD Pre-op evaluation (Primary Dx) 12/22/2024 Travel from Last 3 Months Immunizations Immunization Administration [...] your housing situation today? I have iwona sing 01/04/[address] you li [...] Sign Reading Time Taken Comments Blood Pressure 90/50 02/24/2025 11:03 AM EDT Pulse 68 02/24/2025 11:03 AM EDT Temperature 36.4 C (97.5 F) 02/24/2025 11:03 AM EDT Respiratory Rate 18 02/24/2025 11:03 AM EDT Oxygen Saturation 99% 01/04/2025 9:39 AM EDT Inhaled Oxygen Concentration - - Weight 73.5 kg (162 lb) 02/24/2025 11:03 AM EDT Height 165.1 cm (5' 5 ) 02/24/2025 11:03 AM EDT Body Mass Index 26.96 02/24/2025 11:03 AM EDT Plan of Treatment Upcoming Encounters Date Type Department Care Team (Late st Contact Info) Description 04/16/2025 11:15 AM EDT Clinical Support [facility] MED & PEDS [address] [place] [address] 05/25/2025 11:00 AM EDT Office Visit [facility] MED & PEDS [address] [place] [address] Nadya Mauro MD [address] [place] [address] Health Maintenance Due Date Last Done Comments [...] 2025 07/20/2024, 07/06/2022, 07/26/2021, Additional history exists Influenza Vaccine (#1) 2025 , 07/20/2024, 07/26/2023, Additional history exists Dental X-Ray: Bitewings 05/21/2025 05/20/2024, 12/25 Dental Prophylaxis 07/31/2025 01/28/2025, 0 05/20/2024, 10/01/2023, Additional history exists Dental Oral Exam 08/08/2025 02/05/2025, , 12/25/2022 SDOH Screening 01/04/2026 01/04/2025 Tobacco Screening 02/24/2026 02/24/2025 Dental X-Ray: Full Mouth 05/21/2027 05/20/2024 DTaP/Tdap/Td Vaccines (2 - Td or Tdap) 06/27/2027 06/27/2017, 11/30/2005 Lipid Panel 01/19/2028 01/18/2023, 03/16/2022 Hepatitis B Vaccines Completed 04/13/2005, 11/11/2003, 09/10/2003 Pneumococcal Vaccine: 50+ Years Completed 07/26/2023, 11/30/2005 Hepatitis C Screening Completed 12/30/2024 , 12/29/2024, [...] Procedure Name Priority Date/Time Associated Diagnosis Comments TESTOSTERONE, FREE (DIALYSIS) AND TOTAL,MS Routine 03/03/2025 7:33 AM EDT PSA, TOTAL Routine 03/03/2025 7:33 AM EDT COMPREHENSIVE METABOLIC PANEL Routine 03/03/2025 7:33 AM EDT CBC Routine 03/03/2025 7:33 AM EDT PROTHROMBIN TIME-INR Routine 03/03/2025 7:33 AM EDT ALBUMIN, RANDOM URINE W/CREATININE Routine 03/03/2025 7:33 AM EDT Jaundice Alcohol abuse US RETROPERITONEAL COMPLETE Routine 02/13/2025 3:06 PM EDT COMPREHENSIVE PERIODONTAL EVALUATION - NEW OR ESTABLISHED [...] Recently Relevant to Health Maintenance Results * Albumin, Random Urine W/Creatinine (03/03/2025 7:33 AM EDT) Creatinine, Urine 287.42 mg/dL [facility] Microalbumin Urine 9.0 mg/L [facility] Microalbum Creatinine Ratio Ur 3.1 <30 ug/mg cr [facility] Comment:Albumin/Creatinine R atio Reference Ranges: Normal: < 30 ug/mg creatinine Microalbuminuria: 30 - 300 ug/mg creatinineClinical Albuminuria: > 300 ug/mg creatinine Urine (Urine, Random) 03/03/2025 7:33 AM EDT 03/03/2025 7:57 AM EDT us Bailee Huggins MD LAB URINE ORDERABLES Final Re sult Performing Organization Address [facility] Co de Phone Number [facility] [address] [place] [address] [phone] * (ABNORMAL) Prothrombin Time-INR (03/03/2025 7:33 AM EDT) Only the most recent of2 resultswithin the time period is included. Prothrombin Time 15.0(H) 10.9 - 12.4 SEC [facility] INTERNATIONAL NORM RATIO 1.3(H) 0.9 - 1.1 [facility] Comment:INTERNATIONAL NORMAL IZED RATIO (INR) REFERENCE RANGES Reference RangeFor patients not on anticoagulant therapy: 0.9 - 1.1INR ranges for oral anticoagulanttherapy:For prevention and treatment of venous thrombosis and pulmonary embolism: 2.0 - 3.0For acute myocardial infarction with aspirin therapy: 2.0 - 3.0For acute myocardial infarction without aspirin therapy: 3.0 - 4.0For patients with mechanical prosthetic heart valves: 2.5 - 3.5 03/03/2025 7:33 AM EDT 03/03/2025 8:52 AM EDT us Generic External Data Provider LAB BLOOD ORDERAB LES Final Result Performing Organization Address [facility] Co de Phone Number [facility] [address] [place] [address] [phone] * (ABNORMAL) CBC (03/03/2025 7:33 AM EDT) White Blood Count 3.8(L) 4.8 - 10.8 X10*3/uL [facility] Red Blood Count 3.70(L) 4.60 - 5.80 X10*6/uL [facility] Hemoglobin 13.0(L) 14.0 - 18.0 g/dl [facility] Hematocrit 36.6(L) 42.0 - 52.0 % [facility] Mean Corpuscular Volume 98.9(H) 80.0 - 98.0 fL [facility] Mean Corpuscular Hemoglobin 35.1(H) 27.0 - 33.0 pg [facility] Mean Corpuscular HGB Conc 35.5 31.0 - 36.0 g/dl [facility] Red Cell Distribution Width 12.2 11.0 - 16.0 % [facility] Platelet Count 110(L) 160 - 400 X10*3/uL [facility] Mean Platelet Volume 10.7 9.4 - 12.4 fL [facility] NRBC Pct Auto 0.0 0.0 - 0.2 /100WBC [facility] NRBC Abs Auto 0.000 0.0 - 0.012 X10*3/uL [facility] 03/03/2025 7:33 AM EDT 03/03/2025 8:52 AM EDT us Generic External Data Provider LAB BLOOD ORDERAB LES Final Result [facility] [address] [place] [phone] * Testosterone, Free (Dialysis) And Total, MS (03/03/2025 7:33 AM EDT) Testosterone, Total 620 250 - 1100 ng/dL [facility] Comment:Men with clinically significant hypogonadalsymptoms and testosterone values repeatedly inthe range of the 200-300 ng/dL or less, maybenefit from testosterone treatment afteradequate risk and benefits counseling.For additional information, please refer [email or web address] A/S/faq/[email or web address](This link is being provided for informational/educational purposes only.)This test was developed and its analytical performancecharacteristics have been determined by [employer], [place]. It hasnot been cleared or approved by the U.S. Food and DrugAdministration. This assay has been validated pursuantto the CLIA regulations and is used for clinicalpurposes. Testosterone, Free 47.1 35.0 - 155.0 pg/mL [facility] Comment:This test was develo ped and its analytical performancecharacteristics have been determined by [employer] [place], [place]. It hasnot been cleared or approved by the U.S. Food and DrugAdministration. This assay has been validated pursuantto the CLIA regulations and is used for clinicalpurposes.THIS TEST WAS PERFORMED AT:[employer] [place] [id number] PEREZ MD,PHD 03/03/2025 7:33 AM EDT 03/03/2025 8:52 AM EDT Generic External Data Provider LAB BLOOD ORDERAB LES Final Result Performing Organization Address [facility] Co de Phone Number [facility] [address] [place] [phone] * PSA,Total (03/03/2025 7:33 AM EDT) Prostate Specific Antigen 0.33 <0.05 - 4.0 ng/mL [facility] Comment:PSA methodology: Abb noelle Alirodrigo i ChemiluminescentMicroparticle Immunoassay (CMIA) 03/03/2025 7:33 AM EDT 03/03/2025 8:52 AM EDT Generic External Data Provider LAB BLOOD ORDERAB LES Final Result Performing Organization Address [facility] Co de Phone Number [facility] [address] [place] [phone] * (ABNORMAL) Comprehensive Metabolic Panel (03/03/2025 7:33 AM EDT) Sodium 138 135 - 145 mmol/L [facility] Potassium 3.9 3.3 - 5.1 mmol/L [facility] Chloride 110(H) 96 - 108 mmol/L [facility] Carbon Dioxide 20(L) 22 - 29 mmol/L [facility] Anion Gap 12 12 - 20 [facility] Urea Nitrogen (BUN) 13 9 - 16 mg/dL [facility] Creatinine, Serum 0.58 0.5 - 1.4 mg/dL [facility] Estimated Glomerular Filt Rate >60 [facility] Comment:Chronic Kidney Disea se: Estimated GFR < 60 mL/min/1.01h8Waswmj Kidney Disease: Estimated GFR < 15 mL/min/1.73m2 Glucose 101 60 - 115 mg/dL [facility] Calcium 9.2 8.4 - 10.2 mg/dL [facility] Bilirubin, Total 3.7(H) 0.0 - 1.0 mg/dL [facility] Comment:Slight Icterus. Aspartate Amino Transferase 45(H) 5 - 37 U/L [facility] Alanine Aminotransferase 29 0 - 40 U/L [facility] Total Protein 7.1 6.5 - 8.0 g/dL [facility] Albumin Level 3.7 3.5 - 5.0 g/dL [facility] Alkaline Phosphatase 114 39 - 117 U/L [facility] 03/03/2025 7:33 AM EDT 03/03/2025 8:52 AM EDT us Generic External Data Provider LAB BLOOD ORDERAB LES Final Result [facility] [address] [place] [address] [phone] * US Retroperitoneal Complete (02/13/2025 3:06 PM EDT) Anatomical Region Laterality Modality Ultrasound 02/13/2025 3:06 PM EDT Narrative 02/13/2025 3:07 PM EDT [address] [address] Ultrasound Report Signed Patient: Jimmy Elias MR#: [id number] : 1960 Acct:[id number] Age/Sex: 64 / M ADM Date: 02/12/25 Loc: HO.US Attending Dr: Kayli FRAGA Ordering Physician: Kayli Valenzuela Date of Service: 02/12/25 Procedure(s): US retroperitoneal comp Accession Number(s): [id number] cc: Kayli Valenzuela; Nadya Mauro MD CLINICAL HISTORY: E11.69 - Type 2 diabetes mellitus, nocturia US retroperitoneum with color Doppler Comparison: CT/SR - CT ABDOMEN PELVIS W IV CON - 12/31/24 11:56 EDT US/SR - US ABDOMEN LIMITED - 12/30/24 15:44 EDT Findings: Right kidney normal size and echotexture, 12.0 cm length. No hydronephrosis. Normal color flow. No nephrolithiasis. No hydronephrosis. Left kidney normal size and echotexture, 11.8 cm in length. No hydronephrosis. Normal color flow. No nephrolithiasis. No hydronephrosis. Benign renal cortical cyst midpole measuring 6 x 6 x 5 mm. Urinary bladder is unremarkable. Prevoid volume 157.0 mL. Postvoid volume 42 mL. Ureteral jets are visualized bilaterally. Prostate measures 4.6 x 3.3 x 3.3 cm. Moderate amount of free ascites. Bilateral pleural effusions eapxj-twomvpo-kwhv-left. Impression: 1. Unremarkable kidneys incidental benign renal cortical cysts on the left. 2. Elevated postvoid residual. 3. Prostate measuring at 26 mL. 4. Ascites present. Bilateral pleural effusions. This document has been electronically signed by: Sylvester Clark MD on 02/13/2025 15:06:08 Dictated By: Sylvester Clark MD Signed By: <Electronically signed by Sylvester Clark MD in OV> 02/13/25 1506 DD/ 1506 TD/TT: 02/13/25 1506 Department Specialist: Procedure Note Donotuseinterpreter, Image - 02/13/[address] [address] Ultrasound Report Signed Patient: Lisbeth Elias#: [id number] : 9Acct:[id number] Age/Sex: 64 / MADM Date: 02/12/25 Loc: HO.US Attending Dr: Kayli FRAGA Ordering Physician: Kayli Valenzuela Date of Service: 02/12/25 Procedure(s): US retroperitoneal comp Accession Number(s): [id number] cc: Kayli Valenzuela; Nadya Mauro MD CLINICAL HISTORY: E11.69 - Type 2 diabetes mellitus, nocturia US retroperitoneum with color Doppler Comparison: CT/SR - CT ABDOMEN PELVIS W IV CON - 12/31/24 11:56 EDT US/SR - US ABDOMEN LIMITED - 12/30/24 15:44 EDT Findings: Right kidney normal size and echotexture, 12.0 cm length. No hydronephrosis. Normal color flow. No nephrolithiasis. No hydronephrosis. Left kidney normal size and echotexture, 11.8 cm in length. No hydronephrosis. Normal color flow. No nephrolithiasis. No hydronephrosis. Benign renal cortical cyst midpole measuring 6 x 6 x 5 mm. Urinary bladder is unremarkable. Prevoid volume 157.0 mL. Postvoid volume 42 mL. Ureteral jets are visualized bilaterally. Prostate measures 4.6 x 3.3 x 3.3 cm. Moderate amount of free ascites. Bilateral pleural effusions isyjk-fzzxqlb-enev-left. Impression: 1. Unremarkable kidneys incidental benign renal cortical cysts on the left. 2. Elevated postvoid residual. 3. Prostate measuring at 26 mL. 4. Ascites present. Bilateral pleural effusions. This document has been electronically signed by: Sylvester Clark MD on 02/13/2025 15:06:08 Dictated By: Sylvester Clark MD Signed By: <Electronically signed by Sylvester Clark MD in OV> 02/13/25 1506 DD/ 1506 TD/TT: 02/13/25 1506 Department Specialist: us [facility] External Provider IMG US PROCEDURES Edited Result - Final * CT Abdomen Pelvis w/ Contrast (12/31/2024 11:56 AM EDT) Anatomical Region Laterality Modality Body, Pelvis, Abdomen Computed T omography 12/31/2024 11:5 6 AM EDT Narrative 12/31/2024 12:30 PM EDT [address] [address] [address] Scan Report Signed Patient: Jimmy Elias MR#: [id number] : 1960 Acct:[id number] Age/Sex: 64 / M ADM Date: 12/30/24 Loc: [facility] 469-[address]: Lowell Young MD Ordering Physician: Lowell Young MD Date of Service: 12/31/24 Procedure(s): CT abdomen pelvis w IV con Accession Number(s): [id number] cc: Lowell Young MD; Nadya Mauro MD Report Number: [id number]: Total DLP = 710.00 mGy-cm EXAMINATION: CT [...] 12/31/24 1228 DD/ 1156 TD/TT: 12/31/24 1207 Department Specialist: Procedure Note Donotuseinterpreter, Image - 12/31/[address] [address] [address] Scan Report Signed Patient: Lisbeth Elias#: [id number] : 9Acct:[id number] Age/Sex: 64 / MADM Date: 12/30/24 Loc: [facility] 469-[address]: Lowell Young MD Ordering Physician: Lowell Young MD Date of Service: 12/31/24 Procedure(s): CT abdomen pelvis w IV con Accession Number(s): [id number] cc: Lowell Young MD; Nadya Mauro MD Report Number: [id number]: Total DLP = 710.00 mGy-cm EXAMINATION: CT [...] 12/31/24 1228 DD/ 1156 TD/TT: 12/31/24 1207 Department Specialist: [facility] External Provider IMG CT PROCEDURES Edited Result - Final * US Abdomen Limited (12/30/2024 3:45 PM EDT) Anatomical Region Laterality Modality Abdomen Ultrasound 12/30/2024 3:45 PM EDT Narrative 12/30/2024 4:26 PM EDT [address] [address] Ultrasound Report Signed Patient: Jimmy Elias MR#: [id number] : 1960 Acct:[id number] Age/Sex: 64 / M ADM Date: 12/30/24 Loc: HO.ED Attending Dr: Ordering Physician: Eveline Sheppard MD Date of Service: 12/30/24 Procedure(s): US abdomen limited Accession Number(s): [id number] cc: Eveline Sheppard MD; Nadya Mauro MD [...] 12/30/24 1623 DD/ 1545 TD/TT: 12/30/24 1557 Department Specialist: Procedure Note Donotuseinterpreter, Image - 12/30/2024 [place] [address] Ultrasound Report Signed Patient: Lisbeth Elias#: [id number] : 9Acct:[id number] Age/Sex: 64 / MADM Date: 12/30/24 Loc: HO.ED Attending Dr: Ordering Physician: Eveline Sheppard MD Date of Service: 12/30/24 Procedure(s): US abdomen limited Accession Number(s): [id number] cc: Eveline Sheppard MD; Nadya Mauro MD [...] 12/30/24 1623 DD/ 1545 TD/TT: 12/30/24 1557 Department Specialist: [facility] External Provider IMG US PROCEDURES Final Result * XR Chest 2 Views (12/30/2024 3:10 PM EDT) Anatomical Region Laterality Modality Chest Radiographic Valentina ging 12/30/2024 3:10 PM EDT Narrative 12/30/2024 3:51 PM EDT [place] [address] XRay Report Signed Patient: Jimmy Elias MR#: [id number] : 1960 Acct:[id number] Age/Sex: 64 / M ADM Date: 12/30/24 Loc: .ED Attending Dr: Ordering Physician: Eveline Sheppard MD Date of Service: 12/30/24 Procedure(s): XR chest 2V Accession Number(s): [id number] cc: Eveline Sheppard MD; Nadya Mauro MD [...] Ruelas MD in OV> 12/30/24 1548 DD/ 151 TD/TT: 12/30/241544 Department Specialist: Procedure Note Jerad, Image - 12/30/2024 [place] [address] XRay Report Signed Patient: Lisbeth Elias#: [id number] : 9Acct:[id number] Age/Sex: 64 / MADM Date: 12/30/24 Loc: .ED Attending Dr: Ordering Physician: Eveline Sheppard MD Date of Service: 12/30/24 Procedure(s): XR chest 2V Accession Number(s): [id number] cc: Eveline Sheppard MD; Nadya Mauro MD [...] Carlton Ruelas MD 12/30/2024 03:48 PM EDT Dictated By: Carlton Ruelas MD Signed By: <Electronically signed by Carlton Ruelas MD in OV> 12/30/24 1548 DD/ 1510 TD/TT: 12/30/241544 Department Specialist: [facility] External Provider IMG XR PROCEDURES Final Result * Slide Review (12/30/2024 1:19 PM EDT) Only the most recent of2 resultswithin the time period is included. Slide Review VERIFIED [facility] 12/30/2024 1:19 PM EDT 12/30/2024 1:24 PM EDT Generic External Data Provider LAB BLOOD ORDERAB LES Final Result Performing Organization Address [facility]/ZIP Co de Phone Number [facility] [address] [place] [phone] * Ethanol (12/30/2024 1:19 PM EDT) ETHANOL (MG/DL) IN SER/PLAS <10 mg/dL [facility] Comment:Marked Icterus. Inte rpret result with caution.Serum/plasma ethanol results are to be used formedical/treatment purposes only. 12/30/2024 1:19 PM EDT 12/30/2024 1:24 PM EDT Generic External Data Provider LAB BLOOD ORDERAB LES Final Result Performing Organization Address [facility] de Phone Number [facility] [address] [place] [phone] * SARS-CoV-2 RNA, Influenza A/B, and RSV RNA, Ql NAAT (12/30/2024 1:19 PM EDT) Pathologist [facility] [place] Influenza A PCR NEGATIVE Negative [facility] Influenza B PCR NEGATIVE Negative [facility] Resp Syncy Virus RNA Qual PCR NEGATIVE Negative [facility] SARS COV2 PCR NEGATIVE Negative [facility] Comment:All test results mus t be [...] use by authorized laboratories.Testing performed on the [employer] GeneXpert utilizingreal-time RT-PCR.All SARS CoV2 and positive influenza A/B results arereported to [facility]. 12/30/2024 1:1 9 PM EDT 12/30/2024 1:24 PM EDT Generic External Data Provider LAB MICROBIOLOGY - GENERAL ORDERABLES Final Result Performing Organization Address [facility] de Phone Number [facility] [address] [place] [phone] * (ABNORMAL) Hepatitis Panel, General (12/30/2024 1:19 PM EDT) Pathologist [facility] [place] Hepatitis A IgM Nonreactive Nonreactive [facility] Comment:IgM antibodies to BETTS V not detected; does not exclude earlyacute or recovered HAV infection. ~Hepatitis B Surface Antibody NONREACTIVE Nonreactive [facility] Comment:Nonreactive: < 8.00 mIU/mL Hepatitis B Core Antibody Reactive Nonreactive [facility] Comment:Presumptive evidence of anti-HBc. Hepatitis C Antibody Reactive(A) Nonreactive [facility] Comment:Presumptive evidence of antibodies to HCV. Hepatitis B Surface Ag Negative Negative [facility] 12/30/2024 1:19 PM EDT 12/30/2024 1:24 PM EDT Generic External Data Provider LAB BLOOD ORDERAB LES Final Result Performing Organization Address [facility] de Phone Number [facility] [address] [place] [phone] * (ABNORMAL) CBC auto differential (12/30/2024 1:19 PM EDT) Only the most recent of2 resultswithin the time period is included. [facility] White Blood Count 5.6 4.8 - 10.8 X10*3/uL [facility] Red Blood Count 3.32(L) 4.60 - 5.80 X10*6/uL [facility] Hemoglobin 12.3(L) 14.0 - 18.0 g/dl [facility] Hematocrit 34.9(L) 42.0 - 52.0 % [facility] Mean Corpuscular Volume 105.1(H) 80.0 - 98.0 fL [facility] Mean Corpuscular Hemoglobin 37.0(H) 27.0 - 33.0 pg [facility] Mean Corpuscular HGB Conc 35.2 31.0 - 36.0 g/dl [facility] Red Cell Distribution Width 14.6 11.0 - 16.0 % [facility] Platelet Count TNP 160 - 400 X10*3/uL [facility] Comment:Platelet clumps note d. Platelet count will not be accurate. Mean Platelet Volume TNP 9.4 - 12.4 fL [facility] Neutrophils Percent Auto 68.5 45 - 73 % [facility] Imm Gran Pct Auto 0.7(H) 0.0 - 0.4 % [facility] Lymphocytes Percent Auto 14.8(L) 20 - 40 % [facility] Monocytes Percent Auto 14.8(H) 2 - 11 % [facility] Eosinophils Percent Auto 0.7 0 - 4 % [facility] Basophils Percent Auto 0.5 0 - 2 % [facility] NRBC Pct Auto 0.0 0.0 - 0.2 /100WBC [facility] Neutrophils Absolute Auto 3.8 2.0 - 8.3 x10*3/uL [facility] Imm Gran Abs Auto 0.04(H) 0.00 - 0.03 X10*3/uL [facility] Lymphocytes Absolute Auto 0.8(L) 1.2 - 4.9 X10*3/uL [facility] Monocytes Absolute Auto 0.8 0.1 - 1.2 X10*3/uL [facility] Eosinophils Absolute Auto 0.0 0.0 - 0.4 X10*3/uL [facility] Basophils Absolute Auto 0.0 0.0 - 0.2 X10*3/uL [facility] NRBC Abs Auto 0.000 0.0 - 0.012 X10*3/uL [facility] 12/30/2024 1:19 PM EDT 12/30/2024 1:24 PM EDT us Generic External Data Provider LAB BLOOD ORDERAB LES Edited Result - Final Performing Organization Address [facility] Co de Phone Number [facility] [address] [place] [phone] * B Type Natriuretic Peptide (BNP) (12/30/2024 1:19 PM EDT) B Type Natriuretic Peptide 84 <100 pg/mL [facility] 12/30/2024 1:19 PM EDT 12/30/2024 1:24 PM EDT Generic External Data Provider LAB BLOOD ORDERAB LES Final Result Performing Organization Address [facility] de Phone Number [facility] [address] [place] [phone] * Magnesium (12/30/2024 1:19 PM EDT) Only the most recent of2 resultswithin the time period is included. Magnesium 1.8 1.6 - 2.6 mg/dL [facility] Comment:Marked Icterus. Inte rpret result with caution. 12/30/2024 1:19 PM EDT 12/30/2024 1:24 PM EDT Generic External Data Provider LAB BLOOD ORDERAB LES Final Result Performing Organization Address [facility] de Phone Number [facility] [address] [place] [phone] * Lipase (12/30/2024 1:19 PM EDT) Only the most recent of2 resultswithin the time period is included. Lipase 17 8 - 78 U/L [facility] Comment:Marked Icterus. Inte rpret result with caution. 12/30/2024 1:19 PM EDT 12/30/2024 1:24 PM EDT Generic External Data Provider LAB BLOOD ORDERAB LES Final Result Performing Organization Address [facility] de Phone Number [facility] [address] [place] [phone] * (ABNORMAL) Ammonia, Plasma (12/30/2024 1:19 PM EDT) Ammonia (P) 119(H) 13 - 55 umol/L [facility] Comment:Marked Icterus. Inte rpret result with caution. 12/30/2024 1:19 PM EDT 12/30/2024 1:24 PM EDT Generic External Data Provider LAB BLOOD ORDERAB LES Final Result Performing Organization Address [facility] de Phone Number [facility] [address] [place] [phone] * Acetaminophen level (12/30/2024 1:19 PM EDT) Pathologist [facility] [place] Acetaminophen LAB <3 <30 mcg/mL [facility] Comment:Marked Icterus. Inte rpret result with caution. 12/30/2024 1:19 PM EDT 12/30/2024 1:24 PM EDT Generic External Data Provider LAB BLOOD ORDERAB LES Final Result Performing Organization Address [facility] de Phone Number [facility] [address] [place] [phone] * (ABNORMAL) Hepatic Function Panel (12/30/2024 1:19 PM EDT) Only the most recent of2 resultswithin the time period is included. Bilirubin, Total 24.9(H) 0.0 - 1.0 mg/dL [facility] Comment:Marked Icterus. Inte rpret result with caution. Bilirubin, Direct 18.2(H) 0.0 - 0.5 mg/dL [facility] Aspartate Amino Transferase 204(H) 5 - 37 U/L [facility] Comment:Marked Icterus. Inte rpret result with caution. Alanine Aminotransferase 56(H) 0 - 40 U/L [facility] Comment:Marked Icterus. Inte rpret result with caution. Total Protein 6.8 6.5 - 8.0 g/dL [facility] Comment:Marked Icterus. Inte rpret result with caution. Albumin Level 2.7(L) 3.5 - 5.0 g/dL [facility] Comment:Marked Icterus. Inte rpret result with caution. Alkaline Phosphatase 214(H) 39 - 117 U/L [facility] Comment:Marked Icterus. Inte rpret result with caution. 12/30/2024 1:19 PM EDT 12/30/2024 1:24 PM EDT us Generic External Data Provider LAB BLOOD ORDERAB LES Final Result [facility] [address] [place] [address] [phone] * (ABNORMAL) Basic Metabolic Panel (12/30/2024 1:19 PM EDT) Only the most recent of2 resultswithin the time period is included. Sodium 136 135 - 145 mmol/L [facility] Comment:Marked Icterus. Inte rpret result with caution. Potassium 3.4 3.3 - 5.1 mmol/L [facility] Comment:Marked Icterus. Inte rpret result with caution. Chloride 107 96 - 108 mmol/L [facility] Comment:Marked Icterus. Inte rpret result with caution. Carbon Dioxide 21(L) 22 - 29 mmol/L [facility] Comment:Marked Icterus. Inte rpret result with caution. Anion Gap 11(L) 12 - 20 [facility] Urea Nitrogen (BUN) 10 9 - 16 mg/dL [facility] Comment:Marked Icterus. Inte rpret result with caution. Creatinine, Serum 0.65 0.5 - 1.4 mg/dL [facility] Comment:Marked Icterus. Inte rpret result with caution. Creatinine Clr Calc Pharmacy 112.2 [facility] Comment:eGFR (calculated fro m the MDRD study equation) and eCrCl(calculated from the Cockcroft-Gault equation) are based ondifferent parameters and may not yield comparable results.If eCrCl result is absurd, please check patient'sheight/weight. Estimated Glomerular Filt Rate >60 [facility] Comment:Chronic Kidney Disea se: Estimated GFR < 60 mL/min/1.08j7Owjqom Kidney Disease: Estimated GFR < 15 mL/min/1.73m2 Glucose 96 60 - 115 mg/dL [facility] Comment:Marked Icterus. Inte rpret result with caution. Calcium 9.0 8.4 - 10.2 mg/dL [facility] Comment:Marked Icterus. Inte rpret result with caution. 12/30/2024 1:19 PM EDT 12/30/2024 1:24 PM EDT us Generic External Data Provider LAB BLOOD ORDERAB LES Final Result [facility] [address] [place] [phone] * (ABNORMAL) Vitamin B12/Folate, Serum Panel (12/29/2024 11:37 AM EDT) Vitamin B12 >2,000(H ) 200 - 900 pg/mL [facility] Comment:NORMAL 200-900 PG/ML INDETERMINATE 160-199 PG/ML DEFICIENT < 160 PG/ML Folate 10.2 > or = 4.0 ng/mL [facility] Comment:Reference Values:> o r = 4.0 [...] ORDERABLES Final Re sult Performing Organization Address City/[facility]/ZIP Co de Phone Number [facility] [address] [place] [address] [phone] * TSH W/Reflex to FT4 (12/29/2024 11:37 AM EDT) TSH reflex Free T4 2.95 0.32 - 4.0 uIU/mL [facility] Blood Venous blood specimen / Unknown 12/29/2024 11:37 AM EDT 12/29/2024 2:28 PM EDT Bailee Huggins MD LAB BLOOD ORDERABLES Final Re sult Performing Organization Address [facility] Co de Phone Number [facility] [address] [place] [phone] * Hepatitis C Viral RNA, Quantitative, Real-Time PCR (12/29/2024 11:37 AM EDT) Pathologist [facility] [place] Hepatitis C Viral Load <15 NOT DETECTED NOT DETECTED IU/mL [facility] HCV Log PCR <1.18 NOT DETECTED NOT DETECTED Log IU/mL [facility] Comment:For additional infor mation, please refer [email or web address](This link is being provided for informational/educational purposes only.)THIS TEST WAS PERFORMED AT:[facility] [place] [phone] DANIELSON MD 12/29/2024 11:3 7 AM EDT 12/30/2024 10:22 AM EDT Bailee Huggins MD LAB BLOOD ORDERABLES Final Re sult Performing Organization Address [facility] Co de Phone Number [facility] [address] [place] [phone] * (ABNORMAL) Hepatitis C Antibody with Reflex to HCV, RNA, Quantitative, Real- Time PCR (12/29/2024 11:37 AM EDT) Pathologist [facility] [place] Hepatitis C Antibody Reactive( A) Nonreactive [facility] Comment:Presumptive evidence of antibodies to HCV. Blood Venous blood specimen / Unknown 12/29/2024 11:37 AM EDT 12/29/2024 2:28 PM EDT Bailee Huggins MD LAB BLOOD ORDERABLES Final Re sult Performing Organization Address [facility] de Phone Number [facility] [address] [place] [phone] * (ABNORMAL) Iron And Total Iron Binding Capacity (12/29/2024 11:37 AM EDT) [facility] Iron 86 45 - 160 mcg/dL [facility] Comment:Marked Icterus. Inte rpret result with caution. Total Iron Binding Capacity 111(L) 228 - 428 mcg/dL [facility] Percent Iron Saturation 77(H) 15 - 50 % [facility] Unsaturated Iron Binding <25 ug/dL [facility] Comment:Marked Icterus. Inte rpret result with caution. Blood Venous blood specimen / Unknown 12/29/2024 11:37 AM EDT 12/29/2024 2:28 PM EDT us Bailee Huggins MD LAB BLOOD ORDERABLES Final Re sult Performing Organization Address [facility] Co de Phone Number [facility] [address] [place] [address] [phone] * Hepatitis B surface antigen, EIA (12/29/2024 11:37 AM EDT) [facility] Hepatitis B Surface Ag Negative Negative [facility] Blood Venous blood specimen / Unknown 12/29/2024 11:37 AM EDT 12/29/2024 2:28 PM EDT us Bailee Huggins MD LAB BLOOD ORDERABLES Final Re sult Performing Organization Address [facility] Co de Phone Number [facility] [address] [place] [address] [phone] * Hepatitis B Surface Antibody, Qualitative (12/29/2024 11:37 AM EDT) Pathologist [facility] [place] ~Hepatitis B Surface Antibody NONREACTIVE Nonreactive [facility] Comment:Nonreactive: < 8.00 mIU/mL Blood Venous blood specimen / Unknown 12/29/2024 11:37 AM EDT 12/29/2024 2:28 PM EDT Bailee Huggins MD LAB BLOOD ORDERABLES Final Re sult Performing Organization Address [facility] Phone Number [facility] [address] [place] [address] [phone] * Vitamin B6 (12/29/2024 11:37 AM EDT) [facility] Vitamin B6 3.2 2.1 - 21.7 ng/mL [facility] Comment:Vitamin supplementat ion within 24 hours prior toblood draw may affect the accuracy of the results.This test was developed and its analytical performancecharacteristics have been determined by [employer] [place], [place]. It hasnot been cleared or approved by the U.S. Food and DrugAdministration. This assay has been validated pursuantto the CLIA regulations and is used for clinicalpurposes.THIS TEST WAS PERFORMED AT:[employer] [place] [id number] PEREZ MD,PHD Blood Venous blood specimen / Unknown 12/29/2024 11:37 AM EDT 12/29/2024 2:21 PM EDT Bailee Huggins MD LAB BLOOD ORDERABLES Final Re sult Performing Organization Address [facility] Co de Phone Number [facility] [address] [place] [address] [phone] * Lipid Panel, Standard (01/18/2023 9:28 AM EDT) Triglycerides 58 mg/dL [facility] Comment:Desirable Triglyceri de: less than 150 mg/dLBorderline High Triglyceride 150-199 mg/dLHigh Triglyceride: 200-499 mg/dLVery High Triglyceride: greater than or equal to 5OO mg/dL Cholesterol 237 mg/dL [facility] Comment:Desirable Cholestero l: less than 200 mg/dLBorderline High Cholesterol: 200-239 mg/dLHigh Cholesterol: greater than 239 mg/dL LDL Cholesterol Calculated 171 mg/dl [facility] Comment:Desirable LDL: less than 100 mg/dLNear Optimal/Above Optimal LDL: 110- 129 mg/dLBorderline High LDL: 130-159 mg/dLHigh LDL: 160-189 mg/dLVery High LDL: greater than or equal to 190 mg/dL HDL Cholesterol 55 mg/dL [facility] Comment:Desirable HDL: great er than 40 mg/dL Note: This HDL assay may give artificially low results in patients with liver disease. 01/18/2023 9:28 AM EDT 01/18/2023 10:49 AM EDT [facility] External Provider LAB BLO OD ORDERABLES Final Result [facility] [address] [place] [phone] from Last 3 Months or Most Recently Relevant to Health Maintenance Insurance [facility] ST[employer] [employer] (HMO D-SNP) [facility] Care Teams Radiotelegrapher Relationship Specialty Start Date End Date Nadya Mauro MD [address] [place] [phone] PCP - General Family Medicine 08/11/12
== END 2025-03-15 12:14 | disposition home or self-care (01) ==
LOC: HO.HUSH 11:42
PROVIDERS: PCP Student in an Organized Health Care Education/Training Program; Visit Provider Nurse Practitioner Family
DX: R35.1 Nocturia (principal); E11.69 Type 2 diabetes mellitus with other specified complication; N52.1 Erectile dysfunction due to diseases classified elsewhere; N28.1 Cyst of kidney, acquired; Z13.9 Encounter for screening, unspecified
CPT/HCPCS: 99214; G2211

== ENCOUNTER → 2025-03-15 11:42 | Outpatient (BNVA) | payer OTHER, SELFPAY | PROVIDERS: PCP Student in an Organized Health Care Education/Training Program; Visit Provider Nurse Practitioner Family | DX: R35.1 Nocturia (principal); N52.1 Erectile dysfunction due to diseases classified elsewhere; E11.69 Type 2 diabetes mellitus with other specified complication; N28.1 Cyst of kidney, acquired | CPT/HCPCS: 51798; 81003; 99212 ==

== ENCOUNTER 2025-05-25 09:59 | Outpatient (REF) | payer OTHER, SELFPAY ==
--- NOTE | ~2025-05-25 | XR_ITS ---
EXAMINATION: XR SHOULDER 2 OR MORE VIEWS RIGHT HISTORY: pain COMPARISON: There are no prior studies available for comparison. FINDINGS: Four views of the right shoulder are submitted. Osseous mineralization is normal. There is a downsloping acromium. There is no fracture or dislocation. The glenohumeral joint is maintained. The AC joint is not well evaluated due to obliquity. The soft tissues are unremarkable. XR/XR shoulder RT min 2V IMPRESSION: Downsloping acromion. The AC joint is not well evaluated due to obliquity. Electronically signed by: Stu Beckham MD 05/25/2025 10:39 AM EDT
--- OUTSIDE RECORDS SUMMARY | 2025-05-25 09:30 | XMS_ITS | Encounter Summary ---
Author Organization [employer] Address [address] [place] [address] [address] [place] [address] Care Team Providers Care Street Contractor Name Role Phone Nadya Mauro MD Primary Care Provider [phone] Reason for Referral * Consultation (Routine) - Pending Review Specialty Diagnoses / Procedures Referred By Ana cole Referred To Contact Gastroenterology Diagnoses Encounter for screening for malignant neoplasm of colon Nadya Mauro MD [address] [place] [address] Phone: tel: fax: Referral ID Status Reason Start Date Expiration Date Visits Requested Visits Authorized [id number] Pending Review Specialty Services Required 05/25/2025 05/25/2026 1 1 Reason for Visit * Reason Comments Pre-op Exam Encounter Details Date Type Department Care Team (Latest Contact Info) Description 05/25/2025 9:30 AM EDT Office Visit [facility] [address] [place], [place] [phone] Nadya Mauro MD [address] [place] [address] Primary hypertension (Primary Dx); Hypercholesterolemia; Preop cardiovascular exam; Encounter for screening for malignant neoplasm of colon; Chronic right shoulder pain Social History Tobacco Use Types Packs/Day Years [...] Sign Reading Time Taken Comments Blood Pressure 126/73 05/25/2025 9:46 AM EDT Pulse 54 05/25/2025 9:46 AM EDT Temperature 36.5 C (97.7 F) 05/25/2025 9:46 AM EDT Respiratory Rate 18 05/25/2025 9:46 AM EDT Oxygen Saturation - - Inhaled Oxygen Concentration - - Weight 69.9 kg (154 lb) 05/25/2025 9:46 AM EDT Height 165.1 cm (5' 5 ) 05/25/2025 9:46 AM EDT Body Mass Index 25.63 05/25/2025 9:46 AM EDT documented in this encounter Progress Notes * Nadya Mauro MD - 05/25/2025 9:30 AM EDT Subjective Patient ID: Jimmy Ayala is a 65 y.o. male who presents for Pre-op Exam. Hypertension This is a chronic problem. The current episode started more than 1 year ago. The problem is unchanged. The problem is controlled. Risk factors for coronary artery disease include family history, obesity, sedentary lifestyle and male gender. Past treatments include nothing. Shoulder Pain The pain is present in the right shoulder. This is a recurrent problem. The problem occurs constantly. The problem has been gradually worsening. The quality of the pain is described as aching. The pain is at a severity of 7/10. The pain is moderate. Associated symptoms include joint locking and a limited range of motion. The symptoms are aggravated by activity. His past medical history is significant for osteoarthritis. Review of Systems Constitutional: Negative. Respiratory: Negative. Cardiovascular: Negative. Gastrointestinal: Negative. Genitourinary: Negative. Objective Physical Exam Constitutional: Appearance: Normal appearance. Cardiovascular: Rate and Rhythm: Normal rate and regular rhythm. Pulmonary: Effort: Pulmonary effort is normal. Breath sounds: Normal breath sounds. Neurological: General: No focal deficit present. Mental Status: He is alert. Psychiatric: Mood and Affect: Mood normal. Behavior: Behavior normal. Assessment/Plan Diagnoses and all orders for this visit: Primary hypertension Comments: Diet controlled No meds added today Maintain a low-sodium diet (less than 2 grams per day). Maintain a regular cardiovascular exercise program. Advised to maintain a low-fat, low-cholesterol diet. Counseled regarding importance of weight loss. Counseled re: potential co-morbidities including cardiovascular disease. Orders: - Basic Metabolic Panel; Future - Lipid Panel, Standard; Future - Hepatic Function Panel; Future Hypercholesterolemia Comments: Stable on Statin Labs ordered today Preop cardiovascular exam Comments: No identified contraindication to the procedure Pt is at low risk for the procedure Encounter for screening for malignant neoplasm of colon - Referral to Gastroenterology; Future Chronic right shoulder pain Comments: xray ordered Pt scheudled for shoulder injection Orders: - XR Shoulder 2+ Views Right; Future documented in this encounter Plan of Treatment Upcoming Encounters Date Type Department Care Team (Late st Contact Info) Description 05/27/2025 8:00 AM EDT Office Visit [facility] [address] [place], [place] [phone] Tahmina, Boni [address] [place], [place] [phone] 06/01/2025 10:00 AM EDT Procedure Visit [facility] [address] [place], [place] [phone] Nadya Mauro MD [address] [place], [place] [phone] 08/04/2025 9:00 AM EST Office Visit [facility] [address] [place] [address] Eliecer, Meg, OD [address] [place], [place] [phone] Scheduled Orders Name Type Priority Associated Diagnoses Orde r Schedule Basic Metabolic Panel Lab Routine Primary hypertension Expected: 05/25/2025 (Approximate), Expires: 05/25/2026 Lipid Panel, Standard Lab Routine Primary hypertension Expected: 05/25/2025 (Approximate), Expires: 05/25/2026 Hepatic Function Panel Lab Routine Primary hypertension Expected: 05/25/2025 (Approximate), Expires: 05/25/2026 Scheduled Referrals Name Type Priority Associated Diagnoses Order Schedule Referral to Gastroenterology Outpatient Referral Routine Encounter for screening for malignant neoplasm of colon Expected: 05/25/2025 (Approximate), Expires: 05/25/2026 documented as of this encounter Procedures Procedure Name Priority Date/Time Associated Diagnosis Comments XR SHOULDER 2+ VIEWS RIGHT Routine 05/25/2025 10:29 AM EDT Chronic right shoulder pain documented in this encounter Results * XR Shoulder 2+ Views Right (05/25/2025 10:29 AM EDT) Anatomical Region Laterality Modality Upper Extremities, Shoulder Right Radi ographic Imaging 05/25/2025 10:2 9 AM EDT Narrative 05/25/2025 10:42 AM EDT [facility] [address] [place] [address] XRay Report Signed Patient: Jimmy Elias MR#: [id number] : 1960 Acct:[id number] Age/Sex: 65 / M ADM Date: 05/25/25 Loc: [facility] Attending Dr: Nadya Mauro MD Ordering Physician: Nadya Mauro MD Date of Service: 05/25/25 Procedure(s): XR shoulder RT min 2V Accession Number(s): [id number] cc: Nadya Mauro MD Reason for Exam: pain EXAMINATION: XR SHOULDER 2 OR MORE VIEWS RIGHT HISTORY: pain COMPARISON: There are no prior studies available for comparison. FINDINGS: Four views of the right shoulder are submitted. Osseous mineralization is normal. There is a downsloping acromium. There is no fracture or dislocation. The glenohumeral joint is maintained. The AC joint is not well evaluated due to obliquity. The soft tissues are unremarkable. XR/XR shoulder RT min 2V IMPRESSION: Downsloping acromion. The AC joint is not well evaluated due to obliquity. Electronically signed by: Stu Beckham MD 05/25/2025 10:39 AM EDT Dictated By: Stu Beckham MD Signed By: <Electronically signed by Stu Beckham MD in OV> 05/25/25 1039 DD/ 1029 TD/TT: 05/25/25 1030 Purchase Price Analyst: Procedure Note Donotuseinterpreter, Image - 05/25/2025 [place] [id number] XRay Report Signed Patient: Dahlia EliasR#: [id number] : 1960cct:[id number] Age/Sex: 65 / MADM Date: 05/25/25 Loc: [facility] Attending Dr: Nadya Mauro MD Ordering Physician: Nadya Mauro MD Date of Service: 05/25/25 Procedure(s): XR shoulder RT min 2V Accession Number(s): [id number] cc: Nadya Mauro MD Reason for Exam: pain EXAMINATION: XR SHOULDER 2 OR MORE VIEWS RIGHT HISTORY: pain COMPARISON: There are no prior studies available for comparison. FINDINGS: Four views of the right shoulder are submitted. Osseous mineralization is normal. There is a downsloping acromium. There is no fracture or dislocation. The glenohumeral joint is maintained. The AC joint is not well evaluated due to obliquity. The soft tissues are unremarkable. XR/XR shoulder RT min 2V IMPRESSION: Downsloping acromion. The AC joint is not well evaluated due to obliquity. Electronically signed by: Stu Beckham MD 05/25/2025 10:39 AM EDT RP Dictated By: Stu Beckham MD Signed By: <Electronically signed by Stu Beckham MD in OV> 05/25/25 1039 DD/ 1029 TD/TT: 05/25/25 1030 Purchase Price Analyst: Nadya Mauro MD IMG XR PROCEDURES Edited Result - Final documented in this encounter Visit Diagnoses Diagnosis Primary hypertension- Primary Unspecified essential hypertension Hypercholesterolemia Pure hypercholesterolemia Preop cardiovascular exam Pre-operative cardiovascular examination Encounter for screening for malignant neoplasm of colon Chronic right shoulder pain Pain in joint, shoulder region documented in this encounter Additional Health Concerns Assessment Noted Time PHQ-9 Depression Total Score: 4 12/25/19 23 9:49 AM EDT documented as of this encounter Care Teams Street Contractor Relationship Specialty Start Date End Date Nadya Mauro MD [address] [place] [phone] PCP - General Family Medicine 08/11/12 documented as of this encounter
--- OUTSIDE RECORDS SUMMARY | 2025-05-25 10:59 | XMS_ITS | Encounter Summary ---
Author Organization [employer] Address [address] [facility] 7t [place] [address] Care Team Providers Care Judge Name Role Phone Nadya Mauro MD Primary Care Provider [phone] Reason for Visit * Reason Onset Date Comments Pre-op Exam 05/24/2025 chart prep 05/24/2025 Encounter Details Date Type Department Care Team ([facility] st Contact Info) Description 05/24/2025 Telephone C [facility] MED [facility] PEDS [address] [place], [place] [phone] Nadya Mauro MD [address] [place], [place] [phone] Pre-op Exam; chart prep Social History Tobacco Use Types Packs/Day Years [...] * Telephone Encounter - Erick Vazquez - 05/24/2025 4:16 PM EDT TC placed to pt several times today no answer/ finally got a hold of pt's sister who agreed to bring pt in at 09:30 am on 05/25 for pre-op with Dr Mauro ' Detailed VM left to Greg at [facility] * Telephone Encounter - Ning Mahomod [place] - 05/24/2025 11:28 AM EDT Chart Prep Labs: not applicable Images: not applicable Referrals: not applicable Vaccines due: Covid, Flu, Hep A, RSV, and Zoster Screenings: colonoscopy Overdue care gaps: PHQ-9 and JOSE-7 * Telephone Encounter - Ramón Godinez - 05/24/2025 10:13 AM EDT Date of Surgery: 06/03 Surgical procedure being done: cataract surgery (both) Type of anesthesia: MAC Lab needed: No EKG: No Surgeon's name: Judy norwood Facility name: [facility] Surgeon's office number: [phone] Surgeon's office fax number: [phone] Contact name (person you spoke with): paz Last office note from surgeon requested: Yes Send Message to Erick Vazquez documented in this encounter Plan of Treatment Upcoming Encounters Date Type Department Care Team ([facility] st Contact Info) Description 05/27/2025 8:00 AM EDT Office Visit [facility] ADULT DENTAL [address] [place], [place] [phone] Tahmina, Boni [address] [place] [address] 06/01/2025 10:00 AM EDT Procedure Visit [facility] MED & PEDS [address] [place], [place] [phone] Nadya Mauro MD [address] [place], [place] [phone] 08/04/2025 9:00 AM EST Office Visit [facility] OPTOMETRY [address] [place] [address] Eliecer, Meg, OD [address] [place] [address] documented as of this encounter Visit Diagnoses Not on filedocumented in this encounter Additional Health Concerns Assessment Noted Time PHQ-9 Depression Total Score: 4 12/25/19 23 9:49 AM EDT documented as of this encounter Care Teams Judge Relationship Specialty Start Date End Date Nadya Mauro MD [address] [place] [address] PCP - General Family Medicine 08/11/12 documented as of this encounter
--- OUTSIDE RECORDS SUMMARY | 2025-05-25 10:59 | XMS_ITS | Encounter Summary ---
Author Organization [email or web address] Address [address] [place] [address] 7t [place] [address] Care Team Providers Care Electrical Discharge Machine Operator Name Role Phone Nadya Mauro MD Primary Care Provider [phone] Encounter Details Date Type Department Care Team (Latest Contact Info) Description 06/07/2021 Abstract [facility] CON[facility] Dental, Provider, DDS Social History [...] Description 05/27/2025 8:00 AM EDT Office Visit [facility] ADULT D[facility]AL [address] [place] [address] Tahmina Boni [address] [place] [address] 06/01/2025 10:00 AM EDT Procedure Visit [facility] MED & PEDS [address] [place] [address] Nadya Mauro MD [address] [place] [address] 08/04/2025 9:00 AM EST Office Visit [facility] OPTOMETRY [address] [place] [address] Meg Gonzáles, OD [address] [place] [address] documented as of this encounter Visit Diagnoses Not on filedocumented in this encounter Care Teams Electrical Discharge Machine Operator Relationship Specialty Start Date End Date Nadya Mauro MD [address] [place] [address] PCP - General Family Medicine 08/11/12 documented as of this encounter
--- OUTSIDE RECORDS SUMMARY | 2025-05-25 10:59 | XMS_ITS | Encounter Summary ---
Author Organization [employer] Address [address] [facility] 7t [place] [address] Care Team Providers Care Coroner/Medical Examiner Name Role Phone Nadya Maruo MD Primary Care Provider [phone] Encounter Details Date Type Department Care Team (Latest Contact Info) Description 05/25/2025 Travel Social History Tobacco Use Types Packs/Day Years Used Date Smoking Tobacco: Never Passive Smoke Exposure: Never Smokeless Tobacco: Never Alcohol Use Standard Drinks/Week Comments Yes 0 (1 standard drink = 0.6 oz pur e alcohol) Depression Answer Date Recorded Patient Health Questionnaire-9 Score 4 12/24/2022 Housing Stability Answer Date Recorded What is your housing situation today? I have iwona maranda 01/04/[address] you li [...] Description 05/27/2025 8:00 AM EDT Office Visit [facility] ADULT DENTAL [address] [place] [address] Tahmina, Boni [address] [place] [address] 06/01/2025 10:00 AM EDT Procedure Visit [facility] MED & PEDS [address] [place], [place] [phone] Nadya Mauro MD [address] [place], [place] [phone] 08/04/2025 9:00 AM EST Office Visit [facility] OPTOMETRY [address] [place] [address] Eliecer, Meg, OD [address] [place] [address] documented as of this encounter Visit Diagnoses Not on filedocumented in this encounter Additional Health Concerns Assessment Noted Time PHQ-9 Depression Total Score: 4 12/25/19 23 9:49 AM EDT documented as of this encounter Care Teams Coroner/Medical Examiner Relationship Specialty Start Date End Date Nadya Mauro MD [address] [place] [address] PCP - General Family Medicine 08/11/12 documented as of this encounter
--- OUTSIDE RECORDS SUMMARY | 2025-05-25 10:59 | XMS_ITS | Encounter Summary ---
Author Organization [employer] Address [address] [facility] 7t [place] [address] Care Team Providers Care Cashier Associate Name Role Phone Nadya aMuro MD Primary Care Provider Reason for Visit * Reason Comments Med Refill Encounter Details Date Type Department Care Team ([facility] st Contact Info) Description 07/02/2023 Refill [facility] CHC MED & PEDS [address] [place], [place] [phone] Nadya Mauro MD [address] [place], [place] [phone] Social History Tobacco Use Types Packs/Day Years [...] Office Visit [facility] ADULT DENTAL [address] [place] [address] Boni Martel [address] [place] [address] 06/01/2025 10:00 AM EDT Procedure Visit [facility] MED & PEDS [address] [place] [address] Nadya Mauro MD [address] [place] [address] 08/04/2025 9:00 AM EST Office Visit [facility] OPTOMETRY [address] [place] [address] Eliecer, Meg, OD [address] [place] [address] documented as of this encounter Visit Diagnoses Not on filedocumented in this encounter Additional Health Concerns Assessment Noted Time PHQ-9 Depression Total Score: 4 12/25/19 23 9:49 AM EDT documented as of this encounter Care Teams Cashier Associate Relationship Specialty Start Date End Date Nadya Mauro MD [address] [place] [address] PCP - General Family Medicine 08/11/12 documented as of this encounter
--- OUTSIDE RECORDS SUMMARY | 2025-05-25 10:59 | XMS_ITS | Encounter Summary ---
Author Organization [employer] Address [address] [place] [address] 7t [place] [address] Care Team Providers Care Assistant Facility Manager Name Role Phone Nadya Mauro MD Primary Care Provider [phone] Encounter Details Date Type Department Care Team (Late Contact Info) Description 01/24/2023 Orders Only [facility] MED & PEDS [address] [place], [place] [phone] Herb Flores MD [address] [place] [address] Macrocytic anemia (Primary Dx) Social History Tobacco [...] Encounters Date Type Department Care Team (Late Contact Info) Description 05/27/2025 8:00 AM EDT Office Visit [facility] ADULT DENTAL [address] [place], [place] [phone] Boni Martel [address] [place] [address] 06/01/2025 10:00 AM EDT Procedure Visit [facility] MED & PEDS [address] [place], [place] [phone] Nadya Mauro MD [address] [place], [place] [phone] 08/04/2025 9:00 AM EST Office Visit [facility] OPTOMETRY [address] [place] [address] Eliecer, Meg, OD [address] [place] [address] Scheduled Orders Name Type Priority Associated Diagnoses [...] documented as of this encounter Care Teams Assistant Facility Manager Relationship Specialty Start Date End Date Nadya Mauro MD [address] [place] [address] PCP - General Family Medicine 08/11/12 documented as of this encounter
--- OUTSIDE RECORDS SUMMARY | 2025-05-25 10:59 | XMS_ITS | Encounter Summary ---
Author Organization [employer] Address [address] [place] [address] 7[address] [place] [address] Care Team Providers Care Marketing Designer Name Role Phone Nadya Mauro MD Primary Care Provider [phone] Reason for Visit * Reason Comments Med Refill Encounter Details Date Type Department Care Team (Late st Contact Info) Description 05/06/2023 Refill [facility] MED & PEDS [address] [place], [place] [phone] Nadya Mauro MD [address] [place] [address] Pain Social History Tobacco Use Types Packs/Day [...] 8:00 AM EDT Office Visit [facility] ADULT DENTAL [address] [place] [address] Boni Martel [address] [place] [address] 06/01/2025 10:00 AM EDT Procedure Visit [facility] CHC MED & PEDS [address] [place], [place] [address] Nadya Mauro MD [address] [place], [place] [phone] 08/04/2025 9:00 AM EST Office Visit [facility] OPTOMETRY [address] [place], [place] [phone] Meg Gonzáles, OD [address] [place] [address] documented as of this encounter Visit Diagnoses Diagnosis Pain Generalized pain documented in this encounter Additional Health Concerns Assessment Noted Time PHQ-9 Depression Total Score: 4 12/25/19 23 9:49 AM EDT documented as of this encounter Care Teams Marketing Designer Relationship Specialty Start Date End Date Nadya Mauro MD [address] [place] [address] PCP - General Family Medicine 08/11/12 documented as of this encounter
--- OUTSIDE RECORDS SUMMARY | 2025-05-25 10:59 | XMS_ITS | Clinical Summary ---
Author Organization [employer] Address [address] [facility] 7[address] [place] [address] Care Team Providers Care Race Relations Adviser Name Role Phone Nadya Mauro MD Primary Care Provider [phone] Allergies No known active allergies Medications GaviLAX [...] A DAY 180 tablet 1 4 Active thiamine (Vitamin B-1) 100 MG tablet TAKE 1 TABLET BY MOUTH EVERY DAY IN THE MORNING 90 tablet 4 Active ibuprofen 600 MG tabletIndication s:Pain TAKE 1 TABLET BY MOUTH TWICE A DAY 60 tablet 3 5 Active tadalafil (Cialis) 20 MG tablet TAKE 1 TABLET BY MOUTH 30MIN BEFORE SEXUALLY ACTIVITY NEEDED 5 Active zolpidem (Ambien) 10 MG tabletIndication s:Insomnia, unspecified Take 1 tablet (10 mg) by mouth if needed at bedtime for sleep. TAKE 1 TABLET BY MOUTH EVERY EVENING NEEDED 10 tablet 3 5 Active Multiple Vitamin (multivitamin) tablet Take 1 tablet by mouth Once per day. 90 tablet 3 5 Active albuterol 108 (90 Base) MCG/ACT inhalerIndicatio ns:Asthma, unspecified asthma severity, unspecified whether complicated, unspecified whether persistent INHALE 2 PUFFS IN THE MORNING, AT NOON, IN THE EVENING, AND AT BEDTIME. 18 g 1 Active tamsulosin (Flomax) 0.4 MG 24 hr capsule Active Active Problems Problem Noted Date Diagnosed Date Cirrhosis of liver with ascites 01/22/2025 Primary hypertension 05/01/2023 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 Asthma 06/09/2013 Hypercholesterolemia 05/18/2013 Encounters Date Type Department Care Team Description 05/25/2025 9:30 AM EDT Office Visit [facility] [address] [place] [address] Nadya Mauro MD Primary hypertension (Primary Dx); Hypercholesterolemia; Preop cardiovascular exam; Encounter for screening for malignant neoplasm of colon; Chronic right shoulder pain 05/25/2025 Travel 05/24/2025 Telephone [facility] [address] [place] [address] Nadya Mauro MD Pre-op Exam; chart prep 05/18/2025 Patient Outreach [facility] [address] [place] [address] Nadya Mauro MD Pre-visit Planning (SDOH screening completed on 01/04/25 ) 04/23/2025 8:30 AM EDT Office Visit [facility] AD[facility] DENT[facility] [address] [place] [address] Boni Martel 04/16/2025 11:15 AM EDT Clinical Support [facility] [address] [place] [address] Ellie Cook, LUI Primary hypertension 04/16/2025 Travel 03/18/2025 Refill [facility] [address] [place] [address] Nadya Mauro MD Asthma, unspecified asthma severity, unspecified whether complicated, unspecified whether persistent 03/05/2025 Telephone [facility] [address] [place] [address] Boni Martel PA and appt 03/03/2025 Orders Only GENERIC EXTERNAL DATA DEPARTMENT Provider, Generic External Data 02/24/2025 11:00 AM EDT Office Visit [facility] [address] [place] [address] Nadya Mauro MD Primary hypertension (Primary Dx); Alcoholic cirrhosis of liver with ascites (CMS/HCC); Weight loss 02/24/2025 Travel from Last 3 Months Immunizations Immunization Administration Dates Next Due Hep B, adult 04/13/2005,11/11/2003,09/10/2003 Influenza High-dose Quadriva lent Preservative Free 07/20/2024 Influenza Injectable Quadriv alant Preservative Free IIV4 MDCK 07/26/2023,06/15/2019 Influenza injectable quadriv alent IIV4 with preservative 06/04/2018,06/27/2017 Influenza injectable quadriv alent preservative free 07/06/2022,06/16/2021,07/18/2016,06/02 Influenza, High Dose Seasona l, Preservative Free 04/24/2025,07/20/2024 Influenza, IIV3, injectable 06/08/2014 Influenza, Split (incl. arnoldo fied surface antigen) 05/20/2013,04/30/2012 Pneumococcal Conjugate PCV 20 07/26/2023 Pneumococcal Polysaccharide PPSV23 11/30/2005 RSV Bivalent 04/24/2025 TD (adult), 2 Lf tetanus tox oid, [...] 18 05/25/2025 9:46 AM EDT Oxygen Saturation 99% 01/04/2025 9:39 AM EDT Inhaled Oxygen Concentration - - Weight 69.9 kg (154 lb) 05/25/2025 9:46 AM EDT Height 165.1 cm (5' 5 ) 05/25/2025 9:46 AM EDT Body Mass Index 25.63 05/25/2025 9:46 AM EDT Plan of Treatment Upcoming Encounters Date Type Department Care Team (Late st Contact Info) Description 05/27/2025 8:00 AM EDT Office Visit [facility] [address] [place] [address] Boni Martel [address] [place] [address] 06/01/2025 10:00 AM EDT Procedure Visit [facility] [address] [place] [address] Nadya Mauro MD [address] [place] [address] 08/04/2025 9:00 AM EST Office Visit [facility] OPTOMETRY [address] [place] [address] EliecerMeg banegas, OD [address] [place] [address] Health Maintenance Due Date Last Done Comments CT Colonography 1960 Colonoscopy 1960 Colorectal Cancer Screening 1960 FIT DNA/Cologuard 1959 FIT 1959 FOBT 1959 Sigmoidoscopy 1959 Alcohol/Substance Use Screening 1971 Hepatitis A Vaccines (1 of 2 - Risk 2-dose series) 1978 Zoster Vaccines (2 of 2) 08/11/2021 06/16/2021 Depression Screening 12/25/2023 12/24/2022, 12/25/19 23 COVID-19 Vaccine ( season) 2025 07/20/2024, 07/06/2022, 07/26/2021, Additional history exists Dental X-Ray: Bitewings 05/21/2025 05/20/2024, 12/25 Dental Prophylaxis 07/31/2025 01/28/2025, 0 05/20/2024, 10/01/2023, Additional history exists Dental Oral Exam 08/08/2025 02/05/2025, , 12/25/2022 SDOH Screening 01/04/2026 01/04/2025 Tobacco Screening 04/23/2026 04/23/2025 Dental X-Ray: Full Mouth 05/21/2027 05/20/2024 DTaP/Tdap/Td Vaccines (2 - Td or Tdap) 06/27/2027 06/27/2017, 11/30/2005 Lipid Panel 01/19/2028 01/18/2023, 03/16/2022 Hepatitis B Vaccines Completed 04/13/2005, 11/11/2003, 09/10/2003 Pneumococcal Vaccine: 50+ Years Completed 07/26/2023, 11/30/2005 Hepatitis C Screening Completed 12/30/2024 , 12/29/2024, 12/29/2024 Influenza Vaccine Completed 04/24/2025, , 07/20/2024, Additional history exists RSV Patients and Patients Aged 60 years or older Completed 04/24/2025 HIB Vaccines Aged Out No longer eligi [...] 10:29 AM EDT Chronic right shoulder pain CASE PRESENTATION, DETAILED AND EXTENSIVE TREATMENT PLANNING Routine 04/23/2025 8:30 AM EDT 31 O RESIN-BASED COMPOSITE - 1 SURF, POSTERIOR Routine 04/23/2025 8:30 AM EDT TESTOSTERONE, FREE (DIALYSIS) AND TOTAL,MS Routine 03/03/2025 7:33 AM EDT PSA, TOTAL Routine 03/03/2025 7:33 AM EDT COMPREHENSIVE METABOLIC PANEL Routine 03/03/2025 7:33 AM EDT CBC Routine 03/03/2025 7:33 AM EDT PROTHROMBIN TIME-INR Routine 03/03/2025 7:33 AM EDT ALBUMIN, RANDOM URINE W/CREATININE Routine 03/03/2025 7:33 AM EDT Jaundice Alcohol abuse PERIODIC ORAL EVALUATION - ESTABLISHED PATIENT Routine 02/05/2025 1:30 PM EDT PROPHYLAXIS - ADULT Routine 01/28/2025 1 0:00 AM EDT HEPATITIS PANEL, GENERAL Routine 12/30/2024 1:19 PM EDT INTRAORAL - COMPLETE SERIES OF RADIOGRAPHIC IMAGES Routine 05/20/2024 10:00 AM EDT LIPID PANEL, STANDARD Routine 01/18/2023 9:28 AM EDT from Last 3 Months or Most Recently Relevant to Health Maintenance Results * XR Shoulder 2+ Views Right (05/25/2025 10:29 AM EDT) Anatomical Region Laterality Modality Upper Extremities, Shoulder Right Radi ographic Imaging 05/25/2025 10:2 9 AM EDT Narrative 05/25/2025 10:42 AM EDT [place] [address] XRay Report Signed Patient: Jimmy Elias MR#: [id number] : 1960 Acct:[id number] Age/Sex: 65 / M ADM Date: 05/25/25 [facility] Dr: Nadya Mauro MD Ordering Physician: Nadya Mauro MD Date of Service: 05/25/25 Procedure(s): XR shoulder RT min 2V Accession Number(s): [id number] cc: Nadya Mauro MD Reason for Exam: [...] 05/25/25 1039 DD/ 1029 TD/TT: 05/25/25 1030 Senior Grants Officer: Procedure Note Donotuseinterpreter, Image - 05/25/2025 [place] [address] XRay Report Signed Patient: Lisbeth Elias#: [id number] : 9Acct:[id number] Age/Sex: 65 / MADM Date: 05/25/25 Loc: [facility] Attending Dr: Nadya Mauro MD Ordering Physician: Nadya Mauro MD Date of Service: 05/25/25 Procedure(s): XR shoulder RT min 2V Accession Number(s): [id number] cc: Nadya Mauro MD Reason for Exam: [...] 05/25/25 1039 DD/ 1029 TD/TT: 05/25/25 1030 Senior Grants Officer: Nadya Mauro MD IMG XR PROCEDURES Edited Result - Final * Albumin, Random Urine W/Creatinine (03/03/2025 7:33 AM EDT) Creatinine, Urine 287.42 mg/dL [facility] Microalbumin Urine 9.0 mg/L H [facility] Microalbum Creatinine Ratio Ur 3.1 <30 ug/mg cr [facility] Comment:Albumin/Creatinine R atio Reference Ranges: Normal: < 30 ug/mg creatinine Microalbuminuria: 30 - 300 ug/mg creatinineClinical Albuminuria: > 300 ug/mg creatinine Urine (Urine, Random) 03/03/2025 7:33 AM EDT 03/03/2025 7:57 AM EDT us Bailee Huggins MD LAB URINE ORDERABLES Final Re sult Performing Organization Address [facility] Co de Phone Number [facility] [address] [place] [phone] * (ABNORMAL) Prothrombin Time-INR (03/03/2025 7:33 AM EDT) Prothrombin Time 15.0(H) 10.9 - 12.4 SEC [facility] INTERNATIONAL NORM RATIO 1.3(H) 0.9 - 1.1 [facility] Comment:INTERNATIONAL NORMAL IZED RATIO (INR) [...] ORDERAB LES Final Result Performing Organization Address [facility] Co de Phone Number [facility] [address] [place] [phone] * (ABNORMAL) CBC (03/03/2025 7:33 AM EDT) White Blood Count 3.8(L) 4.8 - 10.8 X10*3/uL [facility] Red Blood Count 3.70(L) 4.60 - 5.80 X10*6/uL [facility] Hemoglobin 13.0(L) 14.0 - 18.0 g/dl [facility] Hematocrit 36.6(L) 42.0 - 52.0 % [facility] Mean Corpuscular Volume 98.9(H) 80.0 - 98.0 fL [facility] Mean Corpuscular Hemoglobin 35.1(H) 27.0 - 33.0 pg [facility] Mean Corpuscular HGB Conc 35.5 31.0 - 36.0 g/dl [facility] Red Cell Distribution Width 12.2 11.0 - 16.0 % [facility] Platelet Count 110(L) 160 - 400 X10*3/uL [facility] Mean Platelet Volume 10.7 9.4 - 12.4 fL [facility] NRBC Pct Auto 0.0 0.0 - 0.2 /100WBC [facility] NRBC Abs Auto 0.000 0.0 - 0.012 X10*3/uL [facility] 03/03/2025 7:33 AM EDT 03/03/2025 8:52 AM EDT us Generic External Data Provider LAB BLOOD ORDERAB LES Final Result [facility] [address] [place] [address] [phone] * Testosterone, Free (Dialysis) And Total, MS (03/03/2025 7:33 AM EDT) Testosterone, Total 620 250 - 1100 ng/dL [facility] Comment:Men with clinically significant hypogonadalsymptoms and testosterone values repeatedly inthe range of the 200-300 ng/dL or less, maybenefit from testosterone treatment afteradequate risk and benefits counseling.For additional information, please refer [email or web address]/faq/[email or web address](This link is being provided for informational/educational purposes only.)This test was developed and its analytical performancecharacteristics have been determined by [employer], [place]. It hasnot been cleared or approved by the U.S. Food and DrugAdministration. This assay has been validated pursuantto the CLIA regulations and is used for clinicalpurposes. Testosterone, Free 47.1 35.0 - 155.0 pg/mL [facility] Comment:This test was develo ped and its analytical performancecharacteristics have been determined by [employer] [place], [place]. It hasnot been cleared or approved by the U.S. Food and DrugAdministration. This assay has been validated pursuantto the CLIA regulations and is used for clinicalpurposes.THIS TEST WAS PERFORMED AT:[id number] [place] [id number] PEREZ MD,PHD 03/03/2025 7:33 AM EDT 03/03/2025 8:52 AM EDT Generic External Data Provider LAB BLOOD ORDERAB LES Final Result Performing Organization Address City/[facility] de Phone Number [facility] [address] [place] [phone] * PSA,Total (03/03/2025 7:33 AM EDT) Prostate Specific Antigen 0.33 <0.05 - 4.0 ng/mL [facility] Comment:PSA methodology: Abb noelle Alinity i ChemiluminescentMicroparticle Immunoassay (CMIA) 03/03/2025 7:33 AM EDT 03/03/2025 8:52 AM EDT Generic External Data Provider LAB BLOOD ORDERAB LES Final Result [facility] [address] [place] [address] [phone] * (ABNORMAL) Comprehensive Metabolic Panel (03/03/2025 7:33 AM EDT) Sodium 138 135 - 145 mmol/L [facility] Potassium 3.9 3.3 - 5.1 mmol/L [facility] Chloride 110(H) 96 - 108 mmol/L [facility] Carbon Dioxide 20(L) 22 - 29 mmol/L [facility] Anion Gap 12 12 - 20 [facility] Urea Nitrogen (BUN) 13 9 - 16 mg/dL [facility] Creatinine, Serum 0.58 0.5 - 1.4 mg/dL [facility] Estimated Glomerular Filt Rate >60 [facility] Comment:Chronic Kidney Disea se: Estimated GFR < 60 mL/min/1.03j2Gqcesm Kidney Disease: Estimated GFR < 15 mL/min/1.73m2 Glucose 101 60 - 115 mg/dL [facility] Calcium 9.2 8.4 - 10.2 mg/dL [facility] Bilirubin, Total 3.7(H) 0.0 - 1.0 mg/dL [facility] Comment:Slight Icterus. Aspartate Amino Transferase 45(H) 5 - 37 U/L [facility] Alanine Aminotransferase 29 0 - 40 U/L [facility] Total Protein 7.1 6.5 - 8.0 g/dL [facility] Albumin Level 3.7 3.5 - 5.0 g/dL [facility] Alkaline Phosphatase 114 39 - 117 U/L [facility] 03/03/2025 7:33 AM EDT 03/03/2025 8:52 AM EDT us Generic External Data Provider LAB BLOOD ORDERAB LES Final Result Performing Organization Address [facility]/ZIP Co de Phone Number [facility] [address] [place] [phone] * (ABNORMAL) Hepatitis Panel, General (12/30/2024 1:19 PM EDT) Hepatitis A IgM Nonreactive Nonreactive [facility] Comment:IgM antibodies to BETTS V not detected; does not exclude earlyacute or recovered HAV infection. ~Hepatitis B Surface Antibody NONREACTIVE Nonreactive [facility] Comment:Nonreactive: < 8.00 mIU/mL Hepatitis B Core Antibody Reactive Nonreactive [facility] Comment:Presumptive evidence of anti-HBc. Hepatitis C Antibody Reactive(A) Nonreactive [facility] Comment:Presumptive evidence of antibodies to HCV. Hepatitis B Surface Ag Negative Negative [facility] 12/30/2024 1:19 PM EDT 12/30/2024 1:24 PM EDT us Generic External Data Provider LAB BLOOD ORDERAB LES Final Result [facility] [address] [place] [phone] * Lipid Panel, Standard (01/18/2023 9:28 AM EDT) Triglycerides 58 mg/dL [facility] Comment:Desirable Triglyceri de: less than 150 mg/dLBorderline High Triglyceride 150-199 mg/dLHigh Triglyceride: 200-499 mg/dLVery High Triglyceride: greater than or equal to 5OO mg/dL Cholesterol 237 mg/dL [facility] Comment:Desirable Cholestero l: less than 200 mg/dLBorderline High Cholesterol: 200-239 mg/dLHigh Cholesterol: greater than 239 mg/dL LDL Cholesterol Calculated 171 mg/dl [facility] Comment:Desirable LDL: less than 100 mg/dLNear Optimal/Above Optimal LDL: 110- 129 mg/dLBorderline High LDL: 130-159 mg/dLHigh LDL: 160-189 mg/dLVery High LDL: greater than or equal to 190 mg/dL HDL Cholesterol 55 mg/dL [facility] Comment:Desirable HDL: great er than 40 mg/dL Note: This HDL assay may give artificially low results in patients with liver disease. 01/18/2023 9:28 AM EDT 01/18/2023 10:49 AM EDT [facility] External Provider LAB BLO OD ORDERABLES Final Result [facility] [address] [place] [phone] from Last 3 Months or Most Recently Relevant to Health Maintenance Insurance [facility] OPTIONS (HMO D-SNP) DENTAL [facility] Care Teams Race Relations Adviser Relationship Specialty Start Date End Date Nadya Mauro MD [address] [place] [phone] PCP - General Family Medicine 08/11/12
--- OUTSIDE RECORDS SUMMARY | 2025-05-25 10:59 | XMS_ITS | Encounter Summary ---
Author Organization [employer] Address [address] [facility] [address] [place] [address] Care Team Providers Care Credentialer Name Role Phone Nadya Mauro MD Primary Care Provider [phone] Reason for Visit * Reason Onset Date Comments PA and appt 03/05/2025 Encounter Details Date Type Department Care Team ([facility] st Contact Info) Description 03/05/2025 Telephone [facility] [address] [place], [place] [phone] Boni Martel [address] [place], [place] [phone] PA and appt Social History Tobacco Use Types Packs/Day Years [...] encounter Miscellaneous Notes * Telephone Encounter - Emelia Jae - 03/05/2025 11:50 AM EDT Patient is checking in if insurance is going to cover for Occlusal guard. Unable to find approval for treatment as of yet scanned in. Also checking in on appt. Informed patient that his appts are active requested and he will receive a call when it is his turn to be scheduled. Patient understood DR documented in this encounter Plan of Treatment Upcoming Encounters Date Type Department Care Team (Late st Contact Info) Description 05/27/2025 8:00 AM EDT Office Visit [facility] [address] [place] [address] Boni Martel [address] [place] [address] 06/01/2025 10:00 AM EDT Procedure Visit [facility] [address] [place] [address] Nadya Mauro MD [address] [place] [address] 08/04/2025 9:00 AM EST Office Visit [facility] [address] [place] [address] Meg Gonzáles, OD [address] [place] [address] documented as of this encounter Visit Diagnoses Not on filedocumented in this encounter Additional Health Concerns Assessment Noted Time PHQ-9 Depression Total Score: 4 12/25/19 23 9:49 AM EDT documented as of this encounter Care Teams Credentialer Relationship Specialty Start Date End Date Nadya Mauro MD [address] [place] [phone] PCP - General Family Medicine 08/11/12 documented as of this encounter
[2025-05-25 15:29] LABS: Alanine Aminotransferase 53 U/L (0-40); Albumin Level 4.0 g/dL (3.5-5.0); Alkaline Phosphatase 148 U/L (39-117); Anion Gap 11 (12-20); Aspartate Amino Transferase 51 U/L (5-37); Blood Urea Nitrogen 21 mg/dL (9-16); Calcium 10.0 mg/dL (8.4-10.2); Carbon Dioxide 22 mmol/L (22-29); Chloride 112 mmol/L (96-108); Cholesterol 169 mg/dL (<200); Estimated Glomerular Filt Rate > 60; HDL Cholesterol 39 mg/dL (>40); Potassium 4.2 mmol/L (3.3-5.1); Sodium 141 mmol/L (135-145); Total Protein 7.3 g/dL (6.5-8.0); Triglycerides 62 mg/dL (<150)
== END 2025-05-25 10:00 | disposition home or self-care (01) ==
LOC: HO.CHCLDS 09:59
PROVIDERS: PCP Student in an Organized Health Care Education/Training Program; Visit Provider Student in an Organized Health Care Education/Training Program
DX: M25.511 Pain in right shoulder (principal); G89.29 Other chronic pain; I10 Essential (primary) hypertension
CPT/HCPCS: 36415; 73030; 80048; 80061; 80076

== ENCOUNTER → 2025-05-25 10:25 | Outpatient (BNV) | payer OTHER, SELFPAY | PROVIDERS: PCP Student in an Organized Health Care Education/Training Program; Visit Provider Radiology Diagnostic Radiology | DX: M25.511 Pain in right shoulder (principal) | CPT/HCPCS: 73030 ==

== ENCOUNTER 2025-05-26 12:56 | Outpatient (AMB) | payer OTHER, SELFPAY ==
--- OUTSIDE RECORDS SUMMARY | 2025-05-25 09:30 | XMS_ITS | Encounter Summary ---
Author Organization [employer] Address [address] [place] [address] 7t [place] [address] Care Team Providers Care Commercial Lines Sales Executive Name Role Phone Nadya Mauro MD Primary Care Provider [phone] Reason for Referral * Consultation (Routine) - Canceled Specialty Diagnoses / Procedures Referred By Ana cole Referred To Contact Gastroenterology Diagnoses Encounter for screening for malignant neoplasm of colon Nadya Mauro MD [address] [place] [address] Phone: tel: fax: Referral ID Status Reason Start Date Expiration Date Visits Requested Visits Authorized [id number] Canceled Specialty Services Required 05/25/2025 05/25/2026 1 1 Reason for Visit * Reason Comments Pre-op Exam Encounter Details Date Type Department Care Team (Latest Contact Info) Description 05/25/2025 9:30 AM EDT Office Visit [facility] MED & PEDS [address] [place] [address] Nadya Mauro MD [address] [place], [place] [phone] Primary hypertension (Primary Dx); Hypercholesterolemia; Preop cardiovascular [...] Description 05/27/2025 8:00 AM EDT Office Visit [facility] ADULT DENTAL [address] [place], [place] [phone] Tahmina, Boni [address] [place], [place] [phone] 06/01/2025 10:00 AM EDT Procedure Visit [facility] CHC MED & PEDS [address] [place], [place] [phone] Nadya Mauro MD [address] [place], [place] [phone] 08/04/2025 9:00 AM EST Office Visit [facility] OPTOMETRY [address] [place] [address] EliecerSurjitn, OD [address] [place], [place] [phone] Scheduled Referrals Name Type Priority Associated Diagnoses Order Schedule Referral to Gastroenterology Outpatient Referral Routine Encounter for screening for malignant neoplasm of colon Expected: 05/25/2025 (Approximate), Expires: 05/25/2026 documented as of this encounter Procedures Procedure Name Priority Date/Time Associated Diagnosis Comments XR SHOULDER 2+ VIEWS RIGHT Routine 05/25/2025 10:29 AM EDT Chronic right shoulder pain HEPATIC FUNCTION PANEL Routine 05/25/2025 10:01 AM EDT Primary hypertension LIPID PANEL, STANDARD Routine 05/25/2025 10:01 AM EDT Primary hypertension BASIC METABOLIC PANEL Routine 05/25/2025 10:01 AM EDT Primary hypertension documented in this encounter Results * XR Shoulder 2+ Views Right (05/25/2025 10:29 AM EDT) Anatomical Region Laterality Modality Upper Extremities, Shoulder Right Radi ographic Imaging 05/25/2025 10:2 9 AM EDT Narrative 05/25/2025 10:42 AM EDT [facility] [address] [place] [address] XRay Report Signed Patient: Jamie MorillontMartin diazJimmy MR#: [id number] : 1960 Acct:[id number] Age/Sex: 65 / M ADM Date: 05/25/25 Loc: [facility] Attending Dr: Nadya Mauro MD Ordering Physician: Nadya Mauro MD Date of Service: 05/25/25 Procedure(s): XR shoulder RT min 2V Accession Number(s): [id number] cc: Nadya Mauro MD Reason for Exam: [...] 05/25/25 1039 DD/ 1029 TD/TT: 05/25/25 1030 Filtering Machine Tender: Procedure Note Donotuseinterpreter, Image - 05/25/2025 [place] [address] XRay Report Signed Patient: Lisbeth Elias#: [id number] : 1960cct:[id number] Age/Sex: 65 / MADM Date: 05/25/25 Loc: [facility] Attending Dr: Nadya Mauro MD Ordering Physician: Nadya Mauro MD Date of Service: 05/25/25 Procedure(s): XR shoulder RT min 2V Accession Number(s): [id number] cc: Nadya Mauro MD Reason for Exam: [...] 05/25/25 1039 DD/ 1029 TD/TT: 05/25/25 1030 Filtering Machine Tender: Nadya Mauro MD IMG XR PROCEDURES Edited Result - Final * (ABNORMAL) Hepatic Function Panel (05/25/2025 10:01 AM EDT) Bilirubin, Total 1.2(H) 0.0 - 1.0 mg/dL [facility] Bilirubin, Direct 0.5 0.0 - 0.5 mg/dL [facility] Aspartate Amino Transferase 51(H) 5 - 37 U/L [facility] Alanine Aminotransferase 53(H) 0 - 40 U/L [facility] Total Protein 7.3 6.5 - 8.0 g/dL [facility] Albumin Level 4.0 3.5 - 5.0 g/dL [facility] Alkaline Phosphatase 148(H) 39 - 117 U/L [facility] Blood Venous blood specimen / Unknown 05/25/2025 10:01 AM EDT 05/25/2025 2:09 PM EDT Nadya Mauro MD LAB BLOOD ORDERABLES Final Resul t [facility] [address] [place] [address] [phone] * (ABNORMAL) Lipid Panel, Standard (05/25/2025 10:01 AM EDT) Triglycerides 62 <150 mg/dL [facility] Comment:Desirable Triglyceri de: less than 150 mg/dLBorderline High Triglyceride 150-199 mg/dLHigh Triglyceride: 200-499 mg/dLVery High Triglyceride: greater than or equal to 5OO mg/dL Cholesterol 169 <200 mg/dL [facility] Comment:Desirable Cholestero l: less than 200 mg/dLBorderline High Cholesterol: 200-239 mg/dLHigh Cholesterol: greater than 239 mg/dL LDL Cholesterol Calculated 118(H) <100 mg/dL [facility] Comment:Desirable LDL: less than 100 mg/dLNear Optimal/Above Optimal LDL: 110- 129 mg/dLBorderline High LDL: 130-159 mg/dLHigh LDL: 160-189 mg/dLVery High LDL: greater than or equal to 190 mg/dL HDL Cholesterol 39(L) >40 mg/dL [facility] Comment:Desirable HDL: great er than 40 mg/dL Note: This HDL assay may give artificially low results in patients with liver disease. Blood Venous blood specimen / Unknown 05/25/2025 10:01 AM EDT 05/25/2025 2:09 PM EDT us Nadya Mauro MD LAB BLOOD ORDERABLES Final Resul t [facility] [address] [place] [address] [phone] * (ABNORMAL) Basic Metabolic Panel (05/25/2025 10:01 AM EDT) Sodium 141 135 - 145 mmol/L [facility] Potassium 4.2 3.3 - 5.1 mmol/L [facility] Chloride 112(H) 96 - 108 mmol/L [facility] Carbon Dioxide 22 22 - 29 mmol/L [facility] Anion Gap 11(L) 12 - 20 [facility] Urea Nitrogen (BUN) 21(H) 9 - 16 mg/dL [facility] Creatinine, Serum 0.60 0.5 - 1.4 mg/dL [facility] Estimated Glomerular Filt Rate >60 [facility] Comment:Chronic Kidney Disea se: Estimated GFR < 60 mL/min/[id number] Kidney Disease: Estimated GFR < 15 mL/min/1.73m2 Glucose 101 60 - 115 mg/dL [facility] Calcium 10.0 8.4 - 10.2 mg/dL [facility] Blood Venous blood specimen / Unknown 05/25/2025 10:01 AM EDT 05/25/2025 2:09 PM EDT us Nadya Mauro MD LAB BLOOD ORDERABLES Final Resul t Performing Organization Address City/State/[facility] Co de Phone Number [facility] [address] [place] [address] [phone] documented in this encounter Visit Diagnoses Diagnosis [...] documented as of this encounter Care Teams Commercial Lines Sales Executive Relationship Specialty Start Date End Date Nadya Mauro MD [address] [place] [phone] PCP - General Family Medicine 08/11/12 documented as of this encounter
--- NOTE | 2025-05-26 13:14 | MHC.OFFVIS ---
Vital Signs 05/26/25 13:32 Height 5 ft 5 in Weight 152 lb 1.903 oz BMI 25.3 BP 110/65 Blood Pressure Location Lt brachial Position Sitting Pulse 58 Intake Visit Reasons: Liver Disease Intake Note: Jimmy presents in the office as a new patient for Liver disease. CC: States that he is not having any concerns or symptoms. 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 Was seen inpatient during hospitalization five months ago for alcoholic hepatitis. Unfortuanately pt left AMA at that time. Today, reports significant improvement overall health since cessation with concurrent improvement in liver function. Initial bilirubin noted at 25, improved to 3, and currently stable at 1.2. The patient ceased alcohol in December, reports abstinence since then. No family history of liver disease except a cousin. Denies any tobacco or drug use. Reports easy bruising. Last colonoscopy was in 2021. He had x10 mm T.A. PFSH Medical History Elevated cholesterol Asthma Hx of sprain of wrist Surgical History Hx of colonoscopy Family History Mother Advanced dementia Diabetes HTN (hypertension) Father HTN (hypertension) Social History Household Members: None Household Members Other:: 0 Housing: Apartment Do you presently have visiting nurse or other home services: No Alcohol intake: current Alcohol intake frequency: 3 or more drinks per day Alcohol type: wine Patient Tobacco Use Status: Never used Tobacco e-Cigarette/Vaping Use: Never Used Second Hand Smoke Exposure: No service: No Current occupational status: disabled Review of Systems Const Details: - Gastrointestinal: Reports feeling well; denies current liver symptoms - General: Denies recent admissions, except the past hospitalization for liver issues - Hematologic: Reports easy bruising - Social: Denies tobacco, alcohol, drug use; adheres to non-drinking lifestyle Physical Exam Exam Exam: No apparent distress Nonicteric Abdomen soft, nondistended, hepatomegaly Alert and oriented x3, normal gait Echymosis Vital Signs: Last Vital Signs Pulse 58 05/26/25 13:32 BP 110/65 05/26/25 13:32 BMI result Body Mass Index 25.3 Assessment & Plan Assessment & Plan (1) Alcohol use disorder: Code(s): F10.90 - Alcohol use, unspecified, uncomplicated Category: Medical (2) Hepatitis: Code(s): K75.9 - Inflammatory liver disease, unspecified Category: Medical (3) Cirrhosis: Code(s): K74.60 - Unspecified cirrhosis of liver Category: Medical (4) Alcoholic hepatitis with ascites: Code(s): K70.11 - Alcoholic hepatitis with ascites Category: Medical (5) Tubular adenoma of colon: Code(s): D12.6 - Benign neoplasm of colon, unspecified Category: Medical (6) Thrombocytopenia: Code(s): D69.6 - Thrombocytopenia, unspecified Category: Medical Plan 1. Alcoholic liver disease with admission for alc hep 12/2024. - Encourage abstinence. - No HE or ascites on exam today - liver ultrasound for HCC screening. - Check CBC and INR for meld - EGD for variceal surveillance 2. History of colon polyps - Due for colonoscopy -PEG prep reviewed and instructions reviewed. -Handout provided as well. Follow up after --- Pt was informed and consented to the use of ambient scribe for this encounter. --- Orders: Orders Complete Blood Count no Diff Today K74.60 - Unspecified cirrhosis of liver US abdomen complete Today K74.60 - Unspecified cirrhosis of liver Prothrombin Time INR Today K74.60 - Unspecified cirrhosis of liver Phosphatidylethanol, Blood Today K74.60 - Unspecified cirrhosis of liver Referrals GI Procedure Notification K74.60 - Unspecified cirrhosis of liver, Z86.0100 - Personal history of colon polyps, unspecified Medications: New peg 3350-electrolytes 236-22.74-6.74 -5.86 gram (Golytely) as per split prep instructions, until fecal effluent is clear 240 mL PO Q10M 4,000 mL 0RF colonoscopy Patient Instructions: - Continue avoiding alcohol completely. - Blood work today. - Radiology dept will call you for liver ultrasound. - Office will call you for colonoscopy and upper endoscopy. - follow up in office after procedures Coding Level of Care Code Est Pt Level 5 (85701) Complex EM visit Add On G2211 Diagnoses Alcohol use disorder F10.90 Hepatitis K75.9 Cirrhosis K74.60 Alcoholic hepatitis with ascites K70.11 Tubular adenoma of colon D12.6 Thrombocytopenia D69.6
[2025-05-26 13:32] VITALS: BP 110/65; PULSE 58; BMI 25.3
--- OUTSIDE RECORDS SUMMARY | 2025-05-26 14:11 | XMS_ITS | Clinical Summary ---
Author Organization [employer] Address [address] [facility] 7t [place] [address] Care Team Providers Care Aquatics Instructor Name Role Phone Nadya Mauro MD Primary Care Provider Allergies No known active allergies Medications GaviLAX [...] Encounters Date Type Department Care Team Description 05/26/2025 Telephone [facility] [address] [place] [address] Nadya Mauro MD Transition Of Care (Tcm) 05/26/2025 Results Follow-Up [facility] [address] [place] [address] Nadya Mauro MD Basic Metabolic Panel, Lipid Panel, Standard, Hepatic Function Panel 05/25/2025 9:30 AM EDT Office Visit [facility] PED[facility] [address] [place] [address] Nadya Mauro MD Primary hypertension (Primary Dx); Hypercholesterolemia; Preop cardiovascular exam; Encounter for screening for malignant neoplasm of colon; Chronic right shoulder pain 05/25/2025 Travel 05/24/2025 Telephone [facility] [address] [place] [address] Nadya Mauro MD Pre-op Exam; chart prep 05/18/2025 Patient Outreach [facility] [address] [place], [place] [phone] Nadya Mauro MD Pre-visit Planning (SDOH screening completed on 01/04/25 ) 04/23/2025 8:30 AM EDT Office Visit [facility] ADULT DENTAL [address] [place] [address] Boni Martel 04/16/2025 11:15 AM EDT Clinical Support [facility] [address] [place] [address] Ellie Cook RN Primary hypertension 04/16/2025 Travel 03/18/2025 Refill [facility] 505 [place] [address] Nadya Mauro MD Asthma, unspecified asthma severity, unspecified whether complicated, unspecified whether persistent 03/05/2025 Telephone [facility] AD[facility] D[facility]AL [address] [place] [address] Boni Matrel PA and appt 03/03/2025 Orders Only GENERIC EXTERNAL DATA DEPARTMENT Provider, Generic External Data 02/24/2025 11:00 AM EDT Office Visit [facility] [address] [place] [address] Nadya Mauro MD Primary hypertension (Primary Dx); [...] 8:00 AM EDT Office Visit [facility] ADULT DENTAL [address] [place] [address] Boni Martel 505 [place] [address] 06/01/2025 10:00 AM EDT Procedure Visit [facility] PED[facility] [address] [place] [address] Nadya Mauro MD 505 [place] [address] 08/04/2025 9:00 AM EST Office Visit [facility] [address] [place] [address] Eliecer, Meg, OD [address] [place] [address] Health Maintenance Due Date Last Done Comments [...] or Tdap) 06/27/2027 06/27/2017, 11/30/2005 Lipid Panel 05/25/2030 05/25/2025, 12/25, 03/16/2022 Hepatitis B Vaccines Completed 04/13/2005, 11/11/2003, [...] Routine 05/25/2025 10:01 AM EDT Primary hypertension CASE PRESENTATION, DETAILED AND EXTENSIVE TREATMENT PLANNING [...] RADIOGRAPHIC IMAGES Routine 05/20/2024 10:00 AM EDT from Last 3 Months or Most Recently Relevant to Health Maintenance Results * XR Shoulder 2+ Views Right (05/25/2025 10:29 AM EDT) Anatomical Region Laterality Modality Upper Extremities, Shoulder Right Radi ographic Imaging 05/25/2025 10:2 9 AM EDT Narrative 05/25/2025 10:42 AM EDT [address] [address] XRay Report Signed Patient: Jimmy Elias MR#: [id number] : 1960 Acct:[id number] Age/Sex: 65 / M ADM Date: 05/25/25 Loc: .[facility]DS Attending Dr: Nadya Mauro MD Ordering Physician: Nadya Mauro MD Date of Service: 05/25/25 Procedure(s): XR shoulder RT min 2V Accession Number(s): [id number] cc: Nadya Mauro MD Reason for Exam: [...] 05/25/25 1039 DD/ 1029 TD/TT: 05/25/25 1030 Labor Representative: Procedure Note Donotuseinterpreter, Image - 05/25/2025 [place] [address] XRay Report Signed Patient: Lisbeth Elias#: [id number] : 9Acct:[id number] Age/Sex: 65 / MADM Date: 05/25/25 Loc: .[facility]DS Attending Dr: Nadya Mauro MD Ordering Physician: Nadya Mauro MD Date of Service: 05/25/25 Procedure(s): XR shoulder RT min 2V Accession Number(s): [id number] cc: Nadya Mauro MD Reason for Exam: [...] 05/25/25 1039 DD/ 1029 TD/TT: 05/25/25 1030 Labor Representative: Nadya Mauro MD IMG XR PROCEDURES Edited Result - Final * (ABNORMAL) Hepatic Function Panel (05/25/2025 10:01 AM EDT) Bilirubin, Total 1.2(H) 0.0 - 1.0 mg/dL [facility] Bilirubin, Direct 0.5 0.0 - 0.5 mg/dL [facility] Aspartate Amino Transferase 51(H) 5 - 37 U/L [facility] Alanine Aminotransferase 53(H) 0 - 40 U/L [facility] Total Protein 7.3 6.5 - 8.0 g/dL [facility] Albumin Level 4.0 3.5 - 5.0 g/dL [facility] Alkaline Phosphatase 148(H) 39 - 117 U/L [facility] Blood Venous blood specimen / Unknown 05/25/2025 10:01 AM EDT 05/25/2025 2:09 PM EDT Nadya Mauro MD LAB BLOOD ORDERABLES Final Resul t [facility] [address] [place] [address] [phone] * (ABNORMAL) Lipid Panel, Standard (05/25/2025 10:01 AM EDT) Triglycerides 62 <150 mg/dL [facility] Comment:Desirable Triglyceri de: less than 150 mg/dLBorderline High Triglyceride 150-199 mg/dLHigh Triglyceride: 200-499 mg/dLVery High Triglyceride: greater than or equal to 5OO mg/dL Cholesterol 169 <200 mg/dL [facility] Comment:Desirable Cholestero l: less than 200 mg/dLBorderline High Cholesterol: 200-239 mg/dLHigh Cholesterol: greater than 239 mg/dL LDL Cholesterol Calculated 118(H) <100 mg/dL [facility] Comment:Desirable LDL: less than 100 mg/dLNear Optimal/Above Optimal LDL: 110- 129 mg/dLBorderline High LDL: 130-159 mg/dLHigh LDL: 160-189 mg/dLVery High LDL: greater than or equal to 190 mg/dL HDL Cholesterol 39(L) >40 mg/dL [facility] Comment:Desirable HDL: great er than 40 mg/dL Note: This HDL assay may give artificially low results in patients with liver disease. Blood Venous blood specimen / Unknown 05/25/2025 10:01 AM EDT 05/25/2025 2:09 PM EDT us Nadya Mauro MD LAB BLOOD ORDERABLES Final Resul t [facility] [address] [place] [address] [phone] * (ABNORMAL) Basic Metabolic Panel (05/25/2025 10:01 AM EDT) Sodium 141 135 - 145 mmol/L [facility] Potassium 4.2 3.3 - 5.1 mmol/L [facility] Chloride 112(H) 96 - 108 mmol/L [facility] Carbon Dioxide 22 22 - 29 mmol/L [facility] Anion Gap 11(L) 12 - 20 [facility] Urea Nitrogen (BUN) 21(H) 9 - 16 mg/dL [facility] Creatinine, Serum 0.60 0.5 - 1.4 mg/dL [facility] Estimated Glomerular Filt Rate >60 [facility] Comment:Chronic Kidney Disea se: Estimated GFR < 60 mL/min/1.16o5Epqgvl Kidney Disease: Estimated GFR < 15 mL/min/1.73m2 Glucose 101 60 - 115 mg/dL [facility] Calcium 10.0 8.4 - 10.2 mg/dL [facility] Blood Venous blood specimen / Unknown 05/25/2025 10:01 AM EDT 05/25/2025 2:09 PM EDT us Nadya Mauro MD LAB BLOOD ORDERABLES Final Resul t Performing Organization Address [facility] Co de Phone Number [facility] [address] [place] [phone] * Albumin, Random Urine W/Creatinine (03/03/2025 7:33 AM EDT) Creatinine, Urine 287.42 mg/dL [facility] Microalbumin Urine 9.0 mg/L [facility] Microalbum Creatinine Ratio Ur 3.1 <30 ug/mg cr [facility] Comment:Albumin/Creatinine R atio Reference Ranges: Normal: < 30 ug/mg creatinine Microalbuminuria: 30 - 300 ug/mg creatinineClinical Albuminuria: > 300 ug/mg creatinine Urine (Urine, Random) 03/03/2025 7:33 AM EDT 03/03/2025 7:57 AM EDT us Bailee Huggins MD LAB URINE ORDERABLES Final Re sult Performing Organization Address [facility] Co de Phone Number [facility] [address] [place] [phone] * (ABNORMAL) Prothrombin Time-INR (03/03/2025 7:33 AM EDT) Prothrombin Time 15.0(H) 10.9 - 12.4 SEC [facility] INTERNATIONAL NORM RATIO 1.3(H) 0.9 - 1.1 [facility] Comment:INTERNATIONAL NORMAL IZED RATIO (INR) [...] Provider LAB BLOOD ORDERAB LES Final Result [facility] [address] [place] [phone] [phone] * (ABNORMAL) CBC (03/03/2025 7:33 AM EDT) White Blood Count 3.8(L) 4.8 - 10.8 X10*3/uL [facility] Red Blood Count 3.70(L) 4.60 - 5.80 X10*6/uL [facility] Hemoglobin 13.0(L) 14.0 - 18.0 g/dl [facility] Hematocrit 36.6(L) 42.0 - 52.0 % [facility] Mean Corpuscular Volume 98.9(H) 80.0 - 98.0 fL [facility] Mean Corpuscular Hemoglobin 35.1(H) 27.0 - 33.0 pg [facility] Mean Corpuscular HGB Conc 35.5 31.0 - 36.0 g/dl [facility] Red Cell Distribution Width 12.2 11.0 - 16.0 % [facility] Platelet Count 110(L) 160 - 400 X10*3/uL [facility] Mean Platelet Volume 10.7 9.4 - 12.4 fL [facility] NRBC Pct Auto 0.0 0.0 - 0.2 /100WBC [facility] NRBC Abs Auto 0.000 0.0 - 0.012 X10*3/uL [facility] 03/03/2025 7:33 AM EDT 03/03/2025 8:52 AM EDT us Generic External Data Provider LAB BLOOD ORDERAB LES Final Result Performing Organization Address City/[facility]/ZIP Co de Phone Number [facility] [address] [place] [phone] [phone] * Testosterone, Free (Dialysis) And Total, MS (03/03/2025 7:33 AM EDT) Testosterone, Total 620 250 - 1100 ng/dL [facility] Comment:Men with clinically significant hypogonadalsymptoms and testosterone values repeatedly inthe range of the 200-300 ng/dL or less, maybenefit from testosterone treatment afteradequate risk and benefits counseling.For additional information, please refer tohttp://education.Pearescope/faq/[email or web address](This link is being provided for informational/educational purposes only.)This test was developed and its analytical performancecharacteristics have been determined by [employer] [place]. It hasnot been cleared or approved by the U.S. Food and DrugAdministration. This assay has been validated pursuantto the CLIA regulations and is used for clinicalpurposes. Testosterone, Free 47.1 35.0 - 155.0 pg/mL [facility] Comment:This test was develo ped and its analytical performancecharacteristics have been determined by [employer] [place], [place]. It hasnot been cleared or approved by the U.S. Food and DrugAdministration. This assay has been validated pursuantto the CLIA regulations and is used for clinicalpurposes.THIS TEST WAS PERFORMED AT:[id number] [place] [address]VQUZEUQGULSHAN PEREZ MD,PHD 03/03/2025 7:33 AM EDT 03/03/2025 8:52 AM EDT us Generic External Data Provider LAB BLOOD ORDERAB LES Final Result [facility] [address] [place] [phone] [phone] * PSA,Total (03/03/2025 7:33 AM EDT) Prostate Specific Antigen 0.33 <0.05 - 4.0 ng/mL [facility] Comment:PSA methodology: Vani Moncada i ChemiluminescentMicroparticle Immunoassay (CMIA) 03/03/2025 7:33 AM EDT 03/03/2025 8:52 AM EDT us Generic External Data Provider LAB BLOOD ORDERAB LES Final Result [facility] [address] [place] [phone] * (ABNORMAL) Comprehensive Metabolic Panel (03/03/2025 7:33 AM EDT) Pathologist [facility] Sodium 138 135 - 145 mmol/L [facility] Potassium 3.9 3.3 - 5.1 mmol/L [facility] Chloride 110(H) 96 - 108 mmol/L [facility] Carbon Dioxide 20(L) 22 - 29 mmol/L [facility] Anion Gap 12 12 - 20 [facility] Urea Nitrogen (BUN) 13 9 - 16 mg/dL [facility] Creatinine, Serum 0.58 0.5 - 1.4 mg/dL [facility] Estimated Glomerular Filt Rate >60 [facility] Comment:Chronic Kidney Disea se: Estimated GFR < 60 mL/min/1.04i1Hafiru Kidney Disease: Estimated GFR < 15 mL/min/1.73m2 Glucose 101 60 - 115 mg/dL [facility] Calcium 9.2 8.4 - 10.2 mg/dL [facility] Bilirubin, Total 3.7(H) 0.0 - 1.0 mg/dL [facility] Comment:Slight Icterus. Aspartate Amino Transferase 45(H) 5 - 37 U/L [facility] Alanine Aminotransferase 29 0 - 40 U/L [facility] Total Protein 7.1 6.5 - 8.0 g/dL [facility] Albumin Level 3.7 3.5 - 5.0 g/dL [facility] Alkaline Phosphatase 114 39 - 117 U/L [facility] 03/03/2025 7:33 AM EDT 03/03/2025 8:52 AM EDT Generic External Data Provider LAB BLOOD ORDERAB LES Final Result Performing Organization Address [facility] Co de Phone Number [facility] [address] [place] [phone] * (ABNORMAL) Hepatitis Panel, General (12/30/2024 1:19 PM EDT) Hepatitis A IgM Nonreactive Nonreactive [facility] Comment:IgM antibodies to BETTS V not detected; does not exclude earlyacute or recovered HAV infection. ~Hepatitis B Surface Antibody NONREACTIVE Nonreactive [facility] Comment:Nonreactive: < 8.00 mIU/mL Hepatitis B Core Antibody Reactive Nonreactive [facility] Comment:Presumptive evidence of anti-HBc. Hepatitis C Antibody Reactive(A) Nonreactive [facility] Comment:Presumptive evidence of antibodies to HCV. Hepatitis B Surface Ag Negative Negative [facility] 12/30/2024 1:19 PM EDT 12/30/2024 1:24 PM EDT Generic External Data Provider LAB BLOOD ORDERAB LES Final Result Performing Organization Address [facility]/ZIP Co de Phone Number [facility] [address] [place] [address] [phone] from Last 3 Months or Most Recently Relevant to Health Maintenance Insurance [facility] OPTIONS (HMO D-SNP) [facility] Care Teams Aquatics Instructor Relationship Specialty Start Date End Date Nadya Mauro MD [address] [place] [address] PCP - General Family Medicine 08/11/12
--- OUTSIDE RECORDS SUMMARY | 2025-05-26 14:11 | XMS_ITS | Encounter Summary ---
Author Organization [employer] Address [address] [facility] 7t [place] [address] Care Team Providers Care Solidworks Mechanical Designer Name Role Phone Nadya Mauro MD Primary Care Provider [phone] Reason for Visit * Reason Onset Date Comments Transition Of Care (Tcm) 05/26/2025 Encounter Details Date Type Department Care Team ([facility] st Contact Info) Description 05/26/2025 Telephone [facility] [address] [place], [place] [phone] Nadya Mauro MD [address] [place], [place] [phone] Transition Of Care (Tcm) Social History Tobacco Use Types Packs/Day Years [...] encounter Miscellaneous Notes * Telephone Encounter - Rocio Diaz [place] - 05/26/2025 11:12 AM EDT Blood work results were faxed to [facility]. Received confirmation. documented in this encounter Plan of Treatment Upcoming Encounters Date Type Department Care Team (Late st Contact Info) Description 05/27/2025 8:00 AM EDT Office Visit [facility] ADULT [facility] [address] [place] [address] Boni Martel [address] [place] [address] 06/01/2025 10:00 AM EDT Procedure Visit [facility] [address] [place] [address] Nadya Mauro MD [address] [place] [address] 08/04/2025 9:00 AM EST Office Visit [facility] [address] [place] [address] Meg Gonzáles, OD [address] [place] [address] documented as of this encounter Visit Diagnoses Not on filedocumented in this encounter Additional Health Concerns Assessment Noted Time PHQ-9 Depression Total Score: 4 12/25/19 23 9:49 AM EDT documented as of this encounter Care Teams Solidworks Mechanical Designer Relationship Specialty Start Date End Date Nadya Mauro MD [address] [place] [address] PCP - General Family Medicine 08/11/12 documented as of this encounter
--- OUTSIDE RECORDS SUMMARY | 2025-05-26 14:12 | XMS_ITS | Encounter Summary ---
Author Organization [employer] Address [address] [facility] 7t [place] [address] Care Team Providers Care Continuous Improvement Consultant Name Role Phone Nadya Mauro MD Primary Care Provider [phone] Reason for Visit * Reason Comments Med Refill Encounter Details Date Type Department Care Team ([facility] st Contact Info) Description 07/02/2023 Refill [facility]EDS [address] [place], [place] [phone] Nadya Mauro MD [address] [place], [place] [phone] Social History Tobacco Use Types Packs/Day Years [...] Description 05/27/2025 8:00 AM EDT Office Visit [facility] [address] [place] [address] Boni Martel 505 [place] [address] 06/01/2025 10:00 AM EDT Procedure Visit [facility] [address] [place] [address] Nadya Mauro MD [address] [place] [address] 08/04/2025 9:00 AM EST Office Visit [facility] [address] [place] [address] Eliecer, Meg, OD [address] [place] [address] documented as of this encounter Visit Diagnoses Not on filedocumented in this encounter Additional Health Concerns Assessment Noted Time PHQ-9 Depression Total Score: 4 12/25/19 23 9:49 AM EDT documented as of this encounter Care Teams Continuous Improvement Consultant Relationship Specialty Start Date End Date Nadya Mauro MD [address] [place] [address] PCP - General Family Medicine 08/11/12 documented as of this encounter
--- OUTSIDE RECORDS SUMMARY | 2025-05-26 14:12 | XMS_ITS | Encounter Summary ---
Author Organization [employer] Address [address] [place] [address] 7t [place] [address] Care Team Providers Care Compliance Investigator Name Role Phone Nadya Mauro MD Primary Care Provider [phone] Encounter Details Date Type Department Care Team (Latest Contact Info) Description 06/07/2021 Abstract [facility] CONVERSIONS Dental, Provider, DDS Social History Tobacco [...] Description 05/27/2025 8:00 AM EDT Office Visit [facility] [address] [place] [address] Tahmina Boni [address] [place] [address] 06/01/2025 10:00 AM EDT Procedure Visit [facility] [address] [place] [address] Nadya Mauro MD [address] [place] [address] 08/04/2025 9:00 AM EST Office Visit [facility] OPT[facility]ETRY [address] [place] [address] Meg Gonzáles, OD [address] [place] [address] documented as of this encounter Visit Diagnoses Not on filedocumented in this encounter Care Teams Compliance Investigator Relationship Specialty Start Date End Date Nadya Mauro MD [address] [place] [address] PCP - General Family Medicine 08/11/12 documented as of this encounter
--- OUTSIDE RECORDS SUMMARY | 2025-05-26 14:12 | XMS_ITS | Encounter Summary ---
Author Organization [employer] Address [address] [place] [address] 7t [place] [address] Care Team Providers Care Drafter Automotive Design Layout Name Role Phone Nadya Mauro MD Primary Care Provider [phone] Reason for Visit * Reason Comments Med Refill Encounter Details Date Type Department Care Team (Late st Contact Info) Description 05/06/2023 Refill [facility] MED & PEDS [address] [place], [place] [phone] Nadya Mauro MD [address] [place] [address] Pain Social History Tobacco Use Types Packs/Day [...] Description 05/27/2025 8:00 AM EDT Office Visit [facility] ADULT DENTAL [address] [place] [address] Boni Martel [address] [place] [address] 06/01/2025 10:00 AM EDT Procedure Visit [facility] MED & PEDS [address] [place], [place] [phone] Nadya Mauro MD [address] [place], [place] [phone] 08/04/2025 9:00 AM EST Office Visit [facility] OPTOMETRY [address] [place], [place] [phone] Meg Gonzáles, OD [address] [place] [address] documented as of this encounter Visit Diagnoses Diagnosis Pain Generalized pain documented in this encounter Additional Health Concerns Assessment Noted Time PHQ-9 Depression Total Score: 4 12/25/19 23 9:49 AM EDT documented as of this encounter Care Teams Drafter Automotive Design Layout Relationship Specialty Start Date End Date Nadya Mauro MD [address] [place] [address] PCP - General Family Medicine 08/11/12 documented as of this encounter
--- OUTSIDE RECORDS SUMMARY | 2025-05-26 14:12 | XMS_ITS | Encounter Summary ---
Author Organization [employer] Address [address] [facility] 7t [place] [address] Care Team Providers Care Solar Sales Specialist Name Role Phone Nadya Mauro MD Primary Care Provider [phone] Reason for Visit * Reason Onset Date Comments PA and appt 03/05/2025 Encounter Details Date Type Department Care Team ([facility] st Contact Info) Description 03/05/2025 Telephone [facility] ADULT [facility] [address] [place], [place] [phone] Boni Martel [address] [place], [place] [phone] PA and appt Social History Tobacco Use [...] Description 05/27/2025 8:00 AM EDT Office Visit [facility] [address] [place] [address] Boni Martel [address] [place] [address] 06/01/2025 10:00 AM EDT Procedure Visit [facility] MED & PEDS [address] [place] [address] Nadya Mauro MD [address] [place] [address] 08/04/2025 9:00 AM EST Office Visit [facility] OPT[facility]ET[facility] [address] [place] [address] Meg Gonzáles, OD [address] [place] [address] documented as of this encounter Visit Diagnoses Not on filedocumented in this encounter Additional Health Concerns Assessment Noted Time PHQ-9 Depression Total Score: 4 12/25/19 23 9:49 AM EDT documented as of this encounter Care Teams Solar Sales Specialist Relationship Specialty Start Date End Date Nadya Mauro MD [address] [place] [address] PCP - General Family Medicine 08/11/12 documented as of this encounter
--- OUTSIDE RECORDS SUMMARY | 2025-05-26 14:12 | XMS_ITS | Encounter Summary ---
Author Organization [employer] Address [address] [facility] 7t [place] [address] Care Team Providers Care Advanced Nursing Professor Name Role Phone Nadya Mauro MD Primary Care Provider [phone] Encounter Details Date Type Department Care Team [facility] [address] [place] [address] Tahmina, Boni [address] [place] [address] 06/01/2025 10:00 AM EDT Procedure Visit [facility] MED & PEDS [address] [place], [place] [phone] Nadya Mauro MD [address] [place], [place] [phone] 08/04/2025 9:00 AM EST Office Visit [facility] OPT[facility] [address] [place] [address] Eliecer, Meg, OD [address] [place] [address] documented as of this encounter Visit Diagnoses Not on filedocumented in this encounter Additional Health Concerns Assessment Noted Time PHQ-9 Depression Total Score: 4 12/25/19 23 9:49 AM EDT documented as of this encounter Care Teams Advanced Nursing Professor Relationship Specialty Start Date End Date Nadya Mauro MD [address] [place] [address] PCP - General Family Medicine 08/11/12 documented as of this encounter
--- OUTSIDE RECORDS SUMMARY | 2025-05-26 14:12 | XMS_ITS | Encounter Summary ---
Author Organization [employer] Address [address] [facility] 7t [place] [address] Care Team Providers Care Dispatch Machine Runner Name Role Phone Nadya Muaro MD Primary Care Provider [phone] Encounter Details Date Type Department Care Team ([facility] st Contact Info) Description 05/26/2025 Results Follow-Up [facility] MED & PEDS [address] [place], [place] [phone] Nadya Mauro MD [address] [place], [place] [phone] Basic Metabolic Panel, Lipid Panel, Standard, Hepatic Function Panel Social History Tobacco Use Types Packs/Day Years Used Date Smoking Tobacco: Never Passive Smoke Exposure: Never Smokeless Tobacco: Never Alcohol Use Standard Drinks/Week Comments Yes 0 (1 standard drink = 0.6 oz pur e alcohol) Depression Answer Date Recorded Patient Health Questionnaire-9 Score 4 12/24/2022 Housing Stability Answer Date Recorded What is your housing situation today? I have wiona low 01/04/[address] you [...] as of this encounter Miscellaneous Notes * Result Encounter Note - Nadya Mauro MD - 05/26/2025 9:16 AM EDT Fx to GI documented in this encounter Plan of Treatment Upcoming Encounters Date Type Department Care Team (Late st Contact Info) Description 05/27/2025 8:00 AM EDT Office Visit [facility] ADULT DENTAL [address] [place] [address] Boni Martel 505 [place] [address] 06/01/2025 10:00 AM EDT Procedure Visit [facility] MED & PEDS [address] [place] [address] Nadya Mauro MD 505 [place] [address] 08/04/2025 9:00 AM EST Office Visit [facility] OPTOMETRY [address] [place], [place] [phone] Meg Gonzáles, OD [address] [place] [address] documented as of this encounter Visit Diagnoses Not on filedocumented in this encounter Additional Health Concerns Assessment Noted Time PHQ-9 Depression Total Score: 4 12/25/19 23 9:49 AM EDT documented as of this encounter Care Teams Dispatch Machine Runner Relationship Specialty Start Date End Date Nadya Mauro MD [address] [place] [address] PCP - General Family Medicine 08/11/12 documented as of this encounter
--- OUTSIDE RECORDS SUMMARY | 2025-05-26 14:12 | XMS_ITS | Encounter Summary ---
Author Organization [employer] Address [address] [facility] 7t [place] [address] Care Team Providers Care Educational Sign Language Interpreter Name Role Phone Nadya Mauro MD Primary Care Provider [phone] Reason for Visit * Reason Onset Date Comments Pre-op Exam 05/24/2025 chart prep 05/24/2025 Encounter Details Date Type Department Care Team ([facility] st Contact Info) Description 05/24/2025 Telephone [facility] MED & PEDS [address] [place], [place] [phone] Nadya Mauro MD 505 [place], [place] [phone] Pre-op Exam; chart prep Social History Tobacco [...] ' Detailed VM left to Greg at [facility] * Telephone Encounter - Ning Mahmood [place] - 05/24/2025 11:28 AM EDT Chart [...] No Surgeon's name: Judy norwood Facility name: [facility] Surgeon's office number: [phone] Surgeon's office fax number: [phone] Contact name (person you spoke with): paz Last office note from surgeon requested: Yes Send Message to Erick Vazquez documented in this encounter Plan of Treatment Upcoming Encounters Date Type Department Care Team ([facility] st Contact Info) Description 05/27/2025 8:00 AM EDT Office Visit [facility] AD[facility] [address] [place], [place] [phone] Tahmina, Boni [address] [place] [address] 06/01/2025 10:00 AM EDT Procedure Visit [facility] MED & PEDS [address] [place], [place] [phone] Nadya Mauro MD [address] [place], [place] [phone] 08/04/2025 9:00 AM EST Office Visit [facility] OPTOMETRY [address] [place] [address] Eliecer, Meg, OD [address] [place] [address] documented as of this encounter Visit Diagnoses Not on filedocumented in this encounter Additional Health Concerns Assessment Noted Time PHQ-9 Depression Total Score: 4 12/25/19 23 9:49 AM EDT documented as of this encounter Care Teams Educational Sign Language Interpreter Relationship Specialty Start Date End Date Nadya Mauro MD [address] [place] [address] PCP - General Family Medicine 08/11/12 documented as of this encounter
--- OUTSIDE RECORDS SUMMARY | 2025-05-26 14:12 | XMS_ITS | Encounter Summary ---
Author Organization [employer] Address [address] [place] [address] 7t [place] [address] Care Team Providers Care Electroneurodiagnostic Technician Name Role Phone Nadya Mauro MD Primary Care Provider [phone] Encounter Details Date Type Department Care Team (Late Contact Info) Description 01/24/2023 Orders Only [facility] MED & PEDS [address] [place], [place] [phone] Herb Flores MD 505 [place] [address] Macrocytic anemia (Primary Dx) Social History Tobacco [...] Description 05/27/2025 8:00 AM EDT Office Visit [facility] ADULT DENTAL [address] [place], [place] [phone] Boni Martel 505 [place] [address] 06/01/2025 10:00 AM EDT Procedure Visit [facility] MED & PEDS [address] [place], [place] [phone] Nadya Mauro MD 505 [place], [place] [phone] 08/04/2025 9:00 AM EST Office Visit [facility] OPTOMETRY [address] [place] [address] Eliecer, Meg, OD [address] [place] [address] Scheduled Orders Name Type Priority Associated Diagnoses [...] documented as of this encounter Care Teams Electroneurodiagnostic Technician Relationship Specialty Start Date End Date Nadya Mauro MD [address] [place] [address] PCP - General Family Medicine 08/11/12 documented as of this encounter
== END 2025-05-26 14:12 | disposition home or self-care (01) ==
LOC: HO.HGI 12:57
PROVIDERS: PCP Student in an Organized Health Care Education/Training Program; Visit Provider Internal Medicine
DX: F10.90 Alcohol use, unspecified, uncomplicated (principal); K75.9 Inflammatory liver disease, unspecified; K74.60 Unspecified cirrhosis of liver; K70.11 Alcoholic hepatitis with ascites; D12.6 Benign neoplasm of colon, unspecified; D69.6 Thrombocytopenia, unspecified
CPT/HCPCS: 99214; G2211

== ENCOUNTER 2025-05-26 12:56 | Outpatient (REF) | payer OTHER, SELFPAY ==
[2025-05-26 15:05] LABS: NRBC Abs Auto 0.000 X10*3/uL (0.0-0.012); NRBC Pct Auto 0.0 /100WBC (0.0-0.2); PLT CLUMP 1
[2025-05-26 15:07] LABS: Hematocrit 38.3 % (42.0-52.0); Hemoglobin 13.7 g/dl (14.0-18.0); Mean Corpuscular HGB Conc 35.8 g/dl (31.0-36.0); Mean Corpuscular Hemoglobin 34.0 pg (27.0-33.0); Mean Corpuscular Volume 95.0 fL (80.0-98.0); Red Blood Count 4.03 X10*6/uL (4.60-5.80)
[2025-05-26 15:13] LABS: INTERNATIONAL NORM RATIO 1.2 (0.9-1.1); Prothrombin Time 13.7 SEC (10.9-12.4)
[2025-05-26 15:57] LABS: White Blood Count 3.7 X10*3/uL (4.8-10.8)
[2025-05-26 15:58] LABS: Platelet Count 101 X10*3/uL (160-400)
[2025-05-31 13:46] LABS: Phosphatidylethanol 16:0-18:1 NEGATIVE; Phosphatidylethanol 16:0-18:2 NEGATIVE
== END 2025-05-26 12:57 | disposition home or self-care (01) ==
LOC: HO.LAB 12:56
PROVIDERS: PCP Student in an Organized Health Care Education/Training Program; Visit Provider Internal Medicine
DX: K70.11 Alcoholic hepatitis with ascites (principal); K75.9 Inflammatory liver disease, unspecified; F10.90 Alcohol use, unspecified, uncomplicated; D12.6 Benign neoplasm of colon, unspecified; D69.6 Thrombocytopenia, unspecified; Z51.81 Encounter for therapeutic drug level monitoring; Z86.0100 Personal history of colon polyps, unspecified; Z71.41 Alcohol abuse counseling and surveillance of alcoholic
CPT/HCPCS: 36415; 80321; 85027; 85610; 99212

== ENCOUNTER 2025-06-16 06:51 | Day surgery (SDC) | payer OTHER, SELFPAY ==
--- OUTSIDE RECORDS SUMMARY | 2025-06-08 10:41 | XMS_ITS | Encounter Summary ---
Author Organization [employer] Address [address] [facility] 7t [place] [address] Care Team Providers Care Teacher [employer]ery [employer] Name Role Phone Nadya Mauro MD Primary Care Provider [phone] Reason for Visit * Reason Comments Med Refill Encounter Details Date Type Department Care Team ([facility] st Contact Info) Description 07/02/2023 Refill [facility] MED & PEDS [address] [place], [place] [phone] Nadya Mauro MD [address] [place], [place] [phone] Social History Tobacco Use Types Packs/Day Years [...] Care Team (Late st Contact Info) Description 06/10/2025 9:45 AM EDT Procedure Visit [facility] CH[facility] MED & PEDS [address] [place], [place] [phone] Nadya Mauro MD [address] [place] [address] 08/04/2025 9:00 AM EST Office Visit [facility] OPTOMETRY [address] [place] [address] Eliecer, Meg, OD 230 [place] [address] documented as of this encounter Visit Diagnoses Not on filedocumented in this encounter Additional Health Concerns Assessment Noted Time PHQ-9 Depression Total Score: 4 12/25/19 23 9:49 AM EDT documented as of this encounter Care Teams Teacher Nursery School Relationship Specialty Start Date End Date Nadya Mauro MD [address] [place] [address] PCP - General Family Medicine 08/11/12 documented as of this encounter
--- OUTSIDE RECORDS SUMMARY | 2025-06-08 10:41 | XMS_ITS | Encounter Summary ---
Author Organization [employer] Address [address] [facility] 7t [place] [address] Care Team Providers Care Nurse Midwife/Clinical Instructor Name Role Phone Nadya Mauro MD Primary Care Provider [phone] Encounter Details Date Type Department Care Team (Latest Contact Info) Description 06/07/2021 Abstract [facility] CONVERSIONS Dental, Provider, DDS Social History [...] Description 06/10/2025 9:45 AM EDT Procedure Visit [facility] CH[facility] MED & PEDS [address] [place] [address] Nadya Mauro MD 505 [place] [address] 08/04/2025 9:00 AM EST Office Visit [facility] OPTOMETRY [address] [place] [address] Meg Gonzáles, OD 230 [place] [address] documented as of this encounter Visit Diagnoses Not on filedocumented in this encounter Care Teams Nurse Midwife/Clinical Instructor Relationship Specialty Start Date End Date Ndaya Mauro MD [address] [place] [address] PCP - General Family Medicine 08/11/12 documented as of this encounter
--- OUTSIDE RECORDS SUMMARY | 2025-06-08 10:41 | XMS_ITS | Encounter Summary ---
Author Organization [employer] Address [address] [facility] 7t [place] [address] Care Team Providers Care Renewable Energy Engineer Name Role Phone Nadya Mauro MD Primary Care Provider [phone] Encounter Details Date Type Department Care Team ([facility] st Contact Info) Description 05/26/2025 Results Follow-Up [facility] CH[facility] MED & PEDS [address] [place], [place] [phone] Nadya Mauro MD [address] [place], [place] [phone] Basic Metabolic Panel, Lipid Panel, Standard, Hepatic [...] Description 06/10/2025 9:45 AM EDT Procedure Visit [facility] CH[facility] MED & PEDS [address] [place] [address] Nadya Mauro MD [address] [place] [address] 08/04/2025 9:00 AM EST Office Visit [facility] OPTOMETRY [address] [place] [address] Eliecer, Meg, OD 230 [place] [address] documented as of this encounter Visit Diagnoses Not on filedocumented in this encounter Additional Health Concerns Assessment Noted Time PHQ-9 Depression Total Score: 4 12/25/19 23 9:49 AM EDT documented as of this encounter Care Teams Renewable Energy Engineer Relationship Specialty Start Date End Date Nadya Mauro MD [address] [place] [address] PCP - General Family Medicine 08/11/12 documented as of this encounter
--- OUTSIDE RECORDS SUMMARY | 2025-06-08 10:41 | XMS_ITS | Encounter Summary ---
Author Organization [employer] Address [address] [place] [address] 7t [place] [address] Care Team Providers Care Weather Algorithm Scientist Name Role Phone Nadya Mauro MD Primary Care Provider [phone] Reason for Visit * Reason Comments Med Refill Encounter Details Date Type Department Care Team (Late st Contact Info) Description 05/06/2023 Refill [facility] MED & PEDS [address] [place] [address] Nadya Mauro MD 505 [place] [address] Pain Social History Tobacco Use Types Packs/Day [...] Description 06/10/2025 9:45 AM EDT Procedure Visit [facility] MED & PEDS [address] [place] [address] Nadya Mauro MD 505 [place] [address] 08/04/2025 9:00 AM EST Office Visit [facility] OPTOMETRY [address] [place] [address] Meg Gonzáles, OD [address] [place] [address] documented as of this encounter Visit Diagnoses Diagnosis Pain Generalized pain documented in this encounter Additional Health Concerns Assessment Noted Time PHQ-9 Depression Total Score: 4 12/25/19 23 9:49 AM EDT documented as of this encounter Care Teams Weather Algorithm Scientist Relationship Specialty Start Date End Date Nadya Mauro MD [address] [place] [address] PCP - General Family Medicine 08/11/12 documented as of this encounter
--- OUTSIDE RECORDS SUMMARY | 2025-06-08 10:41 | XMS_ITS | Encounter Summary ---
Author Organization [employer] Address [address] [facility] 7t [place] [address] Care Team Providers Care Golf Ball Trimmer Name Role Phone Nadya Mauro MD Primary Care Provider [phone] Reason for Visit * Reason Onset Date Comments PA and appt 03/05/2025 Encounter Details Date Type Department Care Team ([facility] st Contact Info) Description 03/05/2025 Telephone [facility] ADULT D[facility]AL [address] [place], [place] [phone] Boni Martel 505 [place], [place] [phone] PA and appt Social History Tobacco Use [...] Miscellaneous Notes * Telephone Encounter - Emelia Rowe - 03/05/2025 11:50 AM EDT Patient is [...] 9:45 AM EDT Procedure Visit [facility] CHC MED & PEDS [address] [place] [address] Nadya Mauro MD 505 [place] [address] 08/04/2025 9:00 AM EST Office Visit [facility] OPTOMETRY [address] [place] [address] Meg Gonzáles, OD [address] [place] [address] documented as of this encounter Visit Diagnoses Not on filedocumented in this encounter Additional Health Concerns Assessment Noted Time PHQ-9 Depression Total Score: 4 12/25/19 23 9:49 AM EDT documented as of this encounter Care Teams Golf Ball Trimmer Relationship Specialty Start Date End Date Nadya Mauro MD [address] [place] [address] PCP - General Family Medicine 08/11/12 documented as of this encounter
--- OUTSIDE RECORDS SUMMARY | 2025-06-08 10:41 | XMS_ITS | Encounter Summary ---
Author Organization [employer] Address [address] [place] [address] 7t [place] [address] Care Team Providers Care Metal Template Maker Name Role Phone Nadya Mauro MD Primary Care Provider [phone] Encounter Details Date Type Department Care Team (Late Contact Info) Description 01/24/2023 Orders Only [facility] MED & PEDS [address] [place], [place] [phone] Herb Flores MD [address] [place] [address] Macrocytic anemia (Primary Dx) Social History Tobacco [...] Department Care Team (Late Contact Info) Description 06/10/2025 9:45 AM EDT Procedure Visit [facility] CHC MED & PEDS [address] [place] [address] Nadya Mauro MD [address] [place] [address] 08/04/2025 9:00 AM EST Office Visit [facility] OPTOMETRY [address] [place] [address] Eliecer, Meg, OD [address] [place] [address] Scheduled Orders Name Type Priority Associated Diagnoses [...] documented as of this encounter Care Teams Metal Template Maker Relationship Specialty Start Date End Date Nadya Mauro MD [address] [place] [address] PCP - General Family Medicine 08/11/12 documented as of this encounter
--- OUTSIDE RECORDS SUMMARY | 2025-06-08 10:41 | XMS_ITS | Clinical Summary ---
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 Name Role Phone Nadya Mauro MD Primary Care Provider [phone] Allergies No known active allergies Medications GaviLAX [...] (Flomax) 0.4 MG 24 hr capsule Active hydrOXYzine HCl (Atarax) 25 MG tabletIndication s:Generalized pruritus 1 tablet as needed at bedtime for itching 90 tablet Active Hospital, Clinic, or Other Facility Administered Medication Ordered Dose Route Frequency Start Date End Date Status triamcinolone acetonide (Kenalog-40) injection 80 mgIndications:Chronic right shoulder pain 80 mg IX Once 06/01/2025 06/01/2025 Ended lidocaine (Xylocaine) 1 % injection 20 mgIndications:Chronic right shoulder pain 20 mg IJ Once 06/01/2025 06/01/2025 Ended Active Problems Problem Noted Date Diagnosed Date Cirrhosis of liver with ascites 01/22/2025 Primary hypertension 05/01/2023 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 Asthma 06/09/2013 Hypercholesterolemia 05/18/2013 Encounters Date Type Department Care Team Description 06/01/2025 10:00 AM EDT Procedure Visit [facility] [address] [place] [address] Nadya Mauro MD Chronic right shoulder pain (Primary Dx) 05/31/2025 1:15 PM EDT Office Visit [facility] [address] [place] [phone] Leslee Coates ANP Generalized pruritus (Primary Dx); Alcoholic cirrhosis of liver without ascites (HCC) 05/31/2025 Travel 05/31/2025 Telephone [facility] [address] [place] [address] Nadya Mauro MD Nurse Triage 05/27/2025 8:00 AM EDT Office Visit [facility] [address] [place] [address] Boni Martel 05/26/2025 Orders Only GENERIC EXTERNAL DATA DEPARTMENT Provider, Generic External Data 05/26/2025 Telephone [facility] [address] [place] [address] Nadya Mauro MD Transition Of Care (Tcm) 05/26/2025 Results Follow-Up [facility] [address] [place] [address] Nadya Mauro MD Basic Metabolic Panel, Lipid Panel, Standard, Hepatic Function Panel 05/25/2025 9:30 AM EDT Office Visit [facility] [address] [facility] [place] [address] Nadya Mauro MD Primary hypertension (Primary Dx); Hypercholesterolemia; Preop cardiovascular exam; Encounter for screening for malignant neoplasm of colon; Chronic right shoulder pain 05/25/2025 Travel 05/24/2025 Telephone [facility] [address] [place] [address] Nadya Mauro MD Pre-op Exam; chart prep 05/18/2025 Patient Outreach [facility] [address] [place] [address] Nadya Mauro MD Pre-visit Planning (SDOH screening completed on 01/04/25 ) 04/23/2025 8:30 AM EDT Office Visit [facility] [address] [place] [address] Boni Martel 04/16/2025 11:15 AM EDT Clinical Support [facility] [address] [place] [address] Ellie Cook, LUI Primary hypertension 04/16/2025 Travel 03/18/2025 Refill [facility] [address] [place] [address] Nadya Mauro MD Asthma, unspecified asthma severity, unspecified whether complicated, unspecified whether persistent from Last 3 Months Immunizations Immunization Administration [...] Sign Reading Time Taken Comments Blood Pressure 107/63 06/01/2025 10:10 AM EDT Pulse 56 06/01/2025 10:10 AM EDT Temperature 36.4 C (97.5 F) 06/01/2025 10:10 AM EDT Respiratory Rate 18 06/01/2025 10:10 AM EDT Oxygen Saturation 95% 05/31/2025 1:11 PM EDT Inhaled Oxygen Concentration - - Weight 71.7 kg (158 lb) 06/01/2025 10:10 AM EDT Height 165.1 cm (5' 5 ) 06/01/2025 10:10 AM EDT Body Mass Index 26.29 06/01/2025 10:10 AM EDT Plan of Treatment Upcoming Encounters Date Type Department Care Team (Late st Contact Info) Description 06/10/2025 9:45 AM EDT Procedure Visit [facility] [address] [place] [address] Nadya Mauro MD [address] [place] [address] 08/04/2025 9:00 AM EST Office Visit [facility] [address] [place] [address] Eliecer, Meg, OD [address] [place] [address] Health Maintenance Due Date Last Done Comments [...] 12/25/2022 SDOH Screening 01/04/2026 01/04/2025 Tobacco Screening 06/01/2026 06/01/2025 Dental X-Ray: Full Mouth 05/21/2027 05/20/2024 DTaP/Tdap/Td [...] Procedure Name Priority Date/Time Associated Diagnosis Comments [place] ARTHROCENTESIS ASPIR&/INJ MAJOR JT/BURSA W/O US Routine 06/01/2025 10:09 AM EDT Chronic right shoulder pain CASE PRESENTATION, DETAILED AND EXTENSIVE TREATMENT PLANNING Routine 05/27/2025 8:00 AM EDT 21 B RESIN-BASED COMPOSITE - 1 SURF, POSTERIOR Routine 05/27/2025 8:00 AM EDT 20 B RESIN-BASED COMPOSITE - 1 SURF, POSTERIOR Routine 05/27/2025 8:00 AM EDT DRUG MONITORING, PHOSPHATIDYLETHANOL (PETH), BLOOD Routine 05/26/2025 2:37 PM EDT CBC Routine 05/26/2025 2:37 PM EDT PROTHROMBIN TIME-INR Routine 05/26/2025 2:37 PM EDT XR SHOULDER 2+ VIEWS RIGHT Routine 05/25 10:29 AM EDT Chronic right shoulder pain HEPATIC FUNCTION PANEL Routine 10:01 AM EDT Primary hypertension LIPID PANEL, STANDARD Routine 05/25/2025 10:01 AM EDT Primary hypertension BASIC METABOLIC PANEL Routine 05/25/2025 10:01 AM EDT Primary hypertension CASE PRESENTATION, DETAILED AND EXTENSIVE TREATMENT PLANNING Routine 04/23/2025 8:30 AM EDT 31 O RESIN-BASED COMPOSITE - 1 SURF, POSTERIOR Routine 04/23/2025 8:30 AM EDT PERIODIC ORAL EVALUATION - ESTABLISHED PATIENT Routine 02/05/2025 1:30 PM EDT PROPHYLAXIS - ADULT Routine 01/28/2025 1 0:00 AM EDT HEPATITIS PANEL, GENERAL Routine 025 1:19 PM EDT INTRAORAL - COMPLETE SERIES OF RADIOGRAPHIC IMAGES Routine 05/20/2024 10:00 AM EDT from Last 3 Months or Most Recently Relevant to Health Maintenance Results * [place] ARTHROCENTESIS ASPIR&/INJ MAJOR JT/BURSA W/O US (06/01/2025 10:09 AM EDT) Nadya Olmos MD - 06/01/2025 10:09 AM EDT Nadya Mauro MD 06/01/2025 10:23 AM Arthrocentesis Date/Time: 06/01/2025 10:09 AM Performed by: Nadya Mauro MD Authorized by: Nadya Mauro MD Consent: Consent obtained: Verbal and written Consent given by: Patient Risks, benefits, and alternatives were discussed: yes Risks discussed: Pain Alternatives discussed: Referral [place] protocol: Procedure explained and questions answered to patient or proxy's satisfaction: yes Relevant documents present and verified: yes Test results available: yes Imaging studies available: yes Required blood products, implants, devices, and special equipment available: yes Site/side marked: yes Immediately prior to procedure, a time out was called: yes Patient identity confirmed: Verbally with patient Location: Location: Shoulder Shoulder: R glenohumeral Anesthesia: Anesthesia method: Topical application Procedure details: Preparation: Patient was prepped and draped in usual sterile fashion Needle gauge: 22 G Ultrasound guidance: no Approach: Posterior Steroid injected: yes Specimen collected: no Post-procedure details: Dressing: Adhesive bandage Procedure completion: Tolerated us Nadya Mauro MD IN CLINIC/BEDSIDE ORDERABLES Fin al Result * Drug Monitoring, Phosphatidylethanol (PEth), Blood (05/26/2025 2:37 PM EDT) Phosphatidylethanol, Blood NEGATIVE [facility] Comment:CUTOFF 20 NG/MLPERFO RMING SITE:[facility] [employer]/[address] [id number] Commercial Center Manager: PATRICKW. CHRIS MD,PHD, CLIA: [id number] PEth 16:0/18:2 (PLPEth) NEGATIVE [facility] Comment:CUTOFF 20 NG/ML PEth Comments SEE NOTE [facility] Comment:This drug testing is for medical treatment only. Analysiswas performed as non-forensic testing and these resultsshould be used only by healthcare providers to renderdiagnosis or treatment, or to monitor progress of medicalconditions.LDT Notes:Confirmation tests were developed and their analyticalperformance characteristics have been determined by [facility]. It has not been cleared or approved by the FDA.This assay has been validated pursuant to the CLIAregulations and is used for clinical purposes.Healthcare Providers needing Interpretation assistance,please contact us at [phone] ( ) M-F,8am to 10pm EST 05/26/2025 2:37 PM EDT 05/26/2025 2:37 PM EDT Generic External Data Provider LAB BLOOD ORDERAB LES Final Result Performing Organization Address [facility]/ZIP Co de Phone Number [facility] [address] [place] [phone] * (ABNORMAL) Prothrombin Time-INR (05/26/2025 2:37 PM EDT) Prothrombin Time 13.7(H) 10.9 - 12.4 SEC [facility] INTERNATIONAL NORM RATIO 1.2(H) 0.9 - 1.1 [facility] Comment:INTERNATIONAL NORMAL IZED RATIO (INR) REFERENCE RANGES Reference RangeFor patients not on anticoagulant therapy: 0.9 - 1.1INR ranges for oral anticoagulanttherapy:For prevention and treatment of venous thrombosis and pulmonary embolism: 2.0 - 3.0For acute myocardial infarction with aspirin therapy: 2.0 - 3.0For acute myocardial infarction without aspirin therapy: 3.0 - 4.0For patients with mechanical prosthetic heart valves: 2.5 - 3.5 05/26/2025 2:37 PM EDT 05/26/2025 2:37 PM EDT [employer] External Data Provider LAB BLOOD ORDERAB LES Final Result Performing Organization Address [facility] Co de Phone Number [facility] [address] [place] [phone] * (ABNORMAL) CBC (05/26/2025 2:37 PM EDT) White Blood Count 3.7(L) 4.8 - 10.8 X10*3/uL [facility] Red Blood Count 4.03(L) 4.60 - 5.80 X10*6/uL [facility] Hemoglobin 13.7(L) 14.0 - 18.0 g/dl [facility] Hematocrit 38.3(L) 42.0 - 52.0 % [facility] Mean Corpuscular Volume 95.0 80.0 - 98.0 fL [facility] Mean Corpuscular Hemoglobin 34.0(H) 27.0 - 33.0 pg [facility] Mean Corpuscular HGB Conc 35.8 31.0 - 36.0 g/dl [facility] Red Cell Distribution Width 12.1 11.0 - 16.0 % [facility] Platelet Count 101(L) 160 - 400 X10*3/uL [facility] Mean Platelet Volume 11.0 9.4 - 12.4 fL [facility] NRBC Pct Auto 0.0 0.0 - 0.2 /100WBC [facility] NRBC Abs Auto 0.000 0.0 - 0.012 X10*3/uL [facility] 05/26/2025 2:37 PM EDT 05/26/2025 2:37 PM EDT us Generic External Data Provider LAB BLOOD ORDERAB LES Final Result Performing Organization Address City/State/[facility] Co de Phone Number [facility] [address] [place] [phone] * XR Shoulder 2+ Views Right (05/25/2025 10:29 AM EDT) Anatomical Region Laterality Modality Upper Extremities, Shoulder Right Radi ographic Imaging 05/25/2025 10:2 9 AM EDT Narrative 05/25/2025 10:42 AM EDT [address] [address] XRay Report Signed Patient: Jimmy Elias MR#: [id number] : 1960 Acct:[id number] Age/Sex: 65 / M ADM Date: 05/25/25 Loc: [facility] Attending Dr: Nadya Mauro MD Ordering Physician: Nadya Mauro MD Date of Service: 05/25/25 Procedure(s): XR shoulder RT min 2V Accession Number(s): [id number] cc: Nadya Mauro MD Reason for Exam: [...] 05/25/25 1039 DD/ 1029 TD/TT: 05/25/25 1030 Employee Health Nurse: Procedure Note Donmelvinater, Image - 05/25/2025 [place] [address] XRay Report Signed Patient: Lisbeth Elias#: [id number] : 1960cct:[id number] Age/Sex: 65 / MADM Date: 05/25/25 Loc: [facility] Attending Dr: Nadya Mauro MD Ordering Physician: Nadya Mauro MD Date of Service: 05/25/25 Procedure(s): XR shoulder RT min 2V Accession Number(s): [id number] cc: Nadya Mauro MD Reason for Exam: [...] 05/25/25 1039 DD/ 1029 TD/TT: 05/25/25 1030 Employee Health Nurse: Nadya Mauro MD IMG XR PROCEDURES Edited Result - Final * (ABNORMAL) Hepatic Function Panel (05/25/2025 10:01 AM EDT) Bilirubin, Total 1.2(H) 0.0 - 1.0 mg/dL [facility] Bilirubin, Direct 0.5 0.0 - 0.5 mg/dL [facility] Aspartate Amino Transferase 51(H) 5 - 37 U/L [facility] Alanine Aminotransferase 53(H) 0 - 40 U/L [facility] Total Protein 7.3 6.5 - 8.0 g/dL [facility] Albumin Level 4.0 3.5 - 5.0 g/dL [facility] Alkaline Phosphatase 148(H) 39 - 117 U/L [facility] Blood Venous blood specimen / Unknown 05/25/2025 10:01 AM EDT 05/25/2025 2:09 PM EDT Nadya Mauro MD LAB BLOOD ORDERABLES Final Resul t [facility] [address] [place] [phone] [phone] * (ABNORMAL) Lipid Panel, Standard (05/25/2025 10:01 AM EDT) Triglycerides 62 <150 mg/dL [facility] Comment:Desirable Triglyceri de: less than 150 mg/dLBorderline High Triglyceride 150-199 mg/dLHigh Triglyceride: 200-499 mg/dLVery High Triglyceride: greater than or equal to 5OO mg/dL Cholesterol 169 <200 mg/dL [facility] Comment:Desirable Cholestero l: less than 200 mg/dLBorderline High Cholesterol: 200-239 mg/dLHigh Cholesterol: greater than 239 mg/dL LDL Cholesterol Calculated 118(H) <100 mg/dL [facility] Comment:Desirable LDL: less than 100 mg/dLNear Optimal/Above Optimal LDL: 110- 129 mg/dLBorderline High LDL: 130-159 mg/dLHigh LDL: 160-189 mg/dLVery High LDL: greater than or equal to 190 mg/dL HDL Cholesterol 39(L) >40 mg/dL [facility] Comment:Desirable HDL: great er than 40 mg/dL Note: This HDL assay may give artificially low results in patients with liver disease. Blood Venous blood specimen / Unknown 05/25/2025 10:01 AM EDT 05/25/2025 2:09 PM EDT us Nadya Mauro MD LAB BLOOD ORDERABLES Final Resul t [facility] [address] [place], [place] [phone] * (ABNORMAL) Basic Metabolic Panel (05/25/2025 10:01 AM EDT) Sodium 141 135 - 145 mmol/L [facility] Potassium 4.2 3.3 - 5.1 mmol/L [facility] Chloride 112(H) 96 - 108 mmol/L [facility] Carbon Dioxide 22 22 - 29 mmol/L [facility] Anion Gap 11(L) 12 - 20 [facility] Urea Nitrogen (BUN) 21(H) 9 - 16 mg/dL [facility] Creatinine, Serum 0.60 0.5 - 1.4 mg/dL [facility] Estimated Glomerular Filt Rate >60 [facility] Comment:Chronic Kidney Disea se: Estimated GFR < 60 mL/min/1.12m7Tsdjwp Kidney Disease: Estimated GFR < 15 mL/min/1.73m2 Glucose 101 60 - 115 mg/dL [facility] Calcium 10.0 8.4 - 10.2 mg/dL [facility] Blood Venous blood specimen / Unknown 05/25/2025 10:01 AM EDT 05/25/2025 2:09 PM EDT us Nadya Mauro MD LAB BLOOD ORDERABLES Final Resul t Performing Organization Address [facility]/ZIP Co de Phone Number [facility] [address] [place] [phone] * (ABNORMAL) Hepatitis Panel, General (12/30/2024 1:19 PM EDT) Hepatitis A IgM Nonreactive Nonreactive [facility] Comment:IgM antibodies to BETTS V not detected; does not exclude earlyacute or recovered HAV infection. ~Hepatitis B Surface Antibody NONREACTIVE Nonreactive [facility] Comment:Nonreactive: < 8.00 mIU/mL Hepatitis B Core Antibody Reactive Nonreactive [facility] Comment:Presumptive evidence of anti-HBc. Hepatitis C Antibody Reactive(A) Nonreactive [facility] Comment:Presumptive evidence of antibodies to HCV. Hepatitis B Surface Ag Negative Negative [facility] 12/30/2024 1:19 PM EDT 12/30/2024 1:24 PM EDT us Generic External Data Provider LAB BLOOD ORDERAB LES Final Result Performing Organization Address [facility]/ZIP Co de Phone Number [facility] [address] [place] [phone] from Last 3 Months or Most Recently Relevant to Health Maintenance Insurance [facility] STANDARD [facility] CARE HOME OPTIONS (HMO D-SNP) [facility]AL [facility] Care Teams Amusement [employer] Worker Relationship Specialty Start Date End Date Nadya Mauro MD [address] [place] [address] PCP - General Family Medicine 08/11/12
--- NOTE | 2025-06-14 11:41 | HO.ANESPROP2 ---
Documented by User: Bertha Coffman NP 06/14/25 11:47 HPI - Anesthesia Eval Consult details Narrative: 65 yr old male for Upper Endoscopy and Colonoscopy Alcoholic hepatitis with ascites: INR 1.2 05/26/25 History of IVDA with hepatitis-C now in remission and treated PMF Active Problems Active Problems: All Active Problems Thrombocytopenia (Acute) Cirrhosis (Acute) Renal cyst (Acute) Alcoholic hepatitis with ascites (Acute) Hepatitis (Acute) Jaundice (Acute) Erectile dysfunction associated with type 2 diabetes mellitus (Acute) Nocturia (Acute) Alcohol use disorder (Acute) Hemorrhoids (Acute) Tubular adenoma of colon (Acute) Asthma (Acute) Encounter for screening colonoscopy (Acute) Past Medical History Medical History Erectile dysfunction Thrombocytopenia Cirrhosis Alcoholic hepatitis Elevated cholesterol Asthma Family History Family History Mother Advanced dementia Diabetes HTN (hypertension) Father HTN (hypertension) Family history of problems with anesthesia: No Surgical History Surgical History Hx of colonoscopy History of Problems with Anesthesia: No Social History Social History Household Members: None Household Members Other:: 0 Housing: Apartment Are you a primary rn care transition to a significant other at home: No Do you presently have visiting nurse or other home services: No Alcohol intake: current Alcohol intake frequency: former alcohol drinker Alcohol type: wine Patient Tobacco Use Status: Never used Tobacco e-Cigarette/Vaping Use: Never Used Second Hand Smoke Exposure: No Have you been hit, kicked, punched, or otherwise hurt by someone within the past year? If so, by whom?: No Are you DNR?: No Advance Directives: No Advance Directives Information Provided: Yes Poor oral hygiene: Yes service: No Current occupational status: disabled Meds Allergies Allergy/AdvReac Type Severity Reaction Status Date / Time No Known Allergies Allergy Verified 06/16/25 07:37 Home Medications ?Medication ?Instructions ?Recorded ?Confirmed ?Last Taken ?Type albuterol sulfate 90 mcg/actuation 2 puff PO Q4H PRN Wheezing 11/23/21 06/14/25 12/30/24 History aerosol inhaler ibuprofen 600 mg tablet 600 mg PO BID PRN Pain 11/23/21 06/14/25 Unknown History zolpidem 10 mg tablet 10 mg PO BEDTIME PRN Sleep 11/23/21 06/14/25 Unknown History thiamine HCl (vitamin B1) 100 mg 100 mg PO DAILY 10/16/24 06/14/25 12/30/24 History tablet cyanocobalamin (vitamin B-12) 50 50 mcg PO DAILY 12/30/24 06/14/25 12/30/24 History mcg tablet (Vitamin B-12) folic acid 1 mg tablet 1 mg PO DAILY 12/30/24 06/14/25 12/30/24 History ketorolac 0.5 % eye drops 1 drp ophthalmic-Left TID 12/30/24 06/14/25 12/30/24 History Exam Pertinent Lab Results Pertinent Lab Results: Laboratory Tests 05/25/25 05/26/25 10:01 14:37 WBC 3.7 L RBC 4.03 L Hgb 13.7 L Hct 38.3 L Plt Count 101 L Sodium 141 Potassium 4.2 BUN 21 H Creatinine 0.60 Assessment and Plan Final Anesthetic Review Family History of Problems with Anesthesia: No History of Problems with Anesthesia: No Documented by User: Ave Lara MD 06/16/25 07:40 [facility] Past Medical History Medical History Erectile dysfunction Thrombocytopenia Cirrhosis Alcoholic hepatitis Elevated cholesterol Asthma Family History Family History Mother Advanced dementia Diabetes HTN (hypertension) Father HTN (hypertension) Surgical History Surgical History Hx of colonoscopy Social History Social History Household Members: None Household Members Other:: 0 Housing: Apartment Are you a primary rn care transition to a significant other at home: No Do you presently have visiting nurse or other home services: No Alcohol intake: current Alcohol intake frequency: former alcohol drinker Alcohol type: wine Patient Tobacco Use Status: Never used Tobacco e-Cigarette/Vaping Use: Never Used Second Hand Smoke Exposure: No Have you been hit, kicked, punched, or otherwise hurt by someone within the past year? If so, by whom?: No Are you DNR?: No Advance Directives: No Advance Directives Information Provided: Yes Poor oral hygiene: Yes service: No Current occupational status: disabled Meds Allergies Allergy/AdvReac Type Severity Reaction Status Date / Time No Known Allergies Allergy Verified 06/16/25 07:37 Home Medications ?Medication ?Instructions ?Recorded ?Confirmed ?Last Taken ?Type albuterol sulfate 90 mcg/actuation 2 puff PO Q4H PRN Wheezing 11/23/21 06/14/25 12/30/24 History aerosol inhaler ibuprofen 600 mg tablet 600 mg PO BID PRN Pain 11/23/21 06/14/25 Unknown History zolpidem 10 mg tablet 10 mg PO BEDTIME PRN Sleep 11/23/21 06/14/25 Unknown History thiamine HCl (vitamin B1) 100 mg 100 mg PO DAILY 10/16/24 06/14/25 12/30/24 History tablet cyanocobalamin (vitamin B-12) 50 50 mcg PO DAILY 12/30/24 06/14/25 12/30/24 History mcg tablet (Vitamin B-12) folic acid 1 mg tablet 1 mg PO DAILY 12/30/24 06/14/25 12/30/24 History ketorolac 0.5 % eye drops 1 drp ophthalmic-Left TID 12/30/24 06/14/25 12/30/24 History Exam Airway Mallampati Class: II (2 caps front bottom) TM Dist: >3cm Neck ROM: Full Heart: rrr Lungs: cta Assessment and Plan Assessment Anesthesia Assessment: Anesthesia Plan Discussed and Chart Reviewed Final Anesthetic Review NPO: Yes ASA Class: II Final Preanesthetic Review: No Changes in Pt Med Stat, Meds/Allgs Chart Reviewed and Consent Obtained/Reviewed Patient Risk: Intermediate Procedure Risk: Intermediate Anesthetic Plan Anesthetic Plan: MAC: Disposition: Standard PACU
[2025-06-14 13:37] VITALS: BMI 25.3
[2025-06-16] MEDS: Lactated Ringers 1,000 ML 100 ML IVCONT (07:19)
[2025-06-16 07:31] VITALS: BMI 25.3
[2025-06-16 07:36] VITALS: BP 132/58; PULSE 54; RESP 18; TEMP 36.7; O2SAT 99
--- NOTE | 2025-06-16 07:45 | MHC.SHP ---
Pre-Procedural Eval Section A - 24 Hr Update-Section A only Date of Service: 06/16/25 Section B - Complete if H&P > 30 days Chief Complaint: hx colon polyps,cirrhosis of liver Allergies: Allergies Allergy/AdvReac Type Severity Reaction Status Date / Time No Known Allergies Allergy Verified 06/16/25 07:37 Plan Diagnosis/Plan: Unchanged I have reviewed the history and physical and performed a pertinent physical examination on my patient. No changes have occurred unless specified. Time Spent With Patient Time: Total time managing care of this patient today ____ minutes.
--- NOTE | 2025-06-16 07:48 | P.OPN-COLO_ITS ---
Colonoscopy Operative Note Operative Note Date of Service: 06/16/25 Narrative: Procedure: Upper endoscopy and colonoscopy Indication: Cirrhosis r/o varices, screening Endoscopist: Margret Butt MD Anesthesia Provider: Yasmeen Greenwood CRNA Anesthesia type: MAC Instrument: [id number] and [id number]-[id number] EGD Procedure:?? The procedure, indications, preparation and potential complications were reviewed with the patient, who indicated understanding and gave written informed consent to proceed. The endoscope was introduced through the mouth, and advanced to the 2nd part of the duodenum. The mucosa was carefully examined on slow withdrawal of the endoscope. The patient tolerated the procedure well. There were no immediate complications.? EGD Findings:? * Esophagus:? Normal esophageal mucosa was noted. The Z-line was at 36 cm and irregular up to 35 cm. A small hiatal hernia was noted with a diaphragmatic pinch at 39 cm. Flat varices were noted. Cold forceps biopsies were not taken due to underlying varices. * Stomach:?Erythema in a mosaic pattern consistent with portal hypertensive ga stropathy. Retroflexion was performed in the cardia that showed Hill grade II hiatal hernia. There was also an erosion noted in gastric antrum at 11 o clock. Cold forceps biopsies were taken for histology. * Duodenum:? Congestion and edema of the duodenum to the extent examined. Colonoscopy Procedure:? The patient was then turned for the colonoscopy. A digital rectal exam was performed which was abnormal for ext hemorrhoids.? A distal attachment cap was affixed to the tip of the scope and the colonoscope was then inserted through the anus and advanced through the colon and advanced to the cecum at 75 cm and terminal ileum.? Appendiceal orifice and ileocecal valve were identified. Mucosa was carefully examined under high definition white light as the instrument was slowly withdrawn in a retrograde panoramic fashion. Retroflexion was performed in rectum. The procedure was not difficult. The quality of the prep was BBPS: 2+2+3 = adequate Withdrawal time 18 minutes Limitations: No limitations Findings: Mucosa: Normal colon and terminal ileum mucosa. Protruding lesions: * 1 sessile polyp of size 5 mm in ascending colon. Cold snare polypectomy was performed. The polyp was completely removed and retrieved. * 1 sessile polyp of size 5 mm in transverse colon. Cold snare polypectomy was performed. The polyp was completely removed and retrieved. * 1 sessile polyp of size 4mm in descending colon. Cold snare polypectomy was performed. The polyp was completely removed and retrieved. * 1 sessile polyp of size 6 mm in sigmoid colon. Cold snare polypectomy was performed. The polyp was completely removed and retrieved. * Large internal hemorrhoids without stigmata of recent bleeding. Excavated lesions: * Few diverticula scattered through the colon Impression: 1. Irregular Z line 2. Flat varices 3. Hiatal hernia 4. Antral gastritis 5. Portal hypertensive gastropathy 6. Portal hypertensive duodenopathy 7. Normal colon and terminal ileum mucosa 8. Total 4 polyps removed 9. Diverticulosis 10. Internal and external hemorrhoids Recommendations:?? * Follow-up path results * Avoid NSAIDs. Start omeprazole 20 mg once daily * Cont abstinence from alcohol * Repeat EGD in 1 year for variceal surveillance. Can consider WATS 3D at that time to r/o BE. * US Abd to screen for HCC bernarda in Jul. * Repeat colonoscopy in 3 years.
[2025-06-16 08:32] VITALS: BP 123/61; PULSE 45; RESP 16; TEMP 36.1; O2SAT 100
[2025-06-16 08:47] VITALS: BP 134/57; PULSE 41; RESP 16; TEMP 36.1; O2SAT 100
== END 2025-06-16 09:15 | disposition home or self-care (01) ==
PROVIDERS: PCP Student in an Organized Health Care Education/Training Program; Visit Provider Internal Medicine
PROC: (CPT 45385; principal; 2025-06-16 08:20)
DX: Z12.11 Encounter for screening for malignant neoplasm of colon (principal); Z86.0101 Personal history of adenomatous and serrated colon polyps; D12.2 Benign neoplasm of ascending colon; D12.3 Benign neoplasm of transverse colon; D12.4 Benign neoplasm of descending colon; K63.5 Polyp of colon; K57.30 Diverticulosis of large intestine without perforation or abscess without bleeding; K64.8 Other hemorrhoids; K64.4 Residual hemorrhoidal skin tags; K74.60 Unspecified cirrhosis of liver; K29.50 Unspecified chronic gastritis without bleeding; K70.11 Alcoholic hepatitis with ascites; B96.81 Helicobacter pylori [H. pylori] as the cause of diseases classified elsewhere; K76.6 Portal hypertension; K31.89 Other diseases of stomach and duodenum; I85.00 Esophageal varices without bleeding; K22.89 Other specified disease of esophagus; K44.9 Diaphragmatic hernia without obstruction or gangrene; D69.6 Thrombocytopenia, unspecified; E78.00 Pure hypercholesterolemia, unspecified; J45.909 Unspecified asthma, uncomplicated; F10.90 Alcohol use, unspecified, uncomplicated
CPT/HCPCS: 45385; 43239; 88305; 88313; 88342; J2003; J2704

== ENCOUNTER → 2025-06-16 06:51 | Outpatient (BNV) | payer OTHER, SELFPAY | PROVIDERS: PCP Student in an Organized Health Care Education/Training Program; Visit Provider Internal Medicine | DX: Z12.11 Encounter for screening for malignant neoplasm of colon (principal); K63.5 Polyp of colon; K57.90 Diverticulosis of intestine, part unspecified, without perforation or abscess without bleeding; K64.8 Other hemorrhoids; K74.60 Unspecified cirrhosis of liver; I85.00 Esophageal varices without bleeding; K29.70 Gastritis, unspecified, without bleeding; K76.6 Portal hypertension; K31.89 Other diseases of stomach and duodenum | CPT/HCPCS: 43239; 45385 ==

== ENCOUNTER 2025-06-21 11:24 | Outpatient (AMB) | payer OTHER, SELFPAY ==
--- NOTE | 2025-06-21 11:25 | MHC.OFFVIS ---
Intake Visit Reasons: 3m/PVR Intake Note: Patient is present for 3M/PVR Urology Medication:TAMSULOSIN,TADALFIL Antibiotic Allergy:NONE Blood Thinner:NONE Last PVR:223ML'S Todays PVR:0ML'S Community Arts Worker Required: No Allergies No Known Allergies Allergy (Verified 06/21/25 11:56) Medication List - Last Reconciled 06/21/25 by LOIS Martínez- albuterol sulfate 90 mcg/actuation 2 puffs PO Q4H PRN cyanocobalamin (vitamin B-12) (Vitamin B-12) 50 mcg PO DAILY folic acid 1 mg PO DAILY ketorolac 0.5% 1 drp ophthalmic-Left TID omeprazole 20 mg PO DAILY tadalafil (Cialis) 5 mg PO DAILY 90 days tamsulosin 0.4 mg PO BEDTIME 30 days thiamine HCl (vitamin B1) 100 mg PO DAILY zolpidem 10 mg PO BEDTIME PRN HPI Comments Details: Jimmy is a very pleasant 65-year-old male patient of Dr. Mauro. He has a past medical history of hypercholesteremia, thrombocytopenia, cirrhosis, alcoholic hepatitis, and asthma. He presents to the office today for follow-up of his ED and nocturia. In discussion with the patient today he reports to be doing and feeling well. He reports significant improvement in lower urinary tract symptoms he had been experiencing with compliance in Flomax. He also reports significant improvement in maintaining his erections with daily dosing of tadalafil. He is requesting refill on medications. Previous workup has included a retroperitoneal ultrasound 02/17 bilateral kidneys are normal in size and echotexture. No hydronephrosis, nephrolithiasis, or hydronephrosis noted. Benign renal cortical cysts mid pole of the left kidney measuring 6 mm. The urinary bladder is unremarkable. Pre void bladder volume is approximately 157 mL. Postvoid bladder volume is approximately 40 mL. Prostate measures 26 mL. Ascites present. In office urinalysis results reviewed with the patient today. PVR 0 mL. We did discuss significant decrease in postvoid residual since last office visit labs are as follows: PSA: 03/19 0.3 Testosterone: 03/19 620 Free testosterone:03/19 47.1 He does feel episodes of nocturia have also lessened. He denies urinary urgency, urinary frequency, incontinence, hematuria, dysuria, foul smelling urine, changes to urinary stream, flank pain, fever, and or chills. We discussed at length the importance of lifestyle modifications to assist with nocturia as well as ED. He otherwise offers no other issues or concerns at this time. FORMERLY [facility], [facility] Medical History Erectile dysfunction Thrombocytopenia Cirrhosis Alcoholic hepatitis Elevated cholesterol Asthma Surgical History Hx of colonoscopy Family History Mother Advanced dementia Diabetes HTN (hypertension) Father HTN (hypertension) Social History Household Members: None Household Members Other:: 0 Housing: Apartment Are you a primary memory care program resident to a significant other at home: No Do you presently have visiting nurse or other home services: No Alcohol intake: current Alcohol intake frequency: former alcohol drinker Alcohol type: wine Patient Tobacco Use Status: Never used Tobacco e-Cigarette/Vaping Use: Never Used Second Hand Smoke Exposure: No service: No Current occupational status: disabled Review of Systems Const All systems reviewed & are unremarkable except as noted in HPI and below Physical Exam Const General: cooperative, comfortable, no acute distress, well developed, alert and awake Orientation/consciousness: patient oriented x3 Limitations: no limitations HEENT Head: Yes normal to inspection, Yes normocephalic and Yes atraumatic Ears: hearing grossly normal bilaterally Eyes General: appearance normal, both eyes and all related structures Neck Neck: Yes normal visual inspection and Yes trachea midline Chest Chest palpation & inspection: normal inspection of the chest Resp Effort & Inspection: normal respiratory effort and able to speak in complete sentences Cardio Rate: regular rate GI Inspection: Yes normal to inspection General: Yes no CVA tenderness Back/Spine/Pelvis Back: no CVA tenderness Skin General skin exam: no rashes or lesions noted Neuro General: patient oriented x3 Extrem General: Yes normal to inspection Psych Appearance: grossly normal and well kempt Mental Status: mental status grossly normal Speech and movement: Normal speech and movement present and Clear speech present Affect: normal affect Attitude: cooperative Thought process: Normal thought process present Thought content: Normal thought content present Insight: Fair insight present (Psych) Judgement: Fair judgement present (Psych) Office Procedures Post Void Residual Post Residual Void Post Void Residual (PVR): 0 55943-Cfbm Void Residual by ultrasound Assessment & Plan Assessment & Plan (1) Nocturia: Code(s): R35.1 - Nocturia Category: Medical (2) Erectile dysfunction associated with type 2 diabetes mellitus: Code(s): E11.69 - Type 2 diabetes mellitus with other specified complication; N52.1 - Erectile dysfunction due to diseases classified elsewhere Category: Medical (3) Renal cyst: Code(s): N28.1 - Cyst of kidney, acquired Category: Medical Plan In office urinalysis results reviewed with the patient today; as noted above. PVR 0 mL. Continue Flomax and low-dose Cialis as discussed and prescribed; refills provided Will continue with surveillance monitoring. He reports be happy with current voiding parameters. We did discussed the importance of continuing with sobriety for overall health and well-being. We also discussed lifestyle modifications for his urological conditions. Will obtain PSA in 6 months Follow-up in 6 months with PSA and PVR; or sooner with any issues, concerns, and or questions. Medications: Changed From tamsulosin 0.4 mg PO BEDTIME 30 days 30 caps 3RF To tamsulosin 0.4 mg PO BEDTIME 90 caps 2RF 90 days Refilled tadalafil (Cialis) [id number] [facility] [id number] Member [id number] 5 mg PO DAILY 90 tabs 2RF 90 days Patient Instructions: The patient had an opportunity to ask questions regarding the treatment plan. All questions were answered. Physical exam, labs, and imaging were discussed and reviewed in detail. As well as risks, benefits, and discussion of treatment choices. No major barriers to understanding were identified. The patient expressed understanding and agreement with the above treatment plan. The patient was made aware they should contact our office by phone for worsening of their current condition, the appearance of new symptoms, or with any questions or concerns. Compliance is encouraged with any medications and follow up testing that is ordered. It is a privilege to be allowed the opportunity to participate in? your urological care.? Again, if you have any questions or concerns If you have any questions or concerns please do not hesitate to contact me. The office is [phone]. This note is constructed using voice recognition software. While every effort has been made to ensure accuracy corporate claims examiner errors may have been included. Yours sincerely, LOIS Martínez-BC Coding Level of Care Code Est Pt Level 3 (72213) Complex EM visit Add On G2211 Diagnoses Nocturia R35.1 Erectile dysfunction associated with type 2 diabetes mellitus E11.69; N52.1 Renal cyst N28.1 CPT Codes Post Residual Void - PVR CPT Code: 83935-Ggex Void Residual by ultrasound ([id number])
--- OUTSIDE RECORDS SUMMARY | 2025-06-21 14:35 | XMS_ITS | Encounter Summary ---
Author Organization [employer] Address [address] [place] [address] Care Team Providers Care Experimental Outboard Motors Mechanic Name Role Phone Nadya Mauro MD Primary Care Provider [phone] Encounter Details Date Type Department Care Team (Latest Contact Info) Description 06/07/2021 Abstract [facility] CONVERSIONS Dental, Provider, DDS Social [...] Care Team (Late st Contact Info) Description 08/04/2025 9:00 AM EST Office Visit [facility] OPTOMETRY [address] [place] [address] Eliecer, Meg, OD [address] [place] [address] documented as of this encounter Visit Diagnoses Not on filedocumented in this encounter Care Teams Experimental Outboard [employer] Mechanic Relationship Specialty Start Date End Date Nadya Mauro MD [address] [place] [address] PCP - General Family Medicine 08/11/12 documented as of this encounter
--- OUTSIDE RECORDS SUMMARY | 2025-06-21 14:35 | XMS_ITS | Encounter Summary ---
Author Organization [employer] Address [address] [place] [address] Care Team Providers Care General Machine Operator Name Role Phone Nadya Mauro MD Primary Care Provider [phone] Encounter Details Date Type Department Care Team (Late Contact Info) Description 01/24/2023 Orders Only [facility] CHC MED & PEDS [address] [place], [place] [phone] Herb Flores MD [address] [place] [address] Macrocytic anemia (Primary Dx) Social History Tobacco [...] Department Care Team (Late Contact Info) Description 08/04/2025 9:00 AM EST Office Visit [facility] OPTOMETRY [address] [place] [address] Eliecer, Meg, OD [address] [place] [address] Scheduled Orders Name Type Priority Associated Diagnoses [...] documented as of this encounter Care Teams General Machine Operator Relationship Specialty Start Date End Date Nadya Mauro MD [address] [place] [address] PCP - General Family Medicine 08/11/12 documented as of this encounter
--- OUTSIDE RECORDS SUMMARY | 2025-06-21 14:35 | XMS_ITS | Encounter Summary ---
Author Organization [employer] Address [address] [facility] [address] [place] [address] Care Team Providers Care Route Driver Name Role Phone Nadya Mauro MD Primary Care Provider [phone] Reason for Visit * Reason Onset Date Comments PA and appt 03/05/2025 Encounter Details Date Type Department Care Team ([facility] st Contact Info) Description 03/05/2025 Telephone [facility] ADULT DENTAL [address] [place], [place] [phone] Boni Martel [address] [place], [place] [phone] PA and appt Social History Tobacco Use [...] Description 08/04/2025 9:00 AM EST Office Visit [facility] OPTOMETRY [address] [place] [address] Eliecer, Meg, OD [address] [place] [address] documented as of this encounter Visit Diagnoses Not on filedocumented in this encounter Additional Health Concerns Assessment Noted Time PHQ-9 Depression Total Score: 4 12/25/19 23 9:49 AM EDT documented as of this encounter Care Teams Route Driver Relationship Specialty Start Date End Date Nadya Mauro MD [address] [place] [address] PCP - General Family Medicine 08/11/12 documented as of this encounter
--- OUTSIDE RECORDS SUMMARY | 2025-06-21 14:35 | XMS_ITS | Encounter Summary ---
Author Organization [employer] Address [address] [place] [address] [address] [place] [address] Care Team Providers Care Jewel Hole Driller Name Role Phone Nadya Mauro MD Primary Care Provider [phone] Reason for Visit * Reason Comments Med Refill Encounter Details Date Type Department Care Team (Late Contact Info) Description 05/06/2023 Refill [facility] CHC MED & PEDS [address] [place], [place] [phone] Nadya Mauro MD [address] [place] [address] Pain Social History Tobacco Use Types Packs/Day [...] Description 08/04/2025 9:00 AM EST Office Visit [facility] OPTOMETRY [address] [place], [place] [phone] Eliecer, Meg, OD [address] [place], [place] [phone] documented as of this encounter Visit Diagnoses Diagnosis Pain Generalized pain documented in this encounter Additional Health Concerns Assessment Noted Time PHQ-9 Depression Total Score: 4 12/25/19 23 9:49 AM EDT documented as of this encounter Care Teams Jewel Hole Driller Relationship Specialty Start Date End Date Nadya Mauro MD [address] [place] [address] PCP - General Family Medicine 08/11/12 documented as of this encounter
--- OUTSIDE RECORDS SUMMARY | 2025-06-21 14:35 | XMS_ITS | Clinical Summary ---
Author Organization [employer] Address [address] [facility] 7[address] [place] [address] Care Team Providers Care Pickup Driver Name Role Phone Nadya Mauro MD Primary Care Provider [phone] Allergies No known active allergies Medications docusate sodium (Colace) 100 MG capsule TAKE [...] THE MORNING 90 tablet 08/03/20 24 Active tadalafil (Cialis) 20 MG tablet TAKE [...] day. 90 tablet 3 02/25/20 25 Active tamsulosin (Flomax) 0.4 MG 24 hr capsule 05/24/20 25 Active hydrOXYzine HCl (Atarax) 25 MG tabletIndicatio ns:Generalized pruritus 1 tablet as needed at bedtime for itching 90 tablet 05/31/20 25 Active albuterol 108 (90 Base) MCG/ACT inhalerIndicati ons:Asthma, unspecified asthma severity, unspecified whether complicated, unspecified whether persistent INHALE 2 PUFFS INTO LUNGS IN MORNING, AT NOON, IN EVENING, & AT BEDTIME. 18 g 3 06/16/20 25 Active ibuprofen 600 MG tabletIndicatio ns:Pain TAKE 1 TABLET BY MOUTH TWICE A DAY 60 tablet 3 06/21/20 25 Active GaviLAX 17 GM/SCOOP powder TAKE 17 G BY MOUTH ONCE PER DAY FOR 3 DAYS. 510 g 2 06/21/20 Active GaviLAX 17 GM/SCOOP powder TAKE 17 GRAMS MIXED IN BEVERAGE ONCE DAILY 03/28/20 22 025 Discontinued ibuprofen 600 MG tabletIndicatio ns:Pain TAKE 1 TABLET BY MOUTH TWICE A DAY 60 tablet 3 01/14/20 25 025 Discontinued albuterol 108 (90 Base) MCG/ACT inhalerIndicati ons:Asthma, unspecified asthma severity, unspecified whether complicated, unspecified whether persistent INHALE 2 PUFFS IN THE MORNING, AT NOON, IN THE EVENING, AND AT BEDTIME. 18 g 1 03/18/20 25 025 Discontinued Hospital, Clinic, or Other Facility Administered Medication Ordered Dose Route Frequency Start Date End Date Status triamcinolone acetonide (Kenalog-40) injection 80 mgIndications:Chronic right shoulder pain 80 mg IX Once 06/01/2025 06/01/2025 Ended lidocaine (Xylocaine) 1 % injection 20 mgIndications:Chronic right shoulder pain 20 mg IJ Once 06/01/2025 06/01/2025 Ended triamcinolone acetonide (Kenalog-40) injection 40 mgIndications:Chronic left shoulder pain 40 mg IX Once 06/10/2025 06/10/2025 Ended lidocaine (Xylocaine) 1 % injection 20 mgIndications:Chronic left shoulder pain 20 mg IJ Once 06/10/2025 06/10/2025 Ended triamcinolone acetonide (Kenalog-40) injection 40 mgIndications:Chronic left shoulder pain 40 mg IX Once 06/10/2025 06/10/2025 Ended Active Problems Problem Noted Date Diagnosed Date Cirrhosis of liver with ascites 01/22/2025 Primary hypertension 05/01/2023 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 Asthma 06/09/2013 Hypercholesterolemia 05/18/2013 Encounters Date Type Department Care Team Description 06/20/2025 Refill [facility] MED & PEDS [address] [place] [address] Nadya Mauro MD Pain 06/16/2025 Orders Only GENERIC EXTERNAL DATA DEPARTMENT Provider, Generic External Data 06/16/2025 Refill [facility] MED [facility] PEDS [address] [place] [address] Nadya Mauro MD Asthma, unspecified asthma severity, unspecified whether complicated, unspecified whether persistent 06/10/2025 9:45 AM EDT Procedure Visit [facility] PEDS [address] [place] [address] Nadya Mauro MD Chronic left shoulder pain (Primary Dx) 06/10/2025 Travel 06/01/2025 10:00 AM EDT Procedure Visit [facility] PED[facility] [address] [place] [address] Nadya Mauro MD Chronic right shoulder pain (Primary Dx) 05/31/2025 1:15 PM EDT Office Visit [facility] MEDICINE [address] [place] [phone] Leslee Coates ANP Generalized pruritus (Primary Dx); Alcoholic cirrhosis of liver without ascites (HCC) 05/31/2025 Travel 05/31/[address] [facility] MEDICINE [address] [place] [phone] Nadya Mauro MD Nurse Triage 05/27/2025 8:00 AM EDT Office Visit [facility] ADULT DENTAL [address] [place] [address] Boni Martel 05/26/2025 Orders Only GENERIC EXTERNAL DATA DEPARTMENT Provider, Generic External Data 05/26/2025 Telephone [facility] MED [facility] PEDS [address] [place] [address] Nadya Mauro MD Transition Of Care (Tcm) 05/26/2025 Results Follow-Up [facility] MED [facility] PEDS [address] [place] [address] Nadya Mauro MD Basic Metabolic Panel, Lipid Panel, Standard, Hepatic Function Panel 05/25/2025 9:30 AM EDT Office Visit [facility] MED [facility] PEDS [address] [place] [address] Nadya Mauro MD Primary hypertension (Primary Dx); Hypercholesterolemia; Preop cardiovascular exam; Encounter for screening for malignant neoplasm of colon; Chronic right shoulder pain 05/25/2025 Travel 05/24/2025 Telephone [facility] MED [facility] PEDS [address] [place] [address] Nadya Mauro MD Pre-op Exam; chart prep 05/18/2025 Patient Outreach [facility] MEDICINE [address] [place] [address] Nadya Mauro MD Pre-visit Planning (SDOH screening completed on 01/04/25 ) 04/23/2025 8:30 AM EDT Office Visit [facility] ADULT DENTAL [address] [place] [address] TahminaBoni 04/16/2025 11:15 AM EDT Clinical Support [facility] MED [facility] PEDS [address] [place] [address] Ellie Cook RN Primary hypertension 04/16/2025 Travel from Last 3 Months Immunizations Immunization [...] Sign Reading Time Taken Comments Blood Pressure 118/80 06/10/2025 9:55 AM EDT Pulse 98 06/10/2025 9:55 AM EDT Temperature 36.4 C (97.5 F) 06/10/2025 9:55 AM EDT Respiratory Rate 18 06/10/2025 9:55 AM EDT Oxygen Saturation 95% 05/31/2025 1:11 PM EDT Inhaled Oxygen Concentration - - Weight 72.1 kg (159 lb) 06/10/2025 9:55 AM EDT Height 165.1 cm (5' 5 ) 06/10/2025 9:55 AM EDT Body Mass Index 26.46 06/10/2025 9:55 AM EDT Plan of Treatment Upcoming Encounters Date Type Department Care Team (Late st Contact Info) Description 08/04/2025 9:00 AM EST Office Visit [facility] OPTOMETRY [address] [place], [place] [phone] Eliecer, Meg, OD [address] [place] [address] Health Maintenance Due Date Last Done Comments [...] 06/27/2027 06/27/2017, 11/30/2005 Lipid Panel 05/25/2030 05/25/2025, 05/2 01/2023, 03/16/2022 Hepatitis B Vaccines Completed 04/13/2005, 11/11/2003, [...] Procedure Name Priority Date/Time Associated Diagnosis Comments HEMATOXYLIN AND EOSIN STAIN Routine 06/16/2025 7:57 AM EDT MN ARTHROCENTESIS ASPIR&/INJ MAJOR JT/BURSA W/O US Routine 06/10/2025 9:58 AM EDT Chronic left shoulder pain MN ARTHROCENTESIS ASPIR&/INJ MAJOR JT/BURSA W/O US Routine [...] Recently Relevant to Health Maintenance Results * Hematoxylin and Eosin Stain (06/16/2025 7:57 AM EDT) 06/16/2025 7:57 AM EDT 06/16/2025 8:54 AM EDT [facility] - 06/18/2025 1:50 PM EDT ----- ------- Name: Jimmy Elias Age/Sex: 65/M : 1960 [id number] [id number] Attend Dr: Margret Butt MD Re06/16/25 Status: [facility] Location: [facility] Disch: ----- ------- SPEC : [id number] RECD: 06/16/25 STATUS: [facility] NUM: [id number] BEBE: 06/16/25 [facility] DR: Margret Butt MD ENTERED: 06/16/25 TYPE: Surgical OTHR DR: Nadya Mauro MD ORDERED: HE Stain/15, Gross Micro L4/5, IHC, Special st. 2, H. pylori, AB/PAS Diagnosis A. Stomach, antrum, biopsy: - Antral-type mucosa with moderate chronic active inflammation. - Positive for H pylori. B. Colon, ascending, polypectomy: Tubular adenoma; negative for high-grade dysplasia or carcinoma. C. Colon, transverse, polypectomy: Tubular adenoma; negative for high-grade dysplasia or carcinoma. D. Colon, descending, polypectomy: Tubular adenoma; negative for high-grade dysplasia or carcinoma. E. Colon, sigmoid, polypectomy: Hyperplastic mucosal polyp. Clinical History Pre-Op Dx: Hx colon polyps, cirrhosis of liver Post-Op Dx: Portal hypertensive gastropathy, gastritis, portal hypertensive duodenopathy, diverticulosis, colon polyps, hemorrhoids Microscopic Description A-E. Microscopic sections examined. No metaplastic changes are seen, supported by AB/PAS stains (A); Helicobacter organisms are seen, supported by H. pylori immunostain (A). Material Received A. Gastric antrum bx's B. Ascending colon polyp C. Transverse colon polyp D. Descending colon polyp E. Sigmoid colon polyp Gross Description A. Received in formalin are 2 ríos 3 and 4 mm soft tissue fragments, totally submitted in cassette A1. B. Received in formalin is 1 ríos 11 mm soft tissue fragment, totally submitted in cassette B1. C. Received in formalin is 1 ríos 3 mm soft tissue fragment, totally submitted in cassette C1. CONTINUED ON NEXT PAGE ----- ------- Name: Jimmy Elias Age/Sex: 65/M : 1960 Unit#: [id number] Attend Dr: Margret Butt MD Re06/16/25 Status: [facility] Location: [facility] Disch: ----- ------- SPEC : [id number] RECD: 06/16/25 STATUS: [facility] NUM: [id number] BEBE: 06/16/25 [facility] DR: Margret Butt MD ENTERED: 06/16/25 SP TYPE: Surgical OTHR DR: Nadya Mauro MD ORDERED: HE Stain/15, Gross Micro L4/5, IHC, Special st. 2, H. pylori, AB/PAS Gross Description (Continued) D. Received in formalin is 1 ríos 7 mm soft tissue fragment, totally submitted in cassette D1. E. Received in formalin is 1 ríos 5 mm soft tissue fragment, totally submitted in cassette E1. (DTL) Special studies ordered and performed: Immunostain for H. pylori on A; AB/PAS stains on A IHC S/NG Disclaimer NOTE: Unless otherwise stated, all tissue is formalin-fixed and paraffin-embedded. Some or all of the immunohistochemical tests reported herein may have been developed and their performance characteristics determined by [facility]. They have not been cleared or approved by the U.S. Food and Drug Administration (FDA). However, the FDA has determined that such clearance or approval is not necessary. This laboratory is certified under the Clinical Laboratory Improvement Amendments of 1988 (CLIA) as qualified to perform high complexity clinical laboratory testing. Copies To: Nadya Mauro MD [address] [phone] Margret Butt MD [facility] [address] [place] [address] [id number] [email or web address] ----- ------- Signed (signature on file) Yves Sanchez MD 06/18/25 4900 ----- ------- END OF REPORT us Generic External Data Provider LAB BLOOD ORDERAB LES Final Result [facility] [address] [place], [place] [phone] * MN ARTHROCENTESIS ASPIR&/INJ MAJOR JT/BURSA W/O US (06/10/2025 9:58 AM EDT) Nadya Olmos MD - 06/10/2025 9:58 AM EDT Nadya Mauro MD 06/10/2025 9:59 AM Arthrocentesis Date/Time: 06/10/2025 9:58 AM Performed by: Nadya Mauro MD Authorized by: Nadya Mauro MD Consent: Consent obtained: Verbal and written Consent given by: Patient Risks, benefits, and alternatives were discussed: yes Risks discussed: Pain Alternatives discussed: Referral Snyder protocol: Procedure explained and questions answered to patient or proxy's satisfaction: yes Relevant documents present and verified: yes Test results available: yes Imaging studies available: yes Required blood products, implants, devices, and special equipment available: yes Site/side marked: yes Immediately prior to procedure, a time out was called: yes Patient identity confirmed: Verbally with patient Location: Location: Shoulder Shoulder: L glenohumeral Anesthesia: Anesthesia method: Topical application Procedure details: Preparation: Patient was prepped and draped in usual sterile fashion Needle gauge: 22 G Ultrasound guidance: no Approach: Posterior Steroid injected: yes Specimen collected: no Post-procedure details: Dressing: Adhesive bandage Procedure completion: Tolerated us Nadya Mauro MD IN CLINIC/BEDSIDE ORDERABLES Fin al Result * MN ARTHROCENTESIS ASPIR&/INJ MAJOR JT/BURSA W/O US (06/01/2025 10:09 AM EDT) Nadya Olmos MD - 06/01/2025 10:09 AM EDT Nadya Mauro MD 06/01/2025 10:23 AM Arthrocentesis Date/Time: 06/01/2025 10:09 AM Performed by: Nadya Mauro MD Authorized by: Nadya Mauro MD Consent: Consent obtained: Verbal and written Consent given by: Patient Risks, benefits, and alternatives were discussed: yes Risks discussed: Pain Alternatives discussed: Referral Snyder protocol: Procedure explained and questions answered to [...] (05/26/2025 2:37 PM EDT) Phosphatidylethanol, Blood NEGATIVE [facility] Comment:CUTOFF 20 NG/MLPERFO RMING SITE:[facility] [employer]/[address] Animal Killer: PATRICKW. CHRIS MD,PHD, CLIA: [id number] PEth 16:0/18:2 (PLPEth) NEGATIVE [facility] Comment:CUTOFF 20 NG/ML PEth Comments SEE NOTE [facility] Comment:This drug testing is for medical treatment only. Analysiswas performed as non-forensic testing and these resultsshould be used only by healthcare providers to renderdiagnosis or treatment, or to monitor progress of medicalconditions.LDT Notes:Confirmation tests were developed and their analyticalperformance characteristics have been determined by [employer]. It has not been cleared or approved by the FDA.This assay has been validated pursuant to the CLIAregulations and is used for clinical purposes.Healthcare Providers needing Interpretation assistance,please contact us at [phone] ( ) M-F,8am to 10pm EST 05/26/2025 2:37 PM EDT 05/26/2025 2:37 PM EDT us Generic External Data Provider LAB BLOOD ORDERAB LES Final Result [facility] [address] [place] [phone] * (ABNORMAL) Prothrombin Time-INR (05/26/2025 2:37 PM EDT) Pathologist [facility] Prothrombin Time 13.7(H) 10.9 - 12.4 SEC [facility] INTERNATIONAL NORM RATIO 1.2(H) 0.9 - 1.1 [facility] Comment:INTERNATIONAL NORMAL IZED RATIO (INR) REFERENCE [...] ORDERAB LES Final Result Performing Organization Address City/State/[facility] Co de Phone Number [facility] [address] [place] [phone] * (ABNORMAL) CBC (05/26/2025 2:37 PM EDT) [facility] White Blood Count 3.7(L) 4.8 - 10.8 X10*3/uL [facility] Red Blood Count 4.03(L) 4.60 - 5.80 X10*6/uL [facility] Hemoglobin 13.7(L) 14.0 - 18.0 g/dl [facility] Hematocrit 38.3(L) 42.0 - 52.0 % [facility] Mean Corpuscular Volume 95.0 80.0 - 98.0 fL [facility] Mean Corpuscular Hemoglobin 34.0(H) 27.0 - 33.0 pg [facility] Mean Corpuscular HGB Conc 35.8 31.0 - 36.0 g/dl [facility] Red Cell Distribution Width 12.1 11.0 - 16.0 % [facility] Platelet Count 101(L) 160 - 400 X10*3/uL [facility] Mean Platelet Volume 11.0 9.4 - 12.4 fL [facility] NRBC Pct Auto 0.0 0.0 - 0.2 /100WBC [facility] NRBC Abs Auto 0.000 0.0 - 0.012 X10*3/uL [facility] 05/26/2025 2:37 PM EDT 05/26/2025 2:37 PM EDT us Generic External Data Provider LAB BLOOD ORDERAB LES Final Result Performing Organization Address City/State/[facility] Co de Phone Number [facility] [address] [place] [phone] * XR Shoulder 2+ Views Right (05/25/2025 10:29 AM EDT) Anatomical Region Laterality Modality Upper Extremities, Shoulder Right Radi ographic Imaging 05/25/2025 10:2 9 AM EDT Narrative 05/25/2025 10:42 AM EDT [address] [address] XRay Report Signed Patient: Jimmy Elias MR#: [id number] : 1960 Acct:[id number] Age/Sex: 65 / M ADM Date: 05/25/25 Loc: .[facility] Attending Dr: Nadya Mauro MD Ordering Physician: Nadya Mauro MD Date of Service: 05/25/25 Procedure(s): XR shoulder RT min 2V Accession Number(s): [id number] cc: Nadya Mauro MD Reason for Exam: [...] 05/25/25 1039 DD/ 1029 TD/TT: 05/25/25 1030 Transition Program Manager: Procedure Note Donotuseinterpreter, Image - 05/25/[address] [address] XRay Report Signed Patient: Lisbeth Elias#: [id number] : 9Acct:[id number] Age/Sex: 65 / MADM Date: 05/25/25 Loc: [facility] Attending Dr: Nadya Mauro MD Ordering Physician: Nadya Mauro MD Date of Service: 05/25/25 Procedure(s): XR shoulder RT min 2V Accession Number(s): [id number] cc: Nadya Mauro MD Reason for Exam: [...] 05/25/25 1039 DD/ 1029 TD/TT: 05/25/25 1030 Transition Program Manager: Nadya Mauro MD IMG XR PROCEDURES Edited Result - Final * (ABNORMAL) Hepatic Function Panel (05/25/2025 10:01 AM EDT) Bilirubin, Total 1.2(H) 0.0 - 1.0 mg/dL [facility] Bilirubin, Direct 0.5 0.0 - 0.5 mg/dL [facility] Aspartate Amino Transferase 51(H) 5 - 37 U/L [facility] Alanine Aminotransferase 53(H) 0 - 40 U/L [facility] Total Protein 7.3 6.5 - 8.0 g/dL [facility] Albumin Level 4.0 3.5 - 5.0 g/dL [facility] Alkaline Phosphatase 148(H) 39 - 117 U/L [facility] Blood Venous blood specimen / Unknown 05/25/2025 10:01 AM EDT 05/25/2025 2:09 PM EDT us Nadya Mauro MD LAB BLOOD ORDERABLES Final Resul t [facility] [address] [place] [phone] * (ABNORMAL) Lipid Panel, Standard (05/25/2025 10:01 AM EDT) Triglycerides 62 <150 mg/dL [facility] Comment:Desirable Triglyceri de: less than 150 mg/dLBorderline High Triglyceride 150-199 mg/dLHigh Triglyceride: 200-499 mg/dLVery High Triglyceride: greater than or equal to 5OO mg/dL Cholesterol 169 <200 mg/dL [facility] Comment:Desirable Cholestero l: less than 200 mg/dLBorderline High Cholesterol: 200-239 mg/dLHigh Cholesterol: greater than 239 mg/dL LDL Cholesterol Calculated 118(H) <100 mg/dL [facility] Comment:Desirable LDL: less than 100 mg/dLNear Optimal/Above Optimal LDL: 110- 129 mg/dLBorderline High LDL: 130-159 mg/dLHigh LDL: 160-189 mg/dLVery High LDL: greater than or equal to 190 mg/dL HDL Cholesterol 39(L) >40 mg/dL [facility] Comment:Desirable HDL: great er than 40 mg/dL Note: This HDL assay may give artificially low results in patients with liver disease. Blood Venous blood specimen / Unknown 05/25/2025 10:01 AM EDT 05/25/2025 2:09 PM EDT Nadya Mauro MD LAB BLOOD ORDERABLES Final Resul t Performing Organization Address [facility] Co de Phone Number [facility] [address] [place] [phone] * (ABNORMAL) Basic Metabolic Panel (05/25/2025 10:01 AM EDT) Sodium 141 135 - 145 mmol/L [facility] Potassium 4.2 3.3 - 5.1 mmol/L [facility] Chloride 112(H) 96 - 108 mmol/L [facility] Carbon Dioxide 22 22 - 29 mmol/L [facility] Anion Gap 11(L) 12 - 20 [facility] Urea Nitrogen (BUN) 21(H) 9 - 16 mg/dL [facility] Creatinine, Serum 0.60 0.5 - 1.4 mg/dL [facility] Estimated Glomerular Filt Rate >60 [facility] Comment:Chronic Kidney Disea se: Estimated GFR < 60 mL/min/1.35j0Jrwaon Kidney Disease: Estimated GFR < 15 mL/min/1.73m2 Glucose 101 60 - 115 mg/dL [facility] Calcium 10.0 8.4 - 10.2 mg/dL [facility] Blood Venous blood specimen / Unknown 05/25/2025 10:01 AM EDT 05/25/2025 2:09 PM EDT Nadya Mauro MD LAB BLOOD ORDERABLES Final Resul t Performing Organization Address [facility]/ZIP Co de Phone Number [facility] [address] [place] [phone] * (ABNORMAL) Hepatitis Panel, General (12/30/2024 1:19 PM EDT) Hepatitis A IgM Nonreactive Nonreactive [facility] Comment:IgM antibodies to BETTS V not detected; does not exclude earlyacute or recovered HAV infection. ~Hepatitis B Surface Antibody NONREACTIVE Nonreactive [facility] Comment:Nonreactive: < 8.00 mIU/mL Hepatitis B Core Antibody Reactive Nonreactive [facility] Comment:Presumptive evidence of anti-HBc. Hepatitis C Antibody Reactive(A) Nonreactive [facility] Comment:Presumptive evidence of antibodies to HCV. Hepatitis B Surface Ag Negative Negative [facility] 12/30/2024 1:19 PM EDT 12/30/2024 1:24 PM EDT us Generic External Data Provider LAB BLOOD ORDERAB LES Final Result Performing Organization Address City/State/[facility] Co de Phone Number [facility] [address] [place] [phone] from Last 3 Months or Most Recently Relevant to Health Maintenance Insurance [facility] LONG-TERM OPTIONS (HMO D-SNP) DENTAL - [facility] Care Teams Pickup Driver Relationship Specialty Start Date End Date Nadya Mauro MD [address] [place] [phone] PCP - General Family Medicine 08/11/12
--- OUTSIDE RECORDS SUMMARY | 2025-06-21 14:35 | XMS_ITS | Encounter Summary ---
Author Organization [employer] Address [address] [facility] [address] [place] [address] Care Team Providers Care Edge Stainer Machine Name Role Phone Nadya Mauro MD Primary Care Provider Reason for Visit * Reason Comments Med Refill Encounter Details Date Type Department Care Team ([facility] st Contact Info) Description 06/20/2025 Refill [facility] MED & PEDS [address] [place], [place] [phone] Nadya Mauro MD [address] [place], [place] [phone] Pain Social History Tobacco Use Types Packs/Day [...] Description 08/04/2025 9:00 AM EST Office Visit [facility] OPTOMETRY [address] [place] [address] Eliecer, Meg, OD [address] [place] [address] documented as of this encounter Visit Diagnoses Diagnosis Pain Generalized pain documented in this encounter Additional Health Concerns Assessment Noted Time PHQ-9 Depression Total Score: 4 12/25/19 23 9:49 AM EDT documented as of this encounter Care Teams Edge Stainer Machine Relationship Specialty Start Date End Date Nadya Mauro MD [address] [place] [address] PCP - General Family Medicine 08/11/12 documented as of this encounter
--- OUTSIDE RECORDS SUMMARY | 2025-06-21 14:35 | XMS_ITS | Encounter Summary ---
Author Organization [employer] Address [address] [facility] [address] [place] [address] Care Team Providers Care Baller Tender Name Role Phone aNdya Mauro MD Primary Care Provider [phone] Reason for Visit * Reason Comments Med Refill Encounter Details Date Type Department Care Team ([facility] st Contact Info) Description 07/02/2023 Refill [facility] CHC MED & PEDS [address] [place], [place] [phone] Nadya Mauro MD [address] [place], [place] [phone] Social History Tobacco Use Types Packs/Day Years [...] Description 08/04/2025 9:00 AM EST Office Visit [facility] OPTOMETRY [address] [place] [address] Meg Gonzáles, OD [address] [place] [address] documented as of this encounter Visit Diagnoses Not on filedocumented in this encounter Additional Health Concerns Assessment Noted Time PHQ-9 Depression Total Score: 4 12/25/19 23 9:49 AM EDT documented as of this encounter Care Teams Baller Tender Relationship Specialty Start Date End Date Nadya Mauro MD [address] [place] [address] PCP - General Family Medicine 08/11/12 documented as of this encounter
--- OUTSIDE RECORDS SUMMARY | 2025-06-21 14:35 | XMS_ITS | Encounter Summary ---
Author Organization [employer] Address [address] [facility] [address] [place] [address] Care Team Providers Care Desktop Support Manager Name Role Phone Nadya Mauro MD Primary Care Provider [phone] Encounter Details Date Type Department Care Team ([facility] st Contact Info) Description 05/26/2025 Results Follow-Up [facility] CHC MED & PEDS [address] [place], [place] [phone] Nadya Mauro MD [address] [place], [place] [phone] Basic Metabolic Panel, Lipid Panel, Standard, Hepatic [...] 9:00 AM EST Office Visit [facility] OPTOMETRY [address] [place] [address] Eliecer, Meg, OD [address] [place] [address] documented as of this encounter Visit Diagnoses Not on filedocumented in this encounter Additional Health Concerns Assessment Noted Time PHQ-9 Depression Total Score: 4 12/25/19 23 9:49 AM EDT documented as of this encounter Care Teams Desktop Support Manager Relationship Specialty Start Date End Date Nadya Mauro MD [address] [place] [address] PCP - General Family Medicine 08/11/12 documented as of this encounter
--- OUTSIDE RECORDS SUMMARY | 2025-06-21 14:36 | XMS_ITS | Encounter Summary ---
Author Organization [employer] Address [address] [facility] [address] [place] [address] Care Team Providers Care Child And Family Services Specialist Name Role Phone Nadya Mauro MD Primary Care Provider [phone] Encounter Details Date Type Department Care Team ([facility] Contact Info) Description 06/16/2025 Orders Only GENERIC EXTERNAL DATA DEPARTMENT Provider, Generic External Data Social History Tobacco Use Types Packs/Day Years [...] Description 08/04/2025 9:00 AM EST Office Visit [facility] OPTOMETRY [address] [place] [address] Eliecer, Meg, OD [address] [place] [address] documented as of this encounter Procedures Procedure Name Priority Date/Time Associated Diagnosis Comments HEMATOXYLIN AND EOSIN STAIN Routine 06/16/2025 7:57 AM EDT documented in this encounter Results * Hematoxylin and Eosin Stain (06/16/2025 7:57 AM EDT) 06/16/2025 7:57 AM EDT 06/16/2025 8:54 AM EDT [facility] - 06/18/2025 1:50 PM EDT ----- ------- Name: Jimmy Elias Age/Sex: 65/M : 1960 Unit#: [id number] Attend Dr: Margret Butt MD Re06/16/25 Status: [facility] Location: [facility] Disch: ----- ------- SPEC : [id number] RECD: 06/16/25 STATUS: SWAPNIL PARHAM NUM: [id number] BEBE: 06/16/[address] [facility] [address]: Margret Butt MD ENTERED: 06/16/25 SP [...] Jimmy Elias Age/Sex: 65/M : 1960 Unit#: [id number] Attend Dr: Margret Butt MD Re06/16/25 Status: [facility] Location: [facility] Disch: ----- ------- SPEC : [id number] RECD: 06/16/25 STATUS: SWAPNIL PARHAM NUM: [id number] BEBE: 06/16/[address] [facility] [address]: Margret Butt MD ENTERED: 06/16/25 SP [...] developed and their performance characteristics determined by [facility]. They have not been cleared or approved by the U.S. Food and Drug Administration (FDA). However, the FDA has determined that such clearance or approval is not necessary. This laboratory is certified under the Clinical Laboratory Improvement Amendments of 1988 (CLIA) as qualified to perform high complexity clinical laboratory testing. Copies To: Nadya Mauro MD [facility] [address] [place] [address] Margret Butt MD [facility] [address] [place] [address] [email or web address] ----- ------- Signed (signature on file) Yves Sanchez MD 06/18/25 [id number] ----- ------- END OF REPORT us Generic External Data Provider LAB BLOOD ORDERAB LES Final Result [facility] [address] [place] [address] [phone] documented in this encounter Visit Diagnoses Not on filedocumented in this encounter Additional Health Concerns Assessment Noted Time PHQ-9 Depression Total Score: 4 12/25/19 23 9:49 AM EDT documented as of this encounter Care Teams Child And Family Services Specialist Relationship Specialty Start Date End Date Nadya Mauro MD [address] [place] [address] PCP - General Family Medicine 08/11/12 documented as of this encounter
--- OUTSIDE RECORDS SUMMARY | 2025-06-21 14:36 | XMS_ITS | Encounter Summary ---
Author Organization [employer] Address [address] [facility] [address] [place] [address] Care Team Providers Care On Site Coordinator Name Role Phone Nadya Mauro MD Primary Care Provider [phone] Reason for Visit * Reason Comments Med Refill Encounter Details Date Type Department Care Team ([facility] st Contact Info) Description 06/16/2025 Refill [facility] CHC MED & PEDS [address] [place], [place] [phone] Nadya Mauro MD [address] [place], [place] [phone] Asthma, unspecified asthma severity, unspecified whether complicated, unspecified whether persistent Social History Tobacco Use Types Packs/Day Years [...] 9:00 AM EST Office Visit [facility] OPTOMETRY [address] [place] [address] EliecerMeg banegas, OD [address] [place] [address] documented as of this encounter Visit Diagnoses Diagnosis Asthma, unspecified asthma severity, unspecified whether complicated, unspecified whether persistent documented in this encounter Additional Health Concerns Assessment Noted Time PHQ-9 Depression Total Score: 4 12/25/19 23 9:49 AM EDT documented as of this encounter Care Teams On Site Coordinator Relationship Specialty Start Date End Date Nadya Mauro MD [address] [place] [address] PCP - General Family Medicine 08/11/12 documented as of this encounter
== END 2025-06-21 12:15 | disposition home or self-care (01) ==
LOC: HO.HUSH 11:24
PROVIDERS: PCP Student in an Organized Health Care Education/Training Program; Visit Provider Nurse Practitioner Family
DX: R35.1 Nocturia (principal); E11.69 Type 2 diabetes mellitus with other specified complication; N52.1 Erectile dysfunction due to diseases classified elsewhere; N28.1 Cyst of kidney, acquired
CPT/HCPCS: 99213; G2211

== ENCOUNTER → 2025-06-21 11:24 | Outpatient (BNVA) | payer OTHER, SELFPAY | PROVIDERS: PCP Student in an Organized Health Care Education/Training Program; Visit Provider Nurse Practitioner Family | DX: R35.1 Nocturia (principal); N28.1 Cyst of kidney, acquired; E11.69 Type 2 diabetes mellitus with other specified complication; N52.1 Erectile dysfunction due to diseases classified elsewhere | CPT/HCPCS: 51798; 99212 ==

== ENCOUNTER 2025-08-02 10:58 | Outpatient (REF) | payer OTHER, SELFPAY ==
--- NOTE | ~2025-08-02 | US_ITS ---
CLINICAL HISTORY: K74.60 - Unspecified cirrhosis of liver US abdomen complete Comparison: None provided Findings: The pancreas was not well visualized secondary to overlying bowel gas. The IVC is unremarkable within visualized portions. The mid and distal aspects of the abdominal aorta are normal caliber. The proximal aorta was not well-visualized secondary to overlying bowel gas. The liver measures 14.3 cm in length. There is coarsening of liver echotexture and there is mild irregularity of the liver cortex compatible with the given clinical diagnosis of cirrhosis. There is no gross evidence of focal liver lesion. Right lobe length is 14.8 cm. There is no intrahepatic bile duct dilatation. The common duct is 3.0 mm in diameter. The gallbladder is normal. There is no sonographic Arreguin sign. The main portal vein is antegrade. The right kidney is 10.0 cm in length. The right kidney measures 10.0 cm. Left kidney measures 11.5 cm. There is a 6 mm cyst within the left kidney. There is no calculus or hydronephrosis. The spleen measures 13 cm in length. There is borderline splenomegaly. No ascites. IMPRESSION: Findings are compatible with cirrhosis of the liver. This document has been electronically signed by: Rina Selby MD on 08/02/2025 13:55:15
== END 2025-08-02 10:59 | disposition home or self-care (01) ==
LOC: HO.US 10:58
PROVIDERS: Visit Provider Internal Medicine
DX: K74.60 Unspecified cirrhosis of liver (principal)
CPT/HCPCS: 76700

== ENCOUNTER → 2025-08-02 11:00 | Outpatient (BNV) | payer OTHER, SELFPAY | PROVIDERS: Visit Provider Radiology Diagnostic Radiology | DX: K74.60 Unspecified cirrhosis of liver (principal) | CPT/HCPCS: 76700 ==